=== PATIENT | female | born 1960 ===

== ENCOUNTER 2024-12-26 12:36 | Outpatient (NON) | payer MEDICARE, SELFPAY ==
--- OUTSIDE RECORDS SUMMARY | 2024-12-24 09:42 | XMS_ITS | Encounter Summary ---
Author Organization [facility] Healthcare Address [address] [place] [address] Care Team Providers Care Brick Layer Name Role Phone Samantha Lyons RN Unavailable [phone] Benjy Perez MD Unavailable [phone] Arley Rousseau MD Primary Care Provider [phone] Kai Callejas MD Unavailable [phone] [facility] RN Unavailable Unavaila ble Encounter Details Date Type Department Care Team (Latest Contact Info) Description 12/24/2024 9:42 AM CDT - 12/24/2024 11:59 PM CDT Hospital Encounter [address] [address] Immunosuppression; 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); Kidney replaced by transplant Discharge Disposition: Discharge to home or self care Social History Tobacco Use Types Packs/Day Years Used Date Smoking Tobacco: Former Passive Smoke Exposure: Past Smokeless Tobacco: Never Alcohol Use Standard Drinks/Week Comments Never 0 (1 standard drink = 0.6 oz pur e alcohol) OASIS D0700: Social Isolation Answer Da te Recorded Frequency of experiencing loneliness or isolatio n Sometimes 05/13/2022 OASIS A1250: Transportation Answer Date Recorded Lack of Transportation (Medical) No 05/13/2022 Lack of Transportation (Non-Medical) Yes 05/13/2022 Patient Unable or Declines to Respond No 05/13/2022 OASIS B1300: Health Literacy Answer Gustavo e Recorded Frequency of needing help to read materials from doctor or pharmacy Sometimes 05/13/2022 [facility] Utilities Answer Date Recorded In the past 12 months has th e electric, gas, oil, or water company threatened to shut off services in your home? No 12/03/2024 Social Connection and Isolation Panel Answer Date Recorded In a typical week, how many times do you talk on the phone with family, friends, or neighbors? Three times a week 12/03/2024 How often do you get togethe r with friends or relatives? Three times a week 12/03/2024 How often do you attend chur ch or catholic services? Never 12/03/2024 Do you belong to any clubs o r organizations such as moravian groups, unions, fraternal or athletic groups, or school groups? No 12/03/2024 How often do you attend meet ings of the clubs or organizations you belong to? Never 12/03/2024 Are you , , di vorced, , never , or living with a partner? 12/03/2024 AUDIT-C Answer Date Recorded Q1: How often do you have a drink containing alcohol? Never 11/06/2024 Q2: How many drinks containi ng alcohol do you have on a typical day when you are drinking? Patient does not drink Q3: How often do you have si x or more drinks on one occasion? Never 11/06/2024 Overall Financial Resource Strain (CARDIA) Answe r Date Recorded How hard is it for you to pa y for the very basics like food, housing, medical care, and heating? Not very hard 12/03/2024 Hunger Vital Sign Answer Date Recorded Within the past 12 months, y ou worried that your food would run out before you got the money to buy more. Never true 12/04/19 25 Within the past 12 months, t he food you bought just didn't last and you didn't have money to get more. Never true 12/03/2024 PRAPARE - Transportation Answer Date Re corded In the past 12 months, has l ack of transportation kept you from medical appointments or from getting medications? No 07/2024 In the past 12 months, has l ack of transportation kept you from meetings, work, or from getting things needed for daily living? No 12/03/2024 Housing Stability Vital Sign Answer Gustavo e Recorded In the last 12 months, was t here a time when you were not able to pay the mortgage or rent on time? No 12/03/2024 In the past 12 months, how m any times have you moved where you were living? 0 12/03/2024 At any time in the past 12 m [facility], were you homeless or living in a senior care (including now)? No 12/03/2024 Personal Safety Answer Date Recorded Have you ever been in or are you currently in a harmful physical or emotional relationship or is someone making you feel afraid or unsafe? Denies 12/11/2024 Comments No Sex and Gender Information Value Date Recorded Sex Assigned at Not on file Legal Sex Female 7:39 AM YARDAGE ESTIMATOR Gender Identity Female 05/15/2018 8:32 AM YARDAGE ESTIMATOR Sexual Orientation Not on file documented as of this encounter Medications at Time of Discharge acetaminophen (TYLENOL) 500 mg tabletIndications:P ain Take 2 tablets (1,000 mg total) by mouth every 6 (six) hours as needed for pain 03/20/2022 amLODIPine (NORVASC) 2.5 mg tabletIndications:h ypertension Take 2 tablets (5 mg total) by mouth daily 30 tablet 2 12/12/2024 03/12/20 25 buPROPion XL (WELLBUTRIN XL) 150 mg 24 hr tablet Take 1 tablet (150 mg total) by mouth daily 30 tablet 12/12/2024 12/13/19 26 cyanocobalamin (Vitamin B-12) 2,000 mcg tablet Take 1 tablet (2,000 mcg total) by mouth daily 30 tablet 05/24/2024 05/24/19 26 dicyclomine (BENTYL) 20 mg tablet Take 1 tablet (20 mg total) by mouth every 6 (six) hours as needed (abdominal pain) 15 tablet 08/11/2024 empagliflozin (JARDIANCE) 10 mg tablet Take 1 tablet (10 mg total) by mouth daily 30 tablet 12/17/2024 12/18/19 26 EPINEPHrine 0.3 mg/0.3 mL auto-injection syringe INJECT 0.3ML INTO THE MUSCLE INSTRUCTED NEEDED FOR ANAPHYLAXIS 2 each 10/28/2023 estrogens, conjugated, (PREMARIN) vaginal cream Insert 0.5 g into the vagina every other day famotidine (PEPCID) 20 mg tablet Take 1 tablet (20 mg total) by mouth 2 (two) times a day 01/31/2024 gabapentin (NEURONTIN) 300 mg capsule Take 1 capsule (300 mg total) by mouth daily as needed (pain) lidocaine (LIDODERM) 5 % Place 1 patch on the skin daily for 12 hours Remove & discard patch within 12 hours or as directed by MD. 20 patch 12/04/2024 01/04/20 25 loratadine (CLARITIN REDITABS) 10 mg disintegrating tablet Take 1 tablet (10 mg total) by mouth daily as needed LORazepam (ATIVAN) 1 mg tablet Take 1 tablet (1 mg total) by mouth every 4 (four) hours as needed for anxiety losartan (COZAAR) 25 mg tablet Take 1 tablet (25 mg total) by mouth daily 30 tablet 1 12/12/2024 02/11/20 25 mupirocin (BACTROBAN) 2 % ointment APPLY TO AFFECTED AREA DAILY 110 g 11 02/13/[address] (MYFORTIC) 360 mg EC tabletIndications:I mmunosuppression,FS GS (focal segmental glomerulosclerosis) TAKE ONE TABLET BY MOUTH TWICE A DAY 60 tablet 11 05/16/2024 omeprazole (PriLOSEC) 20 mg capsule Take 1 capsule (20 mg total) by mouth 2 (two) times a day 03/05/2024 ondansetron (ZOFRAN) 4 mg tablet Take 1 tablet (4 mg total) by mouth every 6 (six) hours as needed patiromer calcium sorbitex (VELTASSA) packetIndications:H yperkalemia,Stage 3 chronic kidney disease, unspecified whether stage 3a or 3b CKD (HCC) Take 1 packet (8.4 g total) by mouth 2 (two) times a day 60 packet 12/17/2024 predniSONE (DELTASONE) 5 mg tablet TAKE ONE TABLET BY MOUTH EVERY DAY 90 tablet 3 02/20/2024 silver sulfadiazine (SILVADENE, SSD) 1 % cream Apply topically daily 85 g 08/30/2024 simethicone (MYLICON) 80 mg chewable tablet Take 2 tablets (160 mg total) by mouth 3 (three) times a day as needed for flatulence 30 tablet 12/04/2024 sodium bicarbonate 650 mg tablet Take 2 tablets (1,300 mg total) by mouth 3 (three) times a day 180 tablet 01/12/2024 01/12/20 25 spironolactone (ALDACTONE) 25 mg tablet Take 1 tablet (25 mg total) by mouth daily 30 tablet 12/12/2024 12/13/19 26 tacrolimus 1 mg immediate-release capsule Take 3 capsules (3 mg total) by mouth freelance operator before breakfast AND 2 capsules (2 mg total) nightly. Take 3 capsules (3 mg total) by mouth daily before breakfast AND 2 capsule (2 mg total) nightly. 150 capsule 12/17/2024 12/18/19 26 vitamin A 2,400 mcg (8,000 units) capsule Take 1 capsule (8,000 Units total) by mouth daily documented as of this encounter Discharge Disposition Disposition Code Departure Means Destination Discharge to home or self care documented in this encounter Plan of Treatment Upcoming Encounters Date Type Department Care Team (Latest Contact Info) Description 01/01/2025 Research Med Pick-Up/CTRU Foam Molder [facility] Clinical Trial 1 [place] [address] Stu Guan RC Research study patient (Primary Dx) documented as of this encounter Procedures Procedure Name Priority Date/Time Associated Diagnosis Comments TACROLIMUS LEVEL, TROUGH Routine 12/24/2024 11:07 AM CDT Immunosuppression 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) Kidney replaced by transplant documented in this encounter Results * Tacrolimus level trough (12/24/2024 11:07 AM CDT) Tacrolimus trough 5.6 ng/mL Comment: Interpretive Data Testing performed by liquid chromatography-tandem mass spectrometry. Therapeutic concentrations vary depending on type of transplanted organ and time elapsed since transplant. Typical trough concentrations range from 5-15 ng/mL. This test was developed and its performance characteristics determined by the [facility] consistent with CLIA requirements. This test has not been cleared or approved by the [place] Food and Drug administration. Current interpretive data last reviewed 2019. Blood 12/24/2024 11:0 7 AM CDT 12/24/2024 11:19 AM CDT us Benjy Perez MD LAB BLOOD ORDERABLES Final Re sult [facility] Department [place] [address] documented in this encounter Visit Diagnoses Diagnosis Immunosuppression 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) Kidney replaced by transplant Research study patient- Primary documented in this encounter Care Teams Brick Layer Relationship Specialty Start Date End Date Arley Rousseau MD [address] [place] [address] PCP - General Sports Medicine 03/17/22 Samantha Lyons RN [address] [facility] [facility] [address] [place] [address] Green Ware Caster 09/27/17 Benjy Perez MD [address] [facility] [address] [place] [address] Referring Physician Nephrology 05/15/18 Kai Callejas MD [address] [facility] [address] [place] [address] Surgeon Vascular Surgery 11/06/24 [facility], sales assistant entertainment and mediaGreen Ware Caster 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
--- OUTSIDE RECORDS SUMMARY | 2024-12-26 12:47 | XMS_ITS | Encounter Summary ---
Author Organization [facility] Facility Care Team Providers Care Radiology Rn Name Role Phone Angelita Blanco MD Primary Care Provider [phone] Samantha Lyons RN Unavailable [phone] Nimisha Bradford RN Unavailable [phone] Benjy Perez MD Unavailable [phone] Benjy Perez MD Primary Care Provider [phone] Angelita Blanco MD Primary Care Provider [phone] Johnny Goldberg MD Primary Care Provider [phone] Angelita Blanco MD Primary Care Provider [phone] Rosey Reyes MD Primary Care Provider [phone] Benjy Perez MD Primary Care Provider [phone] Benjy Perez MD Primary Care Provider [phone] Rosey Reyes MD Primary Care Provider [phone] Vivienne Morataya MD Primary Care Provider [phone] Vivienne Morataya MD Primary Care Provider [phone] Benjy Perez MD Primary Care Provider [phone] Rosey Reyes MD Primary Care Provider [phone] Benjy Perez MD Primary Care Provider [phone] Arley Rousseau MD Primary Care Provider [phone] Benjy Perez MD Primary Care Provider [phone] Arley Rousseau MD Primary Care Provider + Benjy Perez MD Primary Care Provider [phone] Arley Rousseau MD Primary Care Provider + Yajaira Ritter RN Unavailable [phone] Kai Callejas MD Unavailable + [phone] [facility] RN Unavailable Unavaila ble Encounter Details Date Type Department Care Team (Latest Contact Info) Description 10/13/2016 Orders Only [facility] CLINCONV Provider, MD Eileen [address] [place] [address] Social History Tobacco Use Types Packs/Day Years Used Date Smoking Tobacco: Never Comments Unknown Sex and Gender Information Value Date Recorded Sex Assigned at Not on file Legal Sex Female 7:39 AM CONTENT CURATOR Gender Identity Female 05/15/2018 8:32 AM CONTENT CURATOR Sexual Orientation Not on file documented as of this encounter Plan of Treatment Upcoming Encounters Date Type Department Care Team (Latest Contact Info) Description 01/01/2025 Research Med Pick-Up/CTRU Historic Sites Registrar [facility] Clinical Trial 1 [place] [address] Stu Guan RC Research study patient (Primary Dx) documented as of this encounter Procedures Procedure Name Priority Date/Time Associated Diagnosis Comments SCAN - LABS 10/19/2016 12:00 AM CDT SCAN - LABS 10/14/2016 12:00 AM CDT SCAN - LABS 10/14/2016 12:00 AM CDT SCAN - LABS 10/14/2016 12:00 AM CDT documented in this encounter Results * SCAN - LABS (10/19/2016 12:00 AM CDT) Narrative 10/19/2016 12:00 AM CDT Ordered by an unspecified provider. [facility] Provider Final Res ult * SCAN - LABS (10/14/2016 12:00 AM CDT) Narrative 10/14/2016 12:00 AM CDT Ordered by an unspecified provider. [facility] Provider Final Res ult * SCAN - LABS (10/14/2016 12:00 AM CDT) Narrative 10/14/2016 12:00 AM CDT Ordered by an unspecified provider. [facility] Provider Final Res ult * SCAN - LABS (10/14/2016 12:00 AM CDT) Narrative 10/14/2016 12:00 AM CDT Ordered by an unspecified provider. [facility] Provider Final Res ult documented in this encounter Visit Diagnoses Not on filedocumented in this encounter Additional Health Concerns Infection Onset Date Last Indicated Resolved Time COVID: Suspected 03/12/2023 03/12/2023 03/12/2023 3:55 PM CONTENT CURATOR COVID: Suspected 05/21/2024 05/21/2024 05/21/2024 7:13 AM CONTENT CURATOR documented as of this encounter Care Teams Radiology Rn Relationship Specialty Start Date End Date Angelita Blanco MD [address] [facility] [address] [place] [address] PCP - General 08/18/16 05/25/18 Benjy Perez MD [address] [facility] [address] [place] [address] PCP - General 05/26/18 05/29/18 Angelita Blanco MD [address] [place] [address] PCP - General 05/30/18 09/11/18 Johnny Goldberg MD [address] [facility] [address] [place] [address] PCP - General 09/12/18 09/25/18 Angelita Blanco MD [address] [facility] [address] [place] [address] PCP - General 09/26/18 11/14/18 Rosey Reyes MD [address] [facility] [address] [place] [address] PCP - General 11/15/18 01/11/19 Benjy Perez MD [address] [facility] [address] [place] [address] PCP - General 02/08/19 02/08/19 Benjy Perez MD [address] [facility] [address] [place] [address] PCP - General 01/12/19 02/07/19 Rosey Reyes MD [address] [facility] [address] [place] [address] PCP - General 06/20/19 09/30/19 Vivienne Morataya MD [address] [facility] [address] [place] [address] PCP - General 10/01/19 10/11/19 Vivienne Morataya MD [address] [facility] [address] [place] [address] PCP - General 02/09/19 06/19/19 Benjy Perez MD [address] [place] [address] PCP - General 10/12/19 06/25/20 Rosey Reyes MD [address] [facility] [address] [place] [address] PCP - General 06/26/20 08/19/20 Benjy Perez MD [address] [place] [address] PCP - General 08/20/20 08/25/20 Arley Rousseau MD [address] [facility] [address] [place] [address] PCP - General Sports Medicine 08/26/20 08/28/20 Benjy Perez MD [address] [place] [address] PCP - General 08/29/20 04/27/21 Arley Rousseau MD [address] [facility] [address] [place] [address] PCP - General Sports Medicine 04/28/21 08/25/21 Benjy Perez MD [address] [facility] [address] [place] [address] PCP - General Nephrology 08/26/21 03/16/22 Arley Rousseau MD [address] [place] [address] PCP - General Sports Medicine 03/17/22 Samantha Lyons, RN [address] [place] [address] Laboratory Mechanical Technician 09/27/17 Nimisha rBadford, RN [address] [facility] [address] [place] [address] Laboratory Mechanical Technician 10/03/17 5 Benjy Perez MD [address] [facility] [address] [place] [address] Referring Physician Nephrology 05/15/18 Yajaira Ritter RN [address] [place] [address] Nurse Navigator 04/27/22 06/03/22 Kai Callejas MD [address] [facility] [address] [facility] [address] [place] [address] Surgeon Vascular Surgery 11/06/24 [facility], auger press operatorLaboratory Mechanical Technician 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
--- OUTSIDE RECORDS SUMMARY | 2024-12-26 12:47 | XMS_ITS | Encounter Summary ---
Author Organization [facility] Facility Care Team Providers Care Physical Security Manager Name Role Phone Angelita Blanco MD Primary Care Provider [phone] Samantha Lyons RN Unavailable [phone] Nimisha Bradford RN Unavailable [phone] Benjy Perez MD Unavailable [phone] Benjy Perez MD Primary Care Provider [phone] Angelita Blanco MD Primary Care Provider [phone] Johnny Goldberg MD Primary Care Provider [phone] Angelita Blanco MD Primary Care Provider [phone] Rosey Reyes MD Primary Care Provider [phone] Benjy Perez MD Primary Care Provider [phone] Benjy Perez MD Primary Care Provider [phone] Rosey Reyes MD Primary Care Provider [phone] Vivienne Morataya MD Primary Care Provider [phone] Vivienne Morataya MD Primary Care Provider [phone] Benjy Perez MD Primary Care Provider [phone] Rosey Reyes MD Primary Care Provider [phone] Benjy Perez MD Primary Care Provider [phone] Arley Rousseua MD Primary Care Provider [phone] Benjy Perez MD Primary Care Provider [phone] Arley Rousseau MD Primary Care Provider [phone] Benjy Perez MD Primary Care Provider [phone] Arley Rousseau MD Primary Care Provider + Yajaira Ritter RN Unavailable [phone] Kai Callejas MD Unavailable + [facility] RN Unavailable Unavaila ble Encounter Details Date Type Department Care Team (Latest Contact Info) Description 10/18/2016 Orders Only [facility] CLINCONV Provider, MD Eileen [address] [place] [address] Social History Tobacco Use Types Packs/Day Years Used Date Smoking Tobacco: Never Comments Unknown Sex and Gender Information Value Date Recorded Sex Assigned at Not on file Legal Sex Female 7:39 AM DIRECTOR OF EDUCATION Gender Identity Female 05/15/2018 8:32 AM DIRECTOR OF EDUCATION Sexual Orientation Not on file documented as of this encounter Plan of Treatment Upcoming Encounters Date Type Department Care Team (Latest Contact Info) Description 01/01/2025 Research Med Pick-Up/CTRU Logistics Solution Manager [facility] Clinical Trial 1 [place] [address] Stu Guan RC Research study patient (Primary Dx) documented as of this encounter Procedures Procedure Name Priority Date/Time Associated Diagnosis Comments SCAN - LABS 10/19/2016 12:00 AM CDT SCAN - LABS 10/18/2016 12:00 AM CDT documented in this encounter Results * SCAN - LABS (10/19/2016 12:00 AM CDT) Narrative 10/19/2016 12:00 AM CDT Ordered by an unspecified provider. us Historical Provider Final Res ult * SCAN - LABS (10/18/2016 12:00 AM CDT) Narrative 10/18/2016 12:00 AM CDT Ordered by an unspecified provider. Historical Provider Final Res ult documented in this encounter Visit Diagnoses Not on filedocumented in this encounter Additional Health Concerns Infection Onset Date Last Indicated Resolved Time COVID: Suspected 03/12/2023 03/12/2023 03/12/2023 3:55 PM DIRECTOR OF EDUCATION COVID: Suspected 05/21/2024 05/21/2024 05/21/2024 7:13 AM DIRECTOR OF EDUCATION documented as of this encounter Care Teams Physical Security Manager Relationship Specialty Start Date End Date Angelita Blanco MD [address] [address] PCP - General 08/18/16 05/25/18 Benjy Perez MD [address] [address] PCP - General 05/26/18 05/29/18 Angelita Blanco MD [address] [address] PCP - General 05/30/18 09/11/18 Johnny Goldberg MD [address] [address] PCP - General 09/12/18 09/25/18 Angelita Blanco MD [address] [address] PCP - General 09/26/18 11/14/18 Rosey Reyes MD [address] [address] PCP - General 11/15/18 01/11/19 Benjy Perez MD [address] [facility] [address] [place] [address] PCP - General 02/08/19 02/08/19 Benjy Perez MD [address] [address] PCP - General 01/12/19 02/07/19 Rosey Reyes MD [address] [place] [address] [address] [place] [address] PCP - General 06/20/19 09/30/19 Vivienne Morataya MD [address] [address] PCP - General 10/01/19 10/11/19 Vivienne Morataya MD [address] [address] PCP - General 02/09/19 06/19/19 Benjy Perez MD [address] [address] PCP - General 10/12/19 06/25/20 Rosey Reyes MD [address] [address] PCP - General 06/26/20 08/19/20 Benjy Perez MD [address] [place] [address] PCP - General 08/20/20 08/25/20 Arley Rousseau MD [address] [facility] [address] [place] [address] PCP - General Sports Medicine 08/26/20 08/28/20 Benjy Perez MD [address] [facility] [address] [place] [address] PCP - General 08/29/20 04/27/21 Arley Rousseau MD [address] [facility] [address] [place] [address] PCP - General Sports Medicine 04/28/21 08/25/21 Benjy Perez MD [address] [facility] [address] [place] [address] PCP - General Nephrology 08/26/21 03/16/22 Arley Rousseau MD [address] [place] [address] PCP - General Sports Medicine 03/17/22 Samantha Lyons RN [address] [facility] [address] [place] [address] Sustainable Development Policy Analyst 09/27/17 Nimisha Bradford RN [address] [facility] [address] [place] [address] Sustainable Development Policy Analyst 10/03/17 5 Benjy Perez MD [address] [facility] [address] [place] [address] Referring Physician Nephrology 05/15/18 Yajaira Ritter, RN [address] [place] [address] Nurse Navigator 04/27/22 06/03/22 Kai Callejas MD [address] [facility] [address] [place] [address] Surgeon Vascular Surgery 11/06/24 [facility], contract runnerSustainable Development Policy Analyst 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
--- OUTSIDE RECORDS SUMMARY | 2024-12-26 12:47 | XMS_ITS | Encounter Summary ---
Author Organization [facility] Facility Care Team Providers Care Supervisor Audit Clerks Name Role Phone Angelita Blanco MD Primary Care Provider [phone] Samantha Lyons RN Unavailable +[phone] Nimisha Bradford RN Unavailable +[phone] Benjy Perez MD Unavailable +[phone] Benjy Perez MD Primary Care Provider +[phone] Angelita Blanco MD Primary Care Provider +[phone] Johnny Goldberg MD Primary Care Provider [phone] Angelita Blanco MD Primary Care Provider +[phone] Rosey Reyes MD Primary Care Provider +[phone] Benjy Perez MD Primary Care Provider +[phone] Benjy Perez MD Primary Care Provider +[phone] Rosey Reyes MD Primary Care Provider +[phone] Vivienne Morataya MD Primary Care Provider [phone] Vivienne Morataya MD Primary Care Provider +[phone] Benjy Perez MD Primary Care Provider +[phone] Rosey Reyes MD Primary Care Provider +[phone] Benjy Perez MD Primary Care Provider +[phone] Arley Rousseau MD Primary Care Provider +[phone] Benjy Perez MD Primary Care Provider +[phone] Arley Rousseau MD Primary Care Provider +[phone] Benjy Perez MD Primary Care Provider +[phone] Arley Rousseau MD Primary Care Provider + Yajaira Ritter RN Unavailable +[phone] Kai Callejas MD Unavailable + [facility] RN Unavailable Unavaila ble Encounter Details Date Type Department Care Team (Latest Contact Info) Description 07/01/2016 Orders Only MMG CLINCONV Provider, MD Eileen [address] [place] [address] Social History Tobacco Use Types Packs/Day Years Used Date Smoking Tobacco: Never Comments Unknown Sex and Gender Information Value Date Recorded Sex Assigned at Not on file Legal Sex Female 7:39 AM STAVE BOLT EQUALIZER Gender Identity Female 05/15/2018 8:32 AM STAVE BOLT EQUALIZER Sexual Orientation Not on file documented as of this encounter Plan of Treatment Upcoming Encounters Date Type Department Care Team (Latest Contact Info) Description 01/01/2025 Research Med Pick-Up/CTRU Driveway Attendant [facility] Clinical Trial 1 [place] [address] Stu Guan RC Research study patient (Primary Dx) documented as of this encounter Procedures Procedure Name Priority Date/Time Associated Diagnosis Comments SCAN - LABS 07/02/2016 12:00 AM STAVE BOLT EQUALIZER documented in this encounter Results * SCAN - LABS (07/02/2016 12:00 AM STAVE BOLT EQUALIZER) Narrative 07/02/2016 12:00 AM STAVE BOLT EQUALIZER Ordered by an unspecified provider. Historical Provider Final Res ult documented in this encounter Visit Diagnoses Not on filedocumented in this encounter Additional Health Concerns Infection Onset Date Last Indicated Resolved Time COVID: Suspected 03/12/2023 03/12/2023 03/12/2023 3:55 PM STAVE BOLT EQUALIZER COVID: Suspected 05/21/2024 05/21/2024 05/21/2024 7:13 AM STAVE BOLT EQUALIZER documented as of this encounter Care Teams Supervisor Audit Clerks Relationship Specialty Start Date End Date Angelita Blanco MD [address] [facility] 103 [place] [address] PCP - General 08/18/16 05/25/18 Benjy Perez MD [address] [place] [address] PCP - General 05/26/18 05/29/18 Angelita Blanco MD [address] [facility] 103 [place] [address] PCP - General 05/30/18 09/11/18 Johnny Goldberg MD [address] [id number] PCP - General 09/12/18 09/25/18 Angelita Blanco MD [address] [facility] 103 [place] [address] PCP - General 09/26/18 11/14/18 Rosey Reyes MD [address] [address] PCP - General 11/15/18 01/11/19 Benjy Perez MD [address] [place] [address] PCP - General 02/08/19 02/08/19 Benjy Perez MD [address] [place] [address] PCP - General 01/12/19 02/07/19 Rosey Reyes MD [address] [facility] 200 [place] [address] PCP - General 06/20/19 09/30/19 Vivienne Morataya MD [address] [address] PCP - General 10/01/19 10/11/19 Vivienne Morataya MD [address] [address] PCP - General 02/09/19 06/19/19 Benjy Perez MD [address] [facility] [address] [place] [address] PCP - General 10/12/19 06/25/20 Rosey Reyes MD [address] [address] PCP - General 06/26/20 08/19/20 Benjy Perez MD [address] [facility] [address] [place] [address] PCP - General 08/20/20 08/25/20 Arley Rousseau MD [address] [facility] 200 [place] [address] PCP - General Sports Medicine 08/26/20 08/28/20 Benjy Perez MD [address] [address] PCP - General 08/29/20 04/27/21 Arley Rousseau MD [address] [address] PCP - General Sports Medicine 04/28/21 08/25/21 Benjy Perez MD [address] [address] PCP - General Nephrology 08/26/21 03/16/22 Arley Rousseau MD [address] [place] [address] PCP - General Sports Medicine 03/17/22 Samantha Lyons RN [address] [address] Retail Tire Sales Manager 09/27/17 Nimisha Bradford RN [address] [address] Retail Tire Sales Manager 10/03/17 5 Benjy Perez MD [address] [address] Referring Physician Nephrology 05/15/18 Yajaira Ritter RN 4590 [place] [address] Nurse Navigator 04/27/22 06/03/22 Kai Callejas MD [address] [facility] [address] [facility] [address]120 [place] [address] Surgeon Vascular Surgery 11/06/24 [facility], labor law professorRetail Tire Sales Manager 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
--- OUTSIDE RECORDS SUMMARY | 2024-12-26 12:47 | XMS_ITS | Encounter Summary ---
Author Organization [facility] Facility Care Team Providers Care Double Spindle Shaper Operator Name Role Phone Angelita Blanco MD Primary Care Provider [phone] Samantha Lyons RN Unavailable +[phone] Nimisha Bradford RN Unavailable +[phone] Benjy Perez MD Unavailable +[phone] Benjy Perez MD Primary Care Provider +[phone] Angelita Blanco MD Primary Care Provider +[phone] Johnny Goldberg MD Primary Care Provider [phone] Angelita Blanco MD Primary Care Provider +[phone] Rosey Reyes MD Primary Care Provider +[phone] Benjy Perez MD Primary Care Provider +[phone] Benjy Perez MD Primary Care Provider +[phone] Rosey Reyes MD Primary Care Provider [phone] Vivienne Morataya MD Primary Care Provider [phone] Vivienne Morataya MD Primary Care Provider [phone] Benjy Perez MD Primary Care Provider +[phone] Rosey Reyes MD Primary Care Provider +[phone] Benjy Perez MD Primary Care Provider +[phone] Arley Rousseau MD Primary Care Provider + Benjy Perez MD Primary Care Provider +[phone] Arley Rousseau MD Primary Care Provider + Benjy Perez MD Primary Care Provider +[phone] Arley Rousseau MD Primary Care Provider + Yajaira Ritter RN Unavailable +[phone] Kai Callejas MD Unavailable + [facility] RN Unavailable Unavaila ble Encounter Details Date Type Department Care Team (Latest Contact Info) Description 09/13/2016 Orders Only MMG CLINCONV Provider, MD Eileen [address] [place] [address] Social History Tobacco Use Types Packs/Day Years Used Date Smoking Tobacco: Never Comments Unknown Sex and Gender Information Value Date Recorded Sex Assigned at Not on file Legal Sex Female 7:39 AM AMF MECHANIC Gender Identity Female 05/15/2018 8:32 AM AMF MECHANIC Sexual Orientation Not on file documented as of this encounter Plan of Treatment Upcoming Encounters Date Type Department Care Team (Latest Contact Info) Description 01/01/2025 Research Med Pick-Up/CTRU Project Assistant [facility] Clinical Trial 1 [place] [address] Stu Guan RC Research study patient (Primary Dx) documented as of this encounter Procedures Procedure Name Priority Date/Time Associated Diagnosis Comments SCAN - LABS 09/20/2016 12:00 AM CDT SCAN - LABS 09/14/2016 12:00 AM CDT SCAN - LABS 09/14/2016 12:00 AM CDT SCAN - LABS 09/14/2016 12:00 AM CDT documented in this encounter Results * SCAN - LABS (09/20/2016 12:00 AM CDT) Narrative 09/20/2016 12:00 AM CDT Ordered by an unspecified provider. Historical Provider Final Res ult * SCAN - LABS (09/14/2016 12:00 AM CDT) Narrative 09/14/2016 12:00 AM CDT Ordered by an unspecified provider. [facility] Provider Final Res ult * SCAN - LABS (09/14/2016 12:00 AM CDT) Narrative 09/14/2016 12:00 AM CDT Ordered by an unspecified provider. [facility] Provider Final Res ult * SCAN - LABS (09/14/2016 12:00 AM CDT) Narrative 09/14/2016 12:00 AM CDT Ordered by an unspecified provider. [facility] Provider Final Res ult documented in this encounter Visit Diagnoses Not on filedocumented in this encounter Additional Health Concerns Infection Onset Date Last Indicated Resolved Time COVID: Suspected 03/12/2023 03/12/2023 03/12/2023 3:55 PM AMF MECHANIC COVID: Suspected 05/21/2024 05/21/2024 05/21/2024 7:13 AM AMF MECHANIC documented as of this encounter Care Teams Double Spindle Shaper Operator Relationship Specialty Start Date End Date Angelita Blanco MD [address] [facility] 103 [place] [address] PCP - General 08/18/16 05/25/18 Benjy Perez MD [address] [facility] 3401 [place] [address] PCP - General 05/26/18 05/29/18 Angelita Blanco MD [address] [place] [address] PCP - General 05/30/18 09/11/18 Johnny Goldberg MD [address] [facility] 200 [place] [address] PCP - General 09/12/18 09/25/18 Angelita Blanco MD [address] [facility] 103 [place] [address] PCP - General 09/26/18 11/14/18 Rosey Reyes MD [address] [facility] 200 [place] [address] PCP - General 11/15/18 01/11/19 Benjy Perez MD [address] [facility] 3401 [place] [address] PCP - General 02/08/19 02/08/19 Benjy Perez MD [address] [facility] 3401 [place] [address] PCP - General 01/12/19 02/07/19 Rosey Reyes MD [address] [facility] 200 [place] [address] PCP - General 06/20/19 09/30/19 Vivienne Morataya MD [address] [facility] [address] [place] [address] PCP - General 10/01/19 10/11/19 Vivienne Morataya MD [address] [facility] [address] [place] [address] PCP - General 02/09/19 06/19/19 Benjy Perez MD [address] [place] [address] PCP - General 10/12/19 06/25/20 Rosey Reyes MD [address] [facility] [address] [place] [address] PCP - General 06/26/20 08/19/20 Benjy Perez MD [address] [place] [address] PCP - General 08/20/20 08/25/20 Arley Rousseau MD [address] [facility] 200 [place] [address] PCP - General Sports Medicine 08/26/20 08/28/20 Benjy Perez MD [address] [place] [address] PCP - General 08/29/20 04/27/21 Arley Rousseau MD [address] [facility] 200 [place] [address] PCP - General Sports Medicine 04/28/21 08/25/21 Benjy Perez MD [address] [facility] [address] [place] [address] PCP - General Nephrology 08/26/21 03/16/22 Arley Rousseau MD [address]70 [place] [address] PCP - General Sports Medicine 03/17/22 Samantha Lyons, RN [address] [place] [address] Cleat Feeder 09/27/17 Nimisha Bradford, RN [address] [facility] [address]01 [place] [address] Cleat Feeder 10/03/17 5 Benjy Perez MD [address] [facility] [address] [place] [address] Referring Physician Nephrology 05/15/18 Yajaira Ritter RN 4590 [place] [address] Nurse Navigator 04/27/22 06/03/22 Kai Callejas MD [address] [facility] [address] [facility] [address] [place] [address] Surgeon Vascular Surgery 11/06/24 [facility], civil engineering specialistCleat Feeder 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
--- OUTSIDE RECORDS SUMMARY | 2024-12-26 12:47 | XMS_ITS | Encounter Summary ---
Author Organization [facility] Facility Care Team Providers Care Communications Tower Climber Name Role Phone Angelita Blanco MD Primary Care Provider [phone] Samantha Lyons RN Unavailable [phone] Nimisha Bradford RN Unavailable +[phone] Benjy Perez MD Unavailable +[phone] Benjy Perez MD Primary Care Provider [phone] Angelita Blanco MD Primary Care Provider +[phone] Johnny Goldberg MD Primary Care Provider [phone] Angelita Blanco MD Primary Care Provider +[phone] Rosey Reyes MD Primary Care Provider +[phone] Benjy Perez MD Primary Care Provider [phone] Benjy Perez MD Primary Care Provider [phone] Rosey Reyes MD Primary Care Provider [phone] Vivienne Morataya MD Primary Care Provider [phone] Vivienne Morataya MD Primary Care Provider [phone] Benjy Perez MD Primary Care Provider +[phone] Rosey Reyes MD Primary Care Provider +[phone] Benjy Perez MD Primary Care Provider [phone] Arley Rousseau MD Primary Care Provider +[phone] Benjy Perez MD Primary Care Provider [phone] Arley Rousseau MD Primary Care Provider + Benjy Perez MD Primary Care Provider +[phone] Arley Rousseau MD Primary Care Provider + Yajaira Ritter RN Unavailable +[phone] Kai Callejas MD Unavailable + [facility] RN Unavailable Unavaila ble Encounter Details Date Type Department Care Team (Latest Contact Info) Description 09/20/2016 Orders Only MMG CLINCONV Provider, MD Eileen [address] [place] [address] Social History Tobacco Use Types Packs/Day Years Used Date Smoking Tobacco: Never Comments Unknown Sex and Gender Information Value Date Recorded Sex Assigned at Not on file Legal Sex Female 7:39 AM STEEL ENGRAVER Gender Identity Female 05/15/2018 8:32 AM STEEL ENGRAVER Sexual Orientation Not on file documented as of this encounter Plan of Treatment Upcoming Encounters Date Type Department Care Team (Latest Contact Info) Description 01/01/2025 Research Med Pick-Up/CTRU Open Soaper Tender [facility] Clinical Trial 1 [place] [address] Stu Guan RC Research study patient (Primary Dx) documented as of this encounter Procedures Procedure Name Priority Date/Time Associated Diagnosis Comments SCAN - LABS 09/21/2016 12:00 AM CDT documented in this encounter Results * SCAN - LABS (09/21/2016 12:00 AM CDT) Narrative 09/21/2016 12:00 AM CDT Ordered by an unspecified provider. us Historical Provider Final Res ult documented in this encounter Visit Diagnoses Not on filedocumented in this encounter Additional Health Concerns Infection Onset Date Last Indicated Resolved Time COVID: Suspected 03/12/2023 03/12/2023 03/12/2023 3:55 PM STEEL ENGRAVER COVID: Suspected 05/21/2024 05/21/2024 05/21/2024 7:13 AM STEEL ENGRAVER documented as of this encounter Care Teams Communications Tower Climber Relationship Specialty Start Date End Date Angelita Blanco MD [address] [facility] 103 [place] [address] PCP - General 08/18/16 05/25/18 Benjy Perez MD [address] [place] [address] PCP - General 05/26/18 05/29/18 Angelita Blanco MD [address] [facility] [address] [place] [address] PCP - General 05/30/18 09/11/18 Johnny Goldberg MD [address] [id number] PCP - General 09/12/18 09/25/18 Angelita Blanco MD [address] [facility] 103 [place] [address] PCP - General 09/26/18 11/14/18 Rosey Reyes MD [address] [facility] 200 [place] [address] PCP - General 11/15/18 01/11/19 Benjy Perez MD [address] [place] [address] PCP - General 02/08/19 02/08/19 Benjy Perez MD [address] [facility] [address]01 [place] [address] PCP - General 01/12/19 02/07/19 Rosey Reyes MD [address] [facility] 200 [place] [address] PCP - General 06/20/19 09/30/19 Vivienne Morataya MD [address] [address] PCP - General 10/01/19 10/11/19 Vivienne Morataya MD [address] [address] PCP - General 02/09/19 06/19/19 Benjy Perez MD [address] [facility] [address]01 [place] [address] PCP - General 10/12/19 06/25/20 Rosey Reyes MD [address] [address] PCP - General 06/26/20 08/19/20 Benjy Perez MD [address] [facility] [address] [place] [address] PCP - General 08/20/20 08/25/20 Arley Rousseau MD [address] [facility] 200 [place] [address] PCP - General Sports Medicine 08/26/20 08/28/20 Benjy Perez MD [address] [address] PCP - General 08/29/20 04/27/21 Arley Rousseau MD [address] [address] PCP - General Sports Medicine 04/28/21 08/25/21 Benjy Perez MD [address] [address] PCP - General Nephrology 08/26/21 03/16/22 Arley Rousseau MD [address] [place] [address] PCP - General Sports Medicine 03/17/22 Samantha Lyons RN [address] [address] Argon Tester 09/27/17 Nimisha Bradford RN [address] [address] Argon Tester 10/03/17 5 Benjy Perez MD [address] [address] Referring Physician Nephrology 05/15/18 Yajaira Ritter, RN [address]90 [place] [address] Nurse Navigator 04/27/22 06/03/22 Kai Callejas MD 4600 [facility] [address]120 [facility] [address] [place] [address] Surgeon Vascular Surgery 11/06/24 [facility], pony ride operatorArgon Tester 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
--- OUTSIDE RECORDS SUMMARY | 2024-12-26 12:47 | XMS_ITS | Encounter Summary ---
Author Organization [facility] Facility Care Team Providers Care Mold Polisher Name Role Phone Angelita Blanco MD Primary Care Provider [phone] Samantha Lyons RN Unavailable [phone] Nimisha Bradford RN Unavailable +[phone] Benjy Perez MD Unavailable +[phone] Benjy Perez MD Primary Care Provider [phone] Angelita Blanco MD Primary Care Provider +[phone] Johnny Goldberg MD Primary Care Provider [phone] Angelita Blanco MD Primary Care Provider +[phone] Rosey Reyes MD Primary Care Provider +[phone] Benjy Perez MD Primary Care Provider +[phone] Benjy Perez MD Primary Care Provider +[phone] Rosey Reyes MD Primary Care Provider +[phone] Vivienne Morataya MD Primary Care Provider [phone] Vivienne Morataya MD Primary Care Provider [phone] Benjy Perez MD Primary Care Provider +[phone] Rosey Reyes MD Primary Care Provider +[phone] Benjy Perez MD Primary Care Provider +[phone] Arley Rousseau MD Primary Care Provider +00 Benjy Perez MD Primary Care Provider [phone] Arley Rousseau MD Primary Care Provider +[phone] Benjy Perez MD Primary Care Provider +[phone] Arley Rousseau MD Primary Care Provider + Yajaira Ritter RN Unavailable +[phone] Kai Callejas MD Unavailable + [phone] [facility] RN Unavailable Unavaila ble Encounter Details Date Type Department Care Team (Latest Contact Info) Description 10/14/2016 Orders Only MMG CLINCONV Provider, MD Eileen [address] [place] [address] Social History Tobacco Use Types Packs/Day Years Used Date Smoking Tobacco: Never Comments Unknown Sex and Gender Information Value Date Recorded Sex Assigned at Not on file Legal Sex Female 7:39 AM UNDERWEAR TRIMMER Gender Identity Female 05/15/2018 8:32 AM UNDERWEAR TRIMMER Sexual Orientation Not on file documented as of this encounter Plan of Treatment Upcoming Encounters Date Type Department Care Team (Latest Contact Info) Description 01/01/2025 Research Med Pick-Up/CTRU Foundry Metallurgist [facility] Clinical Trial 1 [place] [address] Stu Guan RC Research study patient (Primary Dx) documented as of this encounter Procedures Procedure Name Priority Date/Time Associated Diagnosis Comments SCAN - LABS 10/14/2016 12:00 AM CDT documented in this encounter Results * SCAN - LABS (10/14/2016 12:00 AM CDT) Narrative 10/14/2016 12:00 AM CDT Ordered by an unspecified provider. us Historical Provider Final Res ult documented in this encounter Visit Diagnoses Not on filedocumented in this encounter Additional Health Concerns Infection Onset Date Last Indicated Resolved Time COVID: Suspected 03/12/2023 03/12/2023 03/12/2023 3:55 PM UNDERWEAR TRIMMER COVID: Suspected 05/21/2024 05/21/2024 05/21/2024 7:13 AM UNDERWEAR TRIMMER documented as of this encounter Care Teams Mold Polisher Relationship Specialty Start Date End Date Angelita Blanco MD [address] [facility] 103 [place] [address] PCP - General 08/18/16 05/25/18 Benjy Perez MD [address] [place] [address] PCP - General 05/26/18 05/29/18 Angelita Blanco MD [address] [facility] 103 [place] [address] PCP - General 05/30/18 09/11/18 Johnny Goldberg MD [address] [id number] PCP - General 09/12/18 09/25/18 Angelita Blanco MD [address] [facility] 103 [place] [address] PCP - General 09/26/18 11/14/18 Rosey Reyes MD [address] [facility] 200 [place] [address] PCP - General 11/15/18 01/11/19 Benjy Perez MD [address] [place] [address] PCP - General 02/08/19 02/08/19 Benjy Perez MD [address] [facility] 3401 [place] [address] PCP - General 01/12/19 02/07/19 Rosey Reyes MD [address] [facility] 200 [place] [address] PCP - General 06/20/19 09/30/19 Vivienne Morataya MD [address] [address] PCP - General 10/01/19 10/11/19 Vivienne Morataya MD [address] [address] PCP - General 02/09/19 06/19/19 Benjy Perez MD [address] [facility] [address]01 [place] [address] PCP - General 10/12/19 06/25/20 Rosey Reyes MD [address] [address] PCP - General 06/26/20 08/19/20 Benjy Perez MD [address] [facility] [address] [place] [address] PCP - General 08/20/20 08/25/20 Arley Rousseau MD [address] [facility] 200 [place] [address] PCP - General Sports Medicine 08/26/20 08/28/20 Benjy Perez MD [address] [address] PCP - General 08/29/20 04/27/21 Arley Rousseau MD [address] [address] PCP - General Sports Medicine 04/28/21 08/25/21 Benjy Perez MD [address] [address] PCP - General Nephrology 08/26/21 03/16/22 Arley Rousseau MD [address] [place] [address] PCP - General Sports Medicine 03/17/22 Samantha Lyons RN [address] [address] Residential Real Estate Sales Manager 09/27/17 Nimisha Bradford RN [address] [address] Residential Real Estate Sales Manager 10/03/17 5 Benjy Perez MD [address] [address] Referring Physician Nephrology 05/15/18 Yajaira Ritter, RN [address] [place] [address] Nurse Navigator 04/27/22 06/03/22 Kai Callejas MD 4600 [facility] [address] [facility] [address] [place] [address] Surgeon Vascular Surgery 11/06/24 [facility], toy makerResidential Real Estate Sales Manager 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
--- OUTSIDE RECORDS SUMMARY | 2024-12-26 12:47 | XMS_ITS | Encounter Summary ---
Author Organization [facility] Facility Care Team Providers Care Cath Lab Tech Name Role Phone Angelita Blanco MD Primary Care Provider [phone] Samantha Lyons RN Unavailable +[phone] Nimisha Bradford RN Unavailable +[phone] Benjy Perez MD Unavailable +[phone] Benjy Perez MD Primary Care Provider +[phone] Angelita Blanco MD Primary Care Provider +[phone] Johnny Goldberg MD Primary Care Provider +[phone] Angelita Blanco MD Primary Care Provider +[phone] Rosey Reyes MD Primary Care Provider +[phone] Benjy Perez MD Primary Care Provider +[phone] Benjy Perez MD Primary Care Provider +[phone] Rosey Reyes MD Primary Care Provider +[phone] Vivienne Morataya MD Primary Care Provider [phone] Vivienne Morataya MD Primary Care Provider [phone] Benjy Perez MD Primary Care Provider +[phone] Rosey Reyes MD Primary Care Provider +[phone] Benjy Perez MD Primary Care Provider [phone] Arley Rousseau MD Primary Care Provider +[phone] Benjy Perez MD Primary Care Provider +[phone] Arley Rousseau MD Primary Care Provider +[phone] Benjy Perez MD Primary Care Provider +[phone] Arley Rousseau MD Primary Care Provider + Yajaira iRtter RN Unavailable [phone] Kai Callejas MD Unavailable + [facility] RN Unavailable Unavaila ble Encounter Details Date Type Department Care Team (Latest Contact Info) Description 08/10/2016 Orders Only [facility] CLINCONV Provider, MD Eileen [address] [place] [address] Social History Tobacco Use Types Packs/Day Years Used Date Smoking Tobacco: Never Comments Unknown Sex and Gender Information Value Date Recorded Sex Assigned at Not on file Legal Sex Female 7:39 AM MANAGER GENERATION Gender Identity Female 05/15/2018 8:32 AM MANAGER GENERATION Sexual Orientation Not on file documented as of this encounter Plan of Treatment Upcoming Encounters Date Type Department Care Team (Latest Contact Info) Description 01/01/2025 Research Med Pick-Up/CTRU Audience Development Manager [facility] Clinical Trial 1 [place] [address] Stu Guan RC Research study patient (Primary Dx) documented as of this encounter Procedures Procedure Name Priority Date/Time Associated Diagnosis Comments SCAN - LABS 08/10/2016 12:00 AM CDT documented in this encounter Results * SCAN - LABS (08/10/2016 12:00 AM CDT) Narrative 08/10/2016 12:00 AM CDT Ordered by an unspecified provider. us Historical Provider Final Res ult documented in this encounter Visit Diagnoses Not on filedocumented in this encounter Additional Health Concerns Infection Onset Date Last Indicated Resolved Time COVID: Suspected 03/12/2023 03/12/2023 03/12/2023 3:55 PM MANAGER GENERATION COVID: Suspected 05/21/2024 05/21/2024 05/21/2024 7:13 AM MANAGER GENERATION documented as of this encounter Care Teams Cath Lab Tech Relationship Specialty Start Date End Date Angelita Blanco MD [address] [facility] [address] [place] [address] PCP - General 08/18/16 05/25/18 Benjy Perez MD [address] [place] [address] PCP - General 05/26/18 05/29/18 Angelita Blanco MD [address] [facility] [address] [place] [address] PCP - General 05/30/18 09/11/18 Johnny Goldberg MD [address] [id number] PCP - General 09/12/18 09/25/18 Angelita Blanco MD [address] [facility] 103 [place] [address] PCP - General 09/26/18 11/14/18 Rosey Reyes MD [address] [facility] 200 [place] [address] PCP - General 11/15/18 01/11/19 Benjy Perez MD [address] [place] [address] PCP - General 02/08/19 02/08/19 Benjy Perez MD [address] [facility] [address] [place] [address] PCP - General 01/12/19 02/07/19 Rosey Reyes MD [address] [facility] [address] [place] [address] PCP - General 06/20/19 09/30/19 Vivienne Morataya MD [address] [address] PCP - General 10/01/19 10/11/19 Vivienne Morataya MD [address] [address] PCP - General 02/09/19 06/19/19 Benjy Perez MD [address] [facility] [address] [place] [address] PCP - General 10/12/19 06/25/20 Rosey Reyes MD [address] [address] PCP - General 06/26/20 08/19/20 Benjy Perez MD [address] [facility] [address] [place] [address] PCP - General 08/20/20 08/25/20 Arley Rousseau MD [address] [facility] 200 [place] [address] PCP - General Sports Medicine 08/26/20 08/28/20 Benjy Perez MD [address] [address] PCP - General 08/29/20 04/27/21 Arley Rousseau MD [address] [address] PCP - General Sports Medicine 04/28/21 08/25/21 Benjy Perez MD [address] [address] PCP - General Nephrology 08/26/21 03/16/22 Arley Rousseau MD [address] [place] [address] PCP - General Sports Medicine 03/17/22 Samantha Lyons RN [address] [address] Air Hammer Operator 09/27/17 Nimisha Bradford RN [address] [address] Air Hammer Operator 10/03/17 5 Benjy Perez MD [address] [address] Referring Physician Nephrology 05/15/18 Yajaira Ritter, RN [address]90 [place] [address] Nurse Navigator 04/27/22 06/03/22 Kai Callejas MD [address] [facility] [address] [facility] [address] [place] [address] Surgeon Vascular Surgery 11/06/24 [facility], compliance engineerAir Hammer Operator 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
--- OUTSIDE RECORDS SUMMARY | 2024-12-26 12:47 | XMS_ITS | Encounter Summary ---
Author Organization [facility] Facility Care Team Providers Care Holistic Nutritionist Name Role Phone Angelita Blanco MD Primary Care Provider [phone] Samantha Lyons RN Unavailable +[phone] Nimisha Bradford RN Unavailable +[phone] Benjy Perez MD Unavailable +[phone] Benjy Perez MD Primary Care Provider +[phone] Angelita Blanco MD Primary Care Provider +[phone] Johnny Goldberg MD Primary Care Provider [phone] Angelita Blanco MD Primary Care Provider +[phone] Rosey Reyes MD Primary Care Provider +[phone] Benjy Perez MD Primary Care Provider +[phone] Benjy Perez MD Primary Care Provider +[phone] Rosey Reyes MD Primary Care Provider +[phone] Vivienne Morataya MD Primary Care Provider [phone] Vivienne Morataya MD Primary Care Provider [phone] Benjy Perez MD Primary Care Provider +[phone] Rosey Reyes MD Primary Care Provider +[phone] Benjy Perez MD Primary Care Provider +[phone] Arley Rousseau MD Primary Care Provider +[phone] Benjy Perez MD Primary Care Provider +[phone] Arley Rousseau MD Primary Care Provider +[phone] Benjy Perez MD Primary Care Provider +[phone] Arley Rousseau MD Primary Care Provider + Yajaira Ritter RN Unavailable [phone] Kai Callejas MD Unavailable + [facility] RN Unavailable Unavaila ble Encounter Details Date Type Department Care Team (Latest Contact Info) Description 05/27/2016 Orders Only [facility]G CLINCONV Provider, MD Eileen [address] [place] [address] Social History Tobacco Use Types Packs/Day Years Used Date Smoking Tobacco: Never Comments Unknown Sex and Gender Information Value Date Recorded Sex Assigned at Not on file Legal Sex Female 7:39 AM COMPUTER TYPESETTER KEYLINER Gender Identity Female 05/15/2018 8:32 AM COMPUTER TYPESETTER KEYLINER Sexual Orientation Not on file documented as of this encounter Plan of Treatment Upcoming Encounters Date Type Department Care Team (Latest Contact Info) Description 01/01/2025 Research Med Pick-Up/CTRU Seat Builder [facility] Clinical Trial 1 [place] [address] Stu Guan RC Research study patient (Primary Dx) documented as of this encounter Procedures Procedure Name Priority Date/Time Associated Diagnosis Comments SCAN - LABS 05/27/2016 12:00 AM COMPUTER TYPESETTER KEYLINER documented in this encounter Results * SCAN - LABS (05/27/2016 12:00 AM COMPUTER TYPESETTER KEYLINER) Narrative 05/27/2016 12:00 AM COMPUTER TYPESETTER KEYLINER Ordered by an unspecified provider. Historical Provider Final Res ult documented in this encounter Visit Diagnoses Not on filedocumented in this encounter Additional Health Concerns Infection Onset Date Last Indicated Resolved Time COVID: Suspected 03/12/2023 03/12/2023 03/12/2023 3:55 PM COMPUTER TYPESETTER KEYLINER COVID: Suspected 05/21/2024 05/21/2024 05/21/2024 7:13 AM COMPUTER TYPESETTER KEYLINER documented as of this encounter Care Teams Holistic Nutritionist Relationship Specialty Start Date End Date Angelita Blanco MD [address] [facility] [address] [place] [address] PCP - General 08/18/16 05/25/18 Benjy Perez MD [address] [place] [address] PCP - General 05/26/18 05/29/18 Angelita Blanco MD [address] [facility] [address] [place] [address] PCP - General 05/30/18 09/11/18 Johnny Goldberg MD [address] [id number] PCP - General 09/12/18 09/25/18 Angelita Blanco MD [address] [facility] [address] [place] [address] PCP - General 09/26/18 11/14/18 Rosey Reyes MD [address] [address] PCP - General 11/15/18 01/11/19 Benjy Perez MD [address] [place] [address] PCP - General 02/08/19 02/08/19 Benjy Perez MD [address] [place] [address] PCP - General 01/12/19 02/07/19 Rosey Reyes MD [address] [facility] 200 [place] [address] PCP - General 06/20/19 09/30/19 Vivienne Morataya MD [address] [address] PCP - General 10/01/19 10/11/19 Vivienne Morataya MD [address] [address] PCP - General 02/09/19 06/19/19 Benjy Perez MD [address] [facility] [address] [place] [address] PCP - General 10/12/19 06/25/20 Rosey Reyes MD [address] [address] PCP - General 06/26/20 08/19/20 Benjy Perez MD [address] [facility] [address] [place] [address] PCP - General 08/20/20 08/25/20 Arley Rousseau MD [address] [facility] 200 [place] [address] PCP - General Sports Medicine 08/26/20 08/28/20 Benjy Perez MD [address] [address] PCP - General 08/29/20 04/27/21 Arley Rousseau MD [address] [address] PCP - General Sports Medicine 04/28/21 08/25/21 Benjy Perez MD [address] [address] PCP - General Nephrology 08/26/21 03/16/22 Arley Ruosseau MD [address] [place] [address] PCP - General Sports Medicine 03/17/22 Samantha Lyons RN [address] [address] Mail Carrier 09/27/17 Nimisha Bradford RN [address] [address] Mail Carrier 10/03/17 5 Benjy Perez MD [address] [address] Referring Physician Nephrology 05/15/18 Yajaira Ritter RN 4590 [place] [address] Nurse Navigator 04/27/22 06/03/22 Kai Callejas MD [address] [facility] [address] [facility] [address] [place] [address] Surgeon Vascular Surgery 11/06/24 [facility], ripening room attendantMail Carrier 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
--- OUTSIDE RECORDS SUMMARY | 2024-12-26 12:48 | XMS_ITS | Encounter Summary ---
Author Organization [facility] Facility Care Team Providers Care Voyage Management System Operator Name Role Phone Angelita Blanco MD Primary Care Provider [phone] Samantha Lyons RN Unavailable +[phone] Nimisha Bradford RN Unavailable +[phone] Benjy Perez MD Unavailable +[phone] Benjy Perez MD Primary Care Provider [phone] Angelita Blanco MD Primary Care Provider +[phone] Johnny Goldberg MD Primary Care Provider [phone] Angelita Blanco MD Primary Care Provider +[phone] Rosey Reyes MD Primary Care Provider +[phone] Benjy Perez MD Primary Care Provider +[phone] Benjy Perez MD Primary Care Provider +[phone] Rosey Reyes MD Primary Care Provider +[phone] Vivienne Morataya MD Primary Care Provider [phone] Vivienne Morataya MD Primary Care Provider [phone] Benjy Perez MD Primary Care Provider [phone] Rosey Reyes MD Primary Care Provider +[phone] Benjy Perez MD Primary Care Provider +[phone] Arley Rousseau MD Primary Care Provider +[phone] Benjy Perez MD Primary Care Provider +[phone] Arley Rousseau MD Primary Care Provider +[phone] Benjy Perez MD Primary Care Provider +[phone] Arley Rousseau MD Primary Care Provider + Yajaira Ritter RN Unavailable +[phone] Kai Callejas MD Unavailable + [phone] [facility] RN Unavailable Unavaila ble Encounter Details Date Type Department Care Team (Latest Contact Info) Description 10/14/2015 Orders Only [facility]G CLINCONV Provider, MD Eileen [address] [place] [address] Social History Tobacco Use Types Packs/Day Years Used Date Smoking Tobacco: Never Assessed Comments Unknown Sex and Gender Information Value Date Recorded Sex Assigned at Not on file Legal Sex Female 7:39 AM VOIP TECHNICIAN Gender Identity Female 05/15/2018 8:32 AM VOIP TECHNICIAN Sexual Orientation Not on file documented as of this encounter Plan of Treatment Upcoming Encounters Date Type Department Care Team (Latest Contact Info) Description 01/01/2025 Research Med Pick-Up/CTRU Rn Transition [facility] Clinical Trial 1 [place] [address] Stu Guan RC Research study patient (Primary Dx) documented as of this encounter Procedures Procedure Name Priority Date/Time Associated Diagnosis Comments SCAN - LABS 10/15/2015 12:00 AM CDT documented in this encounter Results * SCAN - LABS (10/15/2015 12:00 AM CDT) Narrative 10/15/2015 12:00 AM CDT Ordered by an unspecified provider. us Historical Provider Final Res ult documented in this encounter Visit Diagnoses Not on filedocumented in this encounter Additional Health Concerns Infection Onset Date Last Indicated Resolved Time COVID: Suspected 03/12/2023 03/12/2023 03/12/2023 3:55 PM VOIP TECHNICIAN COVID: Suspected 05/21/2024 05/21/2024 05/21/2024 7:13 AM VOIP TECHNICIAN documented as of this encounter Care Teams Voyage Management System Operator Relationship Specialty Start Date End Date Angelita Blanco MD [address] [facility] 103 [place] [address] PCP - General 08/18/16 05/25/18 Benjy Perez MD [address] [place] [address] PCP - General 05/26/18 05/29/18 Angelita Blanco MD [address] [facility] [address] [place] [address] PCP - General 05/30/18 09/11/18 Johnny Goldberg MD [address] [id number] PCP - General 09/12/18 09/25/18 Angelita Blanco MD [address] [facility] 103 [place] [address] PCP - General 09/26/18 11/14/18 Rosey Reyes MD [address] [address] PCP - General 11/15/18 01/11/19 Benjy Perez MD [facility] [address] [place] [address] PCP - General 02/08/19 02/08/19 Benjy Perez MD [address] [facility] [address]01 [place] [address] PCP - General 01/12/19 02/07/19 Rosey Reyes MD [address] [facility] 200 [place] [address] PCP - General 06/20/19 09/30/19 Vivienne Morataya MD [address] [address] PCP - General 10/01/19 10/11/19 Vivienne Morataya MD [address] [address] PCP - General 02/09/19 06/19/19 Benjy Perez MD [address] [facility] [address] [place] [address] PCP - General 10/12/19 06/25/20 Rosey Reyes MD [address] [address] PCP - General 06/26/20 08/19/20 Benjy Perez MD [address] [facility] [address] [place] [address] PCP - General 08/20/20 08/25/20 Arley Rousseau MD [address] [facility] 200 [place] [address] PCP - General Sports Medicine 08/26/20 08/28/20 Benjy Perez MD [address] [address] PCP - General 08/29/20 04/27/21 [place] [address] [place] [address] PCP - General Sports Medicine 04/28/21 08/25/21 Benjy Perez MD [address] [address] PCP - General Nephrology 08/26/21 03/16/22 Arley Rousseau MD [address] [place] [address] PCP - General Sports Medicine 03/17/22 Samantha Lyons RN [address] [address] Physical Therapist Clinic Director 09/27/17 Nimisha Bradford, ANKIT [address] [address] Physical Therapist Clinic Director 10/03/17 5 Benjy Perez MD [address] [address] Referring Physician Nephrology 05/15/18 Yajaira Ritter, RN [address] [place] [address] Nurse Navigator 04/27/22 06/03/22 Kai Callejas MD 4600 [facility] [address] [facility] [address] [place] [address] Surgeon Vascular Surgery 11/06/24 [facility], mammography technologistPhysical Therapist Clinic Director 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
--- OUTSIDE RECORDS SUMMARY | 2024-12-26 12:48 | XMS_ITS | Encounter Summary ---
Author Organization [facility] Address [address] [place] [address] Phone Care Team Providers Care Sales Support Representative Name Role Phone Samantha Lyons RN Unavailable [phone] Nimisha Bradford RN Unavailable +[phone] Benjy Perez MD Unavailable +[phone] Benjy Perez MD Primary Care Provider +[phone] Arley Rousseau MD Primary Care Provider +[phone] Yajaira Ritter RN Unavailable [phone] Kai Callejas MD Unavailable +[phone] [facility] RN Unavailable Unavaila ble Encounter Details Date Type Department Care Team (Late st Contact Info) Description 02/17/2022 Orders Only [facility] Medicine Nephrology [address] [facility] Advanced Medicine 5th [place] [address] [place] [address] Carly Guan RC Social History Tobacco Use Types Packs/Day Years Used Date Smoking Tobacco: Former Alcohol Use Standard Drinks/Week Comments Never 0 (1 standard drink = 0.6 oz pur e alcohol) AUDIT-C Answer Date Recorded Q1: How often do you have a drink containing alc ohol? Never 12/16/2021 Average Number of Drinks Not on file 022 Frequency of Binge Drinking Not on file 11/30 Comments Unknown Sex and Gender Information Value Date Recorded Sex Assigned at Not on file Legal Sex Female 7:39 AM ONCOLOGIST Gender Identity Female 05/15/2018 8:32 AM ONCOLOGIST Sexual Orientation Not on file documented as of this encounter Plan of Treatment Upcoming Encounters Date Type Department Care Team (Latest Contact Info) Description 01/01/2025 Research Med Pick-Up/CTRU Money Position Officer [facility] Clinical Trial 1 [place] [address] Stu Guan RC Research study patient (Primary Dx) documented as of this encounter Visit Diagnoses Not on filedocumented in this encounter Additional Health Concerns Infection Onset Date Last Indicated Resolved Time COVID: Suspected 03/12/2023 03/12/2023 03/12/2023 3:55 PM ONCOLOGIST COVID: Suspected 05/21/2024 05/21/2024 05/21/2024 7:13 AM ONCOLOGIST documented as of this encounter Care Teams Sales Support Representative Relationship Specialty Start Date End Date Benjy Perez MD [address] [address] PCP - General Nephrology 08/26/21 03/16/22 Arley Rousseau MD [address] [place] [address] PCP - General Sports Medicine 03/17/22 Samantha Lyons RN [address] [address] Cut Out Press Operator 09/27/17 Nimisha Bradford RN [address] [address] Cut Out Press Operator 10/03/17 5 Benjy Perez MD [address] [address] Referring Physician Nephrology 05/15/18 Yajaira Ritter, RN [address] [place] [address] Nurse Navigator 04/27/22 06/03/22 Kai Callejas MD [address] [facility] [address] [place] [address] Surgeon Vascular Surgery 11/06/24 [facility], driverCut Out Press Operator 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
--- OUTSIDE RECORDS SUMMARY | 2024-12-26 12:48 | XMS_ITS | Encounter Summary ---
Author Organization [facility] Address [address] [place] [address] Phone Care Team Providers Care Sales Representative Womens Health Name Role Phone Samantha Lyons RN Unavailable [phone] Benjy Perez MD Unavailable [phone] Arley Rousseau MD Primary Care Provider [phone] Kai Callejas MD Unavailable [phone] [facility] RN Unavailable Unavaila ble Encounter Details Date Type Department Care Team (Late st Contact Info) Description 12/24/2024 Documentation [facility] Stu Guan [facility] Social History Tobacco Use Types [...] materials from doctor or pharmacy Sometimes 05/13/2022 [facility] Utilities Answer Date Recorded In the past [...] often do you attend chur ch or mormonism services? Never 12/03/2024 Do you belong to any clubs o r organizations such as uatsdin groups, unions, fraternal or athletic groups, or [...] any time in the past 12 m [facility], were you homeless or living in a nursing home (including now)? No 12/03/2024 Personal Safety Answer Date Recorded Have you ever been in or are you currently in a harmful physical or emotional relationship or is someone making you feel afraid or unsafe? Denies 12/11/2024 Comments No Sex and Gender Information Value Date Recorded Sex Assigned at Not on file Legal Sex Female 7:39 AM MICROBIOLOGY MANAGER Gender Identity Female 05/15/2018 8:32 AM MICROBIOLOGY MANAGER Sexual Orientation Not on file documented as of this encounter Miscellaneous Notes * Research Note - Stu Guan RC - 12/24/2024 8:00 PM CDT Patient tolerated the first study infusion well until we reached the 3rd hour where we increased the infusion rate to 75ml/hr whereby she developed severe flushing (facial), nausea and abdominal discomfort/pain approximately within 15 mins of increasing the dose from 50ml/hr to 75ml/hr. Per PI assessment and guidance, the patient was given diphenhydramine 25mg oral, and with persistence of nausea was subsequently given zofran 8mg sublingual. Dr[address] Morataya also advised to decrease the infusion rate to 25ml/hr at this time. There was noted improvement of symptoms approximately 20-30 mins after meds were administered. After our PI discussed this AE with the Medical Monitor, and upon further discussion with the patient, infusion was stopped for 15 mins and restarted at a rate of 40ml/hr . With tolerance of this rate, infusion was stopped in order for patient to be given 60mg solumedrol prior increasing the rate to 50ml/hr. Please note that there was only 1 accessible IV line which waswhy the infusion had to be paused to administer the solumedrol. Patient noted to tolerate this rate well with resolution of infusion-related reactions. Patient completed infusion of the IP within approximately 6 hours from the start time of infusion due to the changes in infusion rate and AE. Flush was also subsequently completed. Patient was discharged stable and is scheduled for the next infusion on 01/01/2025. We will follow-upclosely for any other AEs. Per PI assessment on protocol-based grading, please find below: Grade 2 Infusion-related reaction Moderate in severity And likely related to the study IP/placebo documented in this encounter Plan of Treatment Upcoming Encounters Date Type Department Care Team (Latest Contact Info) Description 01/01/2025 Research Med Pick-Up/CTRU Analytical Research Chemist [facility] Clinical Trial 1 [place] [address] Stu Guan RC Research study patient (Primary Dx) documented as of this encounter Visit Diagnoses Diagnosis Research study patient- Primary Research study patient- Primary documented in this encounter Care Teams Sales Representative Womens Health Relationship Specialty Start Date End Date Arley Rousseau MD [address] [place] [address] PCP - General Sports Medicine 03/17/22 Samantha Lyons RN [address] [address] Ultrasonic Seaming Machine Operator 09/27/17 Benjy Perez MD [address] [place] [address] [address] [place] [address] Referring Physician Nephrology 05/15/18 Kai Callejas MD [address] [facility] [address] [place] [address] Surgeon Vascular Surgery 11/06/24 [facility], ultrasound techUltrasonic Seaming Machine Operator 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
--- OUTSIDE RECORDS SUMMARY | 2024-12-26 12:48 | XMS_ITS | Encounter Summary ---
Author Organization [facility] Facility Care Team Providers Care Shop Mechanic Name Role Phone Samantha Lyons RN Unavailable [phone] Nimisha Bradford RN Unavailable [phone] Benjy Perez MD Unavailable [phone] Angelita Blanco MD Primary Care Provider [phone] Johnny Goldberg MD Primary Care Provider [phone] Angelita Blanco MD Primary Care Provider [phone] Rosey Reyes MD Primary Care Provider [phone] Benjy Perez MD Primary Care Provider [phone] Benjy Perez MD Primary Care Provider [phone] Rosey Reyes MD Primary Care Provider [phone] Vivienne Morataya MD Primary Care Provider [phone] Vivienne Morataya MD Primary Care Provider [phone] Benjy Perez MD Primary Care Provider [phone] Rosey Reyes MD Primary Care Provider [phone] Benjy Perez MD Primary Care Provider [phone] Arley Rousseau MD Primary Care Provider +[phone] Benjy Perez MD Primary Care Provider [phone] Arley Rousseau MD Primary Care Provider [phone] Benjy Perez MD Primary Care Provider [phone] Arley Rousseau MD Primary Care Provider +[phone] Yajaira Ritter RN Unavailable [phone] Kai Callejas MD Unavailable + [phone] [facility] RN Unavailable Unavaila ble Encounter Details Date Type Department Care Team (Latest Contact Info) Description 06/15/2018 Orders Only MMG CLINCONV Provider, MD Eileen [address] [place] [address] Social History Tobacco Use Types Packs/Day Years Used Date Smoking Tobacco: Never Comments Unknown Sex and Gender Information Value Date Recorded Sex Assigned at Not on file Legal Sex Female 7:39 AM STRIP PRESSER Gender Identity Female 05/15/2018 8:32 AM STRIP PRESSER Sexual Orientation Not on file documented as of this encounter Plan of Treatment Upcoming Encounters Date Type Department Care Team (Latest Contact Info) Description 01/01/2025 Research Med Pick-Up/CTRU Swiss Type Screw Machine Operator [facility] Clinical Trial 1 [place] [address] Stu Guan RC Research study patient (Primary Dx) documented as of this encounter Procedures Procedure Name Priority Date/Time Associated Diagnosis Comments SCAN - LABS 06/15/2018 12:00 AM STRIP PRESSER documented in this encounter Results * SCAN - LABS (06/15/2018 12:00 AM STRIP PRESSER) Narrative 06/15/2018 12:00 AM STRIP PRESSER Ordered by an unspecified provider. us Historical Provider Final Res ult documented in this encounter Visit Diagnoses Not on filedocumented in this encounter Additional Health Concerns Infection Onset Date Last Indicated Resolved Time COVID: Suspected 03/12/2023 03/12/2023 03/12/2023 3:55 PM STRIP PRESSER COVID: Suspected 05/21/2024 05/21/2024 05/21/2024 7:13 AM STRIP PRESSER documented as of this encounter Care Teams Shop Mechanic Relationship Specialty Start Date End Date Angelita Blanco MD [address] [facility] [address] [place] [address] PCP - General 05/30/18 09/11/18 Johnny Goldberg MD [address] [facility] [address] [place] [address] PCP - General 09/12/18 09/25/18 Angelita Blanco MD [address] [facility] 103 [place] [address] PCP - General 09/26/18 11/14/18 Rosey Reyes MD [address] [facility] 200 [place] [address] PCP - General 11/15/18 01/11/19 Benjy Perez MD [address] [facility] [address]01 [place] [address] PCP - General 02/08/19 02/08/19 Benjy Perez MD 4590 [facility] [address] [place] [address] PCP - General 01/12/19 02/07/19 Rosey Reyes MD [address] [facility] 200 [place] [address] PCP - General 06/20/19 09/30/19 [place] [address] [place] [address] [address] [place] [address] PCP - General 10/01/19 10/11/19 Vivienne Morataya MD [address] [address] PCP - General 02/09/19 06/19/19 Benjy Perez MD [address] [address] PCP - General 10/12/19 06/25/20 Rosey Reyes MD [address] [address] PCP - General 06/26/20 08/19/20 Benjy Perez MD [address] [address] PCP - General 08/20/20 08/25/20 Arley Rousseau MD [address] [address] PCP - General Sports Medicine 08/26/20 08/28/20 Benjy Perez MD [address] [address] PCP - General 08/29/20 04/27/21 Arley Rousseau MD [address] [address] PCP - General Sports Medicine 04/28/21 08/25/21 Benjy Perez MD 1512 [facility] 200 [place] [address] PCP - General Nephrology 08/26/21 03/16/22 Arley Rousseau MD [address]70 [place] [address] PCP - General Sports Medicine 03/17/22 Samantha Lyons, RN [address] [address] Sports Management Internship 09/27/17 Nimisha Bradford, RN [address] [address] Sports Management Internship 10/03/17 5 Benjy Perez MD [address] [address] Referring Physician Nephrology 05/15/18 Yajaira Ritter, RN [address] [place] [address] Nurse Navigator 04/27/22 06/03/22 Kai Callejas MD [address] [facility] [address] [address] [facility] [address] [place] [address] Surgeon Vascular Surgery 11/06/24 [facility], agricultural research technologistSports Management Internship 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
--- OUTSIDE RECORDS SUMMARY | 2024-12-26 12:48 | XMS_ITS | Encounter Summary ---
Author Organization [facility] Facility Care Team Providers Care Lobster Catcher Name Role Phone Angelita Blanco MD Primary Care Provider [phone] Samantha Lyons RN Unavailable [phone] Nimisha Bradford RN Unavailable [phone] Benjy Perez MD Unavailable [phone] Benjy Perez MD Primary Care Provider [phone] Angelita Blanco MD Primary Care Provider [phone] Johnny Goldberg MD Primary Care Provider [phone] Angelita Blanco MD Primary Care Provider [phone] Rosey Reyes MD Primary Care Provider [phone] Benjy Perez MD Primary Care Provider [phone] Benjy Perez MD Primary Care Provider [phone] Rosey Reyes MD Primary Care Provider [phone] Vivienne Morataya MD Primary Care Provider [phone] Vivienne Morataya MD Primary Care Provider [phone] Benjy Perez MD Primary Care Provider [phone] Rosey Reyes MD Primary Care Provider [phone] Benjy Perez MD Primary Care Provider [phone] Arley Rousseau MD Primary Care Provider +[phone] Benjy Perez MD Primary Care Provider [phone] Arley Rousseau MD Primary Care Provider [phone] Benjy Perez MD Primary Care Provider [phone] Arley Rousseau MD Primary Care Provider + Yajaira Ritter RN Unavailable [phone] Kai Callejas MD Unavailable + [phone] [facility] RN Unavailable Unavaila ble Encounter Details Date Type Department Care Team (Latest Contact Info) Description 01/30/2016 Orders Only MMG CLINCONV Provider, MD Eileen [address] [place] [address] Social History Tobacco Use Types Packs/Day Years Used Date Smoking Tobacco: Never Assessed Comments Unknown Sex and Gender Information Value Date Recorded Sex Assigned at Not on file Legal Sex Female 7:39 AM SANITARIAN INSPECTOR Gender Identity Female 05/15/2018 8:32 AM SANITARIAN INSPECTOR Sexual Orientation Not on file documented as of this encounter Plan of Treatment Upcoming Encounters Date Type Department Care Team (Latest Contact Info) Description 01/01/2025 Research Med Pick-Up/CTRU Paper Sales Representative [facility] Clinical Trial 1 [place] [address] Stu Guan RC Research study patient (Primary Dx) documented as of this encounter Procedures Procedure Name Priority Date/Time Associated Diagnosis Comments SCAN - LABS 01/30/2016 12:00 AM CDT documented in this encounter Results * SCAN - LABS (01/30/2016 12:00 AM CDT) Narrative 01/30/2016 12:00 AM CDT Ordered by an unspecified provider. us Historical Provider Final Res ult documented in this encounter Visit Diagnoses Not on filedocumented in this encounter Additional Health Concerns Infection Onset Date Last Indicated Resolved Time COVID: Suspected 03/12/2023 03/12/2023 03/12/2023 3:55 PM SANITARIAN INSPECTOR COVID: Suspected 05/21/2024 05/21/2024 05/21/2024 7:13 AM SANITARIAN INSPECTOR documented as of this encounter Care Teams Lobster Catcher Relationship Specialty Start Date End Date Angelita Blanco MD [address] [facility] [address] [place] [address] PCP - General 08/18/16 05/25/18 Benjy Perez MD [address] [place] [address] PCP - General 05/26/18 05/29/18 Angelita Blanco MD [address] [facility] [address] [place] [address] PCP - General 05/30/18 09/11/18 Johnny Goldberg MD [address] [id number] PCP - General 09/12/18 09/25/18 Angelita Blanco MD [address] [facility] [address] [place] [address] PCP - General 09/26/18 11/14/18 Rosey Reyes MD [address] [address] PCP - General 11/15/18 01/11/19 Benjy Perez MD [facility] [facility] [address] [place] [address] PCP - General 02/08/19 02/08/19 Benjy Perez MD [address] [facility] [address] [place] [address] PCP - General 01/12/19 02/07/19 Rosey Reyes MD [address] [facility] 200 [place] [address] PCP - General 06/20/19 09/30/19 Vivienne Morataya MD [address] [address] PCP - General 10/01/19 10/11/19 Vivienne Morataya MD [address] [address] PCP - General 02/09/19 06/19/19 Benjy Perez MD [address] [facility] [address] [place] [address] PCP - General 10/12/19 06/25/20 Rosey Reyes MD [address] [address] PCP - General 06/26/20 08/19/20 Benjy Perez MD [address] [facility] [address] [place] [address] PCP - General 08/20/20 08/25/20 Arley Rousseau MD [address] [facility] 200 [place] [address] PCP - General Sports Medicine 08/26/20 08/28/20 Benjy Perez MD [address] [address] PCP - General 08/29/20 04/27/21 [place] [address] [place] [address] PCP - General Sports Medicine 04/28/21 08/25/21 Benjy Perez MD [address] [address] PCP - General Nephrology 08/26/21 03/16/22 Arley Rousseau MD [address] [place] [address] PCP - General Sports Medicine 03/17/22 Samantha Lyons RN [address] [address] Chartered Financial Analyst 09/27/17 Nimisha Bradford, ANKIT [address] [address] Chartered Financial Analyst 10/03/17 5 Benjy Perez MD [address] [address] Referring Physician Nephrology 05/15/18 Yajaira Ritter, RN [address]90 [place] [address] Nurse Navigator 04/27/22 06/03/22 Kai Callejas MD 4600 [facility] [address] [facility] [address] [place] [address] Surgeon Vascular Surgery 11/06/24 [facility], structural ironworkerChartered Financial Analyst 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
--- OUTSIDE RECORDS SUMMARY | 2024-12-26 12:48 | XMS_ITS | Encounter Summary ---
Author Organization [facility] Facility Care Team Providers Care Prepared Foods Production Team Member Name Role Phone Angelita Blanco MD Primary Care Provider [phone] Samantha Lyons RN Unavailable [phone] Nimisha Bradford RN Unavailable [phone] Benjy Perez MD Unavailable +[phone] Benjy Perez MD Primary Care Provider [phone] Angelita Blanco MD Primary Care Provider [phone] Johnny Goldberg MD Primary Care Provider [phone] Angelita Blanco MD Primary Care Provider [phone] Rosey Reyes MD Primary Care Provider [phone] Benjy Perez MD Primary Care Provider [phone] Benjy Perez MD Primary Care Provider [phone] Rosey Reyes MD Primary Care Provider [phone] Vivienne Morataya MD Primary Care Provider [phone] Vivinene Morataya MD Primary Care Provider [phone] Benjy Perez MD Primary Care Provider [phone] Rosey Reyes MD Primary Care Provider +[phone] Benjy Perez MD Primary Care Provider [phone] Arley Rousseau MD Primary Care Provider +[phone] Benjy Perez MD Primary Care Provider [phone] Arley Rousseau MD Primary Care Provider +[phone] Benjy Perez MD Primary Care Provider [phone] Arley Rousseau MD Primary Care Provider + Yajaira Ritter RN Unavailable [phone] Kai Callejas MD Unavailable + [phone] [facility] RN Unavailable Unavaila ble Encounter Details Date Type Department Care Team (Latest Contact Info) Description 12/23/2015 Orders Only MMG CLINCONV Provider, MD Eileen [address] [place] [address] Social History Tobacco Use Types Packs/Day Years Used Date Smoking Tobacco: Never Assessed Comments Unknown Sex and Gender Information Value Date Recorded Sex Assigned at Not on file Legal Sex Female 7:39 AM FABRIC WORKER SUPERVISOR Gender Identity Female 05/15/2018 8:32 AM FABRIC WORKER SUPERVISOR Sexual Orientation Not on file documented as of this encounter Plan of Treatment Upcoming Encounters Date Type Department Care Team (Latest Contact Info) Description 01/01/2025 Research Med Pick-Up/CTRU Pediatrics Hospitalist [facility] Clinical Trial 1 [place] [address] Stu Guan RC Research study patient (Primary Dx) documented as of this encounter Procedures Procedure Name Priority Date/Time Associated Diagnosis Comments SCAN - LABS 12/23/2015 12:00 AM CDT documented in this encounter Results * SCAN - LABS (12/23/2015 12:00 AM CDT) Narrative 12/23/2015 12:00 AM CDT Ordered by an unspecified provider. us Historical Provider Final Res ult documented in this encounter Visit Diagnoses Not on filedocumented in this encounter Additional Health Concerns Infection Onset Date Last Indicated Resolved Time COVID: Suspected 03/12/2023 03/12/2023 03/12/2023 3:55 PM FABRIC WORKER SUPERVISOR COVID: Suspected 05/21/2024 05/21/2024 05/21/2024 7:13 AM FABRIC WORKER SUPERVISOR documented as of this encounter Care Teams Prepared Foods Production Team Member Relationship Specialty Start Date End Date Angelita Blanco MD [address] [facility] [address] [place] [address] PCP - General 08/18/16 05/25/18 Benjy Perez MD [address] [place] [address] PCP - General 05/26/18 05/29/18 Angelita Blanco MD [address] [facility] [address] [place] [address] PCP - General 05/30/18 09/11/18 Johnny Goldberg MD [address] [id number] PCP - General 09/12/18 09/25/18 Angelita Blanco MD [address] [facility] 103 [place] [address] PCP - General 09/26/18 11/14/18 Rosey Reyes MD [address] [address] PCP - General 11/15/18 01/11/19 Benjy Perez MD [facility] [facility] [address] [place] [address] PCP - General 02/08/19 02/08/19 Benjy Perez MD [address] [facility] 3401 [place] [address] PCP - General 01/12/19 02/07/19 Rosey Reyes MD [address] [facility] 200 [place] [address] PCP - General 06/20/19 09/30/19 Vivienne Morataya MD [address] [address] PCP - General 10/01/19 10/11/19 Vivienne Morataya MD [address] [address] PCP - General 02/09/19 06/19/19 Benjy Perez MD [address] [facility] 3401 [place] [address] PCP - General 10/12/19 06/25/20 Rosey Reyes MD [address] [address] PCP - General 06/26/20 08/19/20 Benjy Perez MD [address] [facility] [address] [place] [address] PCP - General 08/20/20 08/25/20 Arley Rousseau MD [address] [facility] 200 [place] [address] PCP - General Sports Medicine 08/26/20 08/28/20 Benjy Perez MD [address] [address] PCP - General 08/29/20 04/27/21 [place] [address] [place] [address] PCP - General Sports Medicine 04/28/21 08/25/21 Benjy Perez MD [address] [address] PCP - General Nephrology 08/26/21 03/16/22 Arley Rousseau MD [address] [place] [address] PCP - General Sports Medicine 03/17/22 Samantha Lyons RN [address] [address] Health Care Social Worker 09/27/17 Nimisha Bradford, ANKIT [address] [address] Health Care Social Worker 10/03/17 5 Benjy Perez MD [address] [address] Referring Physician Nephrology 05/15/18 Yajaira Ritter, RN [address] [place] [address] Nurse Navigator 04/27/22 06/03/22 Kai Callejas MD 4600 [facility] [address] [facility] [address] [place] [address] Surgeon Vascular Surgery 11/06/24 [facility], director veterinaryHealth Care Social Worker 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
--- OUTSIDE RECORDS SUMMARY | 2024-12-26 12:48 | XMS_ITS | Encounter Summary ---
Author Organization [facility] Facility Care Team Providers Care Gear Repairer Name Role Phone Angelita Blanco MD Primary Care Provider [phone] Samantha Lyons RN Unavailable [phone] Nimisha Bradford RN Unavailable [phone] Benjy Perez MD Unavailable +[phone] Benjy Perez MD Primary Care Provider [phone] Angelita Blanco MD Primary Care Provider +[phone] Johnny Goldberg MD Primary Care Provider [phone] Angelita Blanco MD Primary Care Provider +[phone] Rosey Reyes MD Primary Care Provider [phone] Benjy Perez MD Primary Care Provider +[phone] Benjy Perez MD Primary Care Provider +[phone] Rosey Reyes MD Primary Care Provider [phone] Vivienne Morataya MD Primary Care Provider [phone] Vivienne Morataya MD Primary Care Provider [phone] Benjy Peerz MD Primary Care Provider [phone] Rosey Reyes MD Primary Care Provider +[phone] Benjy Perez MD Primary Care Provider +[phone] Arley Rousseau MD Primary Care Provider +[phone] Benjy Perez MD Primary Care Provider [phone] Arley Rousseau MD Primary Care Provider [phone] Benjy Perez MD Primary Care Provider +[phone] Arley Rousseau MD Primary Care Provider + Yajaira Ritter RN Unavailable [phone] Kai Callejas MD Unavailable + [phone] [facility] RN Unavailable Unavaila ble Encounter Details Date Type Department Care Team (Latest Contact Info) Description 05/18/2015 Orders Only [facility] CLINCONV Provider, MD Eileen [address] [place] [address] Social History Tobacco Use Types Packs/Day Years Used Date Smoking Tobacco: Never Assessed Comments Unknown Sex and Gender Information Value Date Recorded Sex Assigned at Not on file Legal Sex Female 7:39 AM MACHINE SHOP SUPERVISOR Gender Identity Female 05/15/2018 8:32 AM MACHINE SHOP SUPERVISOR Sexual Orientation Not on file documented as of this encounter Plan of Treatment Upcoming Encounters Date Type Department Care Team (Latest Contact Info) Description 01/01/2025 Research Med Pick-Up/CTRU Form Worker [facility] Clinical Trial 1 [place] [address] Stu Guan RC Research study patient (Primary Dx) documented as of this encounter Procedures Procedure Name Priority Date/Time Associated Diagnosis Comments SCAN - LABS 05/17/2016 12:00 AM MACHINE SHOP SUPERVISOR documented in this encounter Results * SCAN - LABS (05/17/2016 12:00 AM MACHINE SHOP SUPERVISOR) Narrative 05/17/2016 12:00 AM MACHINE SHOP SUPERVISOR Ordered by an unspecified provider. us Historical Provider Final Res ult documented in this encounter Visit Diagnoses Not on filedocumented in this encounter Additional Health Concerns Infection Onset Date Last Indicated Resolved Time COVID: Suspected 03/12/2023 03/12/2023 03/12/2023 3:55 PM MACHINE SHOP SUPERVISOR COVID: Suspected 05/21/2024 05/21/2024 05/21/2024 7:13 AM MACHINE SHOP SUPERVISOR documented as of this encounter Care Teams Gear Repairer Relationship Specialty Start Date End Date Angelita Blanco MD [address] [facility] [address] [place] [address] PCP - General 08/18/16 05/25/18 Benjy Perez MD [address] [place] [address] PCP - General 05/26/18 05/29/18 Angelita Blanco MD [address] [facility] [address] [place] [address] PCP - General 05/30/18 09/11/18 Johnny Goldberg MD [address] [id number] PCP - General 09/12/18 09/25/18 Angelita Blanco MD [address] [facility] [address] [place] [address] PCP - General 09/26/18 11/14/18 Rosey Reyes MD [address] [address] PCP - General 11/15/18 01/11/19 Benjy Perez MD [address] [place] [address] PCP - General 02/08/19 02/08/19 Benjy Perez MD [address] [facility] [address] [place] [address] PCP - General 01/12/19 02/07/19 oRsey Reyes MD [address] [facility] [address] [place] [address] PCP - General 06/20/19 09/30/19 Vivienne Morataya MD [address] [address] PCP - General 10/01/19 10/11/19 Vivienne Morataya MD [address] [address] PCP - General 02/09/19 06/19/19 Benjy Perez MD [address] [facility] [address] [place] [address] PCP - General 10/12/19 06/25/20 Rosey Reyes MD [address] [address] PCP - General 06/26/20 08/19/20 Benjy Perez MD [address] [facility] [address] [place] [address] PCP - General 08/20/20 08/25/20 Arley Rousseau MD [address] [facility] [address] [place] [address] PCP - General Sports Medicine 08/26/20 08/28/20 Benjy Perez MD [address] [address] PCP - General 08/29/20 04/27/21 Arley Rousseau MD [address] [address] PCP - General Sports Medicine 04/28/21 08/25/21 Benjy Perez MD [address] [address] PCP - General Nephrology 08/26/21 03/16/22 Arley Rousseau MD [address] [place] [address] PCP - General Sports Medicine 03/17/22 Samantha Lyons RN [address] [address] Division Manager 09/27/17 Nimisha Bradford RN [address] [address] Division Manager 10/03/17 5 Benjy Perez MD [address] [address] Referring Physician Nephrology 05/15/18 Yajaira Ritter, RN [address] [place] [address] Nurse Navigator 04/27/22 06/03/22 Kai Callejas MD [address] [facility] [address] [facility] [address] [place] [address] Surgeon Vascular Surgery 11/06/24 [facility], line technicianDivision Manager 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
--- OUTSIDE RECORDS SUMMARY | 2024-12-26 12:48 | XMS_ITS | Encounter Summary ---
Author Organization [facility] Healthcare Address [address] [place] [address] Care Team Providers Care Rn Staff Name Role Phone Eloy Samantha Espitia RN Unavailable [phone] Benjy Perez MD Unavailable [phone] Arley Rousseau MD Primary Care Provider [phone] Kai Callejas MD Unavailable [phone] [facility] RN Unavailable Unavaila ble Encounter Details Date Type Department Care Team (Late st Contact Info) Description 12/24/2024 Results Follow-Up [facility] Nephrology at [address] [place] [phone] Benjy Perez MD [address] [place] [address] [address] [place] [address] Tacrolimus level trough Social History Tobacco Use Types Packs/Day Years [...] materials from doctor or pharmacy Sometimes 05/13/2022 [facility] Utilities Answer Date Recorded In the past [...] often do you attend chur ch or yarsani services? Never 12/03/2024 Do you belong to any clubs o r organizations such as christian groups, unions, fraternal or athletic groups, or [...] any time in the past 12 m [facility], were you homeless or living in a half-way (including now)? No 12/03/2024 Personal Safety Answer Date Recorded Have you ever been in or are you currently in a harmful physical or emotional relationship or is someone making you feel afraid or unsafe? Denies 12/11/2024 Comments No Sex and Gender Information Value Date Recorded Sex Assigned at Not on file Legal Sex Female 7:39 AM LIBRARY CIRCULATION TECHNICIAN Gender Identity Female 05/15/2018 8:32 AM LIBRARY CIRCULATION TECHNICIAN Sexual Orientation Not on file documented as of this encounter Plan of Treatment Upcoming Encounters Date Type Department Care Team (Latest Contact Info) Description 01/01/2025 Research Med Pick-Up/CTRU Animal [facility] Clinical Trial 1 [place] [address] Stu Guan RC Research study patient (Primary Dx) documented as of this encounter Visit Diagnoses Not on filedocumented in this encounter Care Teams Rn Staff Relationship Specialty Start Date End Date Arley Rousseau MD [address] [place] [address] PCP - General Sports Medicine 03/17/22 Samantha Lyons, ANKIT [address] [address] Science Editor 09/27/17 Benjy Perez MD [address] [address] Referring Physician Nephrology 05/15/18 Kai Callejas MD [address] [facility] [address] [place] [address] Surgeon Vascular Surgery 11/06/24 [facility], sample room supervisorScience Editor 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
--- OUTSIDE RECORDS SUMMARY | 2024-12-26 12:48 | XMS_ITS | Encounter Summary ---
Author Organization [facility] Facility Care Team Providers Care Mobile Phlebotomist Name Role Phone Angelita Blanco MD Primary Care Provider [phone] Samantha Lyons RN Unavailable [phone] Nimisha Bradford RN Unavailable [phone] Benjy Perez MD Unavailable [phone] Benjy Perez MD Primary Care Provider [phone] Angelita Blanco MD Primary Care Provider [phone] Johnny Goldberg MD Primary Care Provider [phone] Angelita Blanco MD Primary Care Provider [phone] Rosey Reyes MD Primary Care Provider [phone] Benjy Perez MD Primary Care Provider [phone] Benjy Perez MD Primary Care Provider [phone] Rosey Reyes MD Primary Care Provider [phone] Vivienne Morataya MD Primary Care Provider [phone] Vivienne Morataya MD Primary Care Provider [phone] Benjy Perez MD Primary Care Provider [phone] Rosey Reyes MD Primary Care Provider [phone] Benjy Perez MD Primary Care Provider [phone] Arley Rousseau MD Primary Care Provider +[phone] Benjy Perez MD Primary Care Provider [phone] Arley Rousseau MD Primary Care Provider +[phone] Benjy Perez MD Primary Care Provider [phone] Arley Rousseau MD Primary Care Provider + Yajaira Ritter RN Unavailable [phone] Kai Callejas MD Unavailable + [facility] RN Unavailable Unavaila ble Encounter Details Date Type Department Care Team (Latest Contact Info) Description 10/26/2016 Orders Only [facility] CLINCONV Provider, MD Eileen [address] [place] [address] Social History Tobacco Use Types Packs/Day Years Used Date Smoking Tobacco: Never Comments Unknown Sex and Gender Information Value Date Recorded Sex Assigned at Not on file Legal Sex Female 7:39 AM COMMAND CENTER OFFICER Gender Identity Female 05/15/2018 8:32 AM COMMAND CENTER OFFICER Sexual Orientation Not on file documented as of this encounter Plan of Treatment Upcoming Encounters Date Type Department Care Team (Latest Contact Info) Description 01/01/2025 Research Med Pick-Up/CTRU Glass Robot Operator [facility] Clinical Trial 1 [place] [address] Stu Guan RC Research study patient (Primary Dx) documented as of this encounter Procedures Procedure Name Priority Date/Time Associated Diagnosis Comments SCAN - LABS 10/28/2016 12:00 AM CDT documented in this encounter Results * SCAN - LABS (10/28/2016 12:00 AM CDT) Narrative 10/28/2016 12:00 AM CDT Ordered by an unspecified provider. us Historical Provider Final Res ult documented in this encounter Visit Diagnoses Not on filedocumented in this encounter Additional Health Concerns Infection Onset Date Last Indicated Resolved Time COVID: Suspected 03/12/2023 03/12/2023 03/12/2023 3:55 PM COMMAND CENTER OFFICER COVID: Suspected 05/21/2024 05/21/2024 05/21/2024 7:13 AM COMMAND CENTER OFFICER documented as of this encounter Care Teams Mobile Phlebotomist Relationship Specialty Start Date End Date Angelita Blanco MD [address] [facility] [address] [place] [address] PCP - General 08/18/16 05/25/18 Benjy Perez MD [address] [place] [address] PCP - General 05/26/18 05/29/18 Angelita Blanco MD [address] [facility] [address] [place] [address] PCP - General 05/30/18 09/11/18 Johnny Goldberg MD [address] [id number] PCP - General 09/12/18 09/25/18 Angelita Blanco MD [address] [facility] [address] [place] [address] PCP - General 09/26/18 11/14/18 Rosey Reyes MD [address] [facility] [address] [place] [address] PCP - General 11/15/18 01/11/19 Benjy Perez MD [address] [place] [address] PCP - General 02/08/19 02/08/19 Benjy Perez MD [address] [facility] [address] [place] [address] PCP - General 01/12/19 02/07/19 Rosey Reyes MD [address] [facility] [address] [place] [address] PCP - General 06/20/19 09/30/19 Vivienne Morataya MD [address] [address] PCP - General 10/01/19 10/11/19 Vivienne Morataya MD [address] [address] PCP - General 02/09/19 06/19/19 Benjy Perez MD [address] [facility] [address] [place] [address] PCP - General 10/12/19 06/25/20 Rosey Reyes MD [address] [address] PCP - General 06/26/20 08/19/20 Benjy Perez MD [address] [facility] [address] [place] [address] PCP - General 08/20/20 08/25/20 Arley Rousseau MD [address] [facility] [address] [place] [address] PCP - General Sports Medicine 08/26/20 08/28/20 Benjy Perez MD [address] [address] PCP - General 08/29/20 04/27/21 Arley Rousseau MD [address] [address] PCP - General Sports Medicine 04/28/21 08/25/21 Benjy Perez MD [address] [address] PCP - General Nephrology 08/26/21 03/16/22 Arley Rousseau MD [address] [place] [address] PCP - General Sports Medicine 03/17/22 Samantha Lyons RN [address] [address] Senior C Web Developer 09/27/17 Nimisha Bradford RN [address] [address] Senior C Web Developer 10/03/17 5 Benjy Perez MD [address] [address] Referring Physician Nephrology 05/15/18 Yajaira Ritter, RN [address] [place] [address] Nurse Navigator 04/27/22 06/03/22 Kai Callejas MD [address] [facility] [address] [facility] [address] [place] [address] Surgeon Vascular Surgery 11/06/24 [facility], post doctoral researcherSenior C Web Developer 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
--- OUTSIDE RECORDS SUMMARY | 2024-12-26 12:48 | XMS_ITS | Clinical Summary ---
Author Organization [facility] Address [address] [place] [address] Care Team Providers Care Contract Graphic Designer Name Role Phone Samantha Lyons RN Unavailable [phone] Benjy Perez MD Unavailable [phone] Arley Rousseau MD Primary Care Provider + Kai Callejas MD Unavailable [phone] [facility] RN Unavailable Unavaila ble Allergies Active Allergy Reactions Criticality Noted Date Comments Food Allergy Formula Itching Medium 02/23/2016 Soy, Peanut Butter Nut - Unspecified Itching,Swelling Medium Peanut Anaphylaxis High Reaction: SWELLING, Penicillins Unknown High 02/23/2016 I don't remember I was a baby. Soy Itching,Rash,Edema Medium Medications gabapentin (NEURONTIN) 300 mg capsule Take 1 capsule (300 mg total) by mouth daily as needed (pain) Active ondansetron (ZOFRAN) 4 mg tablet Take 1 tablet (4 mg total) by mouth every 6 (six) hours as needed Active acetaminophen (TYLENOL) 500 mg tabletIndications :Pain Take 2 tablets (1,000 mg total) by mouth every 6 (six) hours as needed for pain 022 Active EPINEPHrine 0.3 mg/0.3 mL auto-injection syringe INJECT 0.3ML INTO THE MUSCLE INSTRUCTED NEEDED FOR ANAPHYLAXIS 2 each Active sodium bicarbonate 650 mg tablet Take 2 tablets (1,300 mg total) by mouth 3 (three) times a day 180 tablet 11 2024 Active mupirocin (BACTROBAN) 2 % ointment APPLY TO AFFECTED AREA DAILY 110 g 11 Active predniSONE (DELTASONE) 5 mg tablet TAKE ONE TABLET BY MOUTH EVERY DAY 90 tablet 3 Active famotidine (PEPCID) 20 mg tablet Take 1 tablet (20 mg total) by mouth 2 (two) times a day Active omeprazole (PriLOSEC) 20 mg capsule Take 1 capsule (20 mg total) by mouth 2 (two) times a day Active mycophenolate sodium DR (MYFORTIC) 360 mg EC tabletIndications :Immunosuppressio n,FSGS (focal segmental glomerulosclerosi s) TAKE ONE TABLET BY MOUTH TWICE A DAY 60 tablet 11 Active estrogens, conjugated, (PREMARIN) vaginal cream Insert 0.5 g into the vagina every other day Active cyanocobalamin (Vitamin B-12) 2,000 mcg tablet Take 1 tablet (2,000 mcg total) by mouth daily 30 tablet 11 2025 Active loratadine (CLARITIN REDITABS) 10 mg disintegrating tablet Take 1 tablet (10 mg total) by mouth daily as needed Active dicyclomine (BENTYL) 20 mg tablet Take 1 tablet (20 mg total) by mouth every 6 (six) hours as needed (abdominal pain) 15 tablet Active silver sulfadiazine (SILVADENE, SSD) 1 % cream Apply topically daily 85 g Active vitamin A 2,400 mcg (8,000 units) capsule Take 1 capsule (8,000 Units total) by mouth daily Active LORazepam (ATIVAN) 1 mg tablet Take 1 tablet (1 mg total) by mouth every 4 (four) hours as needed for anxiety Active lidocaine (LIDODERM) 5 % Place 1 patch on the skin daily for 12 hours Remove & discard patch within 12 hours or as directed by . 20 patch 2024 Active simethicone (MYLICON) 80 mg chewable tablet Take 2 tablets (160 mg total) by mouth 3 (three) times a day as needed for flatulence 30 tablet Active amLODIPine (NORVASC) 2.5 mg tabletIndications :hypertension Take 2 tablets (5 mg total) by mouth daily 30 tablet 2 025 2024 Active buPROPion XL (WELLBUTRIN XL) 150 mg 24 hr tablet Take 1 tablet (150 mg total) by mouth daily 30 tablet 11 2025 Active spironolactone (ALDACTONE) 25 mg tablet Take 1 tablet (25 mg total) by mouth daily 30 tablet 11 2025 Active losartan (COZAAR) 25 mg tablet Take 1 tablet (25 mg total) by mouth daily 30 tablet 1 025 2024 Active tacrolimus 1 mg immediate-release capsule Take 3 capsules (3 mg total) by mouth transport pilot before breakfast AND 2 capsules (2 mg total) nightly. Take 3 capsules (3 mg total) by mouth daily before breakfast AND 2 capsule (2 mg total) nightly. 150 capsule 2025 Active patiromer calcium sorbitex (VELTASSA) packetIndications :Hyperkalemia,Sta ge 3 chronic kidney disease, unspecified whether stage 3a or 3b CKD (HCC) Take 1 packet (8.4 g total) by mouth 2 (two) times a day 60 packet Active empagliflozin (JARDIANCE) 10 mg tablet Take 1 tablet (10 mg total) by mouth daily 30 tablet 11 025 2025 Active buPROPion XL (WELLBUTRIN XL) 150 mg 24 hr tablet Take 1 tablet (150 mg total) by mouth daily 30 tablet 11 021 2024 Discontinued patiromer calcium sorbitex (VELTASSA) packetIndications :Hyperkalemia,Sta ge 3 chronic kidney disease, unspecified whether stage 3a or 3b CKD (HCC) Take 1 packet (8.4 g total) by mouth daily with lunch 30 packet 11 025 2024 Discontinued amLODIPine (NORVASC) 5 mg tabletIndications :hypertension Take 1 tablet (5 mg total) by mouth daily 30 tablet 3 025 2024 Discontinued losartan (COZAAR) 100 mg tablet Take 1 tablet (100 mg total) by mouth daily 30 tablet 3 025 2024 Discontinued oxyCODONE (ROXICODONE) 5 mg immediate release tabletIndications :Pain,Left shoulder pain and headache after fall Take 1 tablet (5 mg total) by mouth every 8 (eight) hours as needed for pain (Left shoulder pain and headache) 15 tablet 025 2024 Discontinued LORazepam (ATIVAN) 1 mg tablet TAKE ONE TABLET BY MOUTH EVERY FOUR hours NEEDED FOR anxiety 180 tablet 5 025 2024 Discontinued spironolactone (ALDACTONE) 25 mg tablet Take 1 tablet (25 mg total) by mouth daily 30 tablet 11 025 2024 Discontinued HYDROcodone-aceta minophen (NORCO) 5-325 mg per tabletIndications :Pain Take 1-2 tablets by mouth every 4 (four) hours as needed for pain 20 tablet 025 2024 Discontinued silver sulfadiazine (SILVADENE, SSD) 1 % cream Apply topically daily Please dispense the jar 400 g 1 025 2024 Discontinued(R eorder) tacrolimus 1 mg immediate-release capsule Take 3 capsules (3 mg total) by mouth daily before breakfast AND 2 capsule (2 mg total) nightly. 025 2024 Discontinued silver sulfadiazine (SILVADENE, SSD) 1 % cream Apply topically daily Please dispense the jar 400 g 3 025 2024 Discontinued amLODIPine (NORVASC) 2.5 mg tabletIndications :hypertension Take 1 tablet (2.5 mg total) by mouth daily 30 tablet 2 025 2024 Discontinued losartan (COZAAR) 25 mg tablet Take 1 tablet (25 mg total) by mouth daily 30 tablet 1 025 2024 Discontinued tacrolimus 1 mg immediate-release capsule Take 2 capsules (2 mg total) by mouth every morning 2024 Discontinued(S top Taking at Discharge) tacrolimus 1 mg immediate-release capsule Take 1 capsule (1 mg total) by mouth every evening 2024 Discontinued(S top Taking at Discharge) losartan (COZAAR) 25 mg tablet Take 1 tablet (25 mg total) by mouth daily 30 tablet 1 025 2024 Discontinued tacrolimus 1 mg immediate-release capsule Take 3 capsules (3 mg total) by mouth daily before breakfast AND 2 capsule (2 mg total) nightly. 025 2024 Discontinued(R eorder) empagliflozin (JARDIANCE) 10 mg tablet Take 1 tablet (10 mg total) by mouth daily 30 tablet 025 2024 Discontinued(R eorder) patiromer calcium sorbitex (VELTASSA) packetIndications :Hyperkalemia,Sta ge 3 chronic kidney disease, unspecified whether stage 3a or 3b CKD (HCC) Take 1 packet (8.4 g total) by mouth 2 (two) times a day 60 packet 025 2024 Discontinued(R eorder) Hospital, Clinic, or Other Facility Administered Medication Ordered Dose Route Frequency Start Date End Date Status [facility] acetaminophen ([id number]) tablet 1,000 mgIndications:Research study patient 1000 mg oral Once 12/24/2024 12/24/2024 Ended [facility] diphenhydrAMINE ([id number]) capsule 50 mgIndications:Research study patient 50 mg oral Once 12/24/2024 12/24/2024 Ended [facility] famotidine ([id number]) tablet 20 mgIndications:Research study patient 20 mg oral Once 12/24/2024 12/24/2024 Ended [facility] methylPREDNISolone sodium succinate ([id number]) 100 mg in sodium chloride 0.9% 100 mL IVPBIndications:Research study patient 100 mg IV Once 12/24/2024 12/24/2024 Ended [facility] felzartamab/placebo ([id number]) 1,300 mg in sodium chloride 0.9% 250 mL IVPBIndications:Research study patient 1300 mg IV Once 12/24/2024 12/24/2024 Ended Active Problems Patient Care Coordination No te Formatting of this note migh t be different from the original. Set up S/O [facility] [phone] [id number] [phone] Standing Orders [id number], UPE, Iron Profile q3 HgbA1C Exp. 06/14/25 Problem Noted Date Diagnosed Date Acute kidney failure 12/11/2024 History of simultaneous kidney and pancreas yancey splant 11/30/2024 Pyelonephritis 11/30/2024 Iron deficiency anemia, unspecified 11/13/2024 ESRD (end stage renal disease) 10/30/2024 Fall, initial encounter 08/20/2024 Gastroesophageal reflux disease without esophagi tis 08/20/2024 History of renal transplant 08/19/2024 Contusion of scalp 08/19/2024 Acute pain of left shoulder 08/19/2024 Stage 3b chronic kidney disease 08/19/2024 Secondary hyperparathyroidism of renal origin Thrombocytopenia 08/19/2024 Cervical spondylosis 08/19/2024 Left thyroid nodule 08/19/2024 Fall at home 08/18/2024 Dehydration 08/11/2024 Urinary tract infection in female 08/10/2024 Acute kidney injury superimposed on chronic kidn ey disease 08/10/2024 Dizziness 05/21/2024 Near syncope 05/21/2024 Aneurysm of arteriovenous dialysis fistula 03/15 Type 2 diabetes mellitus wit h microalbuminuria, without long-term current use of insulin 03/06/2024 Skin ulcer, limited to breakdown of skin 024 Assessment & Plan (02/14/2024 2:47 PM CDT): Impression: Patient has multiple areas of ulcerations to include abdomen, low back, left upper extremity, face, and scalp in various stages and per patient have been present for 2 years after she went camping. She is currently being treated at wound clinic in [place]. She reports being evaluated by dermatology and was recommended a cream however that was unsuccessful. She denies any fever, chills, or drainage at this time. Plan: Voiced concerned of ulcerations presence for the long as they have been present with no resolution. Patient is on many antirejection medications after her kidney transplant that her ulcerations likely be a result of these medications however staph infection is also a concern. Recommend patient to follow up with PCP for further evaluation of chronic non healing ulcerations. 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 Pt was seen in OSH from 11/30-12/05 w/ UTI symptoms, 2.5 g albuminuria, serum Cr 2.5 at discharge. Nephrology recommended OP kidney transplant biopsy. Bx of R kidney performed. 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 Pt was seen in OSH from 11/30-12/05 w/ UTI symptoms, 2.5 g albuminuria, serum Cr 2.5 at discharge. Nephrology recommended OP kidney transplant biopsy. Bx of R kidney performed. --Bedrest for 6 hours post bx --Obtain CBC 6 hours post surgery --NPO for 2 hours post bx --Restart on home immunosuppressives: Tacro 3 caps in am 2 caps in pm, Mycophenolate 360 mg BID --Will place SCDs for DVT prophylaxis Assessment & Plan (03/10/2022 11:04 AM FLOORING INSTALLER): 2/2 FSGS s/p DDRT 2009 presents for renal biopsy for research study. -s/p biopsy with radiology -Continue home tacro 4mg BID, mycophenolate 350 BID, pred 5; am tacro trough -labs stable -CXR per study protocol complete Assessment & Plan (03/09/2022 11:30 AM FLOORING INSTALLER): 2/2 FSGS s/p DDRT 2009 presents for renal biopsy for research study -Biopsy with radiology today -Continue home tacro 4mg BID, mycophenolate 350 BID, pred 5; am tacro trough -CBC post-bx and in AM, BMP in AM -CXR per study protocol Assessment & Plan (10/08/2020 8:07 PM CDT): Renal transplant in 2009. On tacrolimus, mycophenolate to prevent rejection. Bactrim DS daily for PCP prophylaxis. Tacrolimus level normal on 09/02, levels for 09/17 elevated at 14.8 (unclear if this was a true trough), 09/20 10.6 and 09/25 4.4 While inpatient, Tacrolimus dose adjusted to 2 mg po q bedtime and 3 mg po daily (instead of 3 mg po BID) - Dr. Perez adjusted 09/23 tacro to 2mg BID. Per Nimisha @ [facility] - she reports tacro level should be between 3-5. Dr. Perez managing. Recent tacro level 4.9 Moderate protein-calorie malnutrition 10/08/2020 Assessment & Plan (10/21/2020 12:43 PM CDT): Pt presents with moderate muscle and fat wasting and 8% weight loss in < 2 months. Pt intake at 25% for most meals. Pt getting high protein pudding and Magic cup for ONS. Pt cannot have Ensure, Nepro, or Mighty Shakes d/t soy allergy. If pt continues to have poor po intake, unable to maintain hydration without IVF, will need to discuss change in code status and palliative measures with family 10/14/20: Lost 6 lbs since admission. Monitor 10/21: wt stable. Slow transit constipation 10/08/2020 Assessment & Plan (10/21/2020 1:00 PM CDT): Continue Miralax BID, senna scheduled, continue PRN MOM. Last BM 10/20 Hyponatremia 10/03/2020 Assessment & Plan (03/10/2022 11:09 AM FLOORING INSTALLER): Stable, mild. Resolved with repeat BMP. Assessment & Plan (03/09/2022 11:30 AM FLOORING INSTALLER): Stable, mild -Trend bmp Assessment & Plan (10/22/2020 11:56 AM CDT): Sodium stable (varying between 129-137), currently 130. IVF dc'd 10/20. Appreciate nephrology recs. Continue to monitor. Does not appear volume overloaded. F/U labs in one week Right lower lobe pneumonia 10/03/2020 Immunosuppression due to drug therapy 10/03/2020 Neurodermatitis 10/03/2020 Diarrhea 10/03/2020 Hyperbilirubinemia 10/03/[address] 10/03/2020 Malnutrition 10/03/2020 Assessment & Plan (10/14/2020 1:19 PM CDT): Lost 6 lbs since admission. monitor Urinary retention 10/03/2020 Assessment & Plan (10/22/2020 12:10 PM CDT): atwood removed at 8am 10/22. If she does not void atwood will be replaced prior to dc and she will need f/u with urology as outpt. If voids, atwood will remain out and monitor outpt. Anemia due to stage 3 chronic kidney disease 05/2018 Assessment & Plan (10/22/2020 11:53 AM CDT): Cr has normalized. Na 129-137, appreciate nephrology rec - completed IVF. PO intake adequate. Avoid nephrotoxic drugs. Will need f/u BMP in one week. Encouraged po fluid intake. F/U with Dr. Perez in one week Benign hypertensive kidney d isease with chronic kidney disease stage I through stage IV, or unspecified(403.10) 08/30/2018 Persistent proteinuria 08/30/2018 Focal segmental glomerulosclerosis 08/30/2018 Excoriation 05/31/2016 Anemia in stage 3 chronic kidney disease 017 Discharge planning issues 03/10/2016 Ineffective coping 03/10/2016 Affective psychosis, bipolar 02/23/2016 Generalized weakness 12/17/2015 Edema 11/05/2015 Surgical follow-up care 06/11/2015 Dermatitis 05/21/2015 Assessment & Plan (03/10/2022 11:03 AM FLOORING INSTALLER): F/B osh derm -Continue home mupirocin, silvadene Assessment & Plan (03/09/2022 11:31 AM FLOORING INSTALLER): F/B osh derm -Continue home mupirocin, silvadene Microcytic hypochromic anemia 05/21/2015 Allergy, food 04/18/2015 Stenosis due to any device, implant or graft 10/2014 HTN (hypertension), benign 03/17/2015 Assessment & Plan (12/12/2024 9:09 AM CDT): - she is on losartan and amlodipine - she was recently hospitalized [facility] for Uti where dosages were updated, will check Assessment & Plan (12/11/2024 6:11 PM CDT): --Continue home Amlodipine 2.5 mg daily Assessment & Plan (10/30/2024 3:05 PM CDT): Chronic stable. Continue amlodipine, losartan Assessment & Plan (02/14/2024 2:45 PM CDT): Impression: Chronic and stable. Plan: Continue amlodipine, Assessment & Plan (11/10/2023 12:01 PM CDT): Continue losartan Assessment & Plan (03/10/2022 11:04 AM FLOORING INSTALLER): -Continue home losartan 50 Assessment & Plan (03/09/2022 11:30 AM FLOORING INSTALLER): -Continue home losartan 50 Assessment & Plan (10/22/2020 11:55 AM CDT): Blood pressure stable, continue only losartan 12.5mg. End-stage renal disease 03/03/2015 Assessment & Plan (10/30/2024 3:03 PM CDT): Impression: Patient has a left brachiocephalic AV fistula created in 2008 that is not being utilized for dialysis as she underwent a kidney transplant in 2009. 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 She reports this is causing discomfort and numbness. Plan: Discussed patient and plan of care with Dr. Alisia Callejas. - Discussed with the patient if needing hemodialysis in the future, she will require access to her upper extremities and she will not do dialysis again with the understanding that can be fatal. - Due to patient's discomfort and numbness, recommend resection of aneurysmal site of her AV fistula. Risks of the procedure communicate with the patient to include bleeding, infection, injury, limb loss and . Patient voices understanding of these risks and wishes to proceed. Assessment & Plan (07/17/2024 2:01 PM CDT): Patient with a partially thrombosed left arm AV fistula with aneurysmal changes. No surgical procedural intervention is indicated at this time. Will schedule patient for follow-up in 3 months with left arm AV fistula scan to confirm thrombosis, due to large aneurysm presence near arterial anastomosis. I discussed with the patient if she were to require hemodialysis in the future she would require a new access. Assessment & Plan (04/12/2024 4:03 PM FLOORING INSTALLER): Patient fortunately non dialysis at this time status post kidney transplant. Her creatinine is fluctuating between 1.7, 2.2. Previous wounds to left upper extremity have healed. Patient overall very pleased. Patient does have a aneurysmal change noted to left brachiocephalic AV fistula near the arterial anastomosis. She also does have a increased velocity associated with a previous stent placed. Will hold on any further surgical procedure intervention at this point due to patient not requiring dialysis. Will have patient follow up in the office in 3 months with left arm AV fistula scan. Case discussed with Dr. Kai Callejas. Assessment & Plan (02/14/2024 2:33 PM CDT): Impression: Patient has a left brachiocephalic AV fistula not being utilized for dialysis as she is status post kidney transplant in 2009. Unfortunately, her kidney functions have started to decline and may require hemodialysis in the future. Her AV fistula is tortuous and aneurysmal and has a superficial ulceration medial to her AV fistula. No concern for infection at this time. She is being treated for multiple ulcerations at [facility] wound clinic. Plan: Although patient is being treated by wound clinic, I would recommend patient to follow up in 4 weeks for re-evaluation of ulceration that is located medial of her left AV fistula. Discussed with the patient concern of infection in regards to the close proximity of her ulceration to her fistula. - recommend patient to continue wound care as recommended per Wound Clinic. - Discussed with the patient, if Dr. Perez recommends initiation of dialysis, would like to avoid cannulating AV fistula due to her ulceration and she may require a tunneled dialysis catheter. Patient voices understanding. -Will also schedule patient for her routine 3 month follow up with Av duplex. Assessment & Plan (11/10/2023 12:00 PM CDT): Current duplex shows the fistula is widely patent. Is available for dialysis if and when needed. Follow up in 3 months for routine surveillance with an upper extremity AV duplex. Aftercare following organ transplant 06/14/2012 Type 2 diabetes mellitus 08/29/2010 Overview (08/11/2017): Description: Type 2 Diabetes Mellitus With Complication Assessment & Plan (12/12/2024 8:46 AM CDT): Not on any medications. Well controlled. Assessment & Plan (12/11/2024 6:11 PM CDT): Not on any medications. Well controlled. Assessment & Plan (11/10/2023 12:00 PM CDT): Continue as per PCP Anxiety and depression 08/29/2010 Overview (08/11/2017): Description: Anxiety (Symptom) Assessment & Plan (12/12/2024 8:46 AM CDT): -Continue home Bupropion 150 mg daily Assessment & Plan (12/11/2024 6:11 PM CDT): -Continue home Bupropion 150 mg daily Assessment & Plan (03/10/2022 11:02 AM FLOORING INSTALLER): F/b outpatient psych -Continue home prn ativan, wellbutrin, topamax Assessment & Plan (03/09/2022 11:32 AM FLOORING INSTALLER): F/b outpatient psych -Continue home prn ativan, wellbutrin, topamax Assessment & Plan (10/21/2020 12:35 PM CDT): Mood stable, flat affect. Continue Wellbutrin 150 mg b.i.d., Ativan 1 mg q.6 p.r.n. for anxiety, Topamax. Blood in urine 08/29/2010 Overview (08/11/2017): Description: Hematuria Encounter for aftercare following kidney transpl ant 08/29/2010 Overview (08/11/2017): Description: Renal Transplant Recipient Resolved Problems Problem Noted Date Diagnosed Date Resolved Date Encephalopathy acute 10/03/2020 022 Assessment & Plan (10/22/2020 11:55 AM CDT): Neurology consulted inpt. CT brain left basal ganglia calcifications, EEG with generalized slowing likely due to metabolic abnormalities - Magnesium, sodium repleted. ARMATURE WINDER REPAIR following at [facility] - not cooperating with therapies overall. SLUMS . No behaviors. Flat affect. Tacro level elevated - Dr. Perez managing. Unsure if cause? Reversible causes workup: Vitamin B12, folate, TSH, ammonia, vitamin d level within normal limits Continue tx - PT/OT/ST. Family/sister coming in to help with encouragement. Continue prn tylenol. Continue SQ heparin for DVT proph 10/03/20: had become less lethargic, but remain confused, oriented only to person. Pt not participating every day with therapy - often refuses. Does not appear to be in pain. 10/08/20: pt much more alert, although remains confused. Fluid intake improved, still with sub par food intake. Doubt pt will recover enough to live outside a LCT facility. Family aware. 10/14/20: appears lethargic. Not much interactive. Na level improved to 131 with IVF and oral Na tabs, which later dc'd. 10/21: affect flat, remains confused/severe cognitive impairment. ARMATURE WINDER REPAIR rec 24hour supervision and assistance with basic ADL's at DC 10/22: no changes, pt remains confused. Pulled out midline yesterday. DC planned to ECF 10/23 Encounters Date Type Department Care Team Description 12/24/2024 9:42 AM CDT - 12/24/2024 11:59 PM CDT Hospital Encounter [address] [address] Immunosuppression; 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); Kidney replaced by transplant Discharge Disposition: Discharge to home or self care 12/24/2024 Documentation [facility] Stu Guan RC 12/24/2024 Results Follow-Up [facility] Ne[facility]rology at [address] [place] [id number] Benjy Perez MD Tacrolimus level trough 12/24/2024 Research Med Pick-Up/CTRU President/[employer] [facility] Clinical Trial [address] [place] [id number] Carly Guan RC Research study patient (Primary Dx) 12/24/2024 Research Med Pick-Up/CTRU President/[employer] [facility] Clinical Trial [address] [place] [id number] Stu Guan RC Research study patient (Primary Dx) 12/24/2024 Research Med Pick-Up/CTRU President/[employer] [facility] Clinical Trial [address] [place] [address] Stu Guan RC Research study patient (Primary Dx) 12/24/2024 Research Med Pick-Up/CTRU President/[employer] [facility] Clinical Trial [address] [place] [address] Stu Guan RC Research study patient (Primary Dx) 12/21/2024 10:52 AM CDT - 12/21/2024 11:59 PM CDT Hospital Encounter [facility] [place] [address] Shaniqua Hubbard RN Anemia in stage 3a chronic kidney disease (HCC) (Primary Dx); COVID-19; Kidney transplanted Discharge Disposition: Discharge to home or self care 12/21/2024 Telephone [facility] Nephrology at [address] [place] [address] Benjy Perez MD 12/21/2024 Orders Only [facility] [address] [place] [address] Shaniqua Hubbard RN 12/19/2024 11:58 AM CDT - 12/19/2024 11:59 PM CDT Hospital Encounter [address] [address] Discharge Disposition: Discharge to home or self care 12/19/2024 Telephone [facility] Transplant Kidney [address] [facility] [address] Mailstop 90-32-701 [place] [address] [facility], ANKIT 12/19/2024 Telephone [facility] Transplant Kidney [address] [facility] [address] Mailstop 90-81-217 [place] [address] Jannet To 12/17/2024 Orders Only [facility] Transplant Kidney [address] [facility] [address] Mailstop [phone] [place] [address] [facility], RN 12/17/2024 Telephone [facility] Transplant Kidney [address] [facility] [address] Mailstop 68-87-253 [place] [address] Taniya Malik 12/17/2024 Orders Only [facility] Transplant Kidney [address] [facility] [address] Mailstop 14-21-371 [place] [address] [facility], RN 12/13/2024 Telephone [facility] Transplant Kidney [address] [facility] [address] Mailstop 48-60-649 [place] [address] [facility], RN 12/11/2024 12:06 PM CDT - 12/12/2024 5:45 PM CDT Hospital Encounter [address] [address] Cris Roberts MD Patolia, MD Conner Morocho, Paulina Macedo MD Kidney replaced by transplant; Hyperkalemia; Stage 3 chronic kidney disease, unspecified whether stage 3a or 3b CKD (HCC) Discharge Disposition: Discharge to home or self care 12/11/2024 9:45 AM CDT Office Visit [address] 1st [place] [address] Kidney replaced by transplant; Immunosuppression; Stage 3b chronic kidney disease (HCC); 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) 12/10/2024 Orders Only [facility] Transplant Kidney [address] [facility] [address] Mailstop 58-70-285 [place] [address] [facility], RN Kidney replaced by transplant (Primary Dx) 12/06/2024 1:55 PM CDT Lab [facility] Lab [address] [place] [address] Kidney replaced by transplant 12/06/2024 Telephone [facility] Nephrology at [address] [place] [address] Benjy Perez MD 12/06/2024 Orders Only [facility] [address] [place] [address] Jonelle Vargas RN 12/06/2024 Telephone [facility] Transplant Kidney [address] [facility] [address] Mailstop [phone] [place] [address] Samantha Lyons, ANKIT 12/05/2024 Orders Only [facility] Transplant Kidney [address] [facility] [address] Mailstop 31-52-276 [place] [address] Samantha Lyons, RN Kidney replaced by transplant (Primary Dx) 12/05/2024 Clinical Support [facility] Transplant Kidney [address] [facility] [address] Mailstop 07-25-939 [place] [address] Sloan Gongora [facility] 12/05/2024 Telephone [facility] Transplant Kidney [address] [facility] [address] Mailstop 66-85-705 [place] [address] Constanza Huang 11/30/2024 10:11 AM CDT - 12/04/2024 2:14 PM CDT Hospital Encounter [facility] 5 Med Surg [facility]4 [place] [address] Annmarie Victor MD Mustafa, Saim, DO TAMI (acute kidney injury) (Primary Dx); History of simultaneous kidney and pancreas transplant (HCC); Sepsis due to Escherichia coli, unspecified whether acute organ dysfunction present (HCC); Generalized weakness Discharge Disposition: Discharge to home, home health skilled care 11/29/2024 Telephone [facility] Nephrology at [place] [address] [facility] [address] [place] [address] Benjy Perez MD 11/28/2024 Telephone [facility] Nephrology [address] [facility] 5th [place] [address] [place] [address] Josue Turner MD 11/27/2024 2:00 PM CDT Orders Only [facility] Medical Office Building 2 Wound Care [address] [facility] [address] [place] [address] 11/22/2024 11:15 AM CDT Office Visit [facility] Medicine Neurosurgery [address] [facility] Floor 1, [address] [place] [address] Thom Willis MD Benign neoplasm of cerebral meninges (HCC) (Primary Dx) 11/22/2024 9:12 AM CDT - 11/22/2024 11:59 PM CDT Hospital Encounter [facility] - [facility] [address] [facility] [place] [address] Benign neoplasm of cerebral meninges (HCC) Discharge Disposition: Discharge to home or self care 11/22/2024 Telephone [facility] Radiation Oncology [address] [facility] [place] [address] Treasure Coates MD 11/22/2024 Telephone [facility] Radiation Oncology [address] [place] [address] Treasure Coates MD 11/22/2024 Orders Only [facility] Medicine Neurosurgery [address] [facility] Floor 1, [address] [place] [address] Thom Willis MD Benign neoplasm of cerebral meninges (HCC) (Primary Dx) 11/21/2024 Telephone Radiology 1 [place] [address] Kristine Ferrell RT 11/21/2024 Telephone [facility] Transplant Kidney [address] [facility] [address] Mailstop 88-63-240 [place] [address] Nimisha Bradford RN 11/21/2024 Orders Only [facility] Transplant Kidney [address] [facility] [address] Mailstop 65-66-823 [place] [address] Nimisha Bradford RN Kidney replaced by transplant (Primary Dx) 11/20/2024 6:30 AM CDT Lab [facility] [address] [place] [address] Kidney transplanted; Iron deficiency anemia secondary to inadequate dietary iron intake; Hyperlipidemia, unspecified hyperlipidemia type 11/20/2024 6:15 AM CDT Lab [facility] [address] [place] [address] Immunosuppression; Kidney replaced by transplant; Stage 3b chronic kidney disease (HCC); 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) 11/20/2024 Results Follow-Up [facility] Nephrology at [address] [address] Benjy Perez MD Comprehensive metabolic panel, Tacrolimus level trough, eGFR, Additional followed-up results: 2 11/20/2024 Telephone [facility] Nephrology at [address] [address] Benjy Perez MD 11/19/2024 9:30 AM CDT - 11/19/2024 11:59 PM CDT Hospital Encounter [address] [address] Anemia in stage 3 chronic kidney disease, unspecified whether stage 3a or 3b CKD (HCC) (Primary Dx); Iron deficiency anemia, unspecified iron deficiency anemia type Discharge Disposition: Discharge to home or self care 11/16/2024 2:29 PM CDT - 11/16/2024 11:59 PM CDT Hospital Encounter [address] [address] Anemia in stage 3a chronic kidney disease (HCC) (Primary Dx); 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); Stage 3b chronic kidney disease (HCC); COVID-19; Kidney transplanted; Iron deficiency anemia, unspecified iron deficiency anemia type; Low iron stores Discharge Disposition: Discharge to home or self care 11/13/2024 Orders Only [address] [address] Jonelle Vargas RN 11/13/2024 Orders Only [facility] Nephrology at [address] [place] [address] Benjy Perez MD Iron deficiency anemia, unspecified iron deficiency anemia type (Primary Dx); 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); Stage 3b chronic kidney disease (HCC) 11/12/2024 12:10 PM CDT Lab [facility] Building [address] [place] [address] Kidney transplanted; Type 1 diabetes mellitus with hyperglycemia (HCC); Hyperlipidemia, unspecified hyperlipidemia type 11/12/2024 Results Follow-Up [facility] Group Nephrology at [address] [place] [address] Benjy Perez MD CBC with auto differential, Comprehensive metabolic panel, PTH, Additional followed-up results: 3 11/09/2024 2:25 PM CDT Lab [facility] [address] [place] [address] Kidney transplanted 11/09/2024 2:10 PM CDT Lab [facility] [address] [place] [address] 11/09/2024 Telephone [facility] Vascular and Vein Surgery [facility] [address] [place] [address] Rosita Hill 11/07/2024 Orders Only [facility] Medical Office Building 2 Wound Care [address] [facility] [address] [place] [address] Brooklyn Colbert PA 11/07/2024 Orders Only [facility] Infusion Center 4500 [place] [address] Jonelle Vargas, RN 11/07/2024 Orders Only [facility] Nephrology at [address] [place] [address] Benjy Perez MD 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) (Primary Dx); Stage 3b chronic kidney disease (HCC) 11/06/2024 8:30 AM CDT - 11/06/2024 10:00 AM CDT Surgery [facility] OR [address] [place] [address] Kai Callejas MD 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 11/06/2024 8:08 AM CDT Anesthesia Event [facility] OR [address] [place] [address] Debora Mcfadden MD Taylor-White, Carlotta A., NP 11/06/2024 6:26 AM CDT - 11/06/2024 1:30 PM CDT Hospital Encounter [facility] OR [address] [place] [address] Kai Callejas MD Aneurysm of arteriovenous dialysis fistula, initial encounter (Primary Dx) Discharge Disposition: Discharge to home or self care 11/06/2024 Telephone [facility] Nephrology at [address] [place] [address] Benjy Perez MD 11/01/2024 Telephone [facility] Nephrology at [address] [place] [address] Johnny Cross 10/31/2024 Orders Only [facility] Transplant Kidney [address] [facility] [address] Mailstop 9029-190 [place] [address] Jannet To Kidney transplanted (Primary Dx); Iron deficiency anemia secondary to inadequate dietary iron intake 10/30/2024 3:15 PM CDT Orders Only [facility] Medical Office Building 2 Wound Care [address] [facility] [address] [place] [address] 10/30/2024 12:59 PM CDT - 10/30/2024 11:59 PM CDT Hospital Encounter [facility] Office Building 2 Vascular [address] [facility] [address] [place] [address] End-stage renal disease (HCC); Other complication of arteriovenous dialysis fistula, subsequent encounter Discharge Disposition: Discharge to home or self care 10/30/2024 12:58 PM CDT - 10/30/2024 11:59 PM CDT Hospital Encounter [facility] D[facility] Access Center at [place] [address] [facility] [address] [place] [address] End-stage renal disease (HCC) (Primary Dx); Other complication of arteriovenous dialysis fistula, subsequent encounter; HTN (hypertension), benign Discharge Disposition: Discharge to home or self care 10/25/2024 Telephone [facility] Nephrology at [address] [place] [address] Benjy Perez MD 10/25/2024 Orders Only [facility] Nephrology at [address] [place] [address] Eileen Bernal MD 10/22/2024 Telephone [facility] Medical [facility] Nephrology at [address] [place] [address] Benjy Perez MD 10/17/2024 Telephone [facility] Nephrology at [address] [place] [address] Johnny Cross 10/15/2024 Orders Only [facility] Transplant Kidney [address] 90-89-031 [place] [address] Nimisha Bradford RN 10/10/2024 12:50 PM CDT Lab [facility] Medical Office Building [address] [place] [address] 10/09/2024 Telephone [facility] Transplant Kidney [address] [facility] [address] [facility] 90-81-994 [place] [address] Nimisha Bradford RN 10/05/2024 Orders Only [facility] Medical Office Building 2 Wound Care [address] [place] [address] [address] [place] [address] Brooklyn Colbert PA 10/05/2024 Orders Only [facility] Nephrology [address] [facility] 5th [place] [address] [place] [address] Carly Guan RC Research study patient (Primary Dx) 10/04/2024 9:45 AM CDT Orders Only [facility] Medical Office Building 2 Wound Care [address] [facility] [address] [place] [address] 10/01/2024 Orders Only [facility] Transplant Kidney [address] [facility] [address] Mailstop 93-17-227 [place] [address] Nimisha Bradford RN Kidney replaced by transplant (Primary Dx) 10/01/2024 Telephone [facility] Transplant Kidney [address] [facility] [address] Mailstop 54-47-815 [place] [address] Nimisha Bradford RN 10/01/2024 Telephone Radiology 1 [place] [address] Mila Henning RT 10/01/2024 Orders Only [facility] Transplant Kidney [address] [facility] [address] Mailstop 12-30-432 [place] [address] Nimisha Bradford RN Kidney replaced by transplant (Primary Dx) 09/27/2024 10:33 AM CDT - 09/27/2024 11:59 PM CDT Hospital Encounter [address] [address] Research study patient; History of renal transplant Discharge Disposition: Discharge to home or self care 09/27/2024 Documentation [facility] Stu Guan RC 09/26/2024 11:30 AM CDT Office Visit [facility] Nephrology at [address] [place] [address] Benjy Perez MD Stage 3b chronic kidney disease (HCC) (Primary Dx); Persistent proteinuria; Immunosuppression; Kidney replaced by transplant; 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); Secondary hyperparathyroidism 09/26/2024 10:20 AM CDT Lab [facility] Lab [address] [place] [address] Kidney transplanted 09/26/2024 Orders Only [facility] Nephrology [address] [facility] 5th [place] [address] Jovana Alaniz NP History of renal transplant (Primary Dx) 09/26/2024 Orders Only [facility] Nephrology [address] [facility] 5th [place] [address] Carly Guan RC Research study patient (Primary Dx) 09/25/2024 6:05 AM CDT Lab [facility] Lab [facility] [place] [address] FSGS (focal segmental glomerulosclerosis); Immunosuppression; Kidney replaced by transplant; 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); Stage 3b chronic kidney disease (HCC) from Last 3 Months Immunizations Immunization Administration Dates Next Due DTaP 01/30/2013 Influenza, Quadrivalent, Spl it, Intramuscular 02/24/2016 Influenza, Quadrivalent, Spl it, Preservative Free, Intramuscular 02/02/2022,01/22/2020,02/01/2018,01/31,02/14/2017,02/24/2016 Influenza, Trivalent, High D ose, Split, Preservative Free, Intramuscular 01/23/2019 Influenza, Trivalent, IM (MDV) 03/09/2016,2013,01/10/2013 Influenza, Trivalent, Preser vative Free, Intramuscular 03/17/2015 Influenza, Unspecified 02/14/2017,2016,03/09/2016,03/17 Pneumococcal Conjugate PCV 13 05/10/2016 Pneumococcal Conjugate, Unspecified 05/02/2016 Tdap 11/30/2024 Surgical History Surgery Date Site/Laterality Comments TX RENAL ALTRNSPLJ IMPLTJ GRF W/O BUYER PLANNER NEPHRECTOMY Renal Transplant - (Added by TW Conv) ANKLE SURGERY Ankle Surgery - (Added by TW Conv) TX TOTAL ABDOMINAL HYSTERECT W/WO RMVL TUBE OVARY Hysterectomy - (Added by TW Conv) US GUIDED BIOPSY RENAL 08/27/2021 N/A US GUIDED BIOPSY RENAL 03/09/2022 N/A LUMBAR PUNCTURE WO INJECTION, DIAGNOSTIC 12/29/2021 N/A DIALYSIS FISTULA CREATION 10/30/2008 - 11/29/2008 Left LUE brachiocephalic AVF creation - Dr. Corral AV FISTULA REPAIR 11/30/2008 - 12/30/2008 Left LUE AVF revision to AVG - Dr. Corral AV FISTULA REPAIR 08/18/2009 Left LUE AVG - angioplasty cephalic vein and stent graft repair - Dr. Hess KIDNEY TRANSPLANT 11/08/2009 AV FISTULA REPAIR 01/31/2013 Left LUE AVG - angioplasty cephalic vein & axillary vein - Dr. Hess AV FISTULA REPAIR 08/20/2013 Left LUE AVG - angioplasty cephalic vein & cephalic vein stent - Dr. Hess AV FISTULA REPAIR 03/27/2014 Left LUE AVG - angioplasty cephalic vein & cephalic vein stent - Dr. Hess AV FISTULA REPAIR 04/22/2014 Left LUE AVG - angioplasty cephalic vein, cephalic vein stent, subclavian vein & brachiocephalic vein - Dr. Hess AV FISTULA REPAIR 05/13/2014 Left LUE AVG - angioplasty cephalic vein & subclavian vein - Dr. Hess AV FISTULA REPAIR 11/06/2024 Left LUE AVF - resection aneurysms - Dr. Kai Callejas US GUIDED BIOPSY RENAL 12/11/2024 N/A Medical History Medical History Date Comments History of kidney transplant His tory of renal transplant - (Added by TW Conv) Other residential (current) drug therapy High risk medication use - (Added by TW Conv) Encounter for aftercare foll owing other organ transplant Aftercare following organ tr ansplant - (Added by TW Conv) Encounter for aftercare foll owing other organ transplant Aftercare following organ tr ansplant - (Added by TW Conv) Hypertension Kidney transplant rejection Anxiety Depression Dermatitis From anti reject ion medication 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 Anxiety 2024 CKD (chronic kidney disease) Anemia BELL (iron deficiency anemia) inf usion every 2-3 months Family History Medical History Relation Name Comments Cancer Brother Diabetes Brother Family history of diabetes mellitus - (Added by TW Conv) Diabetes Father Diabetes Mother Family history of diabetes mellitus - (Added by TW Conv) Kidney disease Mother Family histor y of chronic kidney disease - (Added by TW Conv)/Family history of chronic kidney disease - (Added by TW Conv) Kidney disease Son 1 Family histor y of chronic kidney disease - (Added by TW Conv) Kidney disease Son 2 Family histor y of chronic kidney disease - (Added by TW Conv) Relation Name Status Comments Brother Father Mother Son 1 Son 2 Social History Tobacco Use Types Packs/Day Years Used Date Smoking Tobacco: Former Passive Smoke Exposure: Past Smokeless Tobacco: Never Tobacco Cessation:Counseling Given: No Alcohol Use Standard Drinks/Week Comments Never 0 [...] materials from doctor or pharmacy Sometimes 05/13/2022 [facility] Utilities Answer Date Recorded In the past 12 months has e [employer], gas, oil, or water [employer] threatened to shut off services in your [...] often do you attend chur ch or muslim services? Never 12/03/2024 Do you belong to any clubs o r organizations such as caodaism groups, unions, fraternal or athletic groups, or [...] any time in the past 12 m [facility], were you homeless or living in a mcc (including now)? No 12/03/2024 Personal Safety Answer Date Recorded Have you ever been in or are you currently in a harmful physical or emotional relationship or is someone making you feel afraid or unsafe? 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 Sexual Orientation Not on file Obstetrics History Last Filed Vital Signs Vital Sign Reading Time Taken Comments Blood Pressure 130/88 12/21/2024 11:00 AM CDT Pulse 88 12/21/2024 11:00 AM CDT Temperature 37.5 C (99.5 F) 12/21/2024 11:00 AM CDT Respiratory Rate 18 12/21/2024 11:00 AM CDT Oxygen Saturation 100% 12/21/2024 11:00 AM CDT Inhaled Oxygen Concentration - - Weight 81.2 kg (179 lb) 12/11/2024 12:15 PM CDT Height 175.3 cm (5' 9) 12/11/2024 12:15 PM CDT Body Mass Index 26.43 12/11/2024 12:15 PM CDT Plan of Treatment Upcoming Encounters Date Type Department Care Team (Latest Contact Info) Description 01/01/2025 Research Med Pick-Up/CTRU President/[employer] & Live Experiences [facility] Clinical Trial 1 [place] [address] Stu Guan RC Research study patient (Primary Dx) Health Maintenance Due Date Last Done Comments Colon Cancer Screening-Colonoscopy 1958 Depression Screening 1958 Foot Exam 1958 Osteoporosis Screening-Bone Density Scan 1958 Dilated Eye Exam 1968 Hepatitis B Screening 1976 Zoster Vaccine (1 of 2) 1977 Pneumococcal vaccine 65+ (2 of 2 - PPSV23, PCV20, or PCV21) 07/05/2016 05/10/2016, 05/02/2016 Covid-19 Vaccine (3 - Pfizer risk series) 08/14/2020 07/17/2020, 06/24/2020 Well Visit 65+ 2023 Influenza Vaccine (#1) 2024 , 02/02/2022, 01/22/2020, Additional history exists Breast Cancer Screening-Mammogram 02/20/2025 02/21/2024, 02/21/2024, 07/13/2021, Additional history exists Hemoglobin A1C 05/15/2025 11/12/2024, 040 06/2024, 05/21/2024, Additional history exists Lipid Panel 11/12/2025 11/12/2024, 040 06/2024, 02/10/2024, Additional history exists TSH Level 11/30/2025 11/30/2024, 080 05/2024, 08/20/2024, Additional history exists Albumin Creatinine Ratio, Urine 12/11/2025 12/11/2024, 08/02/2024, 04/17/2024, Additional history exists Fall Risk Assessment 12/12/2025 12/12/2024 eGFR 12/19/2025 12/19/2024, 11/30, 12/04/2024, Additional history exists DTaP/Tdap/Td Vaccine (3 - Td or Tdap) 11/30/2034 11/30/2024, 01/30/2013 Hepatitis C Screening Completed 11/09/2022 , 03/03/2022, 05/27/2018 Procedures Procedure Name Priority Date/Time Associated Diagnosis Comments TACROLIMUS LEVEL, TROUGH Routine 12/24/2024 11:07 AM CDT Immunosuppression 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) Kidney replaced by transplant EGFR Routine 12/19/2024 11:15 AM CDT TACROLIMUS LEVEL, RANDOM Routine 12/19/2024 11:15 AM CDT IRON PROFILE W/ IBC Routine 12/19/2024 11:15 AM CDT CBC WITHOUT DIFFERENTIAL Routine 12/19/2024 11:15 AM CDT COMPREHENSIVE METABOLIC PANEL Routine 12/19/2024 11:15 AM CDT POTASSIUM, WHOLE BLOOD STAT 12/12/2024 3:37 PM CDT TACROLIMUS LEVEL, TROUGH Routine 12/12/2024 5:58 AM CDT URINALYSIS, MICROSCOPIC ONLY Routine 12/11/2024 6:38 PM CDT ALBUMIN CREATININE RATIO, URINE Routine 12/11/2024 6:38 PM CDT PROTEIN / CREATININE RATIO, URINE, RANDOM Routine 12/11/2024 6:38 PM CDT URINALYSIS AND REFLEX TO MICROSCOPIC Routine 12/11/2024 6:38 PM CDT EGFR Routine 12/11/2024 5:50 PM CDT GLOMERULAR BASEMENT MEMBRANE ANTIBODIES STAT 12/11/2024 5:50 PM CDT ALBUMIN Routine 12/11/2024 5:50 PM CDT CBC WITHOUT DIFFERENTIAL Routine 12/11/2024 5:50 PM CDT BASIC METABOLIC PANEL Routine 12/11/2024 5:50 PM CDT US GUIDED BIOPSY RENAL Schedule Routine, Read Routine (OP Routine) 12/11/2024 11:44 AM CDT Kidney replaced by transplant SURGICAL PATHOLOGY Routine 12/11/2024 10:56 AM CDT Kidney replaced by transplant DIFFERENTIAL AUTO Routine 12/11/2024 8:1 6 AM CDT Immunosuppression Kidney replaced by transplant Stage 3b chronic kidney disease (HCC) 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) CBC WITH AUTO DIFFERENTIAL Routine 12/11/2024 8:16 AM CDT Immunosuppression Kidney replaced by transplant Stage 3b chronic kidney disease (HCC) 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) PROTIME-INR Routine 12/11/2024 8:16 AM CDT Kidney replaced by transplant TYPE AND SCREEN Routine 12/11/2024 8:16 AM CDT Kidney replaced by transplant CYTOMEGALOVIRUS (CMV) DNA, QUANT GEN LAB Routine 12/11/2024 8:16 AM CDT Kidney replaced by transplant BK VIRUS PCR QUANTITATIVE Routine 12/11/2024 8:16 AM CDT Kidney replaced by transplant DIFFERENTIAL AUTO Routine 12/06/2024 2:2 0 PM CDT Kidney replaced by transplant CBC WITH AUTO DIFFERENTIAL Routine 12/06/2024 2:20 PM CDT Kidney replaced by transplant EGFR Routine 12/04/2024 5:34 AM CDT DIFFERENTIAL AUTO Routine 12/04/2024 5:3 4 AM CDT LACTATE DEHYDROGENASE Routine 12/04/2024 5:34 AM CDT TACROLIMUS LEVEL, TROUGH Routine 12/04/2024 5:34 AM CDT FOLATE Routine 12/04/2024 5:34 AM CDT VITAMIN B12 Routine 12/04/2024 5:34 AM CDT IRON PROFILE W/ IBC Routine 12/04/2024 5 :34 AM CDT COMPREHENSIVE METABOLIC PANEL Routine 12/04/2024 5:34 AM CDT CBC WITH AUTO DIFFERENTIAL Routine 12/04/2024 5:34 AM CDT EGFR Routine 12/03/2024 4:59 AM CDT DIFFERENTIAL AUTO Routine 12/03/2024 4:5 9 AM CDT CBC WITH AUTO DIFFERENTIAL Routine 12/03/2024 4:59 AM CDT BASIC METABOLIC PANEL Routine 12/03/2024 4:59 AM CDT TACROLIMUS LEVEL, TROUGH Timed 12/02/2024 9:04 AM CDT EGFR Routine 12/02/2024 5:17 AM CDT DIFFERENTIAL AUTO Routine 12/02/2024 5:1 7 AM CDT CBC WITH AUTO DIFFERENTIAL Routine 12/02/2024 5:17 AM CDT BASIC METABOLIC PANEL Routine 12/02/2024 5:17 AM CDT MRI LUMBAR SPINE WO CONTRAST IP Routine 12/01/2024 6:19 PM CDT US KIDNEY COMPLETE IP Routine 12/01/2024 12:11 PM CDT EGFR Routine 12/01/2024 9:06 AM CDT DIFFERENTIAL AUTO Routine 12/01/2024 9:0 6 AM CDT TACROLIMUS LEVEL, TROUGH Timed 12/01/2024 9:06 AM CDT CBC WITH AUTO DIFFERENTIAL Routine 12/01/2024 9:06 AM CDT BASIC METABOLIC PANEL Routine 12/01/2024 9:[address] RECON LUMBAR SPINE WO CONTRAST IP Routine 12/01/2024 8:46 AM CDT TROPONIN T HIGH-SENSITIVITY 6-HOUR Timed 11/30/2024 4:26 PM CDT TROPONIN T HIGH-SENSITIVITY 4-HR Timed 11/30/2024 2:04 PM CDT ED SUTURE REMOVAL Routine 11/30/2024 12:49 PM CDT ED LACERATION REPAIR Routine 11/30/2024 12:45 PM CDT URINALYSIS, MICROSCOPIC ONLY STAT 11/30/2024 11:54 AM CDT URINE CULTURE STAT 11/30/2024 11:54 AM CDT URINALYSIS AND REFLEX TO MICROSCOPIC AND CULTURE STAT 11/30/2024 11:54 AM CDT TACROLIMUS LEVEL, RANDOM STAT 11/30/2024 11:23 AM CDT SEPSIS LACTATE WITH REFLEX STAT 11/30/2024 11:23 AM CDT TROPONIN T HIGH-SENSITIVITY 2-HOUR Timed 11/30/2024 11:23 AM CDT BLOOD CULTURE STAT 11/30/2024 11:23 AM CDT BLOOD CULTURE STAT 11/30/2024 11:[address] CHEST ABDOMEN PELVIS WO CONTRAST ED 11/30/2024 11:[address] HEAD WO CONTRAST ED 11/30/2024 11:09 AM CDT ECG 12-LEAD STAT 11/30/2024 9:38 AM CDT THYROID FUNCTION CASCADE STAT 11/30/2024 9:34 AM CDT MAGNESIUM STAT 11/30/2024 9:34 AM CDT PHOSPHORUS STAT 11/30/2024 9:34 AM CDT EGFR STAT 11/30/2024 9:34 AM CDT DIFFERENTIAL AUTO STAT 11/30/2024 9:3 4 AM CDT TROPONIN T HIGH-SENSITIVITY SERIES (BASELINE, 2HR, 4HR, 6HR) STAT 11/30/2024 9:34 AM CDT COMPREHENSIVE METABOLIC PANEL STAT 11/30/2024 9:34 AM CDT CBC WITH AUTO DIFFERENTIAL STAT 11/30/2024 9:34 AM CDT MRI BRAIN WO CONTRAST Schedule Routine, Read Routine (OP Routine) 11/22/2024 10:05 AM CDT Benign neoplasm of cerebral meninges (HCC) EGFR Routine 11/20/2024 7:10 AM CDT Kidney transplanted EGFR Routine 11/20/2024 7:10 AM CDT Immunosuppression Kidney replaced by transplant Stage 3b chronic kidney disease (HCC) 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) RENAL FUNCTION PANEL Routine 11/20/2024 7:10 AM CDT Kidney transplanted TACROLIMUS LEVEL, TROUGH Routine 11/20/2024 7:10 AM CDT Immunosuppression Kidney replaced by transplant Stage 3b chronic kidney disease (HCC) 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) IRON PROFILE W/ IBC Routine 11/20/2024 7 :10 AM CDT Kidney transplanted Iron deficiency anemia secondary to inadequate dietary iron intake COMPREHENSIVE METABOLIC PANEL Routine 11/20/2024 7:10 AM CDT Immunosuppression Kidney replaced by transplant Stage 3b chronic kidney disease (HCC) 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) LIPID PANEL Routine 11/12/2024 12:25 PM CDT Kidney transplanted Hyperlipidemia, unspecified hyperlipidemia type HEPATIC FUNCTION PANEL Routine 11/12/2024 12:25 PM CDT Kidney transplanted HEMOGLOBIN A1C Routine 11/12/2024 12:25 PM CDT Kidney transplanted Type 1 diabetes mellitus with hyperglycemia (HCC) PROTEIN / CREATININE RATIO, URINE, RANDOM Routine 11/09/2024 2:37 PM CDT Kidney transplanted EGFR Routine 11/09/2024 2:27 PM CDT DIFFERENTIAL AUTO Routine 11/09/2024 2:2 7 PM CDT IRON PROFILE W/ IBC Routine 11/09/2024 2 :27 PM CDT PTH Routine 11/09/2024 2:27 PM CDT COMPREHENSIVE METABOLIC PANEL Routine 11/09/2024 2:27 PM CDT CBC WITH AUTO DIFFERENTIAL Routine 11/09/2024 2:27 PM CDT TX AN PROCEDURE PLACEHOLDER Routine 11/06/2024 8:20 AM CDT TX AN ELECTIVE SUPRAGLOTTIC AIRWAY Routine 11/06/2024 8:20 AM CDT LIGATION ARTERIO VENOUS FISTULA 11/06/2024 8:06 AM CDT ESRD (end stage renal disease) (HCC) POC BLOOD GAS AND CHEMISTRIES, VENOUS Routine 11/06/2024 7:13 AM CDT POCT CREATININE FOR CONTRAST EVALUATION Routine 11/06/2024 7:13 AM CDT HEMODIALYSIS ACCESS Schedule Routine, Read Routine (OP Routine) 10/30/2024 1:52 PM CDT End-stage renal disease (HCC) Other complication of arteriovenous dialysis fistula, subsequent encounter CBC - COMPLETE BLOOD COUNT, NO DIFFERENTIAL - [facility] Routine 10/22/2024 2:16 PM CDT CBC - COMPLETE BLOOD COUNT, NO DIFFERENTIAL - [facility] Routine 10/22/2024 2:08 PM CDT PTH Routine 10/22/2024 IRON PROFILE W/ IBC Routine 10/22/2024 COMPREHENSIVE METABOLIC PANEL Routine 10/22/2024 PROTEIN / CREATININE RATIO, URINE, RANDOM Routine 10/22/2024 TACROLIMUS LEVEL, TROUGH Routine 10/22/2024 PHOSPHORUS Routine 10/22/2024 TB TEST, QUANTIFERON GOLD Routine 10/10/2024 1:11 PM CDT HLA DONOR SPECIFIC ANTIBODY REPORT 09/27/2024 10:33 AM CDT HLA ANTIBODY SCREEN BY SINGLE ANTIGEN Routine 09/27/2024 10:33 AM CDT History of renal transplant HLA ANTIBODY SCREEN - DSA (CLASS I AND CLASS II) Routine 09/27/2024 10:33 AM CDT History of renal transplant T-SPOT.TB Routine 09/27/2024 10:33 AM CDT PROTEIN / CREATININE RATIO, URINE, RANDOM Routine 09/26/2024 10:35 AM CDT Kidney transplanted EGFR Routine 09/25/2024 6:16 AM CDT FSGS (focal segmental glomerulosclerosis) Immunosuppression 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) Stage 3b chronic kidney disease (HCC) HEMOGLOBIN AND HEMATOCRIT Routine 09/25/2024 6:16 AM CDT FSGS (focal segmental glomerulosclerosis) Immunosuppression 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) Stage 3b chronic kidney disease (HCC) IRON PROFILE W/ IBC Routine 09/25/2024 6 :16 AM CDT FSGS (focal segmental glomerulosclerosis) Immunosuppression 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) Stage 3b chronic kidney disease (HCC) BASIC METABOLIC PANEL Routine 09/25/2024 6:16 AM CDT FSGS (focal segmental glomerulosclerosis) Immunosuppression 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) Stage 3b chronic kidney disease (HCC) TACROLIMUS LEVEL, TROUGH Routine 09/25/2024 6:16 AM CDT FSGS (focal segmental glomerulosclerosis) Immunosuppression 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) Stage 3b chronic kidney disease (HCC) HEPATITIS PANEL, ACUTE Routine 11/09/2022 7:03 AM CDT from Last 3 Months or Most Recently Relevant to Health Maintenance Results * Tacrolimus level trough (12/24/2024 11:07 AM CDT) Tacrolimus trough 5.6 ng/mL Comment: Interpretive Data Testing performed by liquid chromatography-tandem mass spectrometry. Therapeutic concentrations vary depending on type of transplanted organ and time elapsed since transplant. Typical trough concentrations range from 5-15 ng/mL. This test was developed and its performance characteristics determined by the [facility] consistent with CLIA requirements. This test has not been cleared or approved by the [place] Food and Drug administration. Current interpretive data last reviewed 2019. Blood 12/24/2024 11:0 7 AM CDT 12/24/2024 11:19 AM CDT us Benjy Perez MD LAB BLOOD ORDERABLES Final Re sult [facility] Department [place] [address] * (ABNORMAL) eGFR (12/19/2024 11:15 AM CDT) eGFR 25(L) >=60 mL/min/1. 73 m2 Comment: Interpretive Data Reference Interval Normal >/= 90 mL/min/1.73m2 Mildly decreased* 60 - 89 mL/min/1.73m2 Mildly to moderately decreased 45 - 59 mL/min/1.73m2 Moderately to severely decreased 30 - 44 mL/min/1.73m2 Severely decreased 15 - 29 mL/min/1.73m2 Kidney Failure < 15 mL/min/1.73m2 *Relative to young adult level Estimated glomerular filtration rate is determined by the 2020 CKD-EPI equation recommended by the National Kidney Foundation (A Unifying Approach to GFR Estimation: Recommendations of the NKF-ASK Task Force on Reassessing the Inclusion of Race in Diagnosing Kidney Disease, JASN 2020). The CKD-EPI equation should not be used for patients with unstable renal function and has not been validated in children and those over 70. Current interpretive data was last reviewed 2021. Blood 12/19/2024 11:1 5 AM CDT 12/19/2024 12:05 PM CDT Lore Potter MD LAB BLOOD ORDERABLES Final Res ult Performing Organization Address [facility] Co de Phone Number [address] [place] [address] * (ABNORMAL) Iron profile w/ IBC (12/19/2024 11:15 AM CDT) Iron 134 35 - 145 mcg/dL TIBC 219(L) 250 - 400 mcg/dL [facility] Transferrin saturation 61(H) 20 - 50 % [facility] Blood 12/19/2024 11:1 5 AM CDT 12/19/2024 12:05 PM CDT Lore Potter MD LAB BLOOD ORDERABLES Final Res ult Performing Organization Address [facility] de Phone Number [address] [address] * Tacrolimus level random (12/19/2024 11:15 AM CDT) Pathologist [facility] Tacrolimus random 5.0 ng/mL Comment: Interpretive Data Testing performed by liquid chromatography-tandem mass spectrometry. Therapeutic concentrations vary depending on type of transplanted organ and time elapsed since transplant. Typical trough concentrations range from 5-15 ng/mL. This test was developed and its performance characteristics determined by the [facility] consistent with CLIA requirements. This test has not been cleared or approved by the [place] Food and Drug administration. Current interpretive data last reviewed 2019. Testing performed by: [facility], [address] [facility] [place] [address] Blood 12/19/2024 11:1 5 AM CDT 12/19/2024 3:18 PM CDT Lore Potter MD LAB BLOOD ORDERABLES Final Res ult Performing Organization Address [facility] Co de Phone Number [address] [place] [address] * (ABNORMAL) CBC without differential (12/19/2024 11:15 AM CDT) [facility] WBC 5.75 3.80 - 9.90 K/cumm Hgb 11.2(L) 11.9 - 15.5 g/dL [facility] Hct 34.9(L) 35.6 - 45.5 % [facility] Plt 138(L) 150 - 400 K/cumm [facility] MPV 9.9 9.1 - 12.3 fL [facility] RBC 3.54(L) 3.90 - 5.20 M/cumm [facility] MCV 98.6(H) 81.3 - 96.4 fL [facility] MCH 31.6 27.1 - 33.3 pg [facility] MCHC 32.1(L) 32.3 - 35.7 g/dL [facility] RDW CV 13.9 11.1 - 14.9 % [facility] RDW SD 50.5(H) 35.7 - 48.1 fL [facility] NRBC abs 0.00 0.00 - 0.01 K/cumm [facility] Blood 12/19/2024 11:1 5 AM CDT 12/19/2024 12:06 PM CDT us Lore Potter MD LAB BLOOD ORDERABLES Final Res ult [facility] [address] [facility] Department [place] [address] * (ABNORMAL) Comprehensive metabolic panel (12/19/2024 11:15 AM CDT) [facility] Sodium 137 135 - 145 mmol/L Potassium, pl 4.0 3.3 - 4.9 mmol/L [facility] Chloride 103 97 - 110 mmol/L [facility] CO2 22 22 - 32 mmol/L [facility] Anion gap 12 2 - 15 mmol/L [facility] BUN 43(H) 6 - 25 mg/dL [facility] Creatinine 2.17(H) 0.60 - 1.10 mg/dL [facility] Glucose 80 70 - 199 mg/dL [facility] Comment: Interpretive Data Fasting glucose >/= 126 mg/dl is diagnostic for diabetes. Fasting is defined as no caloric intake for at least 8 hours. Fasting glucose between 100 mg/dl to 125 mg/dl is diagnostic of prediabetes. In a patient with classic symptoms of hyperglycemia or hyperglycemic crisis, a random glucose >/= 200 mg/dl is diagnostic for diabetes. In the absence of unequivocal hyperglycemia, results should be confirmed by repeat testing. The classification and Diagnosis of Diabetes Diabetes Care 2021; 46: S19-S40. Current interpretive data was last revised 2022. Calcium 9.9 8.5 - 10.3 mg/dL [facility] Bilirubin, total 0.4 0.1 - 1.2 mg/dL [facility] Protein, pl 6.6 6.5 - 8.5 g/dL [facility] Albumin 4.0 3.5 - 5.0 g/dL [facility] Alk phos 95 40 - 130 Units/L [facility] ALT 6(L) 7 - 45 Units/L [facility] AST 12 10 - 45 Units/L [facility] Blood 12/19/2024 11:1 5 AM CDT 12/19/2024 12:05 PM CDT Lore Potter MD LAB BLOOD ORDERABLES Final Res ult [facility] [address] [facility] Department [place] [address] * (ABNORMAL) Potassium, whole blood (12/12/2024 3:37 PM CDT) Pathologist [facility] Potassium, bld 5.1(H) 3.3 - 4.9 mmol/L Blood 12/12/2024 3:37 PM CDT 12/12/2024 4:40 PM CDT Paulina Prieto MD LAB BLOOD ORDERABLES Final Result [facility] Department [place] [address] * Tacrolimus level trough (12/12/2024 5:58 AM CDT) Tacrolimus trough 5.8 ng/mL Comment: Interpretive Data Testing performed by liquid chromatography-tandem mass spectrometry. Therapeutic concentrations vary depending on type of transplanted organ and time elapsed since transplant. Typical trough concentrations range from 5-15 ng/mL. This test was developed and its performance characteristics determined by the [facility] consistent with CLIA requirements. This test has not been cleared or approved by the [place] Food and Drug administration. Current interpretive data last reviewed 2019. Blood 12/12/2024 5:58 AM CDT 12/12/2024 6:03 AM CDT us Jaya Funez MD LAB BLOOD ORDERABL ES Final Result [facility] Department [place] [address] * (ABNORMAL) Urinalysis reflex to microscopic (12/11/2024 6:38 PM CDT) Color, ur Straw Yellow Clarity, ur Clear Clear [facility] Specific gravity, ur 1.010 1.003 - 1.030 [facility] pH, urine 7.5 [facility] Comment: Interpretive Data U rine pH is affected by diet, medications, systemic acid-base disturbances, and renal tubular function. pH may affect urinary stone formation. For example, urine pH below 6.0 may help reduce the tendency for calcium phosphate stones and pH greater than 6.0 may reduce the tendency for uric acid stone formation. Source: [facility] [place] Current Interpretive Data was last revised on 2017 Protein, ur ql 2+(A) Negative [facility] Glucose, ur ql Negative Negative [facility] Ketones, ur Negative Negative [facility] Bilirubin, ur Negative Negative [facility] Blood, ur 1+(A) Negative [facility] Urobilinogen, ur <2.0 <2.0 mg/dL [facility] Nitrite, ur Negative Negative [facility] Leukocyte esterase, ur Negative Negative [facility] UA reflex comment Reflex to microscopic UA will be performed. [facility] Urine 12/11/2024 6:38 PM CDT 12/11/2024 6:45 PM CDT Jaya Funez MD LAB URINE ORDERABL ES Final Result Performing Organization Address [facility] Co de Phone Number [facility] Department [place] [address] * (ABNORMAL) Protein / creatinine ratio, urine, random (12/11/2024 6:38 PM CDT) Protein, ur, quant 230.4 mg/dL Comment: Interpretive Data No reference range established. Current interpretive data was last revised 2018. Creatinine Ur 35.0 mg/dL [facility] Comment: Interpretive Data No reference range established. Current interpretive data was last revised 2018. Protein/creatinin e ratio 6,659.0(H ) 0.0 - 180.0 mg/g CR [facility] Urine 12/11/2024 6:38 PM CDT 12/11/2024 7:00 PM CDT Jaya Funez MD LAB URINE ORDERABL ES Final Result Performing Organization Address [facility] Co de Phone Number [facility] Department [place] [address] * (ABNORMAL) Albumin Creatinine Ratio, Urine (12/11/2024 6:38 PM CDT) Albumin Ur 1,689.8 mg/L Comment: Interpretive Data No reference range established. Current interpretive data was last revised 2018. Creatinine Ur 35.0 mg/dL [facility] Comment: Interpretive Data No reference range established. Current interpretive data was last revised 2018. Albumin Creatinine Ratio, Ur 4,828(H) 1 - 29 mg/g [facility] Urine 12/11/2024 6:38 PM CDT 12/11/2024 7:06 PM CDT Jaya Funez MD LAB URINE ORDERABL ES Final Result Performing Organization Address City/[facility] Co de Phone Number [facility] Department [place] [address] * (ABNORMAL) Urinalysis, microscopic only (12/11/2024 6:38 PM CDT) WBC, ur 0-5 0 - 5 /HPF RBC, ur >50(A) 0 - 2 /HPF [facility] Epithelial cells, squamous, ur 1-5 0 - 5 /HPF [facility] Bacteria, ur Trace(A) [facility] Urine 12/11/2024 6:38 PM CDT 12/11/2024 6:45 PM CDT Jaya Funez MD LAB URINE ORDERABL ES Final Result Performing Organization Address [facility] de Phone Number [facility] Department [place] [address] * (ABNORMAL) eGFR (12/11/2024 5:50 PM CDT) eGFR 25(L) >=60 mL/min/1. 73 m2 Comment: Interpretive Data Reference Interval Normal >/= 90 mL/min/1.73m2 Mildly decreased* 60 - 89 mL/min/1.73m2 Mildly to moderately decreased 45 - 59 mL/min/1.73m2 Moderately to severely decreased 30 - 44 mL/min/1.73m2 Severely decreased 15 - 29 mL/min/1.73m2 Kidney Failure < 15 mL/min/1.73m2 *Relative to young adult level Estimated glomerular filtration rate is determined by the 2020 CKD-EPI equation recommended by the National Kidney Foundation (A Unifying Approach to GFR Estimation: Recommendations of the NKF-ASK Task Force on Reassessing the Inclusion of Race in Diagnosing Kidney Disease, JASN 2020). The CKD-EPI equation should not be used for patients with unstable renal function and has not been validated in children and those over 70. Current interpretive data was last reviewed 2021. Blood 12/11/2024 5:50 PM CDT 12/11/2024 6:13 PM CDT Jaya Funez MD LAB BLOOD ORDERABL ES Final Result Performing Organization Address [facility] [place] [address] * Glomerular basement membrane antibodies (12/11/2024 5:50 PM CDT) [facility] GBM ab, IgG <0.2 <=0.9 Ab Index Comment: Interpretive Data Negative: <1 Ab Index Positive: > or = 1 Ab Index Current interpretive data was last revised on 2016. Blood 12/11/2024 5:50 PM CDT 12/11/2024 6:13 PM CDT Jaya Funez MD LAB BLOOD ORDERABL ES Final Result Performing Organization Address [facility] de Phone Number [facility] [place] [address] * (ABNORMAL) CBC without differential (12/11/2024 5:50 PM CDT) [facility] WBC 5.88 3.80 - 9.90 K/cumm Hgb 9.9(L) 11.9 - 15.5 g/dL [facility] Hct 31.4(L) 35.6 - 45.5 % [facility] Plt 168 150 - 400 K/cumm [facility] MPV 9.3 9.1 - 12.3 fL [facility] RBC 3.15(L) 3.90 - 5.20 M/cumm [facility] MCV 99.7(H) 81.3 - 96.4 fL [facility] MCH 31.4 27.1 - 33.3 pg [facility] MCHC 31.5(L) 32.3 - 35.7 g/dL [facility] RDW CV 14.5 11.1 - 14.9 % [facility] RDW SD 51.9(H) 35.7 - 48.1 fL [facility] NRBC abs 0.00 0.00 - 0.01 K/cumm [facility] Blood 12/11/2024 5:50 PM CDT 12/11/2024 6:13 PM CDT Jaya Funez MD LAB BLOOD ORDERABL ES Final Result Performing Organization Address City/[facility]/ZIP Co de Phone Number [facility] Department [place] [address] * (ABNORMAL) Albumin (12/11/2024 5:50 PM CDT) [facility] Albumin 3.3(L) 3.5 - 5.0 g/dL Blood 12/11/2024 5:50 PM CDT 12/11/2024 6:13 PM CDT Jaya Funez MD LAB BLOOD ORDERABL ES Final Result Performing Organization Address [facility] Co de Phone Number [facility] Department [place] [address] * (ABNORMAL) Basic metabolic panel (12/11/2024 5:50 PM CDT) Pathologist [facility] Sodium 136 135 - 145 mmol/L Potassium, pl 5.1(H) 3.3 - 4.9 mmol/L [facility] Chloride 102 97 - 110 mmol/L [facility] CO2 25 22 - 32 mmol/L [facility] Anion gap 9 2 - 15 mmol/L [facility] BUN 27(H) 6 - 25 mg/dL [facility] Creatinine 2.12(H) 0.60 - 1.10 mg/dL [facility] Glucose 95 70 - 199 mg/dL [facility] Comment: Interpretive Data Fasting glucose >/= 126 mg/dl is diagnostic for diabetes. Fasting is defined as no caloric intake for at least 8 hours. Fasting glucose between 100 mg/dl to 125 mg/dl is diagnostic of prediabetes. In a patient with classic symptoms of hyperglycemia or hyperglycemic crisis, a random glucose >/= 200 mg/dl is diagnostic for diabetes. In the absence of unequivocal hyperglycemia, results should be confirmed by repeat testing. The classification and Diagnosis of Diabetes Diabetes Care 2021; 46: S19-S40. Current interpretive data was last revised 2022. Calcium 9.3 8.5 - 10.3 mg/dL [facility] Blood 12/11/2024 5:50 PM CDT 12/11/2024 6:13 PM CDT us Jaya Funez MD LAB BLOOD ORDERABL ES Final Result [facility] Department [place] [address] * US Guided Biopsy Renal (12/11/2024 11:44 AM CDT) Anatomical Region Laterality Modality Kidney N/A X-Ray Angiograph y 12/11/2024 12:2 1 PM CDT Impressions 12/11/2024 1:44 PM CDT 1. Successful ultrasound-guided core needle biopsy of right iliac fossa transplant kidney. 2. Please see separate Surgical Pathology results for final interpretation. Dictated by: Torito Luna MD The radiology attending physician has personally reviewed this study, and had reviewed and/or edited this written report and agrees with it. Electronically signed by: La Lanier M.D. Narrative 12/11/2024 1:44 PM CDT EXAMINATION: ULTRASOUND-GUIDED RENAL CORE BIOPSY HISTORY: 64-year-old female with past medical history of CKD and renal/pancreas transplant in 2014, presenting with acute kidney injury. Renal transplant biopsy requested. COMPARISON: Ultrasound 12/01/2024 FINDINGS: A transplant kidney was identified within the right iliac fossa. Normal echogenicity without hydronephrosis. TECHNIQUE: The procedure for ultrasound-guided core renal biopsy was explained to and discussed with the patient. Risks were explained to include, but not be limited to, hemorrhage, infection, injury to adjacent organs, non-diagnostic specimen and adverse reaction to medications administered. The patient voiced understanding and wished to proceed and signed the consent form. PROCEDURAL SEDATION: Procedural sedation was administered under the attending physician's direction and continuous monitoring by a trained nurse specialist who was independent from those actually performing the procedure. Total monitored sedation time was 25 minutes. CORE BIOPSY: A safe tract through the right lower quadrant was identified for biopsy. An appropriate site was localized for core biopsy. The patient's overlying skin was prepped and draped in the usual sterile fashion. Local anesthesia was achieved via subcutaneous and deep administration with 10 mL of Lidocaine 1%. Under realtime ultrasound guidance, 2 passes were made with an 18 gauge Corvocet core biopsy needle, 2.5 cm throw, with the use of a 17 gauge introducer needle. After confirming an adequate length of cortical tissue had been obtained, the specimen was placed in a sterile specimen cup and transferred immediately to the lab by rolfer for further processing. The biopsy tract was embolized with Gelfoam pledgets. The patient's skin was cleaned and dressed. The patient tolerated the entire procedure well without immediate complications. Dr. La Lanier M.D., the attending radiologist, was present from the beginning to the end of the procedure. Dr. Lanier performed the biopsy. Torito Luna MD assisted with the biopsy and participated in sonographic imaging of this patient. Procedure Note La Lanier MD - 12/11/2024 EXAMINATION: ULTRASOUND-GUIDED RENAL CORE BIOPSY HISTORY: 64-year-old female with past medical history of CKD and renal/pancreas transplant in 2015, presenting with acute kidney injury. Renal transplant biopsy requested. COMPARISON: Ultrasound 12/01/2024 FINDINGS: A transplant kidney was identified within the right iliac fossa. Normal echogenicity without hydronephrosis. TECHNIQUE: The procedure for ultrasound-guided core renal biopsy was explained to and discussed with the patient. Risks were explained to include, but not be limited to, hemorrhage, infection, injury to adjacent organs, non-diagnostic specimen and adverse reaction to medications administered. The patient voiced understanding and wished to proceed and signed the consent form. PROCEDURAL SEDATION: Procedural sedation was administered under the attending physician's direction and continuous monitoring by a trained nurse specialist who was independent from those actually performing the procedure. Total monitored sedation time was 25 minutes. CORE BIOPSY: A safe tract through the right lower quadrant was identified for biopsy. An appropriate site was localized for core biopsy. The patient's overlying skin was prepped and draped in the usual sterile fashion. Local anesthesia was achieved via subcutaneous and deep administration with 10 mL of Lidocaine 1%. Under realtime ultrasound guidance, 2 passes were made with an 18 gauge Corvocet core biopsy needle, 2.5 cm throw, with the use of a 17 gauge introducer needle. After confirming an adequate length of cortical tissue had been obtained, the specimen was placed in a sterile specimen cup and transferred immediately to the lab by rolfer for further processing. The biopsy tract was embolized with Gelfoam pledgets. The patient's skin was cleaned and dressed. The patient tolerated the entire procedure well without immediate complications. Dr. La Lanier M.D., the attending radiologist, was present from the beginning to the end of the procedure. Dr. Lanier performed the biopsy. Torito Luna MD assisted with the biopsy and participated in sonographic imaging of this patient. IMPRESSION: 1. Successful ultrasound-guided core needle biopsy of right iliac fossa transplant kidney. 2. Please see separate Surgical Pathology results for final interpretation. Dictated by: Torito Luna MD The radiology attending physician has personally reviewed this study, and had reviewed and/or edited this written report and agrees with it. Electronically signed by: La Lanier M.D. us Vivienne Morataya MD [facility]ED[place] Final Result * Surgical pathology (12/11/2024 10:56 AM CDT) Tissue (Kidney biopsy, transplant) 12/11/2024 10:56 AM CDT Narrative PATHOLOGY [facility] - 12/13/2024 8:49 AM CDT EPIC results best viewed via link to PDF [facility] [place] [address] Note to Patients: This report may contain a detailed description of human tissue sent by a health care provider to the laboratory for pathologic evaluation. The content of this report is essential for diagnosis and may provide important critical findings. This information may be unfamiliar to patients to review without a medical professional present. It is advised that the patient review this report in the presence of a health care provider who can answer questions and explain the details. SURGICAL PATHOLOGY REPORT FINAL WITH ADDENDUM Patient Name: KELSEY STERN Gender: F : 1960 (Age: 64) [address]: [address] [place] [id number] Hospital #: [id number] Taken:12/11/2024 Received:12/11/2024 Reported: 12/13/2024 Patient Type: [facility] OP In Bed Service: Medical Location: [place] [address] Physician(s): Saumya Oconnor M.D. 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 Bhupinder Zelaya M.D., Ph.D. Report Electronically Reviewed and Signed Out By Bhupinder Zelaya M.D., Ph.D. 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 Nonviral etiologies include autoimmune disease, hematologic neoplasia, and drugs such as pamidronate. Patients of ancestry are more likely to harbor APOL1 risk alleles, predisposing to the development of collapsing lesions in association with various triggers (infection, drugs, etc.). The prior diagnosis of IgA nephropathy is noted. The previous electron microscopy and immunofluorescence images were reviewed and support the prior diagnosis of IgA nephropathy. In the current biopsy, the IgA immunofluorescence stain is negative and there are no electron dense deposits. 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 This result was flagged as urgent and was communicated to Dr. Turner on 12/12/24. Reason(s): Organ rejection in transplant patient that likely changes treatment. Microscopic Description and Comment: Light Microscopy Tissue for light microscopy is evaluated at 8 levels of section with H&E, PAS, Valorie's trichrome, and Lennon' silver stains. Two cores of renal tissue are present, of which approximately entirely represented by cortex and the remaining by medulla. Up to Fifteen glomeruli are available for evaluation, none globally sclerotic. The non-sclerotic glomeruli show one glomerulus with segmental collapse of the tuft, obliteration of the capillary loops and overlying podocyte hypertrophy and hyperplasia. There is moderate glomerulitis. Double contours are observed in more than 90% of the most affected gomerulus. The cortical tubulointerstitial tissue has mild interstitial fibrosis and tubular atrophy affecting approximately 20-25% of the cortex. There is a mild inflammatory infiltrate involving the areas of cortical fibrosis and is mostly represented by mononuclear cells. The tubules show no tubulitis. Peritubular capillaries show no significant peritubular capillaritis. There is no intimal arteritis. Small arteries and arterioles show moderate arteriosclerosis and severe hyalinosis. An immunohistochemical stain for SV40 large T antigen is pending to evaluate for polyoma virus and will be reported in addendum. Immunofluorescence Microscopy Frozen sections of tissue submitted for immunofluorescence microscopy are stained with H&E and evaluated by light microscopy. Five glomeruli are present for evaluation, none globally sclerotic. Direct immunofluorescence microscopy is performed on frozen sections, with appropriate controls, stained with fluoresceinated antisera to IgG, IgA, IgM, C3, albumin, fibrin, and kappa and lambda light chains to evaluate for immune mediated kidney disease. On a scale of 0-3+, the glomeruli show segmental mesangial and capillary loop staining for C3 (3+), IgA (0-1+), IgM (2+), kappa (1+), and lambda light chains (1+). There is positive staining of arterioles with C3 and tubular casts with IgA. Tubular casts and protein resorption droplets stain positive for kappa and lambda of equal intensity. Indirect immunofluorescence for C4d is performed, with appropriate controls, to evaluate for antibody mediated rejection. C4d is negative in the peritubular capillary carrera. Section quality is satisfactory and positive and negative controls stain appropriately. The immunofluorescence stain for C1q will be repeated and reported in an addendum. Electron Microscopy Plastic thick 1 micron sections of the tissue submitted for electron microscopy were stained with Toluidine blue and evaluated by light microscopy. Two glomeruli are present, one globally sclerotic. The tubulointerstitial and vascular compartments show similar findings as the light microscopic sample. Ultra-thin sections are prepared for electron microscopic examination. The one glomerulus evaluated by electron microscopy has no immune complex type electron dense deposits. Segmental subendothelial fibrin tactoids are identified. The glomerular basement membranes are segmentally duplicated with mild multilayering and subendothelial expansion/edema. There is severe podocyte foot process effacement. There is mild peritubular capillary basement membrane multilayering. The tubular basement membranes do not show immune type electron dense deposits. Patrick De Luna M.D. History: The patient is a 64-year-old woman presenting for kidney replaced by transplant. DSA testing positive. Operative procedure: Renal transplant core biopsy. Specimen(s) Received: A: Renal transplant core biopsy B: Renal transplant core biopsy C: Tissue for EM Gross Description: Received in three jars labeled with the patient's identifiers. A. Received in formalin, labeled renal transplant core biopsy and consists of three core(s) of henderson pink soft tissue (measuring 0.6-0.8 cm in length by 0.1 cm in diameter). Wrapped. Labeled A1. Jar 0. B. Received in [facility], labeled renal transplant core biopsy and consists of one core(s) of henderson pink soft tissue (measuring 0.4 cm in length by 0.1 cm in diameter). Specimen is entirely submitted for Immunofluorescence . C. Received in [facility]'s, labeled renal transplant core biopsy and consists of one core(s) of henderson pink soft tissue (measuring 0.3 cm in length by 0.1 cm in diameter). Specimen is entirely submitted for Electron Microscopy. elsw12/11/2024 12:51 PA(s): Mila Regalado RENAL TRANSPLANT BIOPSY BANFF CLASSIFICATION SYNOPTIC TEMPLATE Tubulitis (t): t0 No mononuclear cells in tubules t-IFTA ( Tubulitis in tubules within scarred cortex): t-IFTA 0 (none) Intimal arteritis (v): v0 No arteritis Total Inflammation: ti1 10-25% of total cortical parenchyma inflamed. Interstitial inflammation (i): i0 No or trivial interstitial inflammation (<10% of unscarred parenchyma) Interstitial Inflammation in areas of interstitial fibrosis and tubular atrophy (i-IFTA): i-IFTA0 No or trivial interstitial inflammation (<10% of scarred cortical parenchyma) Glomerulitis (g): g2 segmental or global glomerulitis in 25-75% of glomeruli Interstital fibrosis (ci): ci1 Mild interstitial fibrosis in 6-25% of cortical area Capillaritis (ptc): ptc0 <10% PTCs with inflammation Tubular atrophy (ct): ct1 Tubular atrophy in up to 25% of the area of cortical tubules Transplant glomerulopathy (cg): cg3 Double contours affecting >50% of peripheral capillary loops in the most affected-glomerulus. Mesangial matrix increase (mm): mm0 No mesangial matrix increase Vascular intimal fibrosis (cv): cv2 Increased severity of cv1 changes with 26-50% luminal narrowing Arteriolar hyalinosis (ah): ah3 Severe PAS-positive hyaline thickening in many arterioles Polyomavirus Nephropathy: N/A or Pending C4d scoring: c4d0 Negative ptcml (PTC multilayering) (requires EM): Ptcml 0 By this signature, I attest that the above diagnosis is based upon my personal examination of the slides(and/or other material). Addenda/Procedures Addendum Ordered:12/13/2024Status:Signed OutAddendum Complete:12/13/2024y:Bhupinder Zelaya M.D., Ph.D.Addendum Signed Out:12/13/2024 Addendum Comment SV40 large T antigen immunostain was performed with an appropriate control and is negative for polyomavirus. Direct immunofluorescence microscopy was performed on frozen sections stained with fluoresceinated C1q and show focal segmental mesangial and capillary loop staining (1+). Section quality is satisfactory and positive and negative controls stain appropriately. The diagnosis remains unchanged. By this signature, I attest that the above diagnosis is based upon my personal examination of the slides(and/or other material indicated in the diagnosis). Bhupinder Zelaya M.D., Ph.D.Report Electronically Reviewed and Signed Out By Bhupinder Zelaya M.D., Ph.D. 12/13/2024 14:56:53Patrick De Luna M.D. The performance characteristics of some immunohistochemical stains, fluorescence in-situ hybridization tests and immunophenotyping by flow cytometry cited in this report (if any) were determined by the Surgical Pathology and Flow Cytometry Departments at [facility] as part of an ongoing auditor/quality program and in compliance with federally mandated regulations drawn from the Clinical Laboratory Improvement Act of 1988 (CLIA '88). Some of these tests rely on the use of analyte specific reagents and are subject to specific labeling requirements by the US Food and Drug Administration. Such diagnostic tests may only be performed in a facility that is certified by the Department of Health and Human Services as a high complexity laboratory under CLIA '88. The FDA has determined that such clearance or approval is not necessary. This test is used for clinical purposes. It should not be regarded as investigational or for research. Nevertheless, federal rules concerning the medical use of analyte specific reagents require that the following disclaimer be attached to the report: This test was developed and its performance characteristics determined by the Surgical Pathology and Flow Cytometry Departments of [facility]. It has not been cleared or approved by the U. S. Food and Drug Administration. IMAGES AND SCANNED DOCUMENTS, IF INCLUDED, ONLY VIEWABLE IN PDF VERSION OF REPORT Vivienne Morataya MD LAB PATHOLOGY ORDERABLES Final Result PATHOLOGY [facility] 3rd Floor [place], [place] [phone] * BK virus PCR quantitative Blood (12/11/2024 8:16 AM CDT) BKV DNA result, pl Not Detected [facility] Comment: The quantifiable range of this assay is 21.5 IU/mL to 100,000,000 IU/mL (1.33 log IU/mL to 8.00 log IU/mL). Testing was performed by the [employer] BKV Quantatitive Test version 2.0 ([employer] Testing performed at [facility] Current Interpretive Data was last revised on 2021. Blood 12/11/2024 8:16 AM CDT 12/11/2024 8:38 AM CDT Vivienne Morataya MD [facility] Final Result Performing Organization Address [facility] de Phone Number [facility] [place] [address] [facility] * Cytomegalovirus (CMV) DNA PCR, quantitative Blood (12/11/2024 8:16 AM CDT) [facility] CMV DNA Not Detected [facility] Comment: Interpretive Data: The quantifiable range of this assay is 34 IUnits/mL to 10,000,000 IUnits/mL (1.53 log IUnits/mL to 7.0 log IUnits/mL). Testing was performed by the LES 6800 CMV Test ([employer] Testing performed at [facility]. Current interpretive data was last revised on 2020. Blood 12/11/2024 8:16 AM CDT 12/11/2024 8:37 AM CDT Vivienne Morataya MD LAB MICROBIOLOGY - [facility] SUSY Final Result Performing Organization Address [facility] de Phone Number [facility] [place] [address] [facility] * (ABNORMAL) Differential, auto (12/11/2024 8:16 AM CDT) [facility] Neutrophil abs 7.97(H) 1.50 - 6.50 K/cumm Imm gran abs 0.13(H) 0.00 - 0.10 K/cumm [facility] Lymphocyte abs 0.72(L) 0.80 - 3.30 K/cumm [facility] Monocyte abs 0.52 0.20 - 0.80 K/cumm [facility] Eosinophil abs 0.03 0.00 - 0.50 K/cumm [facility] Basophil abs 0.02 0.00 - 0.10 K/cumm [facility] Neutrophil pct 84.9 % [facility] Comment: Interpretive Data Percent cell count reference ranges are not reported, since discordance with absolute values may lead to misinterpretation of CBC data. Current Interpretive Data was last revised on 2017. Imm gran pct 1.4 % [facility] Comment: Interpretive Data Percent cell count reference ranges are not reported, since discordance with absolute values may lead to misinterpretation of CBC data. Current Interpretive Data was last revised on 2017. Lymphocyte pct 7.7 % [facility] Comment: Interpretive Data Percent cell count reference ranges are not reported, since discordance with absolute values may lead to misinterpretation of CBC data. Current Interpretive Data was last revised on 2017. Monocyte pct 5.5 % [facility] Comment: Interpretive Data Percent cell count reference ranges are not reported, since discordance with absolute values may lead to misinterpretation of CBC data. Current Interpretive Data was last revised on 2017. Eosinophil pct 0.3 % [facility] Comment: Interpretive Data Percent cell count reference ranges are not reported, since discordance with absolute values may lead to misinterpretation of CBC data. Current Interpretive Data was last revised on 2017. Basophil pct 0.2 % [facility] Comment: Interpretive Data Percent cell count reference ranges are not reported, since discordance with absolute values may lead to misinterpretation of CBC data. Current Interpretive Data was last revised on 2017. Blood 12/11/2024 8:16 AM CDT 12/11/2024 8:32 AM CDT us Benjy ePrez MD LAB BLOOD ORDERABLES Final Re sult [facility] Department [place] [address] * (ABNORMAL) CBC with auto differential (12/11/2024 8:16 AM CDT) WBC 9.39 3.80 - 9.90 K/cumm Hgb 10.7(L) 11.9 - 15.5 g/dL [facility] Hct 32.8(L) 35.6 - 45.5 % [facility] Plt 206 150 - 400 K/cumm [facility] MPV 9.4 9.1 - 12.3 fL [facility] RBC 3.37(L) 3.90 - 5.20 M/cumm [facility] MCV 97.3(H) 81.3 - 96.4 fL [facility] MCH 31.8 27.1 - 33.3 pg [facility] MCHC 32.6 32.3 - 35.7 g/dL [facility] RDW CV 14.6 11.1 - 14.9 % [facility] RDW SD 51.5(H) 35.7 - 48.1 fL [facility] NRBC abs 0.00 0.00 - 0.01 K/cumm [facility] Blood 12/11/2024 8:16 AM CDT 12/11/2024 8:32 AM CDT us Benjy Perez MD LAB BLOOD ORDERABLES Final Re sult [facility] Department [place] [address] * Protime-INR (12/11/2024 8:16 AM CDT) [facility] PT 12.2 10.2 - 13.5 sec INR 1.08 0.90 - 1.20 [facility] Comment: Interpretive data Oral anticoagulant therapeutic ranges: Venous thromboembolism prophylaxis or treatment: 2.0-3.0 CARDIOLOGY Standard range: 2.0-3.0 High-intensity range: 2.5-3.5 Refer to indication-specific guidelines for appropriate target ranges for prosthetic heart valve replacement. Current interpretive data was last revised on 2019. Blood 12/11/2024 8:16 AM CDT 12/11/2024 8:32 AM CDT Vivienne Morataya MD LAB BLOOD ORDERABLES Final Resu lt Performing Organization Address [facility] Co de Phone Number [facility] [place] [address] * Type and screen (12/11/2024 8:16 AM CDT) Pathologist [facility] ABO Rh A Positive Monica, indirect Negative [facility] Blood 12/11/2024 8:16 AM CDT 12/11/2024 8:35 AM CDT Narrative [facility] - 12/11/2024 9:36 AM CDT Has the patient had Daratumumab or Isatuximab in the past 6 months?->Unknown Vivienne Morataya MD LAB BLOOD BANK TEST ORDERABLES Final Result Performing Organization Address [facility] de Phone Number [facility] Department [place] [address] * (ABNORMAL) Differential, auto (12/06/2024 2:20 PM CDT) Pathologist [facility] Neutrophil abs 5.35 1.50 - 6.50 K/cumm Comment:Testing performed by : [address] [address] Imm gran abs 0.25(H) 0.00 - 0.10 K/cumm SAM[facility]THA Comment:Testing performed by : [address] [address] Lymphocyte abs 0.78(L) 0.80 - 3.30 K/cumm [facility]A Comment:Testing performed by : [address] [address] Monocyte abs 0.38 0.20 - 0.80 K/cumm [facility]A Comment:Testing performed by : [address] [address] Eosinophil abs 0.02 0.00 - 0.50 K/cumm SAMANTHA Comment:Testing performed by : [address] [address] Basophil abs 0.03 0.00 - 0.10 K/cumm [facility] Comment:Testing performed by : [address] [address] Neutrophil pct 78.5 % [facility] Comment: Interpretive Data Percent cell count reference ranges are not reported, since discordance with absolute values may lead to misinterpretation of CBC data. Current Interpretive Data was last revised on 2017. Testing performed by: [address] [address] Imm gran pct 3.7 % [facility] Comment: Interpretive Data Percent cell count reference ranges are not reported, since discordance with absolute values may lead to misinterpretation of CBC data. Current Interpretive Data was last revised on 2017. Testing performed by: [address] [address] Lymphocyte pct 11.5 % [facility] Comment: Interpretive Data Percent cell count reference ranges are not reported, since discordance with absolute values may lead to misinterpretation of CBC data. Current Interpretive Data was last revised on 2017. Testing performed by: [address] [address] Monocyte pct 5.6 % [facility] Comment: Interpretive Data Percent cell count reference ranges are not reported, since discordance with absolute values may lead to misinterpretation of CBC data. Current Interpretive Data was last revised on 2017. Testing performed by: [address] [address] Eosinophil pct 0.3 % [facility] Comment: Interpretive Data Percent cell count reference ranges are not reported, since discordance with absolute values may lead to misinterpretation of CBC data. Current Interpretive Data was last revised on 2017. Testing performed by: [address] [address] Basophil pct 0.4 % [facility] Comment: Interpretive Data Percent cell count reference ranges are not reported, since discordance with absolute values may lead to misinterpretation of CBC data. Current Interpretive Data was last revised on 2017. Testing performed by: [address] [address] Blood 12/06/2024 2:20 PM CDT 12/06/2024 2:55 PM CDT us Josue Turner MD LAB BLOOD ORDERABLES Final R esult [facility] [address] [facility] Department [place] [address] * (ABNORMAL) CBC with auto differential (12/06/2024 2:20 PM CDT) Pathologist [facility] WBC 6.81 3.80 - 9.90 K/cumm Comment:Testing performed by : [address] [address] Hgb 9.6(L) 11.9 - 15.5 g/dL SAMANTHA Comment:Testing performed by : [address] [address] Hct 29.4(L) 35.6 - 45.5 % SAMANTHA Comment:Testing performed by : [address] [address] Plt 206 150 - 400 K/cumm SAMANTHA Comment:Testing performed by : [address] [address] MPV 9.9 9.1 - 12.3 fL SAMANTHA Comment:Testing performed by : [address] [address] RBC 3.05(L) 3.90 - 5.20 M/cumm SAMANTHA Comment:Testing performed by : [address] [address] MCV 96.4 81.3 - 96.4 fL SAMANTHA Comment:Testing performed by : [address] [address] MCH 31.5 27.1 - 33.3 pg SAMANTHA Comment:Testing performed by : [address] [address] MCHC 32.7 32.3 - 35.7 g/dL SAMANTHA Comment:Testing performed by : [address] [place] [address] RDW CV 13.9 11.1 - 14.9 % SAMANTHA VERA Comment:Testing performed by : [address] [address] RDW SD 48.1 35.7 - 48.1 fL SAMANTHA VERA Comment:Testing performed by : [address] [address] NRBC abs 0.00 0.00 - 0.01 K/cumm SAMANTHA VERA Comment:Testing performed by : [address] [address] Blood 12/06/2024 2:20 PM CDT 12/06/2024 2:55 PM CDT us Josue Turner MD LAB BLOOD ORDERABLES Final R esult SAMANTHA VERA [facility] Department [place] [address] * (ABNORMAL) eGFR (12/04/2024 5:34 AM CDT) eGFR 22(L) >=60 mL/min/1. 73 m2 Comment: Interpretive Data Reference Interval Normal >/= 90 mL/min/1.73m2 Mildly decreased* 60 - 89 mL/min/1.73m2 Mildly to moderately decreased 45 - 59 mL/min/1.73m2 Moderately to severely decreased 30 - 44 mL/min/1.73m2 Severely decreased 15 - 29 mL/min/1.73m2 Kidney Failure < 15 mL/min/1.73m2 *Relative to young adult level Estimated glomerular filtration rate is determined by the 2020 CKD-EPI equation recommended by the National Kidney Foundation (A Unifying Approach to GFR Estimation: Recommendations of the NKF-ASK Task Force on Reassessing the Inclusion of Race in Diagnosing Kidney Disease, JASN 2020). The CKD-EPI equation should not be used for patients with unstable renal function and has not been validated in children and those over 70. Current interpretive data was last reviewed 2021. Testing performed by: [address] [address] Blood 12/04/2024 5:34 AM CDT 12/04/2024 6:04 AM CDT us Benjy Perez MD LAB BLOOD ORDERABLES Final Re sult [facility] [address] [facility] Department [place] [address] * (ABNORMAL) Differential, auto (12/04/2024 5:34 AM CDT) Neutrophil abs 2.51 1.50 - 6.50 K/cumm Comment:Testing performed by : [address] [address] Imm gran abs 0.02 0.00 - 0.10 K/cumm SAMANTHA Comment:Testing performed by : [address] [address] Lymphocyte abs 0.73(L) 0.80 - 3.30 K/cumm SAMANTHA Comment:Testing performed by : [address] [address] Monocyte abs 0.61 0.20 - 0.80 K/cumm SAMANTHA Comment:Testing performed by : [address] [address] Eosinophil abs 0.02 0.00 - 0.50 K/cumm SAMANTHA Comment:Testing performed by : [address] [address] Basophil abs 0.01 0.00 - 0.10 K/cumm SAMANTHA Comment:Testing performed by : [address] [address] Neutrophil pct 64.4 % SAMANTHA Comment: Interpretive Data Percent cell count reference ranges are not reported, since discordance with absolute values may lead to misinterpretation of CBC data. Current Interpretive Data was last revised on 2017. Testing performed by: [address] [address] Imm gran pct 0.5 % SAMANTHA Comment: Interpretive Data Percent cell count reference ranges are not reported, since discordance with absolute values may lead to misinterpretation of CBC data. Current Interpretive Data was last revised on 2017. Testing performed by: [address] [address] Lymphocyte pct 18.7 % [facility] Comment: Interpretive Data Percent cell count reference ranges are not reported, since discordance with absolute values may lead to misinterpretation of CBC data. Current Interpretive Data was last revised on 2017. Testing performed by: [address] [address] Monocyte pct 15.6 % [facility] Comment: Interpretive Data Percent cell count reference ranges are not reported, since discordance with absolute values may lead to misinterpretation of CBC data. Current Interpretive Data was last revised on 2017. Testing performed by: [address] [address] Eosinophil pct 0.5 % [facility] Comment: Interpretive Data Percent cell count reference ranges are not reported, since discordance with absolute values may lead to misinterpretation of CBC data. Current Interpretive Data was last revised on 2017. Testing performed by: [address] [address] Basophil pct 0.3 % [facility] Comment: Interpretive Data Percent cell count reference ranges are not reported, since discordance with absolute values may lead to misinterpretation of CBC data. Current Interpretive Data was last revised on 2017. Testing performed by: [address] [address] Blood 12/04/2024 5:34 AM CDT 12/04/2024 6:05 AM CDT us Benjy Perez MD LAB BLOOD ORDERABLES Final Re sult SAMANTHA VERA [address] [facility] Department [place] [address] * Tacrolimus level trough (12/04/2024 5:34 AM CDT) [facility] Tacrolimus trough 7.7 ng/mL Comment: Interpretive Data Testing performed by liquid chromatography-tandem mass spectrometry. Therapeutic concentrations vary depending on type of transplanted organ and time elapsed since transplant. Typical trough concentrations range from 5-15 ng/mL. This test was developed and its performance characteristics determined by the [facility] consistent with CLIA requirements. This test has not been cleared or approved by the US Food and Drug administration. Current interpretive data last reviewed 2019. Testing performed by: [facility], [address] [place]., [address] Blood 12/04/2024 5:34 AM CDT 12/04/2024 9:12 AM CDT Benjy Perez MD LAB BLOOD ORDERABLES Final Re sult Performing Organization Address [facility] Co de Phone Number [address] [place] [address] * (ABNORMAL) Iron profile w/ IBC (12/04/2024 5:34 AM CDT) Pathologist [facility] Iron 62 35 - 145 mcg/dL Comment:Testing performed by : [address] [address] TIBC 159(L) 250 - 400 mcg/dL SAMANTHA Comment:Testing performed by : [address] [address] Transferrin saturation 39 20 - 50 % SAMANTHA Comment:Testing performed by : [address] [address] Blood 12/04/2024 5:34 AM CDT 12/04/2024 6:04 AM CDT Benjy Perez MD LAB BLOOD ORDERABLES Final Re sult Performing Organization Address City/[facility] Co de Phone Number [address] [address] * (ABNORMAL) CBC with auto differential (12/04/2024 5:34 AM CDT) WBC 3.90 3.80 - 9.90 K/cumm Comment:Testing performed by : [address], [address] Hgb 8.1(L) 11.9 - 15.5 g/dL SAMANTHA Comment:Testing performed by : [address] [address] Hct 24.7(L) 35.6 - 45.5 % SAMANTHA Comment:Testing performed by : [address] [address] Plt 113(L) 150 - 400 K/cumm SAMANHTA Comment:Testing performed by : [address], [address] MPV 10.4 9.1 - 12.3 fL SAMANTHA Comment:Testing performed by : [address] [address] RBC 2.56(L) 3.90 - 5.20 M/cumm SAMANTHA Comment:Testing performed by : [address], [address] MCV 96.5(H) 81.3 - 96.4 fL SAMANTHA Comment:Testing performed by : [address], [address] MCH 31.6 27.1 - 33.3 pg SAMANTHA Comment:Testing performed by : [address], [address] MCHC 32.8 32.3 - 35.7 g/dL SAMANTHA Comment:Testing performed by : [address], [address] RDW CV 13.5 11.1 - 14.9 % SAMANTHA Comment:Testing performed by : [address], [address] RDW SD 47.8 35.7 - 48.1 fL SAMANTHA Comment:Testing performed by : [address] [address] NRBC abs 0.00 0.00 - 0.01 K/cumm SAMANTHA Comment:Testing performed by : [address], [address] Blood 12/04/2024 5:34 AM CDT 12/04/2024 6:05 AM CDT us Benjy Perez MD LAB BLOOD ORDERABLES Final Re sult Performing Organization Address [facility] Co de Phone Number [address] [place] [address] * Lactate dehydrogenase (LD) (12/04/2024 5:34 AM CDT) Lactate dehydrogenase (LDH) 137 100 - 250 Units/L Comment:Testing performed by : [address] [address] Blood 12/04/2024 5:34 AM CDT 12/04/2024 6:04 AM CDT Benjy Perez MD LAB BLOOD ORDERABLES Final Re sult Performing Organization Address [facility] de Phone Number [address] [address] * Folate (12/04/2024 5:34 AM CDT) Folic acid 13.6 >=5.0 ng/mL Comment:Testing performed by : [address] [address] Blood 12/04/2024 5:34 AM CDT 12/04/2024 6:04 AM CDT Benjy Perez MD LAB BLOOD ORDERABLES Final Re sult Performing Organization Address [facility] de Phone Number [address] [address] * (ABNORMAL) Vitamin B12 (12/04/2024 5:34 AM CDT) Vitamin B12 1,785(H) 230 - 1,250 pg/mL Comment:Testing performed by : [address] [address] Blood 12/04/2024 5:34 AM CDT 12/04/2024 6:04 AM CDT us Benjy Perez MD LAB BLOOD ORDERABLES Final Re sult [facility] [address] [facility] Department [place] [address] * (ABNORMAL) Comprehensive metabolic panel (12/04/2024 5:34 AM CDT) Sodium 134(L) 135 - 145 mmol/L Comment:Testing performed by : [address] [address] Potassium, pl 3.8 3.3 - 4.9 mmol/L SAMANTHA Comment:Testing performed by : [address] [address] Chloride 100 97 - 110 mmol/L SAMANTHA Comment:Testing performed by : [address] [address] CO2 22 22 - 32 mmol/L SAMANTHA Comment:Testing performed by : [address] [address] Anion gap 12 2 - 15 mmol/L SAMANTHA Comment:Testing performed by : [address] [address] BUN 39(H) 6 - 25 mg/dL SAMANTHA Comment:Testing performed by : [address] [address] Creatinine 2.35(H) 0.60 - 1.10 mg/dL SAMANTHA Comment:Testing performed by : [address] [address] Glucose 89 70 - 199 mg/dL SAMANTHA Comment: Interpretive Data Fasting glucose >/= 126 mg/dl is diagnostic for diabetes. Fasting is defined as no caloric intake for at least 8 hours. Fasting glucose between 100 mg/dl to 125 mg/dl is diagnostic of prediabetes. In a patient with classic symptoms of hyperglycemia or hyperglycemic crisis, a random glucose >/= 200 mg/dl is diagnostic for diabetes. In the absence of unequivocal hyperglycemia, results should be confirmed by repeat testing. The classification and Diagnosis of Diabetes Diabetes Care 202; 46: S19-S40. Current interpretive data was last revised 2022. Testing performed by: [address] [address] Calcium 9.4 8.5 - 10.3 mg/dL SAMANTHA Comment:Testing performed by : [address] [address] Bilirubin, total 0.2 0.1 - 1.2 mg/dL SAMANTHA Comment:Testing performed by : [address] [address] Protein, pl 5.5(L) 6.5 - 8.5 g/dL SAMANTHA Comment:Testing performed by : [address] [address] Albumin 2.9(L) 3.5 - 5.0 g/dL SAMANTHA Comment:Testing performed by : [address] [address] Alk phos 70 40 - 130 Units/L SAMANTHA Comment:Testing performed by : [address] [address] ALT 6(L) 7 - 45 Units/L SAMANTHA Comment:Testing performed by : [address] [address] AST 11 10 - 45 Units/L SAMANTHA Comment:Testing performed by : [address] [address] Blood 12/04/2024 5:34 AM CDT 12/04/2024 6:04 AM CDT us Benjy Perez MD LAB BLOOD ORDERABLES Final Re sult SAMANTHA VERA [address] [facility] Department [place] [address] * (ABNORMAL) eGFR (12/03/2024 4:59 AM CDT) [facility] eGFR 19(L) >=60 mL/min/1. 73 m2 Comment: Interpretive Data Reference Interval Normal >/= 90 mL/min/1.73m2 Mildly decreased* 60 - 89 mL/min/1.73m2 Mildly to moderately decreased 45 - 59 mL/min/1.73m2 Moderately to severely decreased 30 - 44 mL/min/1.73m2 Severely decreased 15 - 29 mL/min/1.73m2 Kidney Failure < 15 mL/min/1.73m2 *Relative to young adult level Estimated glomerular filtration rate is determined by the 2020 CKD-EPI equation recommended by the National Kidney Foundation (A Unifying Approach to GFR Estimation: Recommendations of the NKF-ASK Task Force on Reassessing the Inclusion of Race in Diagnosing Kidney Disease, JASN 2020). The CKD-EPI equation should not be used for patients with unstable renal function and has not been validated in children and those over 70. Current interpretive data was last reviewed 2021. Testing performed by: [address] [address] Blood 12/03/2024 4:59 AM CDT 12/03/2024 5:40 AM CDT us Alka Alcantar NP LAB BLOOD ORDERABLES Final Result SAMANTHA [address] [facility] Department of Laboratories [place], [place] [id number] * (ABNORMAL) Differential, auto (12/03/2024 4:59 AM CDT) Pathologist [facility] Neutrophil abs 2.52 1.50 - 6.50 K/cumm Comment:Testing performed by : [address] [address] Imm gran abs 0.02 0.00 - 0.10 K/cumm SAMANTHA VERA Comment:Testing performed by : [address] [address] Lymphocyte abs 0.68(L) 0.80 - 3.30 K/cumm SAMANTHA VERA Comment:Testing performed by : [address] [address] Monocyte abs 0.72 0.20 - 0.80 K/cumm [facility] Comment:Testing performed by : [address] [address] Eosinophil abs 0.03 0.00 - 0.50 K/cumm [facility] Comment:Testing performed by : [address] [address] Basophil abs 0.01 0.00 - 0.10 K/cumm [facility] Comment:Testing performed by : [address] [address] Neutrophil pct 63.2 % [facility] Comment: Interpretive Data Percent cell count reference ranges are not reported, since discordance with absolute values may lead to misinterpretation of CBC data. Current Interpretive Data was last revised on 2017. Testing performed by: [address] [address] Imm gran pct 0.5 % [facility] Comment: Interpretive Data Percent cell count reference ranges are not reported, since discordance with absolute values may lead to misinterpretation of CBC data. Current Interpretive Data was last revised on 2017. Testing performed by: [address] [address] Lymphocyte pct 17.1 % [facility] Comment: Interpretive Data Percent cell count reference ranges are not reported, since discordance with absolute values may lead to misinterpretation of CBC data. Current Interpretive Data was last revised on 2017. Testing performed by: [address] [address] Monocyte pct 18.1 % [facility] Comment: Interpretive Data Percent cell count reference ranges are not reported, since discordance with absolute values may lead to misinterpretation of CBC data. Current Interpretive Data was last revised on 2017. Testing performed by: [address] [address] Eosinophil pct 0.8 % [facility] Comment: Interpretive Data Percent cell count reference ranges are not reported, since discordance with absolute values may lead to misinterpretation of CBC data. Current Interpretive Data was last revised on 2017. Testing performed by: [address] [address] Basophil pct 0.3 % SAMANTHA Comment: Interpretive Data Percent cell count reference ranges are not reported, since discordance with absolute values may lead to misinterpretation of CBC data. Current Interpretive Data was last revised on 2017. Testing performed by: [address] [address] Blood 12/03/2024 4:59 AM CDT 12/03/2024 5:40 AM CDT us Alka Alcantar TELEGRAPH MESSENGER LAB BLOOD ORDERABLES Final Result SAMANTHA [address] [facility] Department [place] [address] * (ABNORMAL) CBC with auto differential (12/03/2024 4:59 AM CDT) WBC 3.98 3.80 - 9.90 K/cumm Comment:Testing performed by : [address] [address] Hgb 8.0(L) 11.9 - 15.5 g/dL SAMANTHA Comment:Testing performed by : [address] [address] Hct 24.1(L) 35.6 - 45.5 % SAMANTHA VERA Comment:Testing performed by : [address] [address] Plt 95(L) 150 - 400 K/cumm SAMANTHA Comment:Testing performed by : [address] [address] MPV 10.6 9.1 - 12.3 fL SAMANTHA Comment:Testing performed by : [address] [address] RBC 2.48(L) 3.90 - 5.20 M/cumm SAMANTHA VERA Comment:Testing performed by : [address] [address] MCV 97.2(H) 81.3 - 96.4 fL SAMANTHA Comment:Testing performed by : [address] [address] MCH 32.3 27.1 - 33.3 pg SAMANTHA VERA Comment:Testing performed by : [address] [address] MCHC 33.2 32.3 - 35.7 g/dL SAMANTHA VERA Comment:Testing performed by : [address] [address] RDW CV 13.6 11.1 - 14.9 % SAMANTHA VERA Comment:Testing performed by : [address] [address] RDW SD 48.5(H) 35.7 - 48.1 fL SAMANTHA VERA Comment:Testing performed by : [address] [address] NRBC abs 0.00 0.00 - 0.01 K/cumm SAMANTHA VERA Comment:Testing performed by : [address] [address] Blood 12/03/2024 4:59 AM CDT 12/03/2024 5:40 AM CDT us Alka Alcantar NP LAB BLOOD ORDERABLES Final Result SAMANTHA VERA [address] [facility] Department [place] [address] * (ABNORMAL) Basic metabolic panel (12/03/2024 4:59 AM CDT) Sodium 133(L) 135 - 145 mmol/L Comment:Testing performed by : [address] [address] Potassium, pl 3.9 3.3 - 4.9 mmol/L SAMANTHA VERA Comment:Testing performed by : [address] [address] Chloride 99 97 - 110 mmol/L SAMANTHA VERA Comment:Testing performed by : [address] [address] CO2 21(L) 22 - 32 mmol/L SAMANTHA VERA Comment:Testing performed by : [address] [address] Anion gap 13 2 - 15 mmol/L SAMANTHA VERA Comment:Testing performed by : [address] [address] BUN 45(H) 6 - 25 mg/dL SAMANTHA Comment:Testing performed by : [address] [address] Creatinine 2.66(H) 0.60 - 1.10 mg/dL SAMANTHA Comment:Testing performed by : [address] [address] Glucose 97 70 - 199 mg/dL SAMANTHA Comment: Interpretive Data Fasting glucose >/= 126 mg/dl is diagnostic for diabetes. Fasting is defined as no caloric intake for at least 8 hours. Fasting glucose between 100 mg/dl to 125 mg/dl is diagnostic of prediabetes. In a patient with classic symptoms of hyperglycemia or hyperglycemic crisis, a random glucose >/= 200 mg/dl is diagnostic for diabetes. In the absence of unequivocal hyperglycemia, results should be confirmed by repeat testing. The classification and Diagnosis of Diabetes Diabetes Care 2021; 46: S19-S40. Current interpretive data was last revised 2022. Testing performed by: [address] [address] Calcium 9.0 8.5 - 10.3 mg/dL SAMANTHA Comment:Testing performed by : [address] [address] Blood 12/03/2024 4:59 AM CDT 12/03/2024 5:40 AM CDT us Alka Alcantar TELEGRAPH MESSENGER LAB BLOOD ORDERABLES Final Result SAMANTHA [address] [facility] Department [place] [address] * Tacrolimus level trough (12/02/2024 9:04 AM CDT) [facility] Tacrolimus trough 8.8 ng/mL Comment: Interpretive Data Testing performed by liquid chromatography-tandem mass spectrometry. Therapeutic concentrations vary depending on type of transplanted organ and time elapsed since transplant. Typical trough concentrations range from 5-15 ng/mL. This test was developed and its performance characteristics determined by the [facility] consistent with CLIA requirements. This test has not been cleared or approved by the [place] Food and Drug administration. Current interpretive data last reviewed 2019. Testing performed by: [facility], [address] [facility] [place]., [address] Blood 12/02/2024 9:04 AM CDT 12/02/2024 11:09 AM CDT us Kb Ivory MD LAB BLOOD ORDERABLES Final Resu lt SAMANTHA [address] [facility] Department [place] [address] * (ABNORMAL) eGFR (12/02/2024 5:17 AM CDT) eGFR 19(L) >=60 mL/min/1. 73 m2 Comment: Interpretive Data Reference Interval Normal >/= 90 mL/min/1.73m2 Mildly decreased* 60 - 89 mL/min/1.73m2 Mildly to moderately decreased 45 - 59 mL/min/1.73m2 Moderately to severely decreased 30 - 44 mL/min/1.73m2 Severely decreased 15 - 29 mL/min/1.73m2 Kidney Failure < 15 mL/min/1.73m2 *Relative to young adult level Estimated glomerular filtration rate is determined by the 2020 CKD-EPI equation recommended by the National Kidney Foundation (A Unifying Approach to GFR Estimation: Recommendations of the NKF-ASK Task Force on Reassessing the Inclusion of Race in Diagnosing Kidney Disease, JASN 2020). The CKD-EPI equation should not be used for patients with unstable renal function and has not been validated in children and those over 70. Current interpretive data was last reviewed 2021. Testing performed by: [facility], [address] [place] [address]., [address] Blood 12/02/2024 5:17 AM CDT 12/02/2024 5:57 AM CDT us Alka Alcantar TELEGRAPH MESSENGER LAB BLOOD ORDERABLES Final Result SAMANTHA [address] [facility] Department [place] [address] * (ABNORMAL) Differential, auto (12/02/2024 5:17 AM CDT) Neutrophil abs 4.12 1.50 - 6.50 K/cumm Comment:Testing performed by : [address] [address] Imm gran abs 0.02 0.00 - 0.10 K/cumm SAMANTHA Comment:Testing performed by : [address] [address] Lymphocyte abs 0.39(L) 0.80 - 3.30 K/cumm SAMANTHA Comment:Testing performed by : [address] [address] Monocyte abs 0.62 0.20 - 0.80 K/cumm SAMANTHA Comment:Testing performed by : [address] [address] Eosinophil abs 0.02 0.00 - 0.50 K/cumm SAMANTHA Comment:Testing performed by : [address] [address] Basophil abs 0.01 0.00 - 0.10 K/cumm SAMANTHA Comment:Testing performed by : [address] [address] Neutrophil pct 79.5 % SAMANTHA Comment: Interpretive Data Percent cell count reference ranges are not reported, since discordance with absolute values may lead to misinterpretation of CBC data. Current Interpretive Data was last revised on 2017. Testing performed by: [address] [address] Imm gran pct 0.4 % SAMANTHA Comment: Interpretive Data Percent cell count reference ranges are not reported, since discordance with absolute values may lead to misinterpretation of CBC data. Current Interpretive Data was last revised on 2017. Testing performed by: [address] [address] Lymphocyte pct 7.5 % SAMANTHA Comment: Interpretive Data Percent cell count reference ranges are not reported, since discordance with absolute values may lead to misinterpretation of CBC data. Current Interpretive Data was last revised on 2017. Testing performed by: [address] [address] Monocyte pct 12.0 % SAMANTHA Comment: Interpretive Data Percent cell count reference ranges are not reported, since discordance with absolute values may lead to misinterpretation of CBC data. Current Interpretive Data was last revised on 2017. Testing performed by: [address] [address] Eosinophil pct 0.4 % SAMANTHA Comment: Interpretive Data Percent cell count reference ranges are not reported, since discordance with absolute values may lead to misinterpretation of CBC data. Current Interpretive Data was last revised on 2017. Testing performed by: [address] [id number] Basophil pct 0.2 % SAMANTHA Comment: Interpretive Data Percent cell count reference ranges are not reported, since discordance with absolute values may lead to misinterpretation of CBC data. Current Interpretive Data was last revised on 2017. Testing performed by: [address] [address] Blood 12/02/2024 5:17 AM CDT 12/02/2024 5:57 AM CDT Alka Alcantar NP LAB BLOOD ORDERABLES Final Result SAMANTHA 0485 [facility] Department of Laboratories [place], [place] [id number] * (ABNORMAL) CBC with auto differential (12/02/2024 5:17 AM CDT) WBC 5.18 3.80 - 9.90 K/cumm Comment:Testing performed by : [address] [address] Hgb 7.7(L) 11.9 - 15.5 g/dL SAMANTHA Comment:Testing performed by : [address] [address] Hct 23.7(L) 35.6 - 45.5 % SAMANTHA Comment:Testing performed by : [address] [address] Plt 98(L) 150 - 400 K/cumm SAMANTHA Comment:Testing performed by : [address] [address] MPV 10.6 9.1 - 12.3 fL SAMANTHA Comment:Testing performed by : [address] [address] RBC 2.45(L) 3.90 - 5.20 M/cumm SAMANTHA Comment:Testing performed by : [address], [address] MCV 96.7(H) 81.3 - 96.4 fL SAMANTHA Comment:Testing performed by : [address] [address] MCH 31.4 27.1 - 33.3 pg SAMANTHA Comment:Testing performed by : [address] [address] MCHC 32.5 32.3 - 35.7 g/dL SAMANTHA Comment:Testing performed by : [address], [address] RDW CV 13.6 11.1 - 14.9 % SAMANTHA Comment:Testing performed by : [address], [address] RDW SD 48.4(H) 35.7 - 48.1 fL SAMANTHA Comment:Testing performed by : [address] [address] NRBC abs 0.00 0.00 - 0.01 K/cumm SAMANTHA Comment:Testing performed by : [address], [address] Blood 12/02/2024 5:17 AM CDT 12/02/2024 5:57 AM CDT Alka Alcantar TELEGRAPH MESSENGER LAB BLOOD ORDERABLES Final Result SAMANTHA [address] [facility] Department [place] [address] * (ABNORMAL) Basic metabolic panel (12/02/2024 5:17 AM CDT) Sodium 132(L) 135 - 145 mmol/L Comment:Testing performed by : [address] [address] Potassium, pl 3.9 3.3 - 4.9 mmol/L SAMANTHA Comment:Testing performed by : [address] [address] Chloride 99 97 - 110 mmol/L SAMANTHA Comment:Testing performed by : [address] [address] CO2 20(L) 22 - 32 mmol/L SAMANTHA Comment:Testing performed by : [address] [address] Anion gap 13 2 - 15 mmol/L SAMANTHA Comment:Testing performed by : [address] [address] BUN 50(H) 6 - 25 mg/dL SAMANTHA Comment:Testing performed by : [address] [address] Creatinine 2.66(H) 0.60 - 1.10 mg/dL SAMANTHA Comment:Testing performed by : [address] [address] Glucose 104 70 - 199 mg/dL SAMANTHA Comment: Interpretive Data Fasting glucose >/= 126 mg/dl is diagnostic for diabetes. Fasting is defined as no caloric intake for at least 8 hours. Fasting glucose between 100 mg/dl to 125 mg/dl is diagnostic of prediabetes. In a patient with classic symptoms of hyperglycemia or hyperglycemic crisis, a random glucose >/= 200 mg/dl is diagnostic for diabetes. In the absence of unequivocal hyperglycemia, results should be confirmed by repeat testing. The classification and Diagnosis of Diabetes Diabetes Care 202; 46: S19-S40. Current interpretive data was last revised 2022. Testing performed by: [facility] [address] [place] [address]., [address] Calcium 9.0 8.5 - 10.3 mg/dL SAMANTHA VERA Comment:Testing performed by : [address] [address] Blood 12/02/2024 5:17 AM CDT 12/02/2024 5:57 AM CDT us Alka Alcantra TELEGRAPH MESSENGER LAB BLOOD ORDERABLES Final Result SAMANTHA VERA 75[address] [facility] Department of Laboratories [place], [place] [id number] * MRI Lumbar Spine WO Contrast (12/01/2024 6:19 PM CDT) Anatomical Region Laterality Modality Spine N/A Magnetic Resonan ce 12/01/2024 9:37 PM CDT Narrative 12/01/2024 9:45 PM CDT EXAM DESCRIPTION: MRI LUMBAR SPINE WO CONTRAST REASON FOR STUDY: severe spinal stenosis on CT, back pain, fall hx 64 y.o. female complains of generalized weakness, generalized malaise, fatigue and a mechanical fall striking her forehead sustaining a left-sided laceration. EMS relates the lac bled and then stopped. She denies loss of consciousness. Patient admitted to feeling lightheaded prior to the fall. She also relates subjective fever, chills and myalgias. Patient also explains she had her left upper extremity fistula removed, aneurysmal repair, and was supposed to have the ileana removed yesterday, however she said she felt too weak. TECHNIQUE: Sagittal and Axial imaging includes T1, T2, STIR sequences. COMPARISON: Lumbar spine CT dated 12/01/2024. CT abdomen and pelvis dated 08/09/2024. FINDINGS: SEGMENTATION: As noted on the lumbar spine CT dated 12/01/2024 there is transitional anatomy. 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 The disc space seen on series 8, image 2 to be labeled as L4-S1. ALIGNMENT: There is levoconvex curvature. Grade 1 anterolisthesis of L2 on L3. VERTEBRAE: Diffuse endplate degenerative changes and marginal spur formation ranging up to severe from L2-L3 through L4-S1. The L1-L2, L2-L3 and L3-L4 opposing endplate edematous type T1 hypointense, T2/STIR hyperintense marrow signal alteration is along the scoliotic curvature and likely degenerative in nature. If there is a clinical concern for infectious process then please correlate with laboratory data and attention on follow-up. Relative diffuse T1 hypointense bone marrow signal is nonspecific and could reflect red marrow reconversion in setting of chronic anemia, obesity or tobacco use. Alternatively changes related to renal dysfunction can also have similar appearance. DISC HEIGHT: Diffuse intervertebral disc height loss ranging up to severe. HARDWARE: None in the spine. CORD/CAUDA: Conus medullaris terminates at T12-L1. LOWER THORACIC: Incompletely imaged. Degenerative changes without high-grade spinal canal stenosis. INDIVIDUAL DISC LEVELS: L1-L2: Disc bulge eccentric to the left neural foramen. Thickened ligamentum flavum and facet arthropathy. Trace facet joint effusion. Spjg-mo-enbuqale spinal canal stenosis. Mild bilateral neural foraminal narrowing. L2-L3: Anterolisthesis of L2 on L3 with unroofing of the disc and marginal spur formation eccentric to the right neural foramen. Thickened ligamentum flavum and facet arthropathy. Severe spinal canal stenosis and lateral recess narrowing. Severe right and txvf-rp-glediask left neural foraminal narrowing. L3-L4: Disc bulge with marginal spur formation. Thickened ligamentum flavum and facet arthropathy. Moderate spinal canal stenosis and lateral recess narrowing on both sides. Cxad-eg-bpibjtgh right and mild left neural foraminal narrowing. L4-S1: Surgical level. Previous right laminectomy. Disc bulge with marginal spur formation. Superimposed small central disc protrusion. Bilateral facet arthropathy. No significant spinal canal stenosis. Lateral recess effacement on the left. Hfgx-lt-hvlvwzyt left and mild inferior right neural foraminal narrowing. OTHER: Partially imaged nonspecific presacral STIR hyperintense signal. IMPRESSION: 1. Transitional anatomy. 2. Levoconvex lumbar curvature with disc degeneration ranging up to severe, thickened ligamentum flavum and facet arthropathy as described. There is severe spinal canal stenosis at L2-L3 and to a lesser extent at L3-L4. 3. Neural foraminal stenosis ranging up to severe and additional findings as above. 4. Relative diffuse T1 hypointense bone marrow signal is nonspecific and could reflect red marrow reconversion in setting of chronic anemia, obesity or tobacco use. Alternatively sequelae of renal dysfunction can also have similar appearance. THIS IS AN ELECTRONICALLY VERIFIED FINAL REPORT 12/01/2024 9:45 PM - Electronically signed by Willard Grimaldo D.O. AP: AP Report ID: [id number] Reading Location: [id number] Procedure Note Willard Grimaldo, DO - 12/01/2024 EXAM DESCRIPTION: MRI LUMBAR SPINE WO CONTRAST REASON FOR STUDY: severe spinal stenosis on CT, back pain, fall hx 64 y.o. female complains of generalized weakness, generalized malaise,fatigue and a mechanical fall striking her forehead sustaining a left-sided laceration. EMS relates the lac bled and then stopped. She denies lossof consciousness. Patient admitted to feeling lightheaded prior to thefall. She also relates subjective fever, chills and myalgias. Patient alsoexplains she had her left upper extremity fistula removed, aneurysmal repair, andwas supposed to have the ileana removed yesterday, however she said shefelt too weak. TECHNIQUE: Sagittal and Axial imaging includes T1, T2, STIR sequences. COMPARISON: Lumbar spine CT dated 12/01/2024. CT abdomen and pelvisdated 08/09/2024. FINDINGS: SEGMENTATION: As noted on the lumbar spine CT dated 12/01/2024 there is transitional anatomy. For the purpose of the dictationassumption is made for hypoplastic 12th ribs followed by 4 ita-mhf-dgyaopc lumbar type vertebral bodies. The disc space seen on series 8, image 2 to be labeledas L4-S1. ALIGNMENT: There is levoconvex curvature. Grade 1 anterolisthesis of L2on L3. VERTEBRAE: Diffuse endplate degenerative changes and marginal spurformation ranging up to severe from L2-L3 through L4-S1. The L1-L2, L2-L3 and L3-L4 opposing endplate edematous type T1 hypointense, T2/STIR hyperintensemarrow signal alteration is along the scoliotic curvature and likely degenerativein nature. If there is a clinical concern for infectious process then please correlate with laboratory data and attention on follow-up. Relativediffuse T1 hypointense bone marrow signal is nonspecific and could reflect redmarrow reconversion in setting of chronic anemia, obesity or tobacco use. Alternatively changes related to renal dysfunction can also have similar appearance. DISC HEIGHT: Diffuse intervertebral disc height loss ranging up tosevere. HARDWARE: None in the spine. CORD/CAUDA: Conus medullaris terminates at T12-L1. LOWER THORACIC: Incompletely imaged. Degenerative changes without high-grade spinal canal stenosis. INDIVIDUAL DISC LEVELS: L1-L2: Disc bulge eccentric to the left neural foramen. Thickenedligamentum flavum and facet arthropathy. Trace facet joint effusion.Nbjc-sf-gjkilinm spinal canal stenosis. Mild bilateral neural foraminal narrowing. L2-L3: Anterolisthesis of L2 on L3 with unroofing of the disc and marginal spur formation eccentric to the right neural foramen. Thickenedligamentum flavum and facet arthropathy. Severe spinal canal stenosis and lateralrecess narrowing. Severe right and gbeu-dm-joaosdkm left neural foraminalnarrowing. L3-L4: Disc bulge with marginal spur formation. Thickened ligamentumflavum and facet arthropathy. Moderate spinal canal stenosis and lateral recess narrowing on both sides. Fatx-jn-fyyrzrnv right and mild left neural foraminal narrowing. L4-S1: Surgical level. Previous right laminectomy. Disc bulge withmarginal spur formation. Superimposed small central disc protrusion. Bilateralfacet arthropathy. No significant spinal canal stenosis. Lateral recesseffacement on the left. Rogq-ah-fkkfnrfy left and mild inferior right neuralforaminal narrowing. OTHER: Partially imaged nonspecific presacral STIR hyperintense signal. IMPRESSION: 1. Transitional anatomy. 2. Levoconvex lumbar curvature with disc degeneration ranging up tosevere, thickened ligamentum flavum and facet arthropathy as described. There is severe spinal canal stenosis at L2-L3 and to a lesser extent at L3-L4. 3. Neural foraminal stenosis ranging up to severe and additionalfindings as above. 4. Relative diffuse T1 hypointense bone marrow signal is nonspecific and could reflect red marrow reconversion in setting of chronic anemia,obesity or tobacco use. Alternatively sequelae of renal dysfunction can also have similar appearance. THIS IS AN ELECTRONICALLY VERIFIED FINAL REPORT 12/01/2024 9:45 PM - Electronically signed by Willard Grimaldo D.O. AP: AP Report ID: [id number] Reading Location: [id number] us Saim Marisa DO IMG MRI PROCEDURES Final Result * US Kidney Complete (12/01/2024 12:11 PM CDT) Anatomical Region Laterality Modality Kidney N/A Ultrasound 12/01/2024 6:06 PM CDT Narrative 12/01/2024 6:09 PM CDT EXAM DESCRIPTION: US KIDNEY COMPLETE REASON FOR STUDY: ckd, Of transplant kidney TECHNIQUE: Ultrasound of the kidneys and urinary bladder was performed with grayscale imaging. COMPARISON: 12/20/2024 FINDINGS: Right pelvic transplant kidney:: The right kidney measures 12.3 cm in length. There is no hydronephrosis. There is normal cortical thickness and echogenicity. [place] kidneys are not identified. URINARY BLADDER: The urinary bladder, as visualized, appears unremarkable. The bilateral ureteral jets are not visualized. OTHER: No other additional findings. 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 No acute abnormality. THIS IS AN ELECTRONICALLY VERIFIED FINAL REPORT 12/01/2024 6:09 PM - Electronically signed by Km Lopez M.D. KH: KELLY Report ID: [id number] Reading Location: [id number] Procedure Note Km Lopez MD - 12/01/2024 EXAM DESCRIPTION: US KIDNEY COMPLETE REASON FOR STUDY: ckd, Of transplant kidney TECHNIQUE: Ultrasound of the kidneys and urinary bladder was performedwith grayscale imaging. COMPARISON: 12/20/2024 FINDINGS: Right pelvic transplant kidney:: The right kidney measures 12.3cm in length. There is no hydronephrosis. There is normal cortical thicknessand echogenicity. [place] kidneys are not identified. URINARY BLADDER: The urinary bladder, as visualized, appearsunremarkable. The bilateral ureteral jets are not visualized. OTHER: No other additional findings. IMPRESSION: Right pelvic transplant kidney is evident withouthydronephrosis or other acute process. No acute abnormality. THIS IS AN ELECTRONICALLY VERIFIED FINAL REPORT 12/01/2024 6:09 PM - Electronically signed by Km Lopez M.D. KH: KELLY Report ID: [id number] Reading Location: [place] [address] us Alka Alcantar TELEGRAPH MESSENGER IMG US PROCEDURES Final Res ult * (ABNORMAL) eGFR (12/01/2024 9:06 AM CDT) eGFR 18(L) >=60 mL/min/1. 73 m2 Comment: Interpretive Data Reference Interval Normal >/= 90 mL/min/1.73m2 Mildly decreased* 60 - 89 mL/min/1.73m2 Mildly to moderately decreased 45 - 59 mL/min/1.73m2 Moderately to severely decreased 30 - 44 mL/min/1.73m2 Severely decreased 15 - 29 mL/min/1.73m2 Kidney Failure < 15 mL/min/1.73m2 *Relative to young adult level Estimated glomerular filtration rate is determined by the 2020 CKD-EPI equation recommended by the National Kidney Foundation (A Unifying Approach to GFR Estimation: Recommendations of the NKF-ASK Task Force on Reassessing the Inclusion of Race in Diagnosing Kidney Disease, JASN 202). The CKD-EPI equation should not be used for patients with unstable renal function and has not been validated in children and those over 70. Current interpretive data was last reviewed 2021. Testing performed by: [facility], [address] [place] [address]., [address] Blood 12/01/2024 9:06 AM CDT 12/01/2024 9:12 AM CDT us Alka Alcantar NP LAB BLOOD ORDERABLES Final Result SAMANTHA [address] [facility] Department [place] [address] * (ABNORMAL) Differential, auto (12/01/2024 9:06 AM CDT) Neutrophil abs 8.62(H) 1.50 - 6.50 K/cumm Comment:Testing performed by : [address] [address] Imm gran abs 0.08 0.00 - 0.10 K/cumm SAMANTHA Comment:Testing performed by : [address] [address] Lymphocyte abs 0.49(L) 0.80 - 3.30 K/cumm [facility] Comment:Testing performed by : [address] [address] Monocyte abs 0.76 0.20 - 0.80 K/cumm [facility] Comment:Testing performed by : [address] [address] Eosinophil abs 0.02 0.00 - 0.50 K/cumm [facility] Comment:Testing performed by : [address] [address] Basophil abs 0.02 0.00 - 0.10 K/cumm [facility] Comment:Testing performed by : [address] [address] Neutrophil pct 86.3 % [facility] Comment: Interpretive Data Percent cell count reference ranges are not reported, since discordance with absolute values may lead to misinterpretation of CBC data. Current Interpretive Data was last revised on 2017. Testing performed by: [address] [address] Imm gran pct 0.8 % [facility] Comment: Interpretive Data Percent cell count reference ranges are not reported, since discordance with absolute values may lead to misinterpretation of CBC data. Current Interpretive Data was last revised on 2017. Testing performed by: [address] [address] Lymphocyte pct 4.9 % [facility] Comment: Interpretive Data Percent cell count reference ranges are not reported, since discordance with absolute values may lead to misinterpretation of CBC data. Current Interpretive Data was last revised on 2017. Testing performed by: [address] [address] Monocyte pct 7.6 % [facility] Comment: Interpretive Data Percent cell count reference ranges are not reported, since discordance with absolute values may lead to misinterpretation of CBC data. Current Interpretive Data was last revised on 2017. Testing performed by: [address] [address] Eosinophil pct 0.2 % [facility] Comment: Interpretive Data Percent cell count reference ranges are not reported, since discordance with absolute values may lead to misinterpretation of CBC data. Current Interpretive Data was last revised on 2017. Testing performed by: [address] [address] Basophil pct 0.2 % SAMANTHA Comment: Interpretive Data Percent cell count reference ranges are not reported, since discordance with absolute values may lead to misinterpretation of CBC data. Current Interpretive Data was last revised on 2017. Testing performed by: [address] [address] Blood 12/01/2024 9:06 AM CDT 12/01/2024 9:12 AM CDT Alka Alcantar NP LAB BLOOD ORDERABLES Final Result SAMANTHA [address] [facility] Department [place] [address] * Tacrolimus level trough (12/01/2024 9:06 AM CDT) Tacrolimus trough 18.0 ng/mL Comment: Interpretive Data Testing performed by liquid chromatography-tandem mass spectrometry. Therapeutic concentrations vary depending on type of transplanted organ and time elapsed since transplant. Typical trough concentrations range from 5-15 ng/mL. This test was developed and its performance characteristics determined by the [facility] consistent with CLIA requirements. This test has not been cleared or approved by the [place] Food and Drug administration. Current interpretive data last reviewed 2019. Testing performed by: [facility], [address] [facility], [place]., [address] Blood 12/01/2024 9:06 AM CDT 12/01/2024 11:12 AM CDT us Alka Smithe Ortiz TELEGRAPH MESSENGER LAB BLOOD ORDERABLES Final Result [facility] [address] [facility] Department [place] [address] * (ABNORMAL) CBC with auto differential (12/01/2024 9:06 AM CDT) WBC 9.99(H) 3.80 - 9.90 K/cumm Comment:Testing performed by : [address] [address] Hgb 9.2(L) 11.9 - 15.5 g/dL SAMANTHA Comment:Testing performed by : [address] [address] Hct 29.6(L) 35.6 - 45.5 % SAMANTHA Comment:Testing performed by : [address] [address] Plt 98(L) 150 - 400 K/cumm SAMANTHA Comment:Testing performed by : [address] [address] MPV 9.6 9.1 - 12.3 fL SAMANTHA VERA Comment:Testing performed by : [address] [address] RBC 2.95(L) 3.90 - 5.20 M/cumm SAMANTHA Comment:Testing performed by : [address] [address] MCV 100.3(H) 81.3 - 96.4 fL SAMANTHA Comment:Testing performed by : [address] [address] MCH 31.2 27.1 - 33.3 pg SAMANTHA Comment:Testing performed by : [address] [address] MCHC 31.1(L) 32.3 - 35.7 g/dL SAMANTHA VERA Comment:Testing performed by : [address] [address] RDW CV 13.6 11.1 - 14.9 % SAMANTHA VERA Comment:Testing performed by : [address] [address] RDW SD 50.2(H) 35.7 - 48.1 fL SAMANTHA VERA Comment:Testing performed by : [address] [address] NRBC abs 0.00 0.00 - 0.01 K/cumm SAMANTHA VERA Comment:Testing performed by : [address] [address] Blood 12/01/2024 9:06 AM CDT 12/01/2024 9:12 AM CDT us Alka Alcantar TELEGRAPH MESSENGER LAB BLOOD ORDERABLES Final Result SAMANTHA [facility] Department [place] [address] * (ABNORMAL) Basic metabolic panel (12/01/2024 9:06 AM CDT) Sodium 130(L) 135 - 145 mmol/L Comment:Testing performed by : [address] [address] Potassium, pl 4.6 3.3 - 4.9 mmol/L SAMANTHA VERA Comment:Testing performed by : [address] [address] Chloride 97 97 - 110 mmol/L SAMANTHA Comment:Testing performed by : [address] [address] CO2 17(L) 22 - 32 mmol/L SAMANTHA Comment:Testing performed by : [address] [address] Anion gap 16(H) 2 - 15 mmol/L SAMANTHA Comment:Testing performed by : [address] [address] BUN 52(H) 6 - 25 mg/dL SAMANTHA Comment:Testing performed by : [address] [address] Creatinine 2.85(H) 0.60 - 1.10 mg/dL SAMANTHA Comment:Testing performed by : [address] [address] Glucose 95 70 - 199 mg/dL SAMANTHA Comment: Interpretive Data Fasting glucose >/= 126 mg/dl is diagnostic for diabetes. Fasting is defined as no caloric intake for at least 8 hours. Fasting glucose between 100 mg/dl to 125 mg/dl is diagnostic of prediabetes. In a patient with classic symptoms of hyperglycemia or hyperglycemic crisis, a random glucose >/= 200 mg/dl is diagnostic for diabetes. In the absence of unequivocal hyperglycemia, results should be confirmed by repeat testing. The classification and Diagnosis of Diabetes Diabetes Care 202; 46: S19-S40. Current interpretive data was last revised 2022. Testing performed by: [address] [address] Calcium 9.5 8.5 - 10.3 mg/dL SAMANTHA Comment:Testing performed by : [address] [address] Blood 12/01/2024 9:06 AM CDT 12/01/2024 9:12 AM CDT Alka Alcantar TELEGRAPH MESSENGER LAB BLOOD ORDERABLES Final Result Performing Organization Address City/State/[facility] Co ut Phone Number [facility] [phone] [facility] Department [place] [address] * CT Recon Lumbar Spine WO Contrast (12/01/2024 8:46 AM CDT) Anatomical Region Laterality Modality Spine N/A Computed Tomogra phy 12/01/2024 10:4 7 AM CDT Narrative 12/01/2024 10:58 AM CDT EXAM DESCRIPTION: CT RECON LUMBAR SPINE WO CONTRAST REASON FOR STUDY: Low back pain, increased fracture risk Low back pain, increased fracture risk TECHNIQUE: Axial images acquired through the lumbar spine without intravenous contrast. Reconstructed coronal and sagittal MPR images reviewed. All images stored on PACS. Automated exposure control was used as a dose optimization technique for this examination. COMPARISON: CT abdomen and pelvis dated 08/09/2024 and 04/18/2023. FINDINGS: SEGMENTATION: There is transitional anatomy. 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 The disc space seen on series 11, image 98 to be labeled as L4-S1. ALIGNMENT: Levoconvex lumbar curvature. Grade 1 anterolisthesis of L2 on L3. VERTEBRAE: The osseous structures are diffusely demineralized and limits the evaluation for a subtle nondisplaced fracture. The L1, L2 and L3 superior endplate irregularity is similar when compared to the previous CT abdomen and pelvis dated 08/09/2024. No definite acute compression fracture in the lumbar spine. Endplate degenerative changes and marginal spur formation ranging up to severe from L2-L3 through L4-L5 along the scoliotic curvature. DISC HEIGHT: Multilevel intervertebral disc height loss, most noticeable from L2-L3 through L4-S1 ranging up to severe. Vacuum disc phenomenon at L2-L3 through L4-S1. Mineralization at L4-S1. HARDWARE: None in the spine. INDIVIDUAL DISC LEVELS: Suboptimally assessed by non myelographic CT technique. T12-L1: No significant disc bulge, osseous spinal canal or neural foraminal narrowing. L1-L2: Disc bulge with marginal spur formation eccentric to the left neural foramen. Thickened ligamentum flavum and facet arthropathy. Skym-qt-veichitl osseous spinal canal stenosis. Mild bilateral osseous neural foraminal narrowing. L2-L3: Anterolisthesis L2 on L3 with unroofing of the disc and marginal spur formation. Marked thickened ligamentum flavum and facet arthropathy. Severe osseous spinal canal, lateral recess and right neural foraminal narrowing. Moderate osseous left neural foraminal narrowing. L3-L4: Disc bulge with marginal spur formation. Thickened ligamentum flavum and facet arthropathy. Proliferation of the dorsal epidural fat. Moderate to severe osseous spinal canal stenosis and lateral recess narrowing on both sides. Moderate right and mild left osseous neural foraminal narrowing. L4-S1: Disc bulge with marginal spur formation. Bilateral facet arthropathy. No significant osseous spinal canal stenosis. Lateral recess effacement on both sides. Moderate left and mild right osseous neural foraminal narrowing. SOFT TISSUES: Better assessed on the dedicated CT abdomen and pelvis dated 11/30/2024. Partially imaged calcified plaque in the abdominal aorta and major branch vessels. Right and left cata[place]ba kidneys are atrophic. OTHER: Lucency in the sacrum could be prominent trabecular markings. Correlate with point tenderness is concern for subtle fracture. Dedicated MRI can be obtained as clinically indicated. IMPRESSION: 1. Transitional anatomy. 2. No convincing acute fracture in the lumbar spine, please note subtle fracture is not well assessed as the osseous structures are diffusely demineralized. 3. Levoconvex lumbar curvature with disc degeneration ranging up to severe, thickened ligamentum flavum and facet arthropathy as described. Severe spinal canal stenosis at L2-L3 and L3-L4. 4. Osseous neural foraminal narrowing ranging up to severe and other findings as above. 5. Subtle lucencies in the sacrum are nonspecific and could be prominent trabecular markings. Correlate with point tenderness if there is concern for subtle nondisplaced fractures. 6. Further evaluation with MRI as clinically indicated. THIS IS AN ELECTRONICALLY VERIFIED FINAL REPORT 12/01/2024 10:58 AM - Electronically signed by Willard Grimaldo D.O. AP: AP Report ID: [id number] Reading Location: [id number] Procedure Note Willard Grimaldo, DO - 12/01/2024 EXAM DESCRIPTION: CT RECON LUMBAR SPINE WO CONTRAST REASON FOR STUDY: Low back pain, increased fracture risk Low back pain, increased fracture risk TECHNIQUE: Axial images acquired through the lumbar spine withoutintravenous contrast. Reconstructed coronal and sagittal MPR images reviewed. Allimages stored on PACS. Automated exposure control was used as a dose optimization technique forthis examination. COMPARISON: CT abdomen and pelvis dated 08/09/2024 and 04/18/2023. FINDINGS: SEGMENTATION: There is transitional anatomy. 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 The disc space seen onseries 11, image 98 to be labeled as L4-S1. ALIGNMENT: Levoconvex lumbar curvature. Grade 1 anterolisthesis of L2on L3. VERTEBRAE: The osseous structures are diffusely demineralized and limitsthe evaluation for a subtle nondisplaced fracture. The L1, L2 and L3 superior endplate irregularity is similar when compared to the previous CT abdomenand pelvis dated 08/09/2024. No definite acute compression fracture in thelumbar spine. Endplate degenerative changes and marginal spur formation rangingup to severe from L2-L3 through L4-L5 along the scoliotic curvature. DISC HEIGHT: Multilevel intervertebral disc height loss, most noticeable from L2-L3 through L4-S1 ranging up to severe. Vacuum disc phenomenon at L2-L3 through L4-S1. Mineralization at L4-S1. HARDWARE: None in the spine. INDIVIDUAL DISC LEVELS: Suboptimally assessed by non myelographic CT technique. T12-L1: No significant disc bulge, osseous spinal canal or neuralforaminal narrowing. L1-L2: Disc bulge with marginal spur formation eccentric to the leftneural foramen. Thickened ligamentum flavum and facet arthropathy.Bpyk-tq-dpplxucu osseous spinal canal stenosis. Mild bilateral osseous neural foraminal narrowing. L2-L3: Anterolisthesis L2 on L3 with unroofing of the disc and marginalspur formation. Marked thickened ligamentum flavum and facet arthropathy.Severe osseous spinal canal, lateral recess and right neural foraminal narrowing. Moderate osseous left neural foraminal narrowing. L3-L4: Disc bulge with marginal spur formation. Thickened ligamentumflavum and facet arthropathy. Proliferation of the dorsal epidural fat.Moderate to severe osseous spinal canal stenosis and lateral recess narrowing on both sides. Moderate right and mild left osseous neural foraminal narrowing. L4-S1: Disc bulge with marginal spur formation. Bilateral facetarthropathy. No significant osseous spinal canal stenosis. Lateral recess effacementon both sides. Moderate left and mild right osseous neural foraminalnarrowing. SOFT TISSUES: Better assessed on the dedicated CT abdomen and pelvisdated 11/30/2024. Partially imaged calcified plaque in the abdominal aorta and major branch vessels. Right and left cata[place]ba kidneys are atrophic. OTHER: Lucency in the sacrum could be prominent trabecular markings. Correlate with point tenderness is concern for subtle fracture. DedicatedMRI can be obtained as clinically indicated. IMPRESSION: 1. Transitional anatomy. 2. No convincing acute fracture in the lumbar spine, please note subtle fracture is not well assessed as the osseous structures are diffusely demineralized. 3. Levoconvex lumbar curvature with disc degeneration ranging up tosevere, thickened ligamentum flavum and facet arthropathy as described. Severespinal canal stenosis at L2-L3 and L3-L4. 4. Osseous neural foraminal narrowing ranging up to severe and other findings as above. 5. Subtle lucencies in the sacrum are nonspecific and could be prominent trabecular markings. Correlate with point tenderness if there is concernfor subtle nondisplaced fractures. 6. Further evaluation with MRI as clinically indicated. THIS IS AN ELECTRONICALLY VERIFIED FINAL REPORT 12/01/2024 10:58 AM - Electronically signed by Willard Grimaldo D.O. AP: AP Report ID: [id number] Reading Location: [place] [address] us Lyndsey Cunningham DO IMG CT PROCEDURES Final Result * (ABNORMAL) Troponin T high-sensitivity 6-hour (11/30/2024 4:26 PM CDT) Trop T hs 46(H) <=14 ng/L Comment: Interpretive Data For further hscTnT resources including the diagnostic algorithm and an aid in interpretation, copy and paste this link: https://nrl.testcatalog.org/show/hsTrop Current Interpretive Data last revised 2020. Testing performed by: [address] [address] Trop T hs delta 0 ng/L SAMANTHA VERA Comment:Testing performed by : [address] [address] Trop T hs interp Insignificant SAMANTHA VERA Comment:Testing performed by : [address] [address] Blood 11/30/2024 4:26 PM CDT 11/30/2024 4:33 PM CDT us Annmarie Victor MD LAB BLOOD ORDERABLES F inal Result SAMANTHA VERA [address] [facility] [place] [address] * (ABNORMAL) Troponin T high-sensitivity 4-hour (11/30/2024 2:04 PM CDT) Trop T hs 46(H) <=14 ng/L Comment: Interpretive Data For further hscTnT resources including the diagnostic algorithm and an aid in interpretation, copy and paste this link: https://nrl.testcatalog.org/show/hsTrop Current Interpretive Data last revised 2020. Testing performed by: [address] [address] Trop T hs delta 0 ng/L SAMANTHA Comment:Testing performed by : [address] [address] Trop T hs interp Insignificant SAMANTHA Comment:Testing performed by : [address] [address] Blood 11/30/2024 2:04 PM CDT 11/30/2024 2:09 PM CDT us Annmarie Victor MD LAB BLOOD ORDERABLES F inal Result SAMANTHA [address] [facility] [place] [address] * Suture Removal (11/30/2024 12:49 PM CDT) Narrative Kae Radford PA - 11/30/2024 12:49 PM CDT Kae Radford PA 11/30/2024 12:54 PM Suture Removal Date/Time: 11/30/2024 12:49 PM Performed by: Kae Radford PA Authorized by: Annmarie Victor MD Location: Upper extremity Upper extremity location: Arm Arm location: L lower arm Wound appearance: No signs of infection Number of ileana removed: 16 Patient tolerance of procedure: Tolerated well, no immediate complications us Annmarie Victor MD IN CLINIC/BEDSIDE SUZETTE JAIN Final Result * Laceration Repair (11/30/2024 12:45 PM CDT) Narrative Kae Radford PA - 11/30/2024 12:45 PM CDT Kae Radford PA 11/30/2024 12:54 PM Laceration Repair Date/Time: 11/30/2024 12:45 PM Performed by: Kae Radford PA Authorized by: Annmarie Victor MD Informed consent: Risks, benefits, alternatives discussed Imaging: Pertinent imaging reviewed, correctly oriented and match to patient identifiers Anesthesia method: None Location: Face Face location: L eyebrow Length (cm): 1 Repair type: Simple Hemostasis achieved with: Direct pressure Area cleansed with: Shur-Clens Repair method: Tissue adhesive Approximation: Close Dressing: Open (no dressing) Patient tolerance of procedure: Tolerated well, no immediate complications Annmarie Victor MD IN CLINIC/BEDSIDE SUZETTE JAIN Final Result * (ABNORMAL) Urinalysis reflex to microscopic and culture Urine (11/30/2024 11:54 AM CDT) Color, ur Yellow Yellow Comment:Testing performed by : [address] [address] Clarity, ur Clear Clear SAMANTHA Comment:Testing performed by : [address] [address] Specific gravity, ur 1.012 1.003 - 1.030 SAMANTHA Comment:Testing performed by : [address] [address] pH, urine 7.5 SAMANTHA Comment: Interpretive Data U rine pH is affected by diet, medications, systemic acid-base disturbances, and renal tubular function. pH may affect urinary stone formation. For example, urine pH below 6.0 may help reduce the tendency for calcium phosphate stones and pH greater than 6.0 may reduce the tendency for uric acid stone formation. Source: [employer] Current Interpretive Data was last revised on 2017 Testing performed by: [address] [address] Protein, ur ql 2+(A) Negative SAMANTHA Comment:Testing performed by : [address] [address] Glucose, ur ql Negative Negative SAMANTHA Comment:Testing performed by : [address], [place]., [address] Ketones, ur Negative Negative SAMANTHA VERA Comment:Testing performed by : [address], [place]., [address] Bilirubin, ur Negative Negative SAMANTHA Comment:Testing performed by : [address], [place]., [address] Blood, ur 1+(A) Negative SAMANTHA Comment:Testing performed by : [address], [place]., [address] Urobilinogen, ur <2.0 <2.0 mg/dL SAMANTHA Comment:Testing performed by : [address], [place]., [address] Nitrite, ur Negative Negative SAMANTHA Comment:Testing performed by : [address], [place]., [address] Leukocyte esterase, ur 2+(A) Negative SAMANTHA Comment:Testing performed by : [address], [place]., [address] UA reflex comment Reflex to microscopic UA will be performed. SAMANTHA Comment:Testing performed by : [address], [place]., [address] Urine 11/30/2024 11:5 4 AM CDT 11/30/2024 12:01 PM CDT Annmarie Victor MD LAB MICROBIOLOGY - GEN ERAL ORDERABLES Final Result SAMANTHA [address] [facility] Department [place] [address] * (ABNORMAL) Urinalysis, microscopic only (11/30/2024 11:54 AM CDT) WBC, ur 21-50(A) 0 - 5 /HPF Comment:Testing performed by : [address], [place]., [address] RBC, ur 3-5(A) 0 - 2 /HPF SAMANTHA VERA Comment:Testing performed by : [address], [place]., [address] Epithelial cells, squamous, ur 1-5 0 - 5 /HPF SAMANTHA Comment:Testing performed by : [facility], [address] [place] [address]., [address] Mucous, ur Present(A) SAMANTHA VERA Comment:Testing performed by : [facility], [address] [place] [address]., [address] Culture Reflex Comment Reflex to urine culture will be performed. SAMANTHA Comment:Testing performed by : [address] [address] Urine 11/30/2024 11:5 4 AM CDT 11/30/2024 12:01 PM CDT us Annmarie Victor MD LAB URINE ORDERABLES F inal Result Performing Organization Address [facility] Co de Phone Number [address] [place] [address] * Urine culture Urine (11/30/2024 11:54 AM CDT) Report Final Report: Less than 100,000 colonies/mL (clinically insignificant growth based on current clinical standards) Comment:Testing performed by : [facility], [address] [place]., [address] Organism (CLINICALLY INSIGNIFICANT GROWTH SAMANTHA Urine 11/30/2024 11:5 4 AM CDT 11/30/2024 3:53 PM CDT Narrative SAMANTHA - 12/01/2024 4:27 PM CDT Urine culture reflexed based upon urinalysis results. Testing performed by [facility] ([phone]) us Annmarie Victor MD LAB MICROBIOLOGY - GEN ERAL ORDERABLES Final Result Performing Organization Address City/[facility]/ZIP Co de Phone Number [address] [place] [address] * (ABNORMAL) Troponin T high-sensitivity 2-hour (11/30/2024 11:23 AM CDT) Trop T hs 42(H) <=14 ng/L Comment: Interpretive Data For further hscTnT resources including the diagnostic algorithm and an aid in interpretation, copy and paste this link: https://nrl.testcatalog.org/show/hsTrop Current Interpretive Data last revised 2020. Testing performed by: [facility], [address] [place] [address]., [address] Trop T hs delta -4 ng/L SAMANTHA Comment:Testing performed by : [address] [address] Trop T hs interp Insignificant SAMANTHA Comment:Testing performed by : [address] [address] Blood 11/30/2024 11:2 3 AM CDT 11/30/2024 11:50 AM CDT us Annmarie Victor MD LAB BLOOD ORDERABLES F inal Result Performing Organization Address City/[facility] Co de Phone Number [address] [place] [address] * Sepsis Lactate w/ Reflex (11/30/2024 11:23 AM CDT) [facility] Sepsis Lactate 0.8 0.7 - 2.0 mmol/L Comment:Testing performed by : [address] [address] Blood 11/30/2024 11:2 3 AM CDT 11/30/2024 11:50 AM CDT us Annmarie Victor MD LAB BLOOD ORDERABLES F inal Result Performing Organization Address City/[facility] Co de Phone Number [address] [place] [address] * Tacrolimus level random (11/30/2024 11:23 AM CDT) [facility] Tacrolimus random 3.6 ng/mL Comment: Interpretive Data Testing performed by liquid chromatography-tandem mass spectrometry. Therapeutic concentrations vary depending on type of transplanted organ and time elapsed since transplant. Typical trough concentrations range from 5-15 ng/mL. This test was developed and its performance characteristics determined by the [facility] consistent with CLIA requirements. This test has not been cleared or approved by the [place] Food and Drug administration. Current interpretive data last reviewed 2019. Testing performed by: [facility], [address] [place] [address]., [address] Blood 11/30/2024 11:2 3 AM CDT 11/30/2024 3:35 PM CDT us Annmarie Victor MD LAB BLOOD ORDERABLES F inal Result SAMANTHA VERA [address] [facility] Department [place] [address] * Blood culture Blood Peripheral (11/30/2024 11:23 AM CDT) Report Final Report: No growth Comment:Testing performed by : [facility], [address] [place]., [address] Blood (Peripheral) 11/30/2024 11:23 AM CDT 11/30/2024 2:23 PM CDT Narrative SAMANTHA - 12/04/2024 4:00 PM CDT Received only aerobic blood culture bottle From a different site than #1. Draw Blood cultures before administration of Antibiotics Collection->Peripheral 1. Blood cultures are incubated for 4 days on a continuously monitored blood culture system. The first report of a negative culture is issued within 24 hours of receipt of the specimen in the laboratory. 2. Positive culture results are reported as soon as they are detected. 3. The most important factor for detection of microbes in the setting of bloodstream infection is the volume of blood submitted for culture. Failure to collect an optimal blood volume can result in false negative blood cultures. 4. For pediatric patients, the recommended blood volume to collect follows a weight based strategy. See the electronic test catalog for collection instructions. 5. For positive blood cultures, a rapid molecular test may be performed for organism identification using the les ePlex blood culture identification panel for gram positive (BCID-GP) and gram negative (BCID-GN) organisms. This nucleic acid amplification test detects microbial DNA in positive blood culture broth. This assay has been cleared by the [place] Food and Drug Administration and its performance characteristics have been verified by the [facility]. For questions about this culture, contact the Microbiology Laboratory at [phone]. Interpretive data was last revised on 24. Annmarie Victor MD LAB MICROBIOLOGY - GEN ERAL ORDERABLES Final Result SAMANTHA [address] [facility] Department [place] [address] * Blood culture Blood Peripheral (11/30/2024 11:23 AM CDT) Report Final Report: No growth Comment:Testing performed by : [facility], [address] [facility] [place]., [address] Blood (Peripheral) 11/30/2024 11:23 AM CDT 11/30/2024 2:23 PM CDT Narrative SAMANTHA - 12/04/2024 4:00 PM CDT Received only aerobic blood culture bottle Draw Blood cultures before administration of Antibiotics Collection->Peripheral 1. Blood cultures are incubated for 4 days on a continuously monitored blood culture system. The first report of a negative culture is issued within 24 hours of receipt of the specimen in the laboratory. 2. Positive culture results are reported as soon as they are detected. 3. The most important factor for detection of microbes in the setting of bloodstream infection is the volume of blood submitted for culture. Failure to collect an optimal blood volume can result in false negative blood cultures. 4. For pediatric patients, the recommended blood volume to collect follows a weight based strategy. See the electronic test catalog for collection instructions. 5. For positive blood cultures, a rapid molecular test may be performed for organism identification using the [employer]lex blood culture identification panel for gram positive (BCID-GP) and gram negative (BCID-GN) organisms. This nucleic acid amplification test detects microbial DNA in positive blood culture broth. This assay has been cleared by the [place] Food and Drug Administration and its performance characteristics have been verified by the [facility]. For questions about this culture, contact the Microbiology Laboratory at [phone]. Interpretive data was last revised on 24. us Annmarie Victor MD LAB MICROBIOLOGY - GEN ERAL ORDERABLES Final Result SAMANTHA [address] [facility] Department [place] [address] * CT Chest Abdomen Pelvis WO Contrast (11/30/2024 11:09 AM CDT) Anatomical Region Laterality Modality Body N/A Computed Tomogra phy 11/30/2024 11:2 4 AM CDT Narrative 11/30/2024 11:51 AM CDT EXAM DESCRIPTION: CT CHEST ABDOMEN PELVIS WO CONTRAST REASON FOR STUDY: Sepsis Came to ED via EMS from home s/p fall. Dressing intact to left forehead laceration. Pt denies LOC. Pt denies blood thinner use. Reports has had weakness for the last couple of days. Reports had a kidney transplant 15 years ago. Reports may feel off from transplant meds. Noted ileana to left arm. Pt reports had fistula removed. Reports was to have ileana removed yesterday but didn't feel well enough to go to appointment. TECHNIQUE: CT scan of the chest, abdomen, and pelvis performed without intravenous and without oral contrast using helical scanning technique. Reconstructed coronal and sagittal MPR images reviewed. All images stored on PACS. Automated exposure control was used as a dose optimization technique for this examination. COMPARISON: CT abdomen pelvis dated August 09, 2024 FINDINGS: The sensitivity for detection of visceral lesions is diminished without the use of intravenous contrast. CHEST LUNGS: No nodules or masses. No pneumonia. PLEURA: No effusion. No pneumothorax. MEDIASTINUM/RODRIGO: No identified masses or abnormal nodes. HEART: Heart size is normal with no pericardial effusion. CORONARY ARTERY CALCIFICATION: Mild VASCULATURE CHEST: No thoracic aortic aneurysm. AXILLA: No adenopathy. CHEST WALL: No masses. No subcutaneous air. HARDWARE/LINES/TUBES: None. MUSCULOSKELETAL CHEST: No significant abnormality. ABDOMEN/PELVIS LIVER: Normal size. No identified cystic or solid masses. No cysts. GALLBLADDER: No stones identified. No wall thickening or inflammatory changes. BILE DUCTS: No intrahepatic or extrahepatic ductal dilatation. SPLEEN: The spleen is mildly enlarged measuring 15.5 cm in craniocaudal dimension. No focal parenchymal lesion is seen. PANCREAS: No identified cystic or solid masses. No significant calcifications. No adjacent inflammation or peripancreatic fluid collections. Pancreatic duct not dilated. ADRENALS: Normal. KIDNEYS/URINARY TRACT: Severe atrophy of the catawba kidneys. Transplant kidney right lower quadrant.. No hydronephrosis or hydroureter. Urinary bladder is unremarkable. GI: No dilated bowel loops. No obvious wall thickening. Normal appendix. No significant diverticular disease. PERITONEUM: No ascites or free air. RETROPERITONEUM: No mass or adenopathy. REPRODUCTIVE: No significant abnormality. VASCULATURE ABDOMEN: No abdominal aortic aneurysm. MUSCULOSKELETAL ABDOMEN PELVIS: No acute finding. OTHER: No significant abnormality. IMPRESSION: 1. No acute findings identified to suggest etiology of the patient's symptoms. 2. Severe atrophy of the catawba kidneys. Transplant kidney right lower quadrant. THIS IS AN ELECTRONICALLY VERIFIED FINAL REPORT 11/30/2024 11:51 AM - Electronically signed by Greg Mosqueda M.D. JA: JOSE Report ID: [id number] Reading Location: [id number] Procedure Note Greg Mosqueda MD - 11/30/2024 EXAM DESCRIPTION: CT CHEST ABDOMEN PELVIS WO CONTRAST REASON FOR STUDY: Sepsis Came to ED via EMS from home s/p fall. Dressing intact to left forehead laceration. Pt denies LOC. Pt denies blood thinner use. Reports has had weakness for the last couple of days. Reports had a kidney transplant 15years ago. Reports may feel off from transplant meds. Noted ileana to leftarm. Pt reports had fistula removed. Reports was to have ileana removedyesterday but didn't feel well enough to go to appointment. TECHNIQUE: CT scan of the chest, abdomen, and pelvis performed without intravenous and without oral contrast using helical scanning technique. Reconstructed coronal and sagittal MPR images reviewed. All images storedon PACS. Automated exposure control was used as a dose optimizationtechnique for this examination. COMPARISON: CT abdomen pelvis dated August 09, 2024 FINDINGS: The sensitivity for detection of visceral lesions is diminished without the use of intravenous contrast. CHEST LUNGS: No nodules or masses. No pneumonia. PLEURA: No effusion. No pneumothorax. MEDIASTINUM/RODRIGO: No identified masses or abnormal nodes. HEART: Heart size is normal with no pericardial effusion. CORONARY ARTERY CALCIFICATION: Mild VASCULATURE CHEST: No thoracic aortic aneurysm. AXILLA: No adenopathy. CHEST WALL: No masses. No subcutaneous air. HARDWARE/LINES/TUBES: None. MUSCULOSKELETAL CHEST: No significant abnormality. ABDOMEN/PELVIS LIVER: Normal size. No identified cystic or solid masses. No cysts. GALLBLADDER: No stones identified. No wall thickening or inflammatory changes. BILE DUCTS: No intrahepatic or extrahepatic ductal dilatation. SPLEEN: The spleen is mildly enlarged measuring 15.5 cm in craniocaudal dimension. No focal parenchymal lesion is seen. PANCREAS: No identified cystic or solid masses. No significant calcifications. No adjacent inflammation or peripancreatic fluidcollections. Pancreatic duct not dilated. ADRENALS: Normal. KIDNEYS/URINARY TRACT: Severe atrophy of the [place] kidneys. Transplant kidney right lower quadrant.. No hydronephrosis or hydroureter.Urinary bladder is unremarkable. GI: No dilated bowel loops. No obvious wall thickening. Normalappendix. No significant diverticular disease. PERITONEUM: No ascites or free air. RETROPERITONEUM: No mass or adenopathy. REPRODUCTIVE: No significant abnormality. VASCULATURE ABDOMEN: No abdominal aortic aneurysm. MUSCULOSKELETAL ABDOMEN PELVIS: No acute finding. OTHER: No significant abnormality. IMPRESSION: 1. No acute findings identified to suggest etiology of the patient's symptoms. 2. Severe atrophy of the [place] kidneys. Transplant kidney right lower quadrant. THIS IS AN ELECTRONICALLY VERIFIED FINAL REPORT 11/30/2024 11:51 AM - Electronically signed by Greg Mosqueda M.D. JA: JOSE Report ID: [id number] Reading Location: [id number] Annmarie Victor MD IMG CT PROCEDURES Juany l Result * CT Head WO Contrast (11/30/2024 11:09 AM CDT) Anatomical Region Laterality Modality Head and Neck N/A Computed Tomogra phy 11/30/2024 11:1 7 AM CDT Narrative 11/30/2024 11:24 AM CDT EXAM DESCRIPTION: CT HEAD WO CONTRAST REASON FOR STUDY: Head trauma, moderate-severe Came to ED via EMS from home s/p fall. Dressing intact to left forehead laceration. Pt denies LOC. Pt denies blood thinner use. Reports has had weakness for the last couple of days. Reports had a kidney transplant 15 years ago. Reports may feel off from transplant meds. Noted ileana to left arm. Pt reports had fistula removed. Reports was to have ileana removed yesterday but didn't feel well enough to go to appointment. TECHNIQUE: Axial images acquired through the brain without intravenous contrast. Images stored on PACS. Automated exposure control was used as a dose optimization technique for this examination. COMPARISON: None FINDINGS: BRAIN: No hemorrhage, edema or mass effect. No recent infarct. Normal white matter. EXTRA-AXIAL SPACES: No fluid collections. No masses. CALVARIUM: No fracture. SINUSES/MASTOIDS: No fluid or mucosal thickening. ORBITS: No significant abnormality. OTHER: No other significant abnormality. IMPRESSION: No acute intracranial findings. THIS IS AN ELECTRONICALLY VERIFIED FINAL REPORT 11/30/2024 11:24 AM - Electronically signed by Greg Mosqueda M.D. JA: JOSE Report ID: [id number] Reading Location: [id number] Procedure Note Greg Mosqueda MD - 11/30/2024 EXAM DESCRIPTION: CT HEAD WO CONTRAST REASON FOR STUDY: Head trauma, moderate-severe Came to ED via EMS from home s/p fall. Dressing intact to left forehead laceration. Pt denies LOC. Pt denies blood thinner use. Reports has had weakness for the last couple of days. Reports had a kidney transplant 15years ago. Reports may feel off from transplant meds. Noted ileana to leftarm. Pt reports had fistula removed. Reports was to have ileana removedyesterday but didn't feel well enough to go to appointment. TECHNIQUE: Axial images acquired through the brain without intravenous contrast. Images stored on PACS. Automated exposure control was used asa dose optimization technique for this examination. COMPARISON: None FINDINGS: BRAIN: No hemorrhage, edema or mass effect. No recent infarct. Normal white matter. EXTRA-AXIAL SPACES: No fluid collections. No masses. CALVARIUM: No fracture. SINUSES/MASTOIDS: No fluid or mucosal thickening. ORBITS: No significant abnormality. OTHER: No other significant abnormality. IMPRESSION: No acute intracranial findings. THIS IS AN ELECTRONICALLY VERIFIED FINAL REPORT 11/30/2024 11:24 AM - Electronically signed by Greg Mosqueda M.D. JA: JOSE Report ID: [id number] Reading Location: [id number] us Kae SANTIAGO IMG CT PROCEDURES Final Resul t * ECG 12 lead (11/30/2024 9:38 AM CDT) Ventricular Rate EKG/Min 104 BPM [facility] Atrial Rate 104 BPM [facility] TX-Interval (MSEC) 164 ms [facility] QRS-Interval (MSEC) 82 ms [facility] QT-Interval (MSEC) 318 ms [facility] QTc 418 ms [facility] P [place] 70 degrees [facility] R [place] 28 degrees [facility] T [place] 51 degrees [facility] Diagnosis Sinus tachycardia Abnormal ECG When compared with ECG of 18-AUG-2024 09:44, No significant change was found Confirmed by OLIVIA GRIMALDO M.D. ([id number]) on 12/02/2024 3:17:38 PM [facility] 11/30/2024 9:38 AM CDT 12/02/2024 3:17 PM CDT us Annmarie Victor MD ECG ORDERABLES Final Result [facility] * (ABNORMAL) Troponin T high-sensitivity series (baseline, 2hr, 4hr, 6hr) (11/30/2024 9:34 AM CDT) Trop T hs 46(H) <=14 ng/L Comment: Interpretive Data For further hscTnT resources including the diagnostic algorithm and an aid in interpretation, copy and paste this link: [email or web address].testcatalog.org/show/[email or web address] Current Interpretive Data last revised 2020. Testing performed by: [facility], [address] [place] [address]., [id number] Blood 11/30/2024 9:34 AM CDT 11/30/2024 9:50 AM CDT us Annmarie Victor MD LAB BLOOD ORDERABLES F inal Result SAMANTHA [address] [facility] Department [place] [address] * (ABNORMAL) eGFR (11/30/2024 9:34 AM CDT) eGFR 17(L) >=60 mL/min/1. 73 m2 Comment: Interpretive Data Reference Interval Normal >/= 90 mL/min/1.73m2 Mildly decreased* 60 - 89 mL/min/1.73m2 Mildly to moderately decreased 45 - 59 mL/min/1.73m2 Moderately to severely decreased 30 - 44 mL/min/1.73m2 Severely decreased 15 - 29 mL/min/1.73m2 Kidney Failure < 15 mL/min/1.73m2 *Relative to young adult level Estimated glomerular filtration rate is determined by the 2020 CKD-EPI equation recommended by the National Kidney Foundation (A Unifying Approach to GFR Estimation: Recommendations of the NKF-ASK Task Force on Reassessing the Inclusion of Race in Diagnosing Kidney Disease, JASN 2020). The CKD-EPI equation should not be used for patients with unstable renal function and has not been validated in children and those over 70. Current interpretive data was last reviewed 2021. Testing performed by: [address] [address] Blood 11/30/2024 9:34 AM CDT 11/30/2024 9:50 AM CDT us Annmarie Victor MD LAB BLOOD ORDERABLES F inal Result [facility] [address] [facility] Department [place] [address] * (ABNORMAL) Differential, auto (11/30/2024 9:34 AM CDT) Neutrophil abs 15.35(H) 1.50 - 6.50 K/cumm Comment:Testing performed by : [address] [address] Imm gran abs 0.21(H) 0.00 - 0.10 K/cumm SAMANTHA Comment:Testing performed by : [address] [address] Lymphocyte abs 1.03 0.80 - 3.30 K/cumm SAMANTHA Comment:Testing performed by : [address] [address] Monocyte abs 1.44(H) 0.20 - 0.80 K/cumm SAMANTHA Comment:Testing performed by : [address] [address] Eosinophil abs 0.01 0.00 - 0.50 K/cumm SAMANTHA Comment:Testing performed by : [address] [address] Basophil abs 0.04 0.00 - 0.10 K/cumm SAMANTHA Comment:Testing performed by : [address] [address] Neutrophil pct 84.8 % SAMANTHA Comment: Interpretive Data Percent cell count reference ranges are not reported, since discordance with absolute values may lead to misinterpretation of CBC data. Current Interpretive Data was last revised on 2017. Testing performed by: [address] [address] Imm gran pct 1.2 % SAMANTHA Comment: Interpretive Data Percent cell count reference ranges are not reported, since discordance with absolute values may lead to misinterpretation of CBC data. Current Interpretive Data was last revised on 2017. Testing performed by: [address] [address] Lymphocyte pct 5.7 % [facility] Comment: Interpretive Data Percent cell count reference ranges are not reported, since discordance with absolute values may lead to misinterpretation of CBC data. Current Interpretive Data was last revised on 2017. Testing performed by: [address] [address] Monocyte pct 8.0 % [facility] Comment: Interpretive Data Percent cell count reference ranges are not reported, since discordance with absolute values may lead to misinterpretation of CBC data. Current Interpretive Data was last revised on 2017. Testing performed by: [address] [address] Eosinophil pct 0.1 % [facility] Comment: Interpretive Data Percent cell count reference ranges are not reported, since discordance with absolute values may lead to misinterpretation of CBC data. Current Interpretive Data was last revised on 2017. Testing performed by: [address] [address] Basophil pct 0.2 % [facility] Comment: Interpretive Data Percent cell count reference ranges are not reported, since discordance with absolute values may lead to misinterpretation of CBC data. Current Interpretive Data was last revised on 2017. Testing performed by: [address] [address] Blood 11/30/2024 9:34 AM CDT 11/30/2024 9:50 AM CDT Annmarie Victor MD LAB BLOOD ORDERABLES F inal Result SAMANTHA [address] [facility] Department [place] [address] * Thyroid Function [place] (11/30/2024 9:34 AM CDT) TSH 1.07 0.30 - 4.20 mcIUnit/mL Comment:Testing performed by : [address] [address] Blood 11/30/2024 9:34 AM CDT 11/30/2024 9:50 AM CDT us Annmarie Victor MD LAB BLOOD ORDERABLES F inal Result SAMANTHA [address] [facility] Department [place] [address] * (ABNORMAL) CBC with auto differential (11/30/2024 9:34 AM CDT) WBC 18.08(H) 3.80 - 9.90 K/cumm Comment:Testing performed by : [address] [address] Hgb 10.2(L) 11.9 - 15.5 g/dL SAMANTHA Comment:Testing performed by : [address] [address] Hct 30.7(L) 35.6 - 45.5 % SAMANTHA Comment:Testing performed by : [address] [address] Plt 151 150 - 400 K/cumm SAMANTHA Comment:Testing performed by : [address] [address] MPV 9.5 9.1 - 12.3 fL SAMANTHA Comment:Testing performed by : [address] [address] RBC 3.18(L) 3.90 - 5.20 M/cumm SAMANTHA Comment:Testing performed by : [address] [address] MCV 96.5(H) 81.3 - 96.4 fL SAMANTHA Comment:Testing performed by : [address] [address] MCH 32.1 27.1 - 33.3 pg SAMANTHA VERA Comment:Testing performed by : [address] [address] MCHC 33.2 32.3 - 35.7 g/dL SAMANTHA Comment:Testing performed by : [address] [address] RDW CV 14.0 11.1 - 14.9 % SAMANTHA VERA Comment:Testing performed by : [address], [address] RDW SD 50.1(H) 35.7 - 48.1 fL SAMANTHA VERA Comment:Testing performed by : [address] [address] NRBC abs 0.00 0.00 - 0.01 K/cumm SAMANTHA Comment:Testing performed by : [address], [address] Blood 11/30/2024 9:34 AM CDT 11/30/2024 9:50 AM CDT Annmarie Victor MD LAB BLOOD ORDERABLES F inal Result Performing Organization Address [facility] Co de Phone Number [address] [place] [address] * Phosphorus (11/30/2024 9:34 AM CDT) Phosphorus, pl 3.2 2.3 - 4.5 mg/dL Comment:Testing performed by : [address], [address] Blood 11/30/2024 9:34 AM CDT 11/30/2024 9:50 AM CDT Annmarie Victor MD LAB BLOOD ORDERABLES F inal Result Performing Organization Address [facility] de Phone Number [address] [address] * Magnesium (11/30/2024 9:34 AM CDT) Magnesium 1.6 1.4 - 2.5 mg/dL Comment:Testing performed by : [address] [address] Blood 11/30/2024 9:34 AM CDT 11/30/2024 9:50 AM CDT us Annmarie Victor MD LAB BLOOD ORDERABLES F inal Result SAMANTHA [address] [facility] Department [place] [address] * (ABNORMAL) Comprehensive metabolic panel (11/30/2024 9:34 AM CDT) Sodium 131(L) 135 - 145 mmol/L Comment:Testing performed by : [address] [address] Potassium, pl 4.8 3.3 - 4.9 mmol/L SAMANTHA Comment:Testing performed by : [address] [address] Chloride 97 97 - 110 mmol/L SAMANTHA Comment:Testing performed by : [address] [address] CO2 21(L) 22 - 32 mmol/L SAMANTHA Comment:Testing performed by : [address] [address] Anion gap 13 2 - 15 mmol/L SAMANTHA Comment:Testing performed by : [address] [address] BUN 57(H) 6 - 25 mg/dL SAMANTHA Comment:Testing performed by : [address] [address] Creatinine 2.90(H) 0.60 - 1.10 mg/dL SAMANTHA Comment:Testing performed by : [address] [address] Glucose 105 70 - 199 mg/dL SAMANTHA Comment: Interpretive Data Fasting glucose >/= 126 mg/dl is diagnostic for diabetes. Fasting is defined as no caloric intake for at least 8 hours. Fasting glucose between 100 mg/dl to 125 mg/dl is diagnostic of prediabetes. In a patient with classic symptoms of hyperglycemia or hyperglycemic crisis, a random glucose >/= 200 mg/dl is diagnostic for diabetes. In the absence of unequivocal hyperglycemia, results should be confirmed by repeat testing. The classification and Diagnosis of Diabetes Diabetes Care 202; 46: S19-S40. Current interpretive data was last revised 2022. Testing performed by: [facility], [address] [place] [address]., [address] Calcium 9.1 8.5 - 10.3 mg/dL SAMANTHA Comment:Testing performed by : [address] [address] Bilirubin, total 0.5 0.1 - 1.2 mg/dL SAMANTHA Comment:Testing performed by : [address] [address] Protein, pl 6.1(L) 6.5 - 8.5 g/dL SAMANTHA Comment:Testing performed by : [address] [address] Albumin 3.5 3.5 - 5.0 g/dL SAMANTHA Comment:Testing performed by : [address] [address] Alk phos 109 40 - 130 Units/L SAMANTHA Comment:Testing performed by : [address] [address] ALT 6(L) 7 - 45 Units/L SAMANTHA Comment:Testing performed by : [address] [address] AST 11 10 - 45 Units/L SAMANTHA Comment:Testing performed by : [address] [address] Blood 11/30/2024 9:34 AM CDT 11/30/2024 9:50 AM CDT us Annmarie Victor MD LAB BLOOD ORDERABLES F inal Result [facility] [address] [facility] Department [place] [address] * MRI Brain WO Contrast (11/22/2024 10:05 AM CDT) Anatomical Region Laterality Modality Head and Neck N/A Magnetic Resonan ce 11/22/2024 10:4 9 AM CDT Impressions 11/22/2024 11:23 AM CDT 1. Anterior left parafalcine meningioma, slowly enlarging since 04/16/2022. 2. Multiple chronic punctate macrohemorrhages which may be sequela of hypertensive microangiopathy versus amyloid angiopathy. Periventricular FLAIR hyperintense signal, compatible with chronic microvascular ischemic changes. Dictated by: Heraclio Leal M.D. The radiology attending physician has personally reviewed this study, and had reviewed and/or edited this written report and agrees with it. Electronically signed by: Felicia Garza M.D. Narrative 11/22/2024 11:23 AM CDT EXAMINATION: Magnetic resonance imaging (MRI) of the brain and brainstem without and with contrast HISTORY: Parafalcine lesion TECHNIQUE: Multiplanar multi-weighted MRI of the brain and brainstem was performed without and with intravenous contrast using the general brain protocol. Contrast information: Gadoterate Meglumine IV COMPARISON: MRI 11/28/2023 FINDINGS: There is a dural based lesion along the left aspect of the anterior falx which is avidly enhancing and measures 1.9 x 1.2 x 1.5 cm (AP x TRV x CC), which has gradually enlarged since 04/16/2021 and measured 1.3 x 0.8 x 1.2 cm. The intrinsic T1 and T2 signal intensity of this lesion is similar to trejo matter, as is typical of a meningioma. There is mild global cerebral parenchymal atrophy and corresponding proportional enlargement of CSF spaces. Confluent periventricular T2/FLAIR hyperintense signal, compatible with chronic microvascular changes. The scalp and calvarium are normal. The superior sagittal sinus demonstrates normal venous flow. The corpus callosum is normal in shape and signal intensity. The posterior fossa is unremarkable. The pituitary and sella are normal. The brainstem and craniocervical junction are unremarkable. Diffusion weighted images reveal no hyperintensities to suggest acute cerebral infarction. The susceptibility weighted sequences demonstrate multiple punctate foci of chronic microhemorrhage, for example in the right centrum semiovale (series 16 image #54). Additional peripheral microhemorrhages in the left cerebral hemisphere (for example, series 16 image 59 and 61). Trace mucosal thickening in the paranasal sinuses. Trace fluid in the left mastoid air cells. The orbits appear normal. Normal flow voids are demonstrated in the carotid arteries and basilar artery. Retropharyngeal right internal carotid artery. Multilevel moderate to severe degenerative changes of the visualized cervical spine. Procedure Note Felicia Gunter MD - 11/22/2024 EXAMINATION: Magnetic resonance imaging (MRI) of the brain and brainstem without and with contrast HISTORY: Parafalcine lesion TECHNIQUE: Multiplanar multi-weighted MRI of the brain and brainstem was performed without and with intravenous contrast using the general brain protocol. Contrast information: Gadoterate Meglumine IV COMPARISON: MRI 11/28/2023 FINDINGS: There is a dural based lesion along the left aspect of the anterior falx which is avidly enhancing and measures 1.9 x 1.2 x 1.5 cm (AP x TRV x CC), which has gradually enlarged since 04/16/2021 and measured 1.3 x 0.8 x 1.2 cm. The intrinsic T1 and T2 signal intensity of this lesion is similar to trejo matter, as is typical of a meningioma. There is mild global cerebral parenchymal atrophy and corresponding proportional enlargement of CSF spaces. Confluent periventricular T2/FLAIR hyperintense signal, compatible with chronic microvascular changes. The scalp and calvarium are normal. The superior sagittal sinus demonstrates normal venous flow. The corpus callosum is normal in shape and signal intensity. The posterior fossa is unremarkable. The pituitary and sella are normal. The brainstem and craniocervical junction are unremarkable. Diffusion weighted images reveal no hyperintensities to suggest acute cerebral infarction. The susceptibility weighted sequences demonstrate multiple punctate foci of chronic microhemorrhage, for example in the right centrum semiovale (series 16 image #54). Additional peripheral microhemorrhages in the left cerebral hemisphere (for example, series 16 image 59 and 61). Trace mucosal thickening in the paranasal sinuses. Trace fluid in the left mastoid air cells. The orbits appear normal. Normal flow voids are demonstrated in the carotid arteries and basilar artery. Retropharyngeal right internal carotid artery. Multilevel moderate to severe degenerative changes of the visualized cervical spine. IMPRESSION: 1. Anterior left parafalcine meningioma, slowly enlarging since 04/16/2022. 2. Multiple chronic punctate macrohemorrhages which may be sequela of hypertensive microangiopathy versus amyloid angiopathy. Periventricular FLAIR hyperintense signal, compatible with chronic microvascular ischemic changes. Dictated by: Heracloi Leal M.D. The radiology attending physician has personally reviewed this study, and had reviewed and/or edited this written report and agrees with it. Electronically signed by: Felicia Garza M.D. us Thom Willis MD IMG MRI PROCEDURES Final Re sult * (ABNORMAL) eGFR (11/20/2024 7:10 AM CDT) eGFR 26(L) >=60 mL/min/1. 73 m2 Comment: Interpretive Data Reference Interval Normal >/= 90 mL/min/1.73m2 Mildly decreased* 60 - 89 mL/min/1.73m2 Mildly to moderately decreased 45 - 59 mL/min/1.73m2 Moderately to severely decreased 30 - 44 mL/min/1.73m2 Severely decreased 15 - 29 mL/min/1.73m2 Kidney Failure < 15 mL/min/1.73m2 *Relative to young adult level Estimated glomerular filtration rate is determined by the 2020 CKD-EPI equation recommended by the National Kidney Foundation (A Unifying Approach to GFR Estimation: Recommendations of the NKF-ASK Task Force on Reassessing the Inclusion of Race in Diagnosing Kidney Disease, JASN 2020). The CKD-EPI equation should not be used for patients with unstable renal function and has not been validated in children and those over 70. Current interpretive data was last reviewed 2021. Testing performed by: [facility], [address] [place] [address]., [address] Blood 11/20/2024 7:10 AM CDT 11/20/2024 11:00 AM CDT us Lore Potter MD LAB BLOOD ORDERABLES Final Res ult [facility] [address] [facility] Department [place] [address] * (ABNORMAL) eGFR (11/20/2024 7:10 AM CDT) eGFR 26(L) >=60 mL/min/1. 73 m2 Comment: Interpretive Data Reference Interval Normal >/= 90 mL/min/1.73m2 Mildly decreased* 60 - 89 mL/min/1.73m2 Mildly to moderately decreased 45 - 59 mL/min/1.73m2 Moderately to severely decreased 30 - 44 mL/min/1.73m2 Severely decreased 15 - 29 mL/min/1.73m2 Kidney Failure < 15 mL/min/1.73m2 *Relative to young adult level Estimated glomerular filtration rate is determined by the 2020 CKD-EPI equation recommended by the National Kidney Foundation (A Unifying Approach to GFR Estimation: Recommendations of the NKF-ASK Task Force on Reassessing the Inclusion of Race in Diagnosing Kidney Disease, JASN 2020). The CKD-EPI equation should not be used for patients with unstable renal function and has not been validated in children and those over 70. Current interpretive data was last reviewed 2021. Testing performed by: [facility], [address] [place] [address]., [address] Blood 11/20/2024 7:10 AM CDT 11/20/2024 7:35 AM CDT us Benjy Perez MD LAB BLOOD ORDERABLES Final Re sult [facility] [address] [facility] Department [place] [address] * Tacrolimus level trough (11/20/2024 7:10 AM CDT) Tacrolimus trough 3.6 ng/mL Comment: Interpretive Data Testing performed by liquid chromatography-tandem mass spectrometry. Therapeutic concentrations vary depending on type of transplanted organ and time elapsed since transplant. Typical trough concentrations range from 5-15 ng/mL. This test was developed and its performance characteristics determined by the [facility] consistent with CLIA requirements. This test has not been cleared or approved by the [place] Food and Drug administration. Current interpretive data last reviewed 2019. Testing performed by: [facility], [address] [facility], [place]., [address] Blood 11/20/2024 7:10 AM CDT 11/20/2024 11:35 AM CDT us Benjy Perez MD LAB BLOOD ORDERABLES Final Re sult Performing Organization Address [facility] Co de Phone Number SAMANTHA [address] [facility] Department [place] [address] * (ABNORMAL) Iron profile w/ IBC (11/20/2024 7:10 AM CDT) Iron 344(H) 35 - 145 mcg/dL Comment:Testing performed by : [address] [address] TIBC 394 250 - 400 mcg/dL SAMANTHA VERA Comment:Testing performed by : [address] [address] Transferrin saturation 87(H) 20 - 50 % SAMANTHA VERA Comment:Testing performed by : [address] [address] Blood 11/20/2024 7:10 AM CDT 11/20/2024 11:00 AM CDT Lore Potter MD LAB BLOOD ORDERABLES Final Res ult Performing Organization Address [facility] [facility] Co de Phone Number SAMANTHA [address] [facility] Department [place] [address] * (ABNORMAL) Renal function panel (11/20/2024 7:10 AM CDT) Pathologist [facility] Sodium 138 135 - 145 mmol/L Comment:Testing performed by : [address] [address] Potassium, pl 4.4 3.3 - 4.9 mmol/L SAMANTHA VERA Comment:Testing performed by : [address] [address] Chloride 101 97 - 110 mmol/L SAMANTHA VERA Comment:Testing performed by : [address] [address] CO2 24 22 - 32 mmol/L SAMANTHA VERA Comment:Testing performed by : [address] [address] Anion gap 13 2 - 15 mmol/L SAMANTHA VERA Comment:Testing performed by : [address] [address] BUN 38(H) 6 - 25 mg/dL SAMANTHA Comment:Testing performed by : [address] [address] Creatinine 2.10(H) 0.60 - 1.10 mg/dL SAMANTHA Comment:Testing performed by : [address] [address] Glucose 83 70 - 199 mg/dL SAMANTHA Comment: Interpretive Data Fasting glucose >/= 126 mg/dl is diagnostic for diabetes. Fasting is defined as no caloric intake for at least 8 hours. Fasting glucose between 100 mg/dl to 125 mg/dl is diagnostic of prediabetes. In a patient with classic symptoms of hyperglycemia or hyperglycemic crisis, a random glucose >/= 200 mg/dl is diagnostic for diabetes. In the absence of unequivocal hyperglycemia, results should be confirmed by repeat testing. The classification and Diagnosis of Diabetes Diabetes Care 202; 46: S19-S40. Current interpretive data was last revised 2022. Testing performed by: [address] [address] Calcium 9.9 8.5 - 10.3 mg/dL SAMANTHA Comment:Testing performed by : [address] [address] Phosphorus, pl 3.4 2.3 - 4.5 mg/dL SAMANTHA Comment:Testing performed by : [address] [address] Albumin 4.0 3.5 - 5.0 g/dL SAMANTHA Comment:Testing performed by : [address] [address] Blood 11/20/2024 7:10 AM CDT 11/20/2024 11:00 AM CDT us Lore Potter MD LAB BLOOD ORDERABLES Final Res ult SAMANTHA VERA [address] [facility] Department [place] [address] * (ABNORMAL) Comprehensive metabolic panel (11/20/2024 7:10 AM CDT) Sodium 136 135 - 145 mmol/L Comment:Testing performed by : [address] [address] Potassium, pl 4.4 3.3 - 4.9 mmol/L SAMANTHA Comment:Testing performed by : [address] [address] Chloride 101 97 - 110 mmol/L SAMANTHA Comment:Testing performed by : [address], [place]., [address] CO2 25 22 - 32 mmol/L SAMANTHA Comment:Testing performed by : [address] [address] Anion gap 10 2 - 15 mmol/L SAMANTHA Comment:Testing performed by : [address] [address] BUN 37(H) 6 - 25 mg/dL SAMANTHA Comment:Testing performed by : [address] [address] Creatinine 2.10(H) 0.60 - 1.10 mg/dL SAMANTHA Comment:Testing performed by : [address] [address] Glucose 86 70 - 199 mg/dL SAMANTHA Comment: Interpretive Data Fasting glucose >/= 126 mg/dl is diagnostic for diabetes. Fasting is defined as no caloric intake for at least 8 hours. Fasting glucose between 100 mg/dl to 125 mg/dl is diagnostic of prediabetes. In a patient with classic symptoms of hyperglycemia or hyperglycemic crisis, a random glucose >/= 200 mg/dl is diagnostic for diabetes. In the absence of unequivocal hyperglycemia, results should be confirmed by repeat testing. The classification and Diagnosis of Diabetes Diabetes Care 2021; 46: S19-S40. Current interpretive data was last revised 2022. Testing performed by: [address] [address] Calcium 9.7 8.5 - 10.3 mg/dL SAMANTHA Comment:Testing performed by : [address] [address] Bilirubin, total 0.3 0.1 - 1.2 mg/dL SAMANTHA Comment:Testing performed by : [address] [address] Protein, pl 6.5 6.5 - 8.5 g/dL SAMANTHA Comment:Testing performed by : [address] [address] Albumin 3.9 3.5 - 5.0 g/dL SAMANTHA Comment:Testing performed by : [address] [address] Alk phos 109 40 - 130 Units/L SAMANTHA Comment:Testing performed by : [address] [address] ALT 7 7 - 45 Units/L SAMANTHA Comment:Testing performed by : [address] [address] AST 11 10 - 45 Units/L SAMANTHA Comment:Testing performed by : [address] [address] Blood 11/20/2024 7:10 AM CDT 11/20/2024 7:35 AM CDT us Benjy Perez MD LAB BLOOD ORDERABLES Final Re sult [facility] [address] [facility] Department [place] [address] * Hemoglobin A1c (11/12/2024 12:25 PM CDT) [facility] Hgb A1C 4.6 4.0 - 5.6 % Comment:Testing performed by : [address] [address] Estimated Average Glucose 85 mg/dL SAMANTHA Comment: The ADA recommends reporting an estimated Average Glucose (eAG) with all Hemoglobin A1c results using the equation derived from a study of 507 normal and diabetic adults. Minority populations were underrepresented and children were not included. (Diabetes Care 31:9221-3501, 2008). The eAG is not equivalent to a fasting glucose. Testing performed by: [address] [address] Blood 11/12/2024 12:2 5 PM CDT 11/12/2024 1:42 PM CDT Narrative SAMANTHA - 11/12/2024 3:39 PM CDT Please obtain May, July,October,Jan. us Lore Potter MD LAB BLOOD ORDERABLES Final Res ult SAMANTHA [address] [facility] Department [place] [address] * (ABNORMAL) Hepatic function panel (11/12/2024 12:25 PM CDT) Bilirubin, total 0.3 0.1 - 1.2 mg/dL Comment:Testing performed by : [address] [address] Bilirubin, direct 0.1 0.1 - 0.3 mg/dL SAMANTHA Comment:Testing performed by : [address] [address] Protein, pl 6.8 6.5 - 8.5 g/dL SAMANTHA Comment:Testing performed by : [address] [address] Albumin 3.9 3.5 - 5.0 g/dL SAMANTHA Comment:Testing performed by : [address] [address] Alk phos 99 40 - 130 Units/L SAMANTHA Comment:Testing performed by : [address] [address] ALT <5(L) 7 - 45 Units/L SAMANTHA Comment:Testing performed by : [address] [address] AST 11 10 - 45 Units/L SAMANTHA Comment:Testing performed by : [address] [address] Blood 11/12/2024 12:2 5 PM CDT 11/12/2024 1:42 PM CDT Narrative SAMANTHA VERA - 11/12/2024 2:27 PM CDT Please obtain May, July,October,Jan. us Lore Potter MD LAB BLOOD ORDERABLES Final Res ult SAMANTHA VERA [address] [facility] Department [place] [address] * Lipid panel (11/12/2024 12:25 PM CDT) Cholesterol 162 30 - 199 mg/dL Comment: Interpretive Data Ages < or = 19 years Acceptable: <170 mg/dL Borderline high: 170-199 mg/dL High: >or= 200 mg/dL Ages > or = 20 years Desirable: <200 mg/dL Borderline high: 200-239 mg/dL High: >or= 240 mg/dL Literature References: 1. Expert Panel on Integrated Guidelines for Cardiovascular Health and Risk Reduction in Children and Adolescents. Pediatrics 2011;128:S213 2. NCEP Expert Panel. Circulation 2004;110:227 Current Interpretive Data was last revised on 2017. Testing performed by: [address] [address] Triglycerides 136 <=149 mg/dL SAMANTHA Comment: Interpretive Data Ages < or = 9 years Acceptable: <75 mg/dL Borderline high: 75-99 mg/dL High: >or= 100 mg/dL Ages 10 to 20 years Acceptable: <90 mg/dL Borderline high: 90-129 mg/dL High: >or= 130 mg/dL Ages > or = 20 years Desirable: <150 mg/dL Borderline high: 150-199 mg/dL High: 200-499 mg/dL Very high: >or= 499 mg/dL Literature References: 1. Expert Panel on Integrated Guidelines for Cardiovascular Health and Risk Reduction in Children and Adolescents. Pediatrics 2011;128:S213 2. NCEP Expert Panel. Circulation 2004;110:227 Current Interpretive Data was last revised on 2017. Testing performed by: [address] [address] HDL 71 >=40 mg/dL SAMANTHA Comment: Interpretive Data Ages < or = 19 years Acceptable: >45 mg/dL Borderline low: 40-45 mg/dL Low: <40 mg/dL Ages > or = 20 years Desirable: >or= 60 mg/dL Low: <40 mg/dL Literature References: 1. Expert Panel on Integrated Guidelines for Cardiovascular Health and Risk Reduction in Children and Adolescents. Pediatrics 2011;128:S213 2. NCEP Expert Panel. Circulation 2004;110:227 Current Interpretive Data was last revised on 2017. Testing performed by: [address] [address] LDL, calculated 68 <=129 mg/dL SAMANTHA Comment: Interpretive Data Ages < or = 19 years Acceptable: <110 mg/dL Borderline high: 110-129 mg/dL High: >or= 130 mg/dL Ages > or = 20 years Optimal: <100 mg/dL Near optimal: 100-129 mg/dL Borderline high: 130-159 mg/dL High: >160 mg/dL Calculated using the Hermann LDL-C estimating equation. This equation was implemented on 2023. Prior to this date LDL-C was estimated using the Friedewald equation. Literature References: 1. Expert Panel on Integrated Guidelines for Cardiovascular Health and Risk Reduction in Children and Adolescents. Pediatrics 2011;128:S213 2. NCEP Expert Panel. Circulation 2004;110:227 3. Hermann Trivedi et al. KAR Cardiol. 2019August 30;5(5):540-548. doi: 10.1001/[email or web address].2020.0013 Current Interpretive Data was last revised on 2023. Testing performed by: [address] [address] Non-HDL Cholesterol 91 mg/dL SAMANTHA Comment: Interpretive Data Ages < or = 19 years Acceptable: <120 mg/dL Borderline high: 120-144 mg/dL High: >145 mg/dL Ages > or = 20 years When triglycerides are >200 mg/dL, Non-HDL cholesterol is a secondary target of therapy with treatment goals that are 30 mg/dL greater than the LDL cholesterol target. Literature References: 1. Expert Panel on Integrated Guidelines for Cardiovascular Health and Risk Reduction in Children and Adolescents. Pediatrics 2011;128:S213 2. NCEP Expert Panel. Circulation 2004;110:227 Current Interpretive Data was last revised on 2017. Testing performed by: [address] [address] Chol/HDL ratio 2 SAMANTHA Comment:Testing performed by : [address] [address] Blood 11/12/2024 12:2 5 PM CDT 11/12/2024 1:42 PM CDT Narrative SAMANTHA - 11/12/2024 2:27 PM CDT Please obtain May, July,October,Jan. Lore Potter MD LAB BLOOD ORDERABLES Final Res ult Performing Organization Address [facility]/ZIP Co de Phone Number SAMANTHA [address] [facility] [place] [address] * (ABNORMAL) Protein / creatinine ratio, urine, random (11/09/2024 2:37 PM CDT) Protein, ur, quant 191.0 mg/dL Comment: Interpretive Data No reference range established. Current interpretive data was last revised 2018. Testing performed by: [address] [address] Creatinine Ur 75.0 mg/dL SAMANTHA Comment: Interpretive Data No reference range established. Current interpretive data was last revised 2018. Testing performed by: [address] [address] Protein/creatinin e ratio 2,546.7(H ) 0.0 - 180.0 mg/g CR SAMANTHA VERA Comment:Testing performed by : [address] [address] Urine 11/09/2024 2:37 PM CDT 11/09/2024 4:19 PM CDT Lore Potter MD LAB URINE ORDERABLES Final Res ult Performing Organization Address City/[facility]/ZIP Co de Phone Number [facility] [address] [facility] [place] [address] * (ABNORMAL) eGFR (11/09/2024 2:27 PM CDT) eGFR 26(L) >=60 mL/min/1. 73 m2 Comment: Interpretive Data Reference Interval Normal >/= 90 mL/min/1.73m2 Mildly decreased* 60 - 89 mL/min/1.73m2 Mildly to moderately decreased 45 - 59 mL/min/1.73m2 Moderately to severely decreased 30 - 44 mL/min/1.73m2 Severely decreased 15 - 29 mL/min/1.73m2 Kidney Failure < 15 mL/min/1.73m2 *Relative to young adult level Estimated glomerular filtration rate is determined by the 2020 CKD-EPI equation recommended by the National Kidney Foundation (A Unifying Approach to GFR Estimation: Recommendations of the NKF-ASK Task Force on Reassessing the Inclusion of Race in Diagnosing Kidney Disease, JASN 2020). The CKD-EPI equation should not be used for patients with unstable renal function and has not been validated in children and those over 70. Current interpretive data was last reviewed 2021. Testing performed by: [address] [address] Blood 11/09/2024 2:27 PM CDT 11/09/2024 4:11 PM CDT us Benjy Perez MD LAB BLOOD ORDERABLES Final Re sult [facility] [address] [facility] Department [place] [address] * Differential, auto (11/09/2024 2:27 PM CDT) Neutrophil abs 5.42 1.50 - 6.50 K/cumm Comment:Testing performed by : [address] [address] Imm gran abs 0.02 0.00 - 0.10 K/cumm SAMANTHA Comment:Testing performed by : [address] [address] Lymphocyte abs 0.81 0.80 - 3.30 K/cumm SAMANTHA Comment:Testing performed by : [address] [address] Monocyte abs 0.62 0.20 - 0.80 K/cumm [facility] Comment:Testing performed by : [address] [address] Eosinophil abs 0.03 0.00 - 0.50 K/cumm [facility] Comment:Testing performed by : [address], [place]., [address] Basophil abs 0.03 0.00 - 0.10 K/cumm [facility] Comment:Testing performed by : [address] [address] Neutrophil pct 78.3 % [facility] Comment: Interpretive Data Percent cell count reference ranges are not reported, since discordance with absolute values may lead to misinterpretation of CBC data. Current Interpretive Data was last revised on 2017. Testing performed by: [address] [address] Imm gran pct 0.3 % [facility] Comment: Interpretive Data Percent cell count reference ranges are not reported, since discordance with absolute values may lead to misinterpretation of CBC data. Current Interpretive Data was last revised on 2017. Testing performed by: [address] [address] Lymphocyte pct 11.7 % [facility] Comment: Interpretive Data Percent cell count reference ranges are not reported, since discordance with absolute values may lead to misinterpretation of CBC data. Current Interpretive Data was last revised on 2017. Testing performed by: [address] [address] Monocyte pct 8.9 % [facility] Comment: Interpretive Data Percent cell count reference ranges are not reported, since discordance with absolute values may lead to misinterpretation of CBC data. Current Interpretive Data was last revised on 2017. Testing performed by: [address] [address] Eosinophil pct 0.4 % [facility] Comment: Interpretive Data Percent cell count reference ranges are not reported, since discordance with absolute values may lead to misinterpretation of CBC data. Current Interpretive Data was last revised on 2017. Testing performed by: [address] [address] Basophil pct 0.4 % SAMANTHA VERA Comment: Interpretive Data Percent cell count reference ranges are not reported, since discordance with absolute values may lead to misinterpretation of CBC data. Current Interpretive Data was last revised on 2017. Testing performed by: [address] [address] Blood 11/09/2024 2:27 PM CDT 11/09/2024 4:11 PM CDT Benjy Perez MD LAB BLOOD ORDERABLES Final Re sult Performing Organization Address [facility] Co de Phone Number SAMANTHA [address] [place] [address] * (ABNORMAL) Iron profile w/ IBC (11/09/2024 2:27 PM CDT) Pathologist [facility] Iron 37 35 - 145 mcg/dL Comment:Testing performed by : [address] [address] TIBC 218(L) 250 - 400 mcg/dL SAMANTHA VERA Comment:Testing performed by : [address] [address] Transferrin saturation 17(L) 20 - 50 % SAMANTHA Comment:Testing performed by : [address] [address] Blood 11/09/2024 2:27 PM CDT 11/09/2024 4:11 PM CDT Benjy Perez MD LAB BLOOD ORDERABLES Final Re sult Performing Organization Address City/[facility] Co de Phone Number BOB[address] [place] [address] * (ABNORMAL) CBC with auto differential (11/09/2024 2:27 PM CDT) Pathologist [facility] WBC 6.93 3.80 - 9.90 K/cumm Comment:Testing performed by : [address] [address] Hgb 8.9(L) 11.9 - 15.5 g/dL SAMANTHA Comment:Testing performed by : [address], [address] Hct 27.4(L) 35.6 - 45.5 % SAMANTHA Comment:Testing performed by : [address] [address] Plt 233 150 - 400 K/cumm SAMANTHA Comment:Testing performed by : [address], [address] MPV 9.9 9.1 - 12.3 fL SAMANTHA Comment:Testing performed by : [address], [address] RBC 2.84(L) 3.90 - 5.20 M/cumm SAMANTHA Comment:Testing performed by : [address], [address] MCV 96.5(H) 81.3 - 96.4 fL SAMANTHA Comment:Testing performed by : [address], [address] MCH 31.3 27.1 - 33.3 pg SMAANTHA Comment:Testing performed by : [address], [address] MCHC 32.5 32.3 - 35.7 g/dL SAMANTHA Comment:Testing performed by : [address], [address] RDW CV 13.2 11.1 - 14.9 % SAMANTHA Comment:Testing performed by : [address], [address] RDW SD 46.8 35.7 - 48.1 fL SAMANTHA Comment:Testing performed by : [address], [address] NRBC abs 0.00 0.00 - 0.01 K/cumm SAMANTHA Comment:Testing performed by : [address], [address] Blood 11/09/2024 2:27 PM CDT 11/09/2024 4:11 PM CDT Benjy Perez MD LAB BLOOD ORDERABLES Final Re sult Performing Organization Address City/[facility] Co de Phone Number SAMANTHA [address] [address] * (ABNORMAL) PTH (11/09/2024 2:27 PM CDT) PTH 197(H) 15 - 65 pg/mL Comment:Testing performed by : [address] [address] Blood 11/09/2024 2:27 PM CDT 11/09/2024 4:11 PM CDT Benjy Perez MD LAB BLOOD ORDERABLES Final Re sult Performing Organization Address [facility] de Phone Number SAMANTHA [address] [address] * (ABNORMAL) Comprehensive metabolic panel (11/09/2024 2:27 PM CDT) Pathologist [facility] Sodium 135 135 - 145 mmol/L Comment:Testing performed by : [address] [address] Potassium, pl 5.4(H) 3.3 - 4.9 mmol/L SAMANTHA Comment:Testing performed by : [address] [address] Chloride 101 97 - 110 mmol/L SAMANTHA Comment:Testing performed by : [address] [address] CO2 22 22 - 32 mmol/L SAMANTHA Comment:Testing performed by : [address] [address] Anion gap 12 2 - 15 mmol/L SAMANTHA Comment:Testing performed by : [address] [address] BUN 49(H) 6 - 25 mg/dL SAMANTHA Comment:Testing performed by : [address] [address] Creatinine 2.09(H) 0.60 - 1.10 mg/dL SAMANTHA Comment:Testing performed by : [address] [address] Glucose 147 70 - 199 mg/dL SAMANTHA Comment: Interpretive Data Fasting glucose >/= 126 mg/dl is diagnostic for diabetes. Fasting is defined as no caloric intake for at least 8 hours. Fasting glucose between 100 mg/dl to 125 mg/dl is diagnostic of prediabetes. In a patient with classic symptoms of hyperglycemia or hyperglycemic crisis, a random glucose >/= 200 mg/dl is diagnostic for diabetes. In the absence of unequivocal hyperglycemia, results should be confirmed by repeat testing. The classification and Diagnosis of Diabetes Diabetes Care 2021; 46: S19-S40. Current interpretive data was last revised 2022. Testing performed by: [address] [address] Calcium 10.0 8.5 - 10.3 mg/dL SAMANTHA Comment:Testing performed by : [address] [address] Bilirubin, total 0.2 0.1 - 1.2 mg/dL [facility] Comment:Testing performed by : [address] [address] Protein, pl 6.6 6.5 - 8.5 g/dL [facility] Comment:Testing performed by : [address] [address] Albumin 3.8 3.5 - 5.0 g/dL [facility] Comment:Testing performed by : [address] [address] Alk phos 81 40 - 130 Units/L SAMANTHA Comment:Testing performed by : [address] [address] ALT <5(L) 7 - 45 Units/L SAMANTHA Comment:Testing performed by : [address] [address] AST 9(L) 10 - 45 Units/L SAMANTHA Comment:Testing performed by : [address] [place] [address] Blood 11/09/2024 2:27 PM CDT 11/09/2024 4:11 PM CDT Result [facility] Benjy Perez MD LAB BLOOD ORDERABLES Final Re sult SAMANTHA [address] [facility] Department [place] [address] * TX AN ELECTIVE SUPRAGLOTTIC AIRWAY, TX AN PROCEDURE PLACEHOLDER (11/06/2024 8:20 AM CDT) Narrative Jamie Jamison CRNA - 11/06/2024 8:20 AM CDT Jamie Jamison CRNA 11/06/2024 8:26 AM Airway Patient location: OR Urgency: elective Date/time: 11/06/2024 8:14 AM Indications for airway management: anesthesia Difficult airway: no Staff: Supervising provider: Debora Mcfadden MD Placed by: LAUNCH LEADER: Jamie Jamison CRNA Emergent airway documentation: Risks and benefits discussed: yes Consent obtained: yes Consent given by: patient Airway prep: Preoxygenated: yes Patient position: sniffing MILS maintained throughout: yes Mask difficulty assessment: 1 - vent by mask Spontaneous ventilation during airway: absent Sedation level during airway: GA Final airway details: Final airway type: supraglottic airway Final supraglottic airway: classic SGA size: 4 Number of attempts: 1 Planned trial extubation: yes Additional comments: Atraumatic placement by LEONIE Mazariegos. Dentition as preop. Breath sounds clear and equal bilaterally. Consistent and appropriate end-tidal CO2 present. Result [facility] Debora Mcfadden MD ANESTHESIA ORDERABLES Edited R esult - Final * (ABNORMAL) POC Blood Gas and Chemistries, Venous - (11/06/2024 7:13 AM CDT) pH,elpidio POC 7.36 7.32 - 7.43 pCO2, elpidio POC 41 40 - 50 mmHg SAMANTHA pO2,elpidio POC 23 mmHg SAMANTHA Comment: Interpretive Data No reference range established. Current interpretive data was last revised 2019. HCO3, elpidio (Calc) POC 23 20 - 30 mmol/L [facility] Base excess, elpidio POC -2 mmol/L [facility] Comment: Interpretive Data No reference range established. Current interpretive data was last revised 2019. Hemoglobin, elpidio POC 8.8(L) 11.9 - 15.5 g/dL [facility] Hematocrit, elpidio POC 26.0(L) 35.6 - 45.5 % [facility] Sodium, elpidio POC 134(L) 135 - 145 mmol/L [facility] Potassium, elpidio POC 4.8 3.3 - 4.9 mmol/L [facility] Comment: Interpretive Data This method is not able to assess for hemolysis, which may falsely increase potassium concentrations. If further testing is needed to evaluate this result, consider in-laboratory plasma potassium. Current Interpretive Data was last revised on 2022. Glucose, elpidio POC 97 70 - 199 mg/dL [facility] Ionized Calcium, elpidio POC 5.20(H) 4.50 - 5.10 mg/dL [facility] Blood 11/06/2024 7:13 AM CDT 11/06/2024 7:13 AM CDT Kai Callejas MD LAB POCT ORDERABLES - OSWALDO CE Final Result Performing Organization Address City/[facility]/ZIP Co de Phone Number [address] [place] [address] * (ABNORMAL) POCT creatinine for contrast evaluation (11/06/2024 7:13 AM CDT) Creatinine POC 2.90(H) 0.60 - 1.10 mg/dL Blood 11/06/2024 7:13 AM CDT 11/06/2024 7:13 AM CDT Kai Callejas MD POINT OF CARE TEST ORDERAB LES Final Result Performing Organization Address City/[facility]/ZIP Co de Phone Number [address] [place] [address] * US Hemodialysis Access (10/30/2024 1:52 PM CDT) Anatomical Region Laterality Modality Vascular N/A Ultrasound 10/30/2024 1:09 PM CDT Narrative 11/01/2024 10:23 AM CDT Hemodialysis Access Duplex Report Patient Name: KELSEY STERN K : 1960 (64y 6m) Gender: F Study Date: 10/30/2024 01:09:11 PM Sheet Roller Operator: Taniya Perez Provider: GEMMA CALLEJAS Provider: GEMMA CALLEJAS PROCEDURES: Vascular Report: Color Duplex ultrasound with velocity measurements was performed of the arteriovenous fistula in the left upper extremity. 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 COMPARISONS: No change compared to prior study. The previous exam was completed on 07/17/24. AVF: Vessel Velocity Lt Location LT BRACHIOCEPH AVF Lt [place] Artery 153.00 cm/sec Lt Arterial Anast 69.00 cm/sec Lt Prx AVF 19.00 cm/sec Lt Prx-Mid AVF 30.00 cm/sec Lt Mid AVF 0.00 cm/sec Lt Mid AVF VF 0.00 mL/min Lt Mid-Dist AVF 0.00 cm/sec Lt Dst AVF 0.00 cm/sec Lt [place] Vein 19 SUB V cm/sec FINDINGS: Study Quality: The study quality is adequate. Left: Triphasic arteries include the left distal brachial artery. Fistula 1: Occluded arteriovenous fistula. Dilatation noted within the upper extremity arteriovenous fistula in the proximal segment measuring 3.5 x 4.0 cm. There is minimal flow noted in the proximal portion of the AVF. CONCLUSIONS: 1. The AV graft is occluded. Electronically Signed By: Kai Callejas MD 11/01/2024 10:20:01 AM CDT Procedure Note Kai Callejas MD - 11/01/2024 Hemodialysis Access Duplex Report Patient Name: KELSEY STERN K : 1960 (64y 6m) Gender: F Study Date: 10/30/2024 01:09:11 PM Sheet Roller Operator: Taniya Perez Provider: GEMMA CALLEJAS Provider: GEMMA CALLEAJS PROCEDURES: Vascular Report: Color Duplex ultrasound with velocity measurements wasperformed of the arteriovenous fistula in the left upper extremity. INDICATIONS: Dialysis graft complication and previously thrombosed AVF withoutintervention. COMPARISONS: No change compared to prior study. The previous exam was completed on07/17/24. AVF: Vessel Velocity Lt Location LT BRACHIOCEPH AVF Lt [place] Artery 153.00 cm/sec Lt Arterial Anast 69.00 cm/sec Lt Prx AVF 19.00 cm/sec Lt Prx-Mid AVF 30.00 cm/sec Lt Mid AVF 0.00 cm/sec Lt Mid AVF VF 0.00 mL/min Lt Mid-Dist AVF 0.00 cm/sec Lt Dst AVF 0.00 cm/sec Lt [place] Vein 19 SUB V cm/sec FINDINGS: Study Quality: The study quality is adequate. Left: Triphasic arteries include the left distal brachial artery. Fistula 1: Occluded arteriovenous fistula. Dilatation noted within theupper extremity arteriovenous fistula in the proximal segment measuring 3.5 x 4.0 cm.There is minimal flow noted in the proximal portion of the AVF. CONCLUSIONS: 1. The AV graft is occluded. Electronically Signed By: Kai Callejas MD 11/01/2024 10:20:01 AM CDT Result [facility] Gemma Callejas MD IM US PROCEDURES Final Result * CBC - Complete Blood Count, No Differential - [facility] (10/22/2024 2:16 PM CDT) Result [facility] Provider LAB BLOOD ORDERABLES Juany l Result Performing Organization Address [facility] de Phone Number EXTERNAL LAB * CBC - Complete Blood Count, No Differential - [facility] (10/22/2024 2:08 PM CDT) Result [facility] Provider MD LAB BLOOD ORDERABLES Juany l Result Performing Organization Address [facility] de Phone Number [facility] * (ABNORMAL) Tacrolimus level trough (10/22/2024) SCRIBED Tacrolimus, trough 4.8(A) 5 - 20 TXP NO LAB FOUND Blood 10/22/2024 Result [facility] Provider MD LAB BLOOD ORDERABLES Juany l Result Performing Organization Address [facility] de Phone Number TXP NO LAB FOUND * (ABNORMAL) Iron profile w/ IBC (10/22/2024) Total Iron Binding Capacity 228(A) 250 - 450 TXP NO LAB FOUND UIBC 105(A) 118 - 369 ug/dL TXP NO LAB FOUND Iron 123 27 - 139 ug/dL TXP NO LAB FOUND Iron saturation 54 15 - 55 % TXP NO LAB FOUND Blood 10/22/2024 Result [facility] Provider MD LAB BLOOD ORDERABLES Juany l Result Performing Organization Address [facility] Co de Phone Number TXP NO LAB FOUND * (ABNORMAL) Protein / creatinine ratio, urine, random (10/22/2024) SCRIBED Protein, Urine 103 n/a TXP NO LAB FOUND SCRIBED Creatinine, Urine 37.1 n/a TXP NO LAB FOUND SCRIBED Protein/Creat Ratio 2,776(A) 0 - 200 TXP NO LAB FOUND Urine 10/22/2024 Result [facility] Provider MD LAB URINE ORDERABLES Juany l Result Performing Organization Address [facility] de Phone Number TXP NO LAB FOUND * Phosphorus (10/22/2024) SCRIBED Phosphorus 4.1 3 - 4.3 mg/dl TXP NO LAB FOUND Blood 10/22/2024 Result [facility] Provider MD LAB BLOOD ORDERABLES Juany l Result Performing Organization Address [facility] de Phone Number TXP NO LAB FOUND * PTH (10/22/2024) SCRIBED iPTH TNP n/a pg/mL TXP NO LAB FOUND Comment:No plasma specimen r eceived. Blood 10/22/2024 Result [facility] Provider MD LAB BLOOD ORDERABLES Juany l Result Performing Organization Address [facility] Co de Phone Number TXP NO LAB FOUND * (ABNORMAL) Comprehensive metabolic panel (10/22/2024) SCRIBED Sodium 133(A) 134 - 144 mmol/L TXP NO LAB FOUND SCRIBED Potassium 4.6 3.5 - 5.2 mmol/L TXP NO LAB FOUND SCRIBED Chloride 96 96 - 106 mmol/L TXP NO LAB FOUND SCRIBED Carbon Dioxide 22 20 - 29 mmol/L TXP NO LAB FOUND SCRIBED Urea Nitrogen (BUN) 53(A) 8 - 27 mg/dl TXP NO LAB FOUND SCRIBED Creatinine 1.88(A) 0.57 - 1.0 mg/dl TXP NO LAB FOUND SCRIBED Glucose 79 70 - 99 mg/dl TXP NO LAB FOUND SCRIBED Calcium 9.3 8.7 - 10.3 mg/dl TXP NO LAB FOUND SCRIBED Bilirubin <0.2 0 - 1.2 mg/dl TXP NO LAB FOUND SCRIBED Plasma Protein 5.8(A) 6 - 8.5 g/dl TXP NO LAB FOUND SCRIBED Albumin 3.8(A) 3.9 - 4.9 g/dl TXP NO LAB FOUND SCRIBED Alkaline Phosphatase 100 44 - 121 Units/L TXP NO LAB FOUND SCRIBED Alanine Transaminase (ALT) 7 0 - 32 Units/L TXP NO LAB FOUND SCRIBED Aspartate Transaminase (AST) 13 0 - 40 Units/L TXP NO LAB FOUND SCRIBED eGFR in NonAfrican Ghanaian 29 >59 TXP NO LAB FOUND Blood 10/22/2024 us Historical Provider LAB BLOOD ORDERABLES Juany l Result TXP NO LAB FOUND * TB test, quantiferon gold (10/10/2024 1:11 PM CDT) [facility] Quantiferon TB Gold Negative Negative Opp ref Lab Comment: No interferon-gamma response to M. tuberculosis antigens was detected. Latent infection with M. tuberculosis is unlikely. A single negative result does not exclude infection with M. tuberculosis. In patients at high risk for M.tuberculosis infection, a second test should be considered in accordance with the 2017 ATS/IDSA/CDC Clinical Practice Guidelines for Diagnosis of Tuberculosis in Adults and Children [Lewinsohn LUL et. al. Clin. Infect. Dis. 2017;64(2):111-115]. The reference range for the 'TB1 Ag minus Nil Result' and 'TB2 Ag minus Nil Result' is an Interferon-gamma level <0.35 IU/mL. Testing performed by: [facility], [address] [place] [address]., [address] TB-Nil -0.01 IUnits/mL SAMANTHA Comment:Testing performed by : [facility], [address] [place] [address]., [address] TB2-Nil 0.00 IUnits/mL SAMANTHA Comment:Testing performed by : [facility], [address] [place] [address], [place]., [address] Mitogen-Nil 9.93 IUnits/mL SAMANTHA Comment:Testing performed by : [facility], [address] [place] [address], [place]., [address] NIL 0.07 IUnits/mL SAMANTHA Comment: Test Performed by: [facility] [address] [place] [address] Gas Dispenser: Carol Parra Ph.D.; CLIA# [id number] Testing performed by: [address] [address] Blood 10/10/2024 1:11 PM CDT 10/10/2024 1:54 PM CDT Vivienne Morataya MD LAB BLOOD ORDERABLES Final Resu lt SAMANTHA [address] [facility] Department [place] [address] [facility] * HLA Donor Specific Antibody Report (09/27/2024 10:33 AM CDT) us Jovana Alaniz NP LAB BLOOD ORDERABLES Final R esult * HLA Antibody Screen - DSA (Class I and Class II) (09/27/2024 10:33 AM CDT) Blood 09/27/2024 10:3 3 AM CDT 09/28/2024 2:02 PM CDT Narrative HISTOTRAC - 09/28/2024 2:02 PM CDT us Jovana Akua Alaniz TELEGRAPH MESSENGER LAB BLOOD ORDERABLES Final R esult HISTOT[facility] * Collection Task for HLA Antibody Screen (09/27/2024 10:33 AM CDT) HLA Antibody Screen By Single Antigen Received Blood 09/27/2024 10:3 3 AM CDT 09/27/2024 3:27 PM CDT Jovana Alaniz TELEGRAPH MESSENGER LAB BLOOD ORDERABLES Final R esult [facility] Department [place] [address] * T-SPOT.TB Blood (09/27/2024 10:33 AM CDT) Pathologist [facility] T-SPOT.TB BORDERLINE SeeBelow Comment: Normal Value: Negative The patient's test result cannot be definitively classified as positive or negative. Retesting of the patient is recommended although there is no set guideline established for the time interval between an initial borderline result and a retest. The T-SPOT.TB is a diagnostic aid. If the test result remains borderline upon retesting, other diagnostics and/or epidemiologic information should be used to help determine the Mycobacterium tuberculosis infection status of the patient. The T-SPOT.TB test is qualitative and results are reported as positive, borderline or negative, given that the test controls perform as expected. In line with the Centers for Disease Control and Prevention's 2010 recommendation to report quantitative measurements alongside the qualitative result, the laboratory provides spot counts for informational purposes only. The T-SPOT.TB test should not be interpreted as a quantitative test. T-SPOT.TB Panel A Spot Count 3 [facility] T-SPOT.TB Panel B Spot Count 7 [facility] T-SPOT.TB Negative Control Passed [facility] T-SPOT.TB Positive Control Passed [facility] Comment: Test Performed at: [facility] [place] [address] MARGARET CARREON,PHD Blood 09/27/2024 10:3 3 AM CDT 09/27/2024 1:37 PM CDT us Vivienne Morataya MD LAB MICROBIOLOGY - GENERAL ORDJeremie MICEHLLES Final Result Performing Organization Address City/[facility] Co de Phone Number SAMANTHA [facility] Department [place] [address] * (ABNORMAL) Protein / creatinine ratio, urine, random (09/26/2024 10:35 AM CDT) Pathologist [facility] Protein, ur, quant 365.0 mg/dL Comment: Interpretive Data No reference range established. Current interpretive data was last revised 2018. Testing performed by: [address] [address] Creatinine Ur 74.0 mg/dL SAMANTHA Comment: Interpretive Data No reference range established. Current interpretive data was last revised 2018. Testing performed by: [address] [address] Protein/creatinin e ratio 4,932.4(H ) 0.0 - 180.0 mg/g CR SAMANTHA Comment:Testing performed by : [address] [address] Urine 09/26/2024 10:3 5 AM CDT 09/26/2024 11:44 AM CDT Lore Potter MD LAB URINE ORDERABLES Final Res ult Performing Organization Address City/[facility] Co de Phone Number SAMANTHA [address] [facility] Department [place] [address] * (ABNORMAL) eGFR (09/25/2024 6:16 AM CDT) Pathologist [facility] eGFR 31(L) >=60 mL/min/1. 73 m2 Comment: Interpretive Data Reference Interval Normal >/= 90 mL/min/1.73m2 Mildly decreased* 60 - 89 mL/min/1.73m2 Mildly to moderately decreased 45 - 59 mL/min/1.73m2 Moderately to severely decreased 30 - 44 mL/min/1.73m2 Severely decreased 15 - 29 mL/min/1.73m2 Kidney Failure < 15 mL/min/1.73m2 *Relative to young adult level Estimated glomerular filtration rate is determined by the 2020 CKD-EPI equation recommended by the National Kidney Foundation (A Unifying Approach to GFR Estimation: Recommendations of the NKF-ASK Task Force on Reassessing the Inclusion of Race in Diagnosing Kidney Disease, JASN 2020). The CKD-EPI equation should not be used for patients with unstable renal function and has not been validated in children and those over 70. Current interpretive data was last reviewed 2021. Testing performed by: [facility], [address] [place] [address]., [address] Blood 09/25/2024 6:16 AM CDT 09/25/2024 6:44 AM CDT Benjy Perez MD LAB BLOOD ORDERABLES Final Re sult Performing Organization Address [facility] de Phone Number [facility] [address] [facility] Department [place] [address] * Tacrolimus level trough (09/25/2024 6:16 AM CDT) [facility] Tacrolimus trough 4.9 ng/mL Comment: Interpretive Data Testing performed by liquid chromatography-tandem mass spectrometry. Therapeutic concentrations vary depending on type of transplanted organ and time elapsed since transplant. Typical trough concentrations range from 5-15 ng/mL. This test was developed and its performance characteristics determined by the [facility] consistent with CLIA requirements. This test has not been cleared or approved by the [place] Food and Drug administration. Current interpretive data last reviewed 2019. Testing performed by: [facility], [address] [facility], [place]., [address] Blood 09/25/2024 6:16 AM CDT 09/25/2024 9:28 AM CDT Benjy Perez MD LAB BLOOD ORDERABLES Final Re sult Performing Organization Address [facility] Co de Phone Number CERNER [address] [place] [address] * (ABNORMAL) Iron profile w/ IBC (09/25/2024 6:16 AM CDT) [facility] Iron 128 35 - 145 mcg/dL Comment:Testing performed by : [address] [address] TIBC 210(L) 250 - 400 mcg/dL SAMANTHA Comment:Testing performed by : [address] [address] Transferrin saturation 61(H) 20 - 50 % SAMANTHA Comment:Testing performed by : [address] [address] Blood 09/25/2024 6:16 AM CDT 09/25/2024 6:44 AM CDT us Benjy Perez MD LAB BLOOD ORDERABLES Final Re sult Performing Organization Address [facility] Co de Phone Number BOB[address] [address] * (ABNORMAL) Hemoglobin and hematocrit (09/25/2024 6:16 AM CDT) [facility] Hgb 9.8(L) 11.9 - 15.5 g/dL Comment:Testing performed by : [address] [address] Hct 28.8(L) 35.6 - 45.5 % SAMANTHA Comment:Testing performed by : [address] [address] Blood 09/25/2024 6:16 AM CDT 09/25/2024 6:44 AM CDT Bejny Perez MD LAB BLOOD ORDERABLES Final Re sult Performing Organization Address City/[facility] Co de Phone Number BOB[address] [place] [address] * (ABNORMAL) Basic metabolic panel (09/25/2024 6:16 AM CDT) Sodium 132(L) 135 - 145 mmol/L Comment:Testing performed by : [address] [address] Potassium, pl 4.6 3.3 - 4.9 mmol/L SAMANTHA Comment:Testing performed by : [address] [address] Chloride 96(L) 97 - 110 mmol/L [facility] Comment:Testing performed by : [address] [address] CO2 25 22 - 32 mmol/L SAMANTHA Comment:Testing performed by : [address] [address] Anion gap 11 2 - 15 mmol/L SAMANTHA Comment:Testing performed by : [address] [address] BUN 44(H) 6 - 25 mg/dL [facility] Comment:Testing performed by : [address] [address] Creatinine 1.80(H) 0.60 - 1.10 mg/dL [facility] Comment:Testing performed by : [address] [address] Glucose 87 70 - 199 mg/dL [facility] Comment: Interpretive Data Fasting glucose >/= 126 mg/dl is diagnostic for diabetes. Fasting is defined as no caloric intake for at least 8 hours. Fasting glucose between 100 mg/dl to 125 mg/dl is diagnostic of prediabetes. In a patient with classic symptoms of hyperglycemia or hyperglycemic crisis, a random glucose >/= 200 mg/dl is diagnostic for diabetes. In the absence of unequivocal hyperglycemia, results should be confirmed by repeat testing. The classification and Diagnosis of Diabetes Diabetes Care 202; 46: S19-S40. Current interpretive data was last revised 2022. Testing performed by: [address] [address] Calcium 10.1 8.5 - 10.3 mg/dL SAMANTHA Comment:Testing performed by : [address] [place] [address] Blood 09/25/2024 6:16 AM CDT 09/25/2024 6:44 AM CDT Benjy Perez MD LAB BLOOD ORDERABLES Final Re sult Performing Organization Address City/[facility]/ZIP Co de Phone Number SAMANTHA [address] [facility] [address] [place] [address] * Hepatitis panel, acute (11/09/2022 7:03 AM CDT) Hep A IgM Nonreactive Nonreactive [facility] Comment: Interpretive Data: If Hep A IgM Ab is reported as Equivocal, a new sample should be drawn in two weeks for testing. Current interpretive data was last revised on 19. Hep B core IgM Nonreactive Nonreactive [facility] Comment: Interpretive Data If HepB Core IgM Ab is reported as Equivocal, a new sample should be drawn in two weeks for testing. Current interpretive data was last revised on 19. Hep C Ab Nonreactive Nonreactive [facility] Comment: Interpretive Data Nonreactive: Antibodies to HCV not detected. Does NOT exclude the possibility of recent exposure to HCV. Equivocal: Equivocal for HCV antibodies. Supplemental molecular testing will be automatically performed to determine infection status in accordance with current CDC screening recommendations. Reactive: Positive for HCV antibodies. This may represent current or past HCV infection. Supplemental molecular testing will be automatically performed to determine current infection status in accordance with current CDC screening recommendations. Interpretive data was last revised on 2019. HepBsAg Nonreactive Nonreactive [facility] Blood 11/09/2022 7:03 AM CDT 11/09/2022 9:14 AM CDT us Elana Yarbrough MD LAB MICROBIOLOGY - GENERAL ORDERABLES Final Result Performing Organization Address City/[facility]/ZIP Co de Phone Number SAMANTHA [address] [facility] [address] [place] [address] from Last 3 Months or Most Recently Relevant to Health Maintenance Insurance [address] [place] [address] [place] [address] [place] [address] [place] [address] [place] [address] MEDICARE Advance Directives For more information, please contact: [phone] Documents on File Type Date Recorded Patient Washerette Machine Operator Expl anation ADVANCE DIRECTIVE 08/13/2024 11:13 AM POLS T - Phys Order for PT Preferences Power of [employer] Data [employer] Lead 08/27/2021 7:10 AM ADVANCE DIRECTIVE 03/02/2021 2:34 PM ADVANCE DIRECTIVE 02/14/2016 12:00 AM POW ER OF WEIGH BOX TENDER FINANCIAL/MEDICAL ADVANCE DIRECTIVE 02/14/2016 12:00 AM VIDAL ING WILL * Full Code (Latest Code Status on File) Date Activated Date Inactivated Comments 12/11/2024 9:25 AM 12/12/2024 10:13 PM * LIMITED - No CPR Date Activated Date Inactivated Comments 11/30/2024 2:33 PM 12/04/2024 6:15 PM Question Answer Comments Provide aggressive medical m anagement before a full cardiopulmonary arrest occurs. Use antibiotics, IV Fluids, and medical treatment unless specifically selected below: No intubation Discussed with the following attending physician : Dr Cunningham * LIMITED - No CPR Date Activated Date Inactivated Comments 08/18/2024 5:26 PM 08/20/2024 6:55 PM Question Answer Comments Provide aggressive medical m anagement before a full cardiopulmonary arrest occurs. Use antibiotics, IV Fluids, and medical treatment unless specifically selected below: No intubation Discussed with the following attending physician : Dr Maldonado * LIMITED - No CPR Date Activated Date Inactivated Comments 08/10/2024 1:34 AM 08/11/2024 5:10 PM Question Answer Comments Provide aggressive medical m anagement before a full cardiopulmonary arrest occurs. Use antibiotics, IV Fluids, and medical treatment unless specifically selected below: No intubation * LIMITED - No CPR Date Activated Date Inactivated Comments 05/21/2024 10:43 AM 05/24/2024 6:06 PM Question Answer Comments Provide aggressive medical m anagement before a full cardiopulmonary arrest occurs. Use antibiotics, IV Fluids, and medical treatment unless specifically selected below: No intubation Healthcare Agents on File Name Relationship Healthcare Agent Relationship Communication Nael Villalta [facility] Health Care Agent [email or web address] .[employer] D[employer] Jolanta Villalta Daughter in Law [facility] Health Care Agent Care Teams Contract Graphic Designer Relationship Specialty Start Date End Date Arley Rousseau MD [address] [place] [address] PCP - General Sports Medicine 03/17/22 Samantha Lyons RN [address] [address] Lead Fabricator 09/27/17 Benjy Perez MD [address] [address] Referring Physician Nephrology 05/15/18 Kai Callejas MD [address] [facility] [address] [place] [address] Surgeon Vascular Surgery 11/06/24 [facility], mercantile agentLead Fabricator Transplant 12/04/24
--- OUTSIDE RECORDS SUMMARY | 2024-12-26 12:48 | XMS_ITS | Encounter Summary ---
Author Organization [facility] Facility Care Team Providers Care Acute Coordinator Name Role Phone Angelita Blanco MD Primary Care Provider [phone] Samantha Lyons RN Unavailable +[phone] Nimisha Bradford RN Unavailable [phone] Benjy Perez MD Unavailable +[phone] Benjy Perez MD Primary Care Provider [phone] Angelita Blanco MD Primary Care Provider +[phone] Johnny Goldberg MD Primary Care Provider [phone] Angelita Blanco MD Primary Care Provider +[phone] Rosey Reeys MD Primary Care Provider +[phone] Benjy Perez MD Primary Care Provider +[phone] Benjy Perez MD Primary Care Provider +[phone] Rosey Reyes MD Primary Care Provider +[phone] Vivienne Morataya MD Primary Care Provider [phone] Vivienne Morataya MD Primary Care Provider [phone] Benjy Perez MD Primary Care Provider +[phone] Rosey Reyes MD Primary Care Provider +[phone] Benjy Perez MD Primary Care Provider +[phone] Arley Rousseau MD Primary Care Provider +[phone] Benjy Perez MD Primary Care Provider +[phone] Arley Rousseau MD Primary Care Provider +[phone] Benjy Perez MD Primary Care Provider +[phone] Arley Rousseau MD Primary Care Provider + Yajaira Ritter RN Unavailable +[phone] Kai Callejas MD Unavailable + 2 [facility] RN Unavailable Unavaila ble Encounter Details Date Type Department Care Team (Latest Contact Info) Description 11/12/2015 Orders Only MMG CLINCONV Provider, MD Eileen [address] [place] [address] Social History Tobacco Use Types Packs/Day Years Used Date Smoking Tobacco: Never Assessed Comments Unknown Sex and Gender Information Value Date Recorded Sex Assigned at Not on file Legal Sex Female 7:39 AM MEDICAL SONOGRAPHER Gender Identity Female 05/15/2018 8:32 AM MEDICAL SONOGRAPHER Sexual Orientation Not on file documented as of this encounter Plan of Treatment Upcoming Encounters Date Type Department Care Team (Latest Contact Info) Description 01/01/2025 Research Med Pick-Up/CTRU Javascript Developer [facility] Clinical Trial 1 [place] [address] Stu Guan RC Research study patient (Primary Dx) documented as of this encounter Procedures Procedure Name Priority Date/Time Associated Diagnosis Comments SCAN - LABS 11/12/2015 12:00 AM CDT documented in this encounter Results * SCAN - LABS (11/12/2015 12:00 AM CDT) Narrative 11/12/2015 12:00 AM CDT Ordered by an unspecified provider. us Historical Provider Final Res ult documented in this encounter Visit Diagnoses Not on filedocumented in this encounter Additional Health Concerns Infection Onset Date Last Indicated Resolved Time COVID: Suspected 03/12/2023 03/12/2023 03/12/2023 3:55 PM MEDICAL SONOGRAPHER COVID: Suspected 05/21/2024 05/21/2024 05/21/2024 7:13 AM MEDICAL SONOGRAPHER documented as of this encounter Care Teams Acute Coordinator Relationship Specialty Start Date End Date Angelita Blanco MD [address] [facility] [address] [place] [address] PCP - General 08/18/16 05/25/18 Benjy Perez MD [address] [place] [address] PCP - General 05/26/18 05/29/18 Angelita Blanco MD [address] [facility] [address] [place] [address] PCP - General 05/30/18 09/11/18 Johnny Goldberg MD [address] [id number] PCP - General 09/12/18 09/25/18 Angelita Blanco MD [address] [facility] 103 [place] [address] PCP - General 09/26/18 11/14/18 Rosey Reyes MD [address] [address] PCP - General 11/15/18 01/11/19 Benjy Perez MD [facility] [facility] [address] [place] [address] PCP - General 02/08/19 02/08/19 Benjy Perez MD [address] [facility] 3401 [place] [address] PCP - General 01/12/19 02/07/19 Rosey Reyes MD [address] [facility] 200 [place] [address] PCP - General 06/20/19 09/30/19 Vivienne Morataya MD [address] [address] PCP - General 10/01/19 10/11/19 Vivienne Morataya MD [address] [address] PCP - General 02/09/19 06/19/19 Benjy Perez MD [address] [facility] [address]01 [place] [address] PCP - General 10/12/19 06/25/20 Rosey Reyes MD [address] [address] PCP - General 06/26/20 08/19/20 Benjy Perez MD [address] [facility] [address] [place] [address] PCP - General 08/20/20 08/25/20 Arley Rousseau MD [address] [facility] 200 [place] [address] PCP - General Sports Medicine 08/26/20 08/28/20 Benjy Perez MD [address] [address] PCP - General 08/29/20 04/27/21 [place] [address] [place] [address] PCP - General Sports Medicine 04/28/21 08/25/21 Benjy Perez MD [address] [address] PCP - General Nephrology 08/26/21 03/16/22 Arley Rousseau MD [address] [place] [address] PCP - General Sports Medicine 03/17/22 Samantha Lyons RN [address] [address] Patch Washer 09/27/17 Nimisha Bradford, ANKIT [address] [address] Patch Washer 10/03/17 5 Benjy Perez MD [address] [address] Referring Physician Nephrology 05/15/18 Yajaira Ritter, RN 4590 [place] [address] Nurse Navigator 04/27/22 06/03/22 Kai Callejas MD 4600 [facility] [address] [facility] [address] [place] [address] Surgeon Vascular Surgery 11/06/24 [facility], cartography/mapping technicianPatch Washer 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
--- OUTSIDE RECORDS SUMMARY | 2024-12-26 12:48 | XMS_ITS | Encounter Summary ---
Author Organization [facility] Facility Care Team Providers Care Brewmaster Name Role Phone Angelita Blanco MD Primary Care Provider [phone] Samantha Lyons RN Unavailable +[phone] Nimisha Bradford RN Unavailable +[phone] Benjy Perez MD Unavailable +[phone] Benjy Perez MD Primary Care Provider [phone] Angelita Blanco MD Primary Care Provider +[phone] Johnny Goldberg MD Primary Care Provider [phone] Angelita Blanco MD Primary Care Provider +[phone] Rosey Reyes MD Primary Care Provider +[phone] Benjy Perez MD Primary Care Provider +[phone] Benjy Perez MD Primary Care Provider [phone] Rosey Reyes MD Primary Care Provider +[phone] Vivienne Morataya MD Primary Care Provider [phone] Vivienne Morataya MD Primary Care Provider [phone] Benjy Perez MD Primary Care Provider +[phone] Rosey Reyes MD Primary Care Provider +[phone] Benjy Perez MD Primary Care Provider [phone] Arley Rousseau MD Primary Care Provider +[phone] Benjy Perez MD Primary Care Provider +[phone] Arley Rousseau MD Primary Care Provider +[phone] Benjy Perez MD Primary Care Provider +[phone] Arley Rousseau MD Primary Care Provider + Yajaira Ritter RN Unavailable +[phone] Kai Callejas MD Unavailable + 2 [facility] RN Unavailable Unavaila ble Encounter Details Date Type Department Care Team (Latest Contact Info) Description 09/03/2015 Orders Only MMG CLINCONV Provider, MD Eileen [address] [place] [address] Social History Tobacco Use Types Packs/Day Years Used Date Smoking Tobacco: Never Assessed Comments Unknown Sex and Gender Information Value Date Recorded Sex Assigned at Not on file Legal Sex Female 7:39 AM RESIDENTIAL INSURANCE INSPECTOR Gender Identity Female 05/15/2018 8:32 AM RESIDENTIAL INSURANCE INSPECTOR Sexual Orientation Not on file documented as of this encounter Plan of Treatment Upcoming Encounters Date Type Department Care Team (Latest Contact Info) Description 01/01/2025 Research Med Pick-Up/CTRU Sample Supervisor [facility] Clinical Trial 1 [place] [address] Stu Guan RC Research study patient (Primary Dx) documented as of this encounter Procedures Procedure Name Priority Date/Time Associated Diagnosis Comments SCAN - LABS 09/04/2015 12:00 AM CDT documented in this encounter Results * SCAN - LABS (09/04/2015 12:00 AM CDT) Narrative 09/04/2015 12:00 AM CDT Ordered by an unspecified provider. us Historical Provider Final Res ult documented in this encounter Visit Diagnoses Not on filedocumented in this encounter Additional Health Concerns Infection Onset Date Last Indicated Resolved Time COVID: Suspected 03/12/2023 03/12/2023 03/12/2023 3:55 PM RESIDENTIAL INSURANCE INSPECTOR COVID: Suspected 05/21/2024 05/21/2024 05/21/2024 7:13 AM RESIDENTIAL INSURANCE INSPECTOR documented as of this encounter Care Teams Brewmaster Relationship Specialty Start Date End Date Angelita Blanco MD [address] [facility] [address] [place] [address] PCP - General 08/18/16 05/25/18 Benjy Perez MD [address] [place] [address] PCP - General 05/26/18 05/29/18 Angelita Blanco MD [address] [facility] [address] [place] [address] PCP - General 05/30/18 09/11/18 Johnny Goldberg MD [address] [id number] PCP - General 09/12/18 09/25/18 Angelita Blanco MD [address] [facility] 103 [place] [address] PCP - General 09/26/18 11/14/18 Rosey Reyes MD [address] [address] PCP - General 11/15/18 01/11/19 Benjy Perez MD [facility] [facility] [address] [place] [address] PCP - General 02/08/19 02/08/19 eBnjy Perez MD [address] [facility] [address]01 [place] [address] PCP - General 01/12/19 02/07/19 Rosey Reyes MD [address] [facility] 200 [place] [address] PCP - General 06/20/19 09/30/19 Vivienne Morataya MD [address] [address] PCP - General 10/01/19 10/11/19 Vivienne Morataya MD [address] [address] PCP - General 02/09/19 06/19/19 Benjy Perez MD [address] [facility] [address]01 [place] [address] PCP - General 10/12/19 06/25/20 Rosey Reyes MD [address] [address] PCP - General 06/26/20 08/19/20 Benjy Perez MD [address] [facility] [address] [place] [address] PCP - General 08/20/20 08/25/20 Arley Rousseau MD [address] [facility] 200 [place] [address] PCP - General Sports Medicine 08/26/20 08/28/20 Benjy Perez MD [address] [address] PCP - General 08/29/20 04/27/21 [place] [address] [place] [address] PCP - General Sports Medicine 04/28/21 08/25/21 Benjy Perez MD [address] [address] PCP - General Nephrology 08/26/21 03/16/22 Arley Rousseau MD [address] [place] [address] PCP - General Sports Medicine 03/17/22 Samantha Lyons RN [address] [address] Manager Balance 09/27/17 Nimisha Bradford, ANKIT [address] [address] Manager Balance 10/03/17 5 Benjy Perez MD [address] [address] Referring Physician Nephrology 05/15/18 Yajaira Ritter, RN 4590 [place] [address] Nurse Navigator 04/27/22 06/03/22 Kai Callejas MD 4600 [facility] [address]120 [facility] [address] [place] [address] Surgeon Vascular Surgery 11/06/24 [facility], front end engineerManager Balance 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
--- OUTSIDE RECORDS SUMMARY | 2024-12-26 12:48 | XMS_ITS | Encounter Summary ---
Author Organization [facility] Facility Care Team Providers Care Gasoline Service Attendant Name Role Phone Angelita Blanco MD Primary Care Provider [phone] Samantha Lyons RN Unavailable +[phone] Nimisha rBadford RN Unavailable +[phone] Benjy Perez MD Unavailable +[phone] Benjy Perez MD Primary Care Provider +[phone] Angelita Blanco MD Primary Care Provider +[phone] Johnny Goldberg MD Primary Care Provider [phone] Angelita Blanco MD Primary Care Provider +[phone] Rosey Reyes MD Primary Care Provider +[phone] Benjy Perez MD Primary Care Provider +[phone] Benjy Perez MD Primary Care Provider +[phone] Rosey Reyes MD Primary Care Provider +[phone] Vivienne Morataya MD Primary Care Provider [phone] Vivienne Morataya MD Primary Care Provider [phone] Benjy Perez MD Primary Care Provider +[phone] Rosey Reyes MD Primary Care Provider +[phone] Benjy Perez MD Primary Care Provider [phone] Arley Rousseau MD Primary Care Provider +[phone] Benjy Perez MD Primary Care Provider [phone] Arley Rousseau MD Primary Care Provider +[phone] Benjy Perez MD Primary Care Provider +[phone] Arley Rousseau MD Primary Care Provider + Yajaira Ritter RN Unavailable +[phone] Kai Callejas MD Unavailable + 2 [facility] RN Unavailable Unavaila ble Encounter Details Date Type Department Care Team (Latest Contact Info) Description 03/11/2016 Orders Only MMG CLINCONV Provider, MD Eileen [address] [place] [address] Social History Tobacco Use Types Packs/Day Years Used Date Smoking Tobacco: Never Assessed Comments Unknown Sex and Gender Information Value Date Recorded Sex Assigned at Not on file Legal Sex Female 7:39 AM TAPE KELLER OPERATOR Gender Identity Female 05/15/2018 8:32 AM TAPE KELLER OPERATOR Sexual Orientation Not on file documented as of this encounter Plan of Treatment Upcoming Encounters Date Type Department Care Team (Latest Contact Info) Description 01/01/2025 Research Med Pick-Up/CTRU Dentist [facility] Clinical Trial 1 [place] [address] Stu Guan RC Research study patient (Primary Dx) documented as of this encounter Procedures Procedure Name Priority Date/Time Associated Diagnosis Comments SCAN - LABS 03/11/2016 12:00 AM TAPE KELLER OPERATOR documented in this encounter Results * SCAN - LABS (03/11/2016 12:00 AM TAPE KELLER OPERATOR) Narrative 03/11/2016 12:00 AM TAPE KELLER OPERATOR Ordered by an unspecified provider. us Historical Provider Final Res ult documented in this encounter Visit Diagnoses Not on filedocumented in this encounter Additional Health Concerns Infection Onset Date Last Indicated Resolved Time COVID: Suspected 03/12/2023 03/12/2023 03/12/2023 3:55 PM TAPE KELLER OPERATOR COVID: Suspected 05/21/2024 05/21/2024 05/21/2024 7:13 AM TAPE KELLER OPERATOR documented as of this encounter Care Teams Gasoline Service Attendant Relationship Specialty Start Date End Date Angelita Blanco MD [address] [facility] 103 [place] [address] PCP - General 08/18/16 05/25/18 Benjy Perez MD [address] [place] [address] PCP - General 05/26/18 05/29/18 Angelita Blanco MD [address] [facility] 103 [place] [address] PCP - General 05/30/18 09/11/18 Johnny Goldberg MD [address] [id number] PCP - General 09/12/18 09/25/18 Angelita Blanco MD [address] [facility] 103 [place] [address] PCP - General 09/26/18 11/14/18 Rosey Reyes MD [address] [address] PCP - General 11/15/18 01/11/19 Benjy Perez MD [address] [place] [address] PCP - General 02/08/19 02/08/19 Benjy Perez MD [address] [facility] 3401 [place] [address] PCP - General 01/12/19 02/07/19 Rosey Reyes MD [address] [facility] 200 [place] [address] PCP - General 06/20/19 09/30/19 Vivienne Morataya MD [address] [address] PCP - General 10/01/19 10/11/19 Vivienne Morataya MD [address] [address] PCP - General 02/09/19 06/19/19 Benjy Perez MD [address] [facility] [address] [place] [address] PCP - General 10/12/19 06/25/20 Rosey Reyes MD [address] [address] PCP - General 06/26/20 08/19/20 Benjy Perez MD [address] [facility] [address] [place] [address] PCP - General 08/20/20 08/25/20 Arley Rousseau MD [address] [facility] 200 [place] [address] PCP - General Sports Medicine 08/26/20 08/28/20 Benjy Perez MD [address] [address] PCP - General 08/29/20 04/27/21 Arley Rousseau MD [address] [address] PCP - General Sports Medicine 04/28/21 08/25/21 Benjy Perez MD [address] [address] PCP - General Nephrology 08/26/21 03/16/22 Arley Rousseau MD [address] [place] [address] PCP - General Sports Medicine 03/17/22 Samantha Lyons RN [address] [address] Primer Waterproofing Machine Adjuster 09/27/17 Nimisha Bradford RN [address] [address] Primer Waterproofing Machine Adjuster 10/03/17 5 Benjy Perez MD [address] [address] Referring Physician Nephrology 05/15/18 Yajaira Ritter, RN [address]90 [place] [address] Nurse Navigator 04/27/22 06/03/22 Kai Callejas MD 4600 [facility] [address]120 [facility] [address] [place] [address] Surgeon Vascular Surgery 11/06/24 [facility], policy checkerPrimer Waterproofing Machine Adjuster 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
--- OUTSIDE RECORDS SUMMARY | 2024-12-26 12:49 | XMS_ITS | Encounter Summary ---
Author Organization [facility] Facility Care Team Providers Care Director Mobile Name Role Phone Angelita Blanco MD Primary Care Provider [phone] Samantha Lyons RN Unavailable +[phone] Nimisha Bradford RN Unavailable +[phone] Benjy Perez MD Unavailable +[phone] Benjy Perez MD Primary Care Provider +[phone] Angelita Blanco MD Primary Care Provider +[phone] Johnny Goldberg MD Primary Care Provider [phone] Angelita Blanco MD Primary Care Provider +[phone] Rosey Reyes MD Primary Care Provider +[phone] Benjy Perez MD Primary Care Provider +[phone] Benjy Perez MD Primary Care Provider +[phone] Rosey Reyes MD Primary Care Provider +[phone] Vivienne Morataya MD Primary Care Provider [phone] Vivienne Morataya MD Primary Care Provider [phone] Benjy Perez MD Primary Care Provider +[phone] Rosey Reyes MD Primary Care Provider +[phone] Benjy Perez MD Primary Care Provider +[phone] Arley Rousseau MD Primary Care Provider +[phone] Benjy Perez MD Primary Care Provider +[phone] Arley Rousseau MD Primary Care Provider +[phone] Benjy Perez MD Primary Care Provider +[phone] Arley Rousseau MD Primary Care Provider + Yajaira Ritter RN Unavailable +[phone] Kai Callejas MD Unavailable + 2 [facility] RN Unavailable Unavaila ble Encounter Details Date Type Department Care Team (Latest Contact Info) Description 11/23/2016 Orders Only MMG CLINCONV Provider, MD Eileen [address] [place] [address] Social History Tobacco Use Types Packs/Day Years Used Date Smoking Tobacco: Never Comments Unknown Sex and Gender Information Value Date Recorded Sex Assigned at Not on file Legal Sex Female 7:39 AM TEMPLATE CHECKER Gender Identity Female 05/15/2018 8:32 AM TEMPLATE CHECKER Sexual Orientation Not on file documented as of this encounter Plan of Treatment Upcoming Encounters Date Type Department Care Team (Latest Contact Info) Description 01/01/2025 Research Med Pick-Up/CTRU Utility Appraiser [facility] Clinical Trial 1 [place] [address] Stu Guan RC Research study patient (Primary Dx) documented as of this encounter Procedures Procedure Name Priority Date/Time Associated Diagnosis Comments SCAN - LABS 11/26/2016 12:00 AM CDT documented in this encounter Results * SCAN - LABS (11/26/2016 12:00 AM CDT) Narrative 11/26/2016 12:00 AM CDT Ordered by an unspecified provider. us Historical Provider Final Res ult documented in this encounter Visit Diagnoses Not on filedocumented in this encounter Additional Health Concerns Infection Onset Date Last Indicated Resolved Time COVID: Suspected 03/12/2023 03/12/2023 03/12/2023 3:55 PM TEMPLATE CHECKER COVID: Suspected 05/21/2024 05/21/2024 05/21/2024 7:13 AM TEMPLATE CHECKER documented as of this encounter Care Teams Director Mobile Relationship Specialty Start Date End Date Angelita Blanco MD [address] [facility] 103 [place] [address] PCP - General 08/18/16 05/25/18 Benjy Perez MD [address] [place] [address] PCP - General 05/26/18 05/29/18 Angelita Blanco MD [address] [facility] 103 [place] [address] PCP - General 05/30/18 09/11/18 Johnny Goldberg MD [address] [id number] PCP - General 09/12/18 09/25/18 Angelita Blanco MD [address] [facility] 103 [place] [address] PCP - General 09/26/18 11/14/18 Rosey Reyes MD [address] [facility] 200 [place] [address] PCP - General 11/15/18 01/11/19 Benjy Perez MD [address] [place] [address] PCP - General 02/08/19 02/08/19 Benjy Perez MD [address] [facility] 3401 [place] [address] PCP - General 01/12/19 02/07/19 Rosey Reyes MD [address] [facility] 200 [place] [address] PCP - General 06/20/19 09/30/19 Vivienne Morataya MD [address] [address] PCP - General 10/01/19 10/11/19 Vivienne Morataya MD [address] [address] PCP - General 02/09/19 06/19/19 Benjy Perez MD [address] [facility] 3401 [place] [address] PCP - General 10/12/19 06/25/20 Rosey Reyes MD [address] [address] PCP - General 06/26/20 08/19/20 Benjy Perez MD [address] [facility] [address] [place] [address] PCP - General 08/20/20 08/25/20 Arley Rousseau MD 1512 [address] [facility] 200 [place] [address] PCP - General Sports Medicine 08/26/20 08/28/20 Benjy Perez MD [address] [address] PCP - General 08/29/20 04/27/21 Arley Rousseau MD [address] [address] PCP - General Sports Medicine 04/28/21 08/25/21 Benjy Perez MD [address] [address] PCP - General Nephrology 08/26/21 03/16/22 Arley Rousseau MD [address] [place] [address] PCP - General Sports Medicine 03/17/22 Samantha Lyons RN [address] [address] It Recruiter 09/27/17 Nimisha Bradford RN [address] [address] It Recruiter 10/03/17 5 Benjy Perez MD [address] [address] Referring Physician Nephrology 05/15/18 Yajaira Ritter, RN [address] [place] [address] Nurse Navigator 04/27/22 06/03/22 Kai Callejas MD 4600 [facility] [address]120 [facility] B120 [place] [address] Surgeon Vascular Surgery 11/06/24 [facility], factory clerkIt Recruiter 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
--- OUTSIDE RECORDS SUMMARY | 2024-12-26 12:49 | XMS_ITS | Encounter Summary ---
Author Organization [facility] Facility Care Team Providers Care Construction Skills Teacher Name Role Phone Angelita Blanco MD Primary Care Provider [phone] Samantha Lyons RN Unavailable +[phone] Nimisha Bradford RN Unavailable +[phone] Benjy Perez MD Unavailable +[phone] Benjy Perez MD Primary Care Provider +[phone] Angelita Blanco MD Primary Care Provider +[phone] Johnny Goldberg MD Primary Care Provider +[phone] Angelita Blanco MD Primary Care Provider +[phone] Rosey Reyes MD Primary Care Provider +[phone] Benjy Perez MD Primary Care Provider +[phone] Benjy Perez MD Primary Care Provider [phone] Rosey Reyes MD Primary Care Provider +[phone] Vivienne Morataya MD Primary Care Provider [phone] Vivienne Morataya MD Primary Care Provider [phone] Benjy Perez MD Primary Care Provider +[phone] Rosey Reyes MD Primary Care Provider +[phone] Benjy Perez MD Primary Care Provider [phone] Arley Rousseau MD Primary Care Provider +[phone] Benjy Perez MD Primary Care Provider +[phone] Arley Rousseau MD Primary Care Provider +[phone] Benjy Perez MD Primary Care Provider +[phone] Arley Rousseau MD Primary Care Provider + Yajaira Ritter RN Unavailable +[phone] Kai Callejas MD Unavailable + [phone] [facility] RN Unavailable Unavaila ble Encounter Details Date Type Department Care Team (Latest Contact Info) Description 12/16/2016 Orders Only [facility] CLINCONV Provider, MD Eileen [address] [place] [address] Social History Tobacco Use Types Packs/Day Years Used Date Smoking Tobacco: Never Comments Unknown Sex and Gender Information Value Date Recorded Sex Assigned at Not on file Legal Sex Female 7:39 AM STAFF AIR TACTICAL OFFICER Gender Identity Female 05/15/2018 8:32 AM STAFF AIR TACTICAL OFFICER Sexual Orientation Not on file documented as of this encounter Plan of Treatment Upcoming Encounters Date Type Department Care Team (Latest Contact Info) Description 01/01/2025 Research Med Pick-Up/CTRU Bus Monitor [facility] Clinical Trial 1 [place] [address] Stu Guan RC Research study patient (Primary Dx) documented as of this encounter Procedures Procedure Name Priority Date/Time Associated Diagnosis Comments SCAN - LABS 12/16/2016 12:00 AM CDT documented in this encounter Results * SCAN - LABS (12/16/2016 12:00 AM CDT) Narrative 12/16/2016 12:00 AM CDT Ordered by an unspecified provider. us Historical Provider Final Res ult documented in this encounter Visit Diagnoses Not on filedocumented in this encounter Additional Health Concerns Infection Onset Date Last Indicated Resolved Time COVID: Suspected 03/12/2023 03/12/2023 03/12/2023 3:55 PM STAFF AIR TACTICAL OFFICER COVID: Suspected 05/21/2024 05/21/2024 05/21/2024 7:13 AM STAFF AIR TACTICAL OFFICER documented as of this encounter Care Teams Construction Skills Teacher Relationship Specialty Start Date End Date Angelita Blanco MD [address] [facility] 103 [place] [address] PCP - General 08/18/16 05/25/18 Benjy Perez MD [address] [place] [address] PCP - General 05/26/18 05/29/18 Angelita Blanco MD [address] [facility] [address] [place] [address] PCP - General 05/30/18 09/11/18 Johnny Goldberg MD [address] [id number] PCP - General 09/12/18 09/25/18 Angelita Blanco MD [address] [facility] 103 [place] [address] PCP - General 09/26/18 11/14/18 Rosey Reyes MD [address] [facility] 200 [place] [address] PCP - General 11/15/18 01/11/19 Benjy Perez MD [address] [place] [address] PCP - General 02/08/19 02/08/19 Benjy Perez MD [address] [facility] [facility] [address] [place] [address] PCP - General 01/12/19 02/07/19 Rosey Reyes MD [address] [facility] 200 [place] [address] PCP - General 06/20/19 09/30/19 Vivienne Morataya MD [address] [address] PCP - General 10/01/19 10/11/19 Vivienne Morataya MD [address] [address] PCP - General 02/09/19 06/19/19 Benjy Perez MD [address] [facility] [address] [place] [address] PCP - General 10/12/19 06/25/20 Rosey Reyes MD [address] [address] PCP - General 06/26/20 08/19/20 Benjy Perez MD [address] [facility] [address] [place] [address] PCP - General 08/20/20 08/25/20 Arley Rousseau MD [address] [facility] 200 [place] [address] PCP - General Sports Medicine 08/26/20 08/28/20 Benjy Perez MD [address] [address] PCP - General 08/29/20 04/27/21 Arley Rousseau MD [address] [address] PCP - General Sports Medicine 04/28/21 08/25/21 Benjy Perez MD [address] [address] PCP - General Nephrology 08/26/21 03/16/22 Arley Rousseau MD [address] [place] [address] PCP - General Sports Medicine 03/17/22 Samantha Lyons RN [address] [address] Pillar Man 09/27/17 Nimisha Bradford RN [address] [address] Pillar Man 10/03/17 5 Benjy Perez MD [address] [address] Referring Physician Nephrology 05/15/18 Yajaira Ritter, RN 4590 [place] [address] Nurse Navigator 04/27/22 06/03/22 Kai Callejas MD 46[address] [facility] [address] [facility] [address]120 [place] [address] Surgeon Vascular Surgery 11/06/24 [facility], analytical managerPillar Man 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
--- OUTSIDE RECORDS SUMMARY | 2024-12-26 12:49 | XMS_ITS | Encounter Summary ---
Author Organization [facility] Facility Care Team Providers Care Pie Baker Name Role Phone Samantha Lyons RN Unavailable [phone] Nimisha Bradford RN Unavailable [phone] Benjy Preez MD Unavailable +[phone] Angelita Blanco MD Primary Care Provider [phone] Johnny Goldberg MD Primary Care Provider +[phone] Angelita Blanco MD Primary Care Provider +[phone] Rosey Reyes MD Primary Care Provider +[phone] Benjy Perez MD Primary Care Provider [phone] Benjy Perez MD Primary Care Provider +[phone] Rosey Reyes MD Primary Care Provider +[phone] Vivienne Morataya MD Primary Care Provider [phone] Vivienne Morataya MD Primary Care Provider [phone] Benjy Perez MD Primary Care Provider [phone] Rosey Reyes MD Primary Care Provider +[phone] Benjy Perez MD Primary Care Provider +[phone] Arley Rousseau MD Primary Care Provider +[phone] Benjy Perez MD Primary Care Provider +[phone] Arley Rousseau MD Primary Care Provider +[phone] Benjy Perez MD Primary Care Provider +[phone] Arley Rousseau MD Primary Care Provider +[phone] Yajaira Ritter RN Unavailable [phone] Kai Callejas MD Unavailable + [phone] [facility] RN Unavailable Unavaila ble Encounter Details Date Type Department Care Team (Latest Contact Info) Description 06/27/2018 Orders Only [facility]G CLINCONV Provider, MD Eileen [address] [place] [address] Social History Tobacco Use Types Packs/Day Years Used Date Smoking Tobacco: Never Comments Unknown Sex and Gender Information Value Date Recorded Sex Assigned at Not on file Legal Sex Female 7:39 AM STRUCTURAL ENGINEERING TECHNICIAN Gender Identity Female 05/15/2018 8:32 AM STRUCTURAL ENGINEERING TECHNICIAN Sexual Orientation Not on file documented as of this encounter Plan of Treatment Upcoming Encounters Date Type Department Care Team (Latest Contact Info) Description 01/01/2025 Research Med Pick-Up/CTRU Furnace Loader [facility] Clinical Trial 1 [place] [address] Stu Guan RC Research study patient (Primary Dx) documented as of this encounter Procedures Procedure Name Priority Date/Time Associated Diagnosis Comments SCAN - LABS 06/27/2018 12:00 AM STRUCTURAL ENGINEERING TECHNICIAN documented in this encounter Results * SCAN - LABS (06/27/2018 12:00 AM STRUCTURAL ENGINEERING TECHNICIAN) Narrative 06/27/2018 12:00 AM STRUCTURAL ENGINEERING TECHNICIAN Ordered by an unspecified provider. us Historical Provider Final Res ult documented in this encounter Visit Diagnoses Not on filedocumented in this encounter Additional Health Concerns Infection Onset Date Last Indicated Resolved Time COVID: Suspected 03/12/2023 03/12/2023 03/12/2023 3:55 PM STRUCTURAL ENGINEERING TECHNICIAN COVID: Suspected 05/21/2024 05/21/2024 05/21/2024 7:13 AM STRUCTURAL ENGINEERING TECHNICIAN documented as of this encounter Care Teams Pie Baker Relationship Specialty Start Date End Date Angelita Blanco MD [address] [facility] 103 [place] [address] PCP - General 05/30/18 09/11/18 Johnny Goldberg MD [address]39 [facility] 200 [place] [address] PCP - General 09/12/18 09/25/18 Angelita Blanco MD [address] [facility] 103 [place] [address] PCP - General 09/26/18 11/14/18 Rosey Reyes MD 739 [facility] 200 [place] [address] PCP - General 11/15/18 01/11/19 Benjy Perez MD 45[address] [facility] 3401 [place] [address] PCP - General 02/08/19 02/08/19 Benjy Perez MD [address] [facility] [address] [place] [address] PCP - General 01/12/19 02/07/19 Rosey Reyes MD 739 [facility] 200 [place] [address] PCP - General 06/20/19 09/30/19 [place] [address] [place] [address] [address] [place] [address] PCP - General 10/01/19 10/11/19 Vivienne Morataya MD [address] [address] PCP - General 02/09/19 06/19/19 Benjy Perez MD [address] [address] PCP - General 10/12/19 06/25/20 Rosey Reyes MD [address] [address] PCP - General 06/26/20 08/19/20 Benjy Perez MD [address] [address] PCP - General 08/20/20 08/25/20 Arley Rousseau MD [address] [address] PCP - General Sports Medicine 08/26/20 08/28/20 Benjy Perez MD [address] [address] PCP - General 08/29/20 04/27/21 Arley Rousseau MD [address] [address] PCP - General Sports Medicine 04/28/21 08/25/21 Benjy Perez MD 1512 [facility] 200 [place] [address] PCP - General Nephrology 08/26/21 03/16/22 Arley Rousseau MD [address]70 [place] [address] PCP - General Sports Medicine 03/17/22 Samantha Lyons, RN [address] [address] Brick Setter 09/27/17 Nimisha Bradford, RN [address] [address] Brick Setter 10/03/17 5 Benjy Perez MD [address] [address] Referring Physician Nephrology 05/15/18 Yajaira Ritter, RN 4590 [place] [address] Nurse Navigator 04/27/22 06/03/22 Kai Callejas MD [address] [facility] [address] [place] [address] [facility] [address] [place] [address] Surgeon Vascular Surgery 11/06/24 [facility], oxygen equipment aideBrick Setter 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
--- OUTSIDE RECORDS SUMMARY | 2024-12-26 12:49 | XMS_ITS | Encounter Summary ---
Author Organization [facility] Facility Care Team Providers Care Electrical Contractor Name Role Phone Angelita Blanco MD Primary Care Provider [phone] Samantha Lyons RN Unavailable [phone] Nimisha Bradford RN Unavailable [phone] Benjy Perez MD Unavailable +[phone] Benjy Perez MD Primary Care Provider +[phone] Angelita Blanco MD Primary Care Provider +[phone] Johnny Goldberg MD Primary Care Provider [phone] Angelita Blanco MD Primary Care Provider +[phone] Rosey Reyes MD Primary Care Provider +[phone] Benjy Perez MD Primary Care Provider +[phone] Benjy Perez MD Primary Care Provider +[phone] Rosey Reyes MD Primary Care Provider +[phone] Vivienne Morataya MD Primary Care Provider [phone] Vivienne Morataya MD Primary Care Provider [phone] Benjy Perez MD Primary Care Provider +[phone] Rosey Reyes MD Primary Care Provider +[phone] Benjy Perez MD Primary Care Provider [phone] Arley Rousseau MD Primary Care Provider +[phone] Benjy Perez MD Primary Care Provider +[phone] Arley Rousseau MD Primary Care Provider [phone] Benjy Perez MD Primary Care Provider +[phone] Arley Rousseau MD Primary Care Provider + Yajaira Ritter RN Unavailable +[phone] Kai Callejas MD Unavailable + [phone] [facility] RN Unavailable Unavaila ble Encounter Details Date Type Department Care Team (Latest Contact Info) Description 06/24/2017 Orders Only MMG CLINCONV Provider, MD Eileen [address] [place] [address] Social History Tobacco Use Types Packs/Day Years Used Date Smoking Tobacco: Never Comments Unknown Sex and Gender Information Value Date Recorded Sex Assigned at Not on file Legal Sex Female 7:39 AM HARPOON ENGAGEMENT PLANNING OPERATOR Gender Identity Female 05/15/2018 8:32 AM HARPOON ENGAGEMENT PLANNING OPERATOR Sexual Orientation Not on file documented as of this encounter Plan of Treatment Upcoming Encounters Date Type Department Care Team (Latest Contact Info) Description 01/01/2025 Research Med Pick-Up/CTRU Criminal Justice Social Worker [facility] Clinical Trial 1 [place] [address] Stu Guan RC Research study patient (Primary Dx) documented as of this encounter Procedures Procedure Name Priority Date/Time Associated Diagnosis Comments SCAN - LABS 06/27/2017 12:00 AM HARPOON ENGAGEMENT PLANNING OPERATOR documented in this encounter Results * SCAN - LABS (06/27/2017 12:00 AM HARPOON ENGAGEMENT PLANNING OPERATOR) Narrative 06/27/2017 12:00 AM HARPOON ENGAGEMENT PLANNING OPERATOR Ordered by an unspecified provider. Historical Provider Final Res ult documented in this encounter Visit Diagnoses Not on filedocumented in this encounter Additional Health Concerns Infection Onset Date Last Indicated Resolved Time COVID: Suspected 03/12/2023 03/12/2023 03/12/2023 3:55 PM HARPOON ENGAGEMENT PLANNING OPERATOR COVID: Suspected 05/21/2024 05/21/2024 05/21/2024 7:13 AM HARPOON ENGAGEMENT PLANNING OPERATOR documented as of this encounter Care Teams Electrical Contractor Relationship Specialty Start Date End Date Angelita Blanco MD [address] [facility] 103 [place] [address] PCP - General 08/18/16 05/25/18 Benjy Perez MD [address] [place] [address] PCP - General 05/26/18 05/29/18 Angelita Blanco MD [address] [facility] [address] [place] [address] PCP - General 05/30/18 09/11/18 Johnny Goldberg MD [address] [id number] PCP - General 09/12/18 09/25/18 Angelita Blanco MD [address] [facility] [address] [place] [address] PCP - General 09/26/18 11/14/18 Rosey Reyes MD [address] [address] PCP - General 11/15/18 01/11/19 Benjy Perez MD [address] [place] [address] PCP - General 02/08/19 02/08/19 Benjy Perez MD [address] [place] [address] PCP - General 01/12/19 02/07/19 Rosey Reyes MD [address] [facility] 200 [place] [address] PCP - General 06/20/19 09/30/19 Vivienne Morataya MD [address] [address] PCP - General 10/01/19 10/11/19 Vivienne Morataya MD [address] [address] PCP - General 02/09/19 06/19/19 Benjy Perez MD [address] [facility] [address]01 [place] [address] PCP - General 10/12/19 06/25/20 Rosey Reyes MD [address] [address] PCP - General 06/26/20 08/19/20 Benjy Perez MD [address] [facility] [address] [place] [address] PCP - General 08/20/20 08/25/20 Arley Rousseau MD [address] [facility] 200 [place] [address] PCP - General Sports Medicine 08/26/20 08/28/20 Benjy Perez MD [address] [address] PCP - General 08/29/20 04/27/21 Arley Rousseau MD [address] [address] PCP - General Sports Medicine 04/28/21 08/25/21 Benjy Perez MD [address] [address] PCP - General Nephrology 08/26/21 03/16/22 Arley Rousseau MD [address] [place] [address] PCP - General Sports Medicine 03/17/22 Samantha Lyons RN [address] [address] Fancy Packer 09/27/17 Nimisha Bradford RN [address] [address] Fancy Packer 10/03/17 5 Benjy Perez MD [address] [address] Referring Physician Nephrology 05/15/18 Yajaira Ritter RN 4590 [place] [address] Nurse Navigator 04/27/22 06/03/22 Kai Callejas MD 4600 [facility] [address]120 [facility] [address]120 [place] [address] Surgeon Vascular Surgery 11/06/24 [facility], director postFancy Packer 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
--- OUTSIDE RECORDS SUMMARY | 2024-12-26 12:49 | XMS_ITS | Encounter Summary ---
Author Organization [facility] Facility Care Team Providers Care Food Sampler Name Role Phone Angelita Blanco MD Primary Care Provider [phone] Samantha Lyons RN Unavailable [phone] Nimisha Bradford RN Unavailable +[phone] Benjy Perez MD Unavailable +[phone] Benjy Perez MD Primary Care Provider [phone] Angelita Blanco MD Primary Care Provider +[phone] Johnny Goldberg MD Primary Care Provider [phone] Angelita Blanco MD Primary Care Provider +[phone] Rosey Reyes MD Primary Care Provider +[phone] Benjy Perez MD Primary Care Provider +[phone] Benjy Perez MD Primary Care Provider +[phone] Rosey Reyes MD Primary Care Provider +[phone] Vivienne Morataya MD Primary Care Provider [phone] Vivienne Morataya MD Primary Care Provider [phone] Benjy Perez MD Primary Care Provider +[phone] Rosey Reyes MD Primary Care Provider +[phone] Benjy Perez MD Primary Care Provider +[phone] Arley Rousseau MD Primary Care Provider +[phone] Benjy Perez MD Primary Care Provider +[phone] Arley Rousseau MD Primary Care Provider +[phone] Benjy Perez MD Primary Care Provider +[phone] Arley Rousseau MD Primary Care Provider + Yajaira Ritter RN Unavailable +[phone] Kai Callejas MD Unavailable + [facility] RN Unavailable Unavaila ble Encounter Details Date Type Department Care Team (Latest Contact Info) Description 05/08/2018 Orders Only MMG CLINCONV Provider, MD Eileen [address] [place] [address] Social History Tobacco Use Types Packs/Day Years Used Date Smoking Tobacco: Never Comments Unknown Sex and Gender Information Value Date Recorded Sex Assigned at Not on file Legal Sex Female 7:39 AM BUSINESS PRACTICES SUPERVISOR Gender Identity Female 05/15/2018 8:32 AM BUSINESS PRACTICES SUPERVISOR Sexual Orientation Not on file documented as of this encounter Plan of Treatment Upcoming Encounters Date Type Department Care Team (Latest Contact Info) Description 01/01/2025 Research Med Pick-Up/CTRU Skiff Operator [facility] Clinical Trial 1 [place] [address] Stu Guan RC Research study patient (Primary Dx) documented as of this encounter Procedures Procedure Name Priority Date/Time Associated Diagnosis Comments SCAN - LABS 05/08/2018 12:00 AM BUSINESS PRACTICES SUPERVISOR documented in this encounter Results * SCAN - LABS (05/08/2018 12:00 AM BUSINESS PRACTICES SUPERVISOR) Narrative 05/08/2018 12:00 AM BUSINESS PRACTICES SUPERVISOR Ordered by an unspecified provider. Historical Provider Final Res ult documented in this encounter Visit Diagnoses Not on filedocumented in this encounter Additional Health Concerns Infection Onset Date Last Indicated Resolved Time COVID: Suspected 03/12/2023 03/12/2023 03/12/2023 3:55 PM BUSINESS PRACTICES SUPERVISOR COVID: Suspected 05/21/2024 05/21/2024 05/21/2024 7:13 AM BUSINESS PRACTICES SUPERVISOR documented as of this encounter Care Teams Food Sampler Relationship Specialty Start Date End Date Angelita Blanco MD [address] [facility] 103 [place] [address] PCP - General 08/18/16 05/25/18 Benjy Perez MD [address] [place] [address] PCP - General 05/26/18 05/29/18 Angelita Blanco MD [address] [facility] [address] [place] [address] PCP - General 05/30/18 09/11/18 Johnny Goldberg MD [address] [id number] PCP - General 09/12/18 09/25/18 Angelita Blanco MD [address] [facility] [address] [place] [address] PCP - General 09/26/18 11/14/18 Rosey Reyes MD [address] [address] PCP - General 11/15/18 01/11/19 Benjy Perez MD [address] [place] [address] PCP - General 02/08/19 02/08/19 Benjy Perez MD [address] [place] [address] PCP - General 01/12/19 02/07/19 Rosey Reyes MD [address] [facility] 200 [place] [address] PCP - General 06/20/19 09/30/19 Vivienne Morataya MD [address] [address] PCP - General 10/01/19 10/11/19 Vivienne Morataya MD [address] [address] PCP - General 02/09/19 06/19/19 Benjy Perez MD [address] [facility] 3401 [place] [address] PCP - General 10/12/19 06/25/20 Rosey Reyes MD [address] [address] PCP - General 06/26/20 08/19/20 Benjy Perez MD [address] [facility] [address] [place] [address] PCP - General 08/20/20 08/25/20 Arley Rousseau MD [address] [facility] 200 [place] [address] PCP - General Sports Medicine 08/26/20 08/28/20 Benjy Perez MD [address] [address] PCP - General 08/29/20 04/27/21 Arley Rousseau MD [address] [address] PCP - General Sports Medicine 04/28/21 08/25/21 Benjy Perez MD [address] [address] PCP - General Nephrology 08/26/21 03/16/22 Arley Rousseau MD [address] [place] [address] PCP - General Sports Medicine 03/17/22 Samantha Lyons RN [address] [address] Field Nurse 09/27/17 Nimisha Bradford RN [address] [address] Field Nurse 10/03/17 5 Benjy Perez MD [address] [address] Referring Physician Nephrology 05/15/18 Yajaira Ritter RN 4590 [place] [address] Nurse Navigator 04/27/22 06/03/22 Kai Callejas MD 4600 [facility] [address]120 [facility] [address]120 [place] [address] Surgeon Vascular Surgery 11/06/24 [facility], blogs managerField Nurse 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
--- OUTSIDE RECORDS SUMMARY | 2024-12-26 12:49 | XMS_ITS | Encounter Summary ---
Author Organization [facility] Care Team Providers Care B2B Sales Professional Name Role Phone Angelita Blanco MD Primary Care Provider [phone] Samantha Lyons RN Unavailable +[phone] Nimisha Bradford RN Unavailable +[phone] Benjy Perez MD Unavailable +[phone] Benjy Perez MD Primary Care Provider +[phone] Angelita Blanco MD Primary Care Provider +[phone] Johnny Goldberg MD Primary Care Provider [phone] Angelita Blanco MD Primary Care Provider +[phone] Rosey Reyes MD Primary Care Provider +[phone] Benjy Perez MD Primary Care Provider +[phone] Benjy Perez MD Primary Care Provider +[phone] Rosey Reyes MD Primary Care Provider +[phone] Vivienne Morataya MD Primary Care Provider [phone] Vivienne Morataya MD Primary Care Provider [phone] Benjy Perez MD Primary Care Provider +[phone] Rosey Reyes MD Primary Care Provider +[phone] Benjy Perez MD Primary Care Provider +[phone] Arley Rousseau MD Primary Care Provider +[phone] Benjy Perez MD Primary Care Provider +[phone] Arley Rousseau MD Primary Care Provider +[phone] Benjy Perez MD Primary Care Provider +[phone] Arley Rousseau MD Primary Care Provider + Yajaira Ritter RN Unavailable +[phone] Kai Callejas MD Unavailable + 2 [facility] RN Unavailable Unavaila ble Encounter Details Date Type Department Care Team (Latest Contact Info) Description 12/29/2016 Orders Only MMG CLINCONV Provider, MD Eileen [address] [place] [address] Social History Tobacco Use Types Packs/Day Years Used Date Smoking Tobacco: Never Comments Unknown Sex and Gender Information Value Date Recorded Sex Assigned at Not on file Legal Sex Female 7:39 AM LIFE INSURANCE ACTUARY Gender Identity Female 05/15/2018 8:32 AM LIFE INSURANCE ACTUARY Sexual Orientation Not on file documented as of this encounter Plan of Treatment Upcoming Encounters Date Type Department Care Team (Latest Contact Info) Description 01/01/2025 Research Med Pick-Up/CTRU Licensed Land Surveyor [facility] Clinical Trial 1 [place] [address] Stu Guan RC Research study patient (Primary Dx) documented as of this encounter Procedures Procedure Name Priority Date/Time Associated Diagnosis Comments SCAN - LABS 01/06/2017 12:00 AM CDT documented in this encounter Results * SCAN - LABS (01/06/2017 12:00 AM CDT) Narrative 01/06/2017 12:00 AM CDT Ordered by an unspecified provider. us Historical Provider Final Res ult documented in this encounter Visit Diagnoses Not on filedocumented in this encounter Additional Health Concerns Infection Onset Date Last Indicated Resolved Time COVID: Suspected 03/12/2023 03/12/2023 03/12/2023 3:55 PM LIFE INSURANCE ACTUARY COVID: Suspected 05/21/2024 05/21/2024 05/21/2024 7:13 AM LIFE INSURANCE ACTUARY documented as of this encounter Care Teams B2B Sales Professional Relationship Specialty Start Date End Date Angelita Blanco MD [address] [facility] 103 [place] [address] PCP - General 08/18/16 05/25/18 Benjy Perez MD [address] [place] [address] PCP - General 05/26/18 05/29/18 Angelita Blanco MD [address] [facility] [address] [place] [address] PCP - General 05/30/18 09/11/18 Johnny Goldberg MD [address] [id number] PCP - General 09/12/18 09/25/18 Angelita Blanco MD [address] [facility] 103 [place] [address] PCP - General 09/26/18 11/14/18 Rosey Reyes MD [address] [facility] 200 [place] [address] PCP - General 11/15/18 01/11/19 Benjy Perez MD [address] [place] [address] PCP - General 02/08/19 02/08/19 Benjy Perez MD [address] [facility] [address] [place] [address] PCP - General 01/12/19 02/07/19 Rosey Reyes MD [address] [facility] 200 [place] [address] PCP - General 06/20/19 09/30/19 Vivienne Morataya MD [address] [address] PCP - General 10/01/19 10/11/19 Vivienne Morataya MD [address] [address] PCP - General 02/09/19 06/19/19 Benjy Perez MD [address] [facility] [address] [place] [address] PCP - General 10/12/19 06/25/20 Rosey Reyes MD [address] [address] PCP - General 06/26/20 08/19/20 Benjy Perez MD [address] [facility] [address] [place] [address] PCP - General 08/20/20 08/25/20 Arley Rousseau MD [address] [facility] 200 [place] [address] PCP - General Sports Medicine 08/26/20 08/28/20 Benjy Perez MD [address] [address] PCP - General 08/29/20 04/27/21 Arley Rousseau MD [address] [address] PCP - General Sports Medicine 04/28/21 08/25/21 Benjy Perez MD [address] [address] PCP - General Nephrology 08/26/21 03/16/22 Arley Rousseau MD [address] [place] [address] PCP - General Sports Medicine 03/17/22 Samantha Lyons RN [address] [address] Large Engine Assembler 09/27/17 Nimisha Bradford RN [address] [address] Large Engine Assembler 10/03/17 5 Benjy Perez MD [address] [address] Referring Physician Nephrology 05/15/18 Yajaira Ritter, RN 4590 [place] [address] Nurse Navigator 04/27/22 06/03/22 Kai Callejas MD [address] [facility] [address] [facility] [address] [place] [address] Surgeon Vascular Surgery 11/06/24 [facility], electricianLarge Engine Assembler 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
--- OUTSIDE RECORDS SUMMARY | 2024-12-26 12:49 | XMS_ITS | Encounter Summary ---
Author Organization [facility] Facility Care Team Providers Care Certified Orthotist Name Role Phone Angelita Blanco MD Primary Care Provider [phone] Samantha Lyons RN Unavailable +[phone] Nimisha Bradford RN Unavailable +[phone] Benjy Perez MD Unavailable +[phone] Benjy Perez MD Primary Care Provider +[phone] Angelita Blanco MD Primary Care Provider +[phone] Johnny Goldberg MD Primary Care Provider [phone] Angelita Blanco MD Primary Care Provider +[phone] Rosey Reyes MD Primary Care Provider +[phone] Benjy Perez MD Primary Care Provider +[phone] Benjy Perez MD Primary Care Provider +[phone] Rosey Reyes MD Primary Care Provider +[phone] Vivienne Morataya MD Primary Care Provider [phone] Vivienne Morataya MD Primary Care Provider +[phone] Benjy Perez MD Primary Care Provider +[phone] Rosey Reyes MD Primary Care Provider +[phone] Benjy Perez MD Primary Care Provider +[phone] Arley Rousseau MD Primary Care Provider +[phone] Benjy Perez MD Primary Care Provider [phone] Arley Rousseau MD Primary Care Provider +[phone] Benjy Perez MD Primary Care Provider +[phone] Arley Rousseau MD Primary Care Provider + Yajaira Ritter RN Unavailable +[phone] Kai Callejas MD Unavailable + 2 [facility] RN Unavailable Unavaila ble Encounter Details Date Type Department Care Team (Latest Contact Info) Description 11/26/2016 Orders Only MMG CLINCONV Provider, MD Eileen [address] [place] [address] Social History Tobacco Use Types Packs/Day Years Used Date Smoking Tobacco: Never Comments Unknown Sex and Gender Information Value Date Recorded Sex Assigned at Not on file Legal Sex Female 7:39 AM CONE MARKER Gender Identity Female 05/15/2018 8:32 AM CONE MARKER Sexual Orientation Not on file documented as of this encounter Plan of Treatment Upcoming Encounters Date Type Department Care Team (Latest Contact Info) Description 01/01/2025 Research Med Pick-Up/CTRU Branding Machine Tender [facility] Clinical Trial 1 [place] [address] Stu Guan RC Research study patient (Primary Dx) documented as of this encounter Procedures Procedure Name Priority Date/Time Associated Diagnosis Comments SCAN - LABS 11/30/2016 12:00 AM CDT documented in this encounter Results * SCAN - LABS (11/30/2016 12:00 AM CDT) Narrative 11/30/2016 12:00 AM CDT Ordered by an unspecified provider. us Historical Provider Final Res ult documented in this encounter Visit Diagnoses Not on filedocumented in this encounter Additional Health Concerns Infection Onset Date Last Indicated Resolved Time COVID: Suspected 03/12/2023 03/12/2023 03/12/2023 3:55 PM CONE MARKER COVID: Suspected 05/21/2024 05/21/2024 05/21/2024 7:13 AM CONE MARKER documented as of this encounter Care Teams Certified Orthotist Relationship Specialty Start Date End Date Angelita Blanco MD [address] [facility] [address] [place] [address] PCP - General 08/18/16 05/25/18 Benjy Perez MD [address] [place] [address] PCP - General 05/26/18 05/29/18 Angelita Blanco MD [address] [facility] [address] [place] [address] PCP - General 05/30/18 09/11/18 Johnny Goldberg MD [address] [id number] PCP - General 09/12/18 09/25/18 Angelita Blanco MD [address] [facility] 103 [place] [address] PCP - General 09/26/18 11/14/18 Rosey Reyes MD [address] [facility] 200 [place] [address] PCP - General 11/15/18 01/11/19 Benjy Perez MD [address] [place] [address] PCP - General 02/08/19 02/08/19 Benjy Perez MD [address] [facility] [address] [place] [address] PCP - General 01/12/19 02/07/19 Rosey Reyes MD [address] [facility] 200 [place] [address] PCP - General 06/20/19 09/30/19 Vivienne Morataya MD [address] [address] PCP - General 10/01/19 10/11/19 Vivienne Morataya MD [address] [address] PCP - General 02/09/19 06/19/19 Benjy Perez MD [address] [facility] [address] [place] [address] PCP - General 10/12/19 06/25/20 Rosey Reyes MD [address] [address] PCP - General 06/26/20 08/19/20 Benjy Perez MD [address] [facility] [address] [place] [address] PCP - General 08/20/20 08/25/20 Arley Rousseau MD [address] [facility] 200 [place] [address] PCP - General Sports Medicine 08/26/20 08/28/20 Benjy Perez MD [address] [address] PCP - General 08/29/20 04/27/21 Arley Rousseau MD [address] [address] PCP - General Sports Medicine 04/28/21 08/25/21 Benjy Perez MD [address] [address] PCP - General Nephrology 08/26/21 03/16/22 Arley Rousseau MD [address] [place] [address] PCP - General Sports Medicine 03/17/22 Samantha Lyons RN [address] [address] Cell Reliner 09/27/17 Nimisha Bradford RN [address] [address] Cell Reliner 10/03/17 5 Benjy Perez MD [address] [address] Referring Physician Nephrology 05/15/18 Yajaira Ritter, RN [address] [place] [address] Nurse Navigator 04/27/22 06/03/22 Kai Callejas MD [address] [facility] [address]120 [facility] [address] [place] [address] Surgeon Vascular Surgery 11/06/24 [facility], hand packer/packagerCell Reliner 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
--- OUTSIDE RECORDS SUMMARY | 2024-12-26 12:49 | XMS_ITS | Encounter Summary ---
Author Organization [facility] Facility Care Team Providers Care Acoustic Warfare Analyst Name Role Phone Angelita Blanco MD Primary Care Provider [phone] Samantha Lyons RN Unavailable [phone] Nimisha Bradford RN Unavailable [phone] Benjy Perez MD Unavailable +[phone] Benjy Perez MD Primary Care Provider +[phone] Angelita Blanco MD Primary Care Provider +[phone] Johnny Goldberg MD Primary Care Provider [phone] Angelita Blanco MD Primary Care Provider +[phone] Rosey Reyes MD Primary Care Provider +[phone] Benjy Perez MD Primary Care Provider +[phone] Benjy Perez MD Primary Care Provider +[phone] Rosey Reyes MD Primary Care Provider +[phone] Vivienne Morataya MD Primary Care Provider [phone] Vivienne Morataya MD Primary Care Provider [phone] Benjy Perez MD Primary Care Provider +[phone] Rosey Reyes MD Primary Care Provider +[phone] Benjy Perez MD Primary Care Provider +[phone] Arley Rousseau MD Primary Care Provider +[phone] Benjy Perez MD Primary Care Provider +[phone] Arley Rousseau MD Primary Care Provider +[phone] Benjy Perez MD Primary Care Provider +[phone] Arley Rousseau MD Primary Care Provider + Yajaira Ritter RN Unavailable +[phone] Kai Callejas MD Unavailable + 2 [facility] RN Unavailable Unavaila ble Encounter Details Date Type Department Care Team (Latest Contact Info) Description 10/27/2016 Orders Only MMG CLINCONV Provider, MD Eileen [address] [place] [address] Social History Tobacco Use Types Packs/Day Years Used Date Smoking Tobacco: Never Comments Unknown Sex and Gender Information Value Date Recorded Sex Assigned at Not on file Legal Sex Female 7:39 AM CUSTOMER RELATIONS REPRESENTATIVE Gender Identity Female 05/15/2018 8:32 AM CUSTOMER RELATIONS REPRESENTATIVE Sexual Orientation Not on file documented as of this encounter Plan of Treatment Upcoming Encounters Date Type Department Care Team (Latest Contact Info) Description 01/01/2025 Research Med Pick-Up/CTRU Hide Paster [facility] Clinical Trial 1 [place] [address] Stu Guan RC Research study patient (Primary [...] COVID: Suspected 03/12/2023 03/12/2023 03/12/2023 3:55 PM CUSTOMER RELATIONS REPRESENTATIVE COVID: Suspected 05/21/2024 05/21/2024 05/21/2024 7:13 AM CUSTOMER RELATIONS REPRESENTATIVE documented as of this encounter Care Teams Acoustic Warfare Analyst Relationship Specialty Start Date End Date Angelita Blanco MD [address] [facility] [address] [place] [address] PCP - General 08/18/16 05/25/18 Benjy Perez MD [address] [place] [address] PCP - General 05/26/18 05/29/18 Angelita Blanco MD [address] [facility] [address] [place] [address] PCP - General 05/30/18 09/11/18 Johnny Goldberg MD [address] [id number] PCP - General 09/12/18 09/25/18 Angelita Blanco MD [address] [facility] [address] [place] [address] PCP - General 09/26/18 11/14/18 Rosey Reyes MD [address] [facility] 200 [place] [address] PCP - General 11/15/18 01/11/19 Benjy Perez MD [address] [place] [address] PCP - General 02/08/19 02/08/19 Benjy Perez MD [address] [facility] [address] [place] [address] PCP - General 01/12/19 02/07/19 Rosey Reyes MD [address] [facility] [address] [place] [address] PCP - General 06/20/19 09/30/19 Vivienne Morataya MD [address] [address] PCP - General 10/01/19 10/11/19 Vivienne Mroataya MD [address] [address] PCP - General 02/09/19 06/19/19 Benjy Perez MD [address] [facility] [address] [place] [address] PCP - General 10/12/19 06/25/20 Rosey Reyes MD [address] [address] PCP - General 06/26/20 08/19/20 Benjy Perez MD [address] [facility] [address] [place] [address] PCP - General 08/20/20 08/25/20 Arley Rousseau MD [address] [facility] 200 [place] [address] PCP - General Sports Medicine 08/26/20 08/28/20 Benjy Perez MD [address] [address] PCP - General 08/29/20 04/27/21 Arley Rousseau MD [address] [address] PCP - General Sports Medicine 04/28/21 08/25/21 Benjy Perez MD [address] [address] PCP - General Nephrology 08/26/21 03/16/22 Arley Rousseau MD [address] [place] [address] PCP - General Sports Medicine 03/17/22 Samantha Lyons RN [address] [address] Compound Worker 09/27/17 Nimisha Bradford RN [address] [address] Compound Worker 10/03/17 5 Benjy Perez MD [address] [address] Referring Physician Nephrology 05/15/18 Yajaira Ritter, RN [address]90 [place] [address] Nurse Navigator 04/27/22 06/03/22 Kai Callejas MD [address] [facility] [address] [facility] [address]120 [place] [address] Surgeon Vascular Surgery 11/06/24 [facility], insurance checkerCompound Worker 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
--- OUTSIDE RECORDS SUMMARY | 2024-12-26 12:49 | XMS_ITS | Encounter Summary ---
Author Organization [facility] Facility Care Team Providers Care Dip Brazier Name Role Phone Angelita Blanco MD Primary Care Provider [phone] Samantha Lyons RN Unavailable +[phone] Nimisha Bradford RN Unavailable +[phone] Benjy Perez MD Unavailable +[phone] Benjy Perez MD Primary Care Provider [phone] Angelita Blanco MD Primary Care Provider +[phone] Johnny Goldberg MD Primary Care Provider [phone] Angelita Blanco MD Primary Care Provider +[phone] Rosey Reyes MD Primary Care Provider +[phone] Benjy Perez MD Primary Care Provider +[phone] Benjy Perez MD Primary Care Provider +[phone] Rosey Reyes MD Primary Care Provider +[phone] Vivienne Morataya MD Primary Care Provider [phone] Vivienne Morataya MD Primary Care Provider [phone] Benjy Perez MD Primary Care Provider +[phone] Rosey Reyes MD Primary Care Provider +[phone] Benjy Perez MD Primary Care Provider +[phone] Arley Rousseau MD Primary Care Provider +[phone] Benjy Perez MD Primary Care Provider +[phone] Arley Rousseau MD Primary Care Provider +[phone] Benjy Perez MD Primary Care Provider +[phone] Arley Rousseau MD Primary Care Provider + Yajaira Ritter RN Unavailable +[phone] Kai Callejas MD Unavailable + 2 [facility] RN Unavailable Unavaila ble Encounter Details Date Type Department Care Team (Latest Contact Info) Description 01/27/2017 Orders Only MMG CLINCONV Provider, MD Eileen [address] [place] [address] Social History Tobacco Use Types Packs/Day Years Used Date Smoking Tobacco: Never Comments Unknown Sex and Gender Information Value Date Recorded Sex Assigned at Not on file Legal Sex Female 7:39 AM JOB PLACEMENT SPECIALIST Gender Identity Female 05/15/2018 8:32 AM JOB PLACEMENT SPECIALIST Sexual Orientation Not on file documented as of this encounter Plan of Treatment Upcoming Encounters Date Type Department Care Team (Latest Contact Info) Description 01/01/2025 Research Med Pick-Up/CTRU Dumping Machine Operator [facility] Clinical Trial 1 [place] [address] Stu Guan RC Research study patient (Primary Dx) documented as of this encounter Procedures Procedure Name Priority Date/Time Associated Diagnosis Comments SCAN - LABS 01/31/2017 12:00 AM CDT SCAN - LABS 01/31/2017 12:00 AM CDT documented in this encounter Results * SCAN - LABS (01/31/2017 12:00 AM CDT) Narrative 01/31/2017 12:00 AM CDT Ordered by an unspecified provider. us Historical Provider Final Res ult * SCAN - LABS (01/31/2017 12:00 AM CDT) Narrative 01/31/2017 12:00 AM CDT Ordered by an unspecified provider. Historical Provider Final Res ult documented in this encounter Visit Diagnoses Not on filedocumented in this encounter Additional Health Concerns Infection Onset Date Last Indicated Resolved Time COVID: Suspected 03/12/2023 03/12/2023 03/12/2023 3:55 PM JOB PLACEMENT SPECIALIST COVID: Suspected 05/21/2024 05/21/2024 05/21/2024 7:13 AM JOB PLACEMENT SPECIALIST documented as of this encounter Care Teams Dip Brazier Relationship Specialty Start Date End Date Angelita Blanco MD [address] [address] PCP - General 08/18/16 05/25/18 Benjy Perez MD [address] [address] PCP - General 05/26/18 05/29/18 Angelita Blanco MD [address] [address] PCP - General 05/30/18 09/11/18 Johnny Goldberg MD [address] [address] PCP - General 09/12/18 09/25/18 Angelita Blanco MD [address] [address] PCP - General 09/26/18 11/14/18 Rosey Reyes MD [address] [address] PCP - General 11/15/18 01/11/19 Benjy Perez MD 4590 [facility] [address] [place] [address] PCP - General 02/08/19 02/08/19 Benjy Perez MD [address] [address] PCP - General 01/12/19 02/07/19 Rosey Reyes MD [address] [place] [address] 200 [place] [address] PCP - General 06/20/19 09/30/19 Vivienne Morataya MD [address] [address] PCP - General 10/01/19 10/11/19 Vivienne Morataya MD [address] [address] PCP - General 02/09/19 06/19/19 Benjy Perez MD [address] [address] PCP - General 10/12/19 06/25/20 Rosey Reyes MD [address] [address] PCP - General 06/26/20 08/19/20 Benjy Perez MD [address] [place] [address] PCP - General 08/20/20 08/25/20 Arley Rousseau MD [address] [facility] [address] [place] [address] PCP - General Sports Medicine 08/26/20 08/28/20 Benjy Perez MD [address] [facility] [address] [place] [address] PCP - General 08/29/20 04/27/21 Arley Rousseau MD [address] [facility] [address] [place] [address] PCP - General Sports Medicine 04/28/21 08/25/21 Benjy Perez MD [address] [facility] [address] [place] [address] PCP - General Nephrology 08/26/21 03/16/22 Arley Rousseau MD [address] [place] [address] PCP - General Sports Medicine 03/17/22 Samantha Lyons RN [address] [facility] [address] [place] [address] Tobacco Packing Machine Operator 09/27/17 Nimisha Bradford RN [address] [facility] [address] [place] [address] Tobacco Packing Machine Operator 10/03/17 5 Benjy Perez MD [address] [facility] [address] [place] [address] Referring Physician Nephrology 05/15/18 Yajaira Ritter, RN [address]90 [place] [address] Nurse Navigator 04/27/22 06/03/22 Kai Callejas MD [address] [facility] [address] [place] [address] [place] [address] Surgeon Vascular Surgery 11/06/24 [facility], healthcare marketerTobacco Packing Machine Operator 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
--- OUTSIDE RECORDS SUMMARY | 2024-12-26 12:49 | XMS_ITS | Encounter Summary ---
Author Organization [facility] Facility Care Team Providers Care Retirement Administrator Name Role Phone Angelita Blanco MD Primary Care Provider +[phone] Samantha Lyons RN Unavailable +[phone] Nimisha Bradford RN Unavailable +[phone] Benjy Perez MD Unavailable +[phone] Benjy Perez MD Primary Care Provider +[phone] Angelita Blanco MD Primary Care Provider +[phone] Johnny Goldberg MD Primary Care Provider [phone] Angelita Blanco MD Primary Care Provider +[phone] Rosey Reyes MD Primary Care Provider +[phone] Benjy Perez MD Primary Care Provider +[phone] Benjy Perez MD Primary Care Provider +[phone] Rosey Reyes MD Primary Care Provider +[phone] Vivienne Morataya MD Primary Care Provider [phone] Vivienne Morataya MD Primary Care Provider +[phone] Benjy Perez MD Primary Care Provider +[phone] Rosey Reyes MD Primary Care Provider +[phone] Benjy Perez MD Primary Care Provider +[phone] Arley Rousseau MD Primary Care Provider +[phone] Benjy Perez MD Primary Care Provider +[phone] Arley Rousseau MD Primary Care Provider +[phone] Benjy Perez MD Primary Care Provider +[phone] Arley Rousseau MD Primary Care Provider + Yajaira Ritter RN Unavailable +[phone] Kai Callejas MD Unavailable + [phone] [facility] RN Unavailable Unavaila ble Encounter Details Date Type Department Care Team (Latest Contact Info) Description 07/22/2017 Orders Only [facility] CLINCONV Provider, MD Eileen [address] [place] [address] Social History Tobacco Use Types Packs/Day Years Used Date Smoking Tobacco: Never Comments Unknown Sex and Gender Information Value Date Recorded Sex Assigned at Not on file Legal Sex Female 7:39 AM LAW ENFORCEMENT DIRECTOR Gender Identity Female 05/15/2018 8:32 AM LAW ENFORCEMENT DIRECTOR Sexual Orientation Not on file documented as of this encounter Plan of Treatment Upcoming Encounters Date Type Department Care Team (Latest Contact Info) Description 01/01/2025 Research Med Pick-Up/CTRU Marine Engineer [facility] Clinical Trial 1 [place] [address] Stu Guan RC Research study patient (Primary Dx) documented as of this encounter Procedures Procedure Name Priority Date/Time Associated Diagnosis Comments SCAN - LABS 07/25/2017 12:00 AM CDT documented in this encounter Results * SCAN - LABS (07/25/2017 12:00 AM CDT) Narrative 07/25/2017 12:00 AM CDT Ordered by an unspecified provider. us Historical Provider Final Res ult documented in this encounter Visit Diagnoses Not on filedocumented in this encounter Additional Health Concerns Infection Onset Date Last Indicated Resolved Time COVID: Suspected 03/12/2023 03/12/2023 03/12/2023 3:55 PM LAW ENFORCEMENT DIRECTOR COVID: Suspected 05/21/2024 05/21/2024 05/21/2024 7:13 AM LAW ENFORCEMENT DIRECTOR documented as of this encounter Care Teams Retirement Administrator Relationship Specialty Start Date End Date Angelita Blanco MD [address] [facility] 103 [place] [address] PCP - General 08/18/16 05/25/18 Benjy Perez MD [address] [place] [address] PCP - General 05/26/18 05/29/18 Angelita Blanco MD [address] [facility] [address] [place] [address] PCP - General 05/30/18 09/11/18 Johnny Goldberg MD [address] [id number] PCP - General 09/12/18 09/25/18 Angelita Blanco MD [address] [facility] 103 [place] [address] PCP - General 09/26/18 11/14/18 Rosey Reyes MD [address] [facility] 200 [place] [address] PCP - General 11/15/18 01/11/19 Benjy Perez MD [address] [place] [address] PCP - General 02/08/19 02/08/19 Benjy Perez MD [address] [facility] [address] [place] [address] PCP - General 01/12/19 02/07/19 Rosey Reyes MD [address] [facility] 200 [place] [address] PCP - General 06/20/19 09/30/19 Vivienne Morataya MD [address] [address] PCP - General 10/01/19 10/11/19 Vivienne Morataya MD [address] [address] PCP - General 02/09/19 06/19/19 Benyj Perez MD [address] [facility] [address] [place] [address] PCP - General 10/12/19 06/25/20 Rosey Reyes MD [address] [address] PCP - General 06/26/20 08/19/20 Benjy Perez MD [address] [facility] [address] [place] [address] PCP - General 08/20/20 08/25/20 Arley Rousseau MD [address] [facility] 200 [place] [address] PCP - General Sports Medicine 08/26/20 08/28/20 Benjy Perez MD [address] [address] PCP - General 08/29/20 04/27/21 Arley Rousseau MD [address] [address] PCP - General Sports Medicine 04/28/21 08/25/21 Benjy Perez MD [address] [address] PCP - General Nephrology 08/26/21 03/16/22 Arley Rousseau MD [address] [place] [address] PCP - General Sports Medicine 03/17/22 Samantha Lyons RN [address] [address] Violin Maker Hand 09/27/17 Nimisha Bradford RN [address] [address] Violin Maker Hand 10/03/17 5 Benjy Perez MD [address] [address] Referring Physician Nephrology 05/15/18 Yajaira Ritter, RN [address] [place] [address] Nurse Navigator 04/27/22 06/03/22 Kai Callejas MD [address] [facility] [place] [address] [facility] [address] [place] [address] Surgeon Vascular Surgery 11/06/24 [facility], raised printerViolin Maker Hand 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
--- OUTSIDE RECORDS SUMMARY | 2024-12-26 12:49 | XMS_ITS | Encounter Summary ---
Author Organization [facility] Address [address] [place] [address] Phone Care Team Providers Care Process Machine Operator Name Role Phone Angelita Blanco MD Primary Care Provider +[phone] Samantha Lyons RN Unavailable +[phone] Nimisha Bradford RN Unavailable +[phone] Benjy Perez MD Unavailable +[phone] Benjy Perez MD Primary Care Provider +[phone] Angelita Blanco MD Primary Care Provider +[phone] Johnny Goldberg MD Primary Care Provider [phone] Angelita Blanco MD Primary Care Provider +[phone] Rosey Reyes MD Primary Care Provider +[phone] Benjy Perez MD Primary Care Provider +[phone] Benjy Perez MD Primary Care Provider +[phone] Rosey Reyes MD Primary Care Provider +[phone] Vivienne Morataya MD Primary Care Provider [phone] Vivienne Morataya MD Primary Care Provider [phone] Benjy Perez MD Primary Care Provider +[phone] Rosey Reyes MD Primary Care Provider +[phone] Benjy Perez MD Primary Care Provider [phone] Arley Rousseau MD Primary Care Provider + Benjy Perez MD Primary Care Provider [phone] Arley Rousseau MD Primary Care Provider + Benjy Perez MD Primary Care Provider +[phone] Arley Rousseau MD Primary Care Provider + Yajaira Ritter RN Unavailable +[phone] Kai Callejas MD Unavailable + 2 [facility] RN Unavailable Unavaila ble Encounter Details Date Type Department Care Team (Latest Contact Info) Description 08/16/2017 Orders Only [facility] CONVERSION Scanning, Provider Social History Tobacco Use Types Packs/Day Years Used Date Smoking Tobacco: Never Comments Unknown Sex and Gender Information Value Date Recorded Sex Assigned at Not on file Legal Sex Female 7:39 AM PEOPLESOFT FSCM DEVELOPER Gender Identity Female 05/15/2018 8:32 AM PEOPLESOFT FSCM DEVELOPER Sexual Orientation Not on file documented as of this encounter Plan of Treatment Upcoming Encounters Date Type Department Care Team (Latest Contact Info) Description 01/01/2025 Research Med Pick-Up/CTRU Knitting Machine Fixer Head [facility] Clinical Trial 1 [place] [address] Stu Guan RC Research study patient (Primary Dx) documented as of this encounter Procedures Procedure Name Priority Date/Time Associated Diagnosis Comments VASCULAR LABORATORY REPORT 08/16/2017 4:15 PM CDT documented in this encounter Results * VASCULAR LABORATORY REPORT (08/16/2017 4:15 PM CDT) Anatomical Region Laterality Modality Ultrasound us Provider Scanning CV VASCULAR PROCEDURES Final R esult documented in this encounter Visit Diagnoses Not on filedocumented in this encounter Additional Health Concerns Infection Onset Date Last Indicated Resolved Time COVID: Suspected 03/12/2023 03/12/2023 03/12/2023 3:55 PM PEOPLESOFT FSCM DEVELOPER COVID: Suspected 05/21/2024 05/21/2024 05/21/2024 7:13 AM PEOPLESOFT FSCM DEVELOPER documented as of this encounter Care Teams Process Machine Operator Relationship Specialty Start Date End Date Angelita Blanco MD [address] [facility] [address] [place] [address] PCP - General 08/18/16 05/25/18 Benjy Perez MD [address] [place] [address] PCP - General 05/26/18 05/29/18 Angelita Blanco MD [address] [facility] [address] [place] [address] PCP - General 05/30/18 09/11/18 Johnny Goldberg MD [address] [id number] PCP - General 09/12/18 09/25/18 Angelita Blanco MD [address] [facility] 103 [place] [address] PCP - General 09/26/18 11/14/18 Rosey Reyes MD [address] [address] PCP - General 11/15/18 01/11/19 Benjy Perez MD [address] [place] [address] PCP - General 02/08/19 02/08/19 Benjy Perez MD [address] [facility] [address] [place] [address] PCP - General 01/12/19 02/07/19 Rosey Reyes MD [address] [facility] 200 [place] [address] PCP - General 06/20/19 09/30/19 Vivienne Morataya MD [address] [address] PCP - General 10/01/19 10/11/19 Vivienne Morataya MD [address] [address] PCP - General 02/09/19 06/19/19 Benjy Perez MD [address] [facility] [address] [place] [address] PCP - General 10/12/19 06/25/20 Rosey Reyes MD [address] [address] PCP - General 06/26/20 08/19/20 Benjy Perez MD [address] [facility] [address] [place] [address] PCP - General 08/20/20 08/25/20 Arley Rousseau MD [address] [facility] 200 [place] [address] PCP - General Sports Medicine 08/26/20 08/28/20 Benjy Perez MD [address] [address] PCP - General 08/29/20 04/27/21 [place] [address] [place] [address] PCP - General Sports Medicine 04/28/21 08/25/21 Benjy Perez MD [address] [address] PCP - General Nephrology 08/26/21 03/16/22 Arley Rousseau MD [address] [place] [address] PCP - General Sports Medicine 03/17/22 Samantha Lyons RN [address] [address] Director Software Development 09/27/17 Nimisha Bradford, ANKIT [address] [address] Director Software Development 10/03/17 Benjy Perez MD [address] [address] Referring Physician Nephrology 05/15/18 Yajaira Ritter, RN [address] [place] [address] Nurse Navigator 04/27/22 06/03/22 Kai Callejas MD [address] [facility] [address]120 [facility] [address] [place] [address] Surgeon Vascular Surgery 11/06/24 [facility], oil well service unit operatorDirector Software Development 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
--- OUTSIDE RECORDS SUMMARY | 2024-12-26 12:49 | XMS_ITS | Encounter Summary ---
Author Organization [facility] Facility Care Team Providers Care Photocopying Equipment Mechanic Name Role Phone Angelita Blanco MD Primary Care Provider +[phone] Samantha Lyons RN Unavailable +[phone] Nimisha Bradford RN Unavailable +[phone] Benjy Perez MD Unavailable +[phone] Benjy Perez MD Primary Care Provider +[phone] Angelita Blanco MD Primary Care Provider +[phone] Johnny Goldberg MD Primary Care Provider [phone] Angelita Blanco MD Primary Care Provider +[phone] Rosey Reyes MD Primary Care Provider +[phone] Benjy Perez MD Primary Care Provider +[phone] Benjy Perez MD Primary Care Provider +[phone] Rosey Reyes MD Primary Care Provider +[phone] Vivienne Morataya MD Primary Care Provider [phone] Vivienne Morataya MD Primary Care Provider +[phone] Benjy Perez MD Primary Care Provider +[phone] Rosey Reyes MD Primary Care Provider +[phone] Benjy Perez MD Primary Care Provider +[phone] Arley Rousseau MD Primary Care Provider +[phone] Benjy Perez MD Primary Care Provider +[phone] Arley Rousseau MD Primary Care Provider +[phone] Benjy Perez MD Primary Care Provider +[phone] Arley Rousseau MD Primary Care Provider + Yajaira Ritter RN Unavailable +[phone] Kai Callejas MD Unavailable + 2 [facility] RN Unavailable Unavaila ble Encounter Details Date Type Department Care Team (Latest Contact Info) Description 12/15/2016 Orders Only [facility] CLINCONV Provider, MD Eileen [address] [place] [address] Social History Tobacco Use Types Packs/Day Years Used Date Smoking Tobacco: Never Comments Unknown Sex and Gender Information Value Date Recorded Sex Assigned at Not on file Legal Sex Female 7:39 AM INFORMATION ENGINEER Gender Identity Female 05/15/2018 8:32 AM INFORMATION ENGINEER Sexual Orientation Not on file documented as of this encounter Plan of Treatment Upcoming Encounters Date Type Department Care Team (Latest Contact Info) Description 01/01/2025 Research Med Pick-Up/CTRU Earth Science Teacher [facility] Clinical Trial 1 [place] [address] Stu Guan RC Research study patient (Primary [...] COVID: Suspected 03/12/2023 03/12/2023 03/12/2023 3:55 PM INFORMATION ENGINEER COVID: Suspected 05/21/2024 05/21/2024 05/21/2024 7:13 AM INFORMATION ENGINEER documented as of this encounter Care Teams Photocopying Equipment Mechanic Relationship Specialty Start Date End Date Angelita Blanco MD [address] [facility] [address] [place] [address] PCP - General 08/18/16 05/25/18 Benjy Perez MD [address] [place] [address] PCP - General 05/26/18 05/29/18 Angelita Blanco MD [address] [facility] [address] [place] [address] PCP - General 05/30/18 09/11/18 Johnny Goldberg MD [address] [id number] PCP - General 09/12/18 09/25/18 Angelita Blanco MD [address] [facility] 103 [place] [address] PCP - General 09/26/18 11/14/18 Rosey Reyes MD [address] [facility] 200 [place] [address] PCP - General 11/15/18 01/11/19 Benjy Perez MD [address] [place] [address] PCP - General 02/08/19 02/08/19 Benjy Perez MD [address] [facility] [address] [place] [address] PCP - General 01/12/19 02/07/19 Rosey Reyes MD [address] [facility] 200 [place] [address] PCP - General 06/20/19 09/30/19 Vivienne Morataya MD [address] [address] PCP - General 10/01/19 10/11/19 Vivienne Morataya MD [address] [address] PCP - General 02/09/19 06/19/19 Benjy Perez MD [address] [facility] [address] [place] [address] PCP - General 10/12/19 06/25/20 Rosey Reyes MD [address] [address] PCP - General 06/26/20 08/19/20 Benjy Perez MD [address] [facility] [address] [place] [address] PCP - General 08/20/20 08/25/20 Arley Rousseau MD [address] [facility] 200 [place] [address] PCP - General Sports Medicine 08/26/20 08/28/20 Benjy Perez MD [address] [address] PCP - General 08/29/20 04/27/21 Arley Rousseau MD [address] [address] PCP - General Sports Medicine 04/28/21 08/25/21 eBnjy Perez MD [address] [address] PCP - General Nephrology 08/26/21 03/16/22 Arley Rousseau MD [address] [place] [address] PCP - General Sports Medicine 03/17/22 Samantha Lyons RN [address] [address] Talent Assistant 09/27/17 Nimisha Bradford RN [address] [address] Talent Assistant 10/03/17 5 Benjy Perez MD [address] [address] Referring Physician Nephrology 05/15/18 Yajaira Ritter, RN [address]90 [place] [address] Nurse Navigator 04/27/22 06/03/22 Kai Callejas MD [address] [facility] [address]120 [facility] [address]120 [place] [address] Surgeon Vascular Surgery 11/06/24 [facility], mechanical project managerTalent Assistant 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
--- OUTSIDE RECORDS SUMMARY | 2024-12-26 12:49 | XMS_ITS | Encounter Summary ---
Author Organization [facility] Facility Care Team Providers Care Fishing Gear Mechanic Name Role Phone Angelita Blanco MD Primary Care Provider [phone] Samantha Lyons RN Unavailable +[phone] Nimisha Bradford RN Unavailable [phone] Benjy Perez MD Unavailable +[phone] Benjy Perez MD Primary Care Provider +[phone] Angelita Blanco MD Primary Care Provider +[phone] Johnny Goldberg MD Primary Care Provider +[phone] Angelita Blanco MD Primary Care Provider +[phone] Rosey Reyes MD Primary Care Provider +[phone] Benjy Perez MD Primary Care Provider +[phone] Benjy Perez MD Primary Care Provider +[phone] Rosey Reyes MD Primary Care Provider +[phone] Vivienne Morataya MD Primary Care Provider [phone] Vivienne Morataya MD Primary Care Provider [phone] Benjy Perez MD Primary Care Provider +[phone] Rosey Reyes MD Primary Care Provider +[phone] Benjy Perez MD Primary Care Provider +[phone] Arley Rousseau MD Primary Care Provider +[phone] Benjy Perez MD Primary Care Provider +[phone] Arley Rousseau MD Primary Care Provider +[phone] Benjy Perez MD Primary Care Provider +[phone] Arley Rousseau MD Primary Care Provider + Yajaira Ritter RN Unavailable +[phone] Kai Callejas MD Unavailable + [facility] RN Unavailable Unavaila ble Encounter Details Date Type Department Care Team (Latest Contact Info) Description 03/08/2017 Orders Only [facility] CLINCONV Provider, MD Eileen [address] [place] [address] Social History Tobacco Use Types Packs/Day Years Used Date Smoking Tobacco: Never Comments Unknown Sex and Gender Information Value Date Recorded Sex Assigned at Not on file Legal Sex Female 7:39 AM SCREW MACHINE SETTER Gender Identity Female 05/15/2018 8:32 AM SCREW MACHINE SETTER Sexual Orientation Not on file documented as of this encounter Plan of Treatment Upcoming Encounters Date Type Department Care Team (Latest Contact Info) Description 01/01/2025 Research Med Pick-Up/CTRU Plasma Cutting Machine Operator [facility] Clinical Trial 1 [place] [address] Stu Guan RC Research study patient (Primary Dx) documented as of this encounter Procedures Procedure Name Priority Date/Time Associated Diagnosis Comments SCAN - LABS 03/08/2017 12:00 AM SCREW MACHINE SETTER documented in this encounter Results * SCAN - LABS (03/08/2017 12:00 AM SCREW MACHINE SETTER) Narrative 03/08/2017 12:00 AM SCREW MACHINE SETTER Ordered by an unspecified provider. Historical Provider Final Res ult documented in this encounter Visit Diagnoses Not on filedocumented in this encounter Additional Health Concerns Infection Onset Date Last Indicated Resolved Time COVID: Suspected 03/12/2023 03/12/2023 03/12/2023 3:55 PM SCREW MACHINE SETTER COVID: Suspected 05/21/2024 05/21/2024 05/21/2024 7:13 AM SCREW MACHINE SETTER documented as of this encounter Care Teams Fishing Gear Mechanic Relationship Specialty Start Date End Date Angelita Blanco MD [address] [facility] 103 [place] [address] PCP - General 08/18/16 05/25/18 Benjy Perez MD [address] [place] [address] PCP - General 05/26/18 05/29/18 Angelita Blanco MD [address] [facility] [address] [place] [address] PCP - General 05/30/18 09/11/18 Johnny Goldberg MD [address] [id number] PCP - General 09/12/18 09/25/18 Angelita Blanco MD [address] [facility] [address] [place] [address] PCP - General 09/26/18 11/14/18 Rosey Reyes MD [address] [address] PCP - General 11/15/18 01/11/19 Benjy Perez MD [address] [place] [address] PCP - General 02/08/19 02/08/19 Benjy Perez MD [address] [place] [address] PCP - General 01/12/19 02/07/19 Rosey Reyes MD [address] [facility] 200 [place] [address] PCP - General 06/20/19 09/30/19 Vivienne Morataya MD [address] [address] PCP - General 10/01/19 10/11/19 Vivienne Morataya MD [address] [address] PCP - General 02/09/19 06/19/19 Benjy Perez MD [address] [facility] [address] [place] [address] PCP - General 10/12/19 06/25/20 Rosey Reyes MD [address] [address] PCP - General 06/26/20 08/19/20 Benjy Perez MD [address] [facility] [address] [place] [address] PCP - General 08/20/20 08/25/20 Arley Rousseau MD [address] [facility] 200 [place] [address] PCP - General Sports Medicine 08/26/20 08/28/20 Benjy Perez MD [address] [address] PCP - General 08/29/20 04/27/21 Arley Rousseau MD [address] [address] PCP - General Sports Medicine 04/28/21 08/25/21 Benjy Perez MD [address] [address] PCP - General Nephrology 08/26/21 03/16/22 Arley Rousseau MD [address] [place] [address] PCP - General Sports Medicine 03/17/22 Samantha Lyons RN [address] [address] Live Out Nanny 09/27/17 Nimisha Bradford RN [address] [address] Live Out Nanny 10/03/17 5 Benjy Perez MD [address] [address] Referring Physician Nephrology 05/15/18 Yajaira Ritter RN [address] [place] [address] Nurse Navigator 04/27/22 06/03/22 Kai Callejas MD 4600 [facility] [address]120 [facility] [address] [place] [address] Surgeon Vascular Surgery 11/06/24 [facility], merchandise complaint adjusterLive Out Nanny 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
--- OUTSIDE RECORDS SUMMARY | 2024-12-26 12:49 | XMS_ITS | Encounter Summary ---
Author Organization [facility] Facility Care Team Providers Care Network Support Technician Name Role Phone Angelita Blanco MD Primary Care Provider [phone] Samantha Lyons RN Unavailable [phone] Nimisha Bradford RN Unavailable [phone] Benjy Perez MD Unavailable +[phone] Benjy Perez MD Primary Care Provider [phone] Angelita Blanco MD Primary Care Provider +[phone] Johnny Goldberg MD Primary Care Provider [phone] Angelita Blanco MD Primary Care Provider +[phone] Rosey Reyes MD Primary Care Provider +[phone] Benjy Perez MD Primary Care Provider +[phone] Benjy Perez MD Primary Care Provider +[phone] Rosey Reyes MD Primary Care Provider [phone] Vivienne Morataya MD Primary Care Provider [phone] Vivienne Morataya MD Primary Care Provider [phone] Benjy Perez MD Primary Care Provider [phone] Rosey Reyes MD Primary Care Provider +[phone] Benjy Perez MD Primary Care Provider [phone] Arley Rousseau MD Primary Care Provider +[phone] Benjy Perez MD Primary Care Provider [phone] Arley Rousseau MD Primary Care Provider +[phone] Benjy Perez MD Primary Care Provider +[phone] Arley Rousseau MD Primary Care Provider + Yajaira Ritter RN Unavailable [phone] Kai Callejas MD Unavailable + [phone] [facility] RN Unavailable Unavaila ble Encounter Details Date Type Department Care Team (Latest Contact Info) Description 12/26/2017 Orders Only [facility] CLINCONV Provider, MD Eileen [address] [place] [address] Social History Tobacco Use Types Packs/Day Years Used Date Smoking Tobacco: Never Comments Unknown Sex and Gender Information Value Date Recorded Sex Assigned at Not on file Legal Sex Female 7:39 AM APPLICATIONS TRAINER Gender Identity Female 05/15/2018 8:32 AM APPLICATIONS TRAINER Sexual Orientation Not on file documented as of this encounter Plan of Treatment Upcoming Encounters Date Type Department Care Team (Latest Contact Info) Description 01/01/2025 Research Med Pick-Up/CTRU Recordak Operator [facility] Clinical Trial 1 [place] [address] Stu Guan RC Research study patient (Primary Dx) documented as of this encounter Procedures Procedure Name Priority Date/Time Associated Diagnosis Comments SCAN - LABS 01/12/2018 12:00 AM CDT documented in this encounter Results * SCAN - LABS (01/12/2018 12:00 AM CDT) Narrative 01/12/2018 12:00 AM CDT Ordered by an unspecified provider. us Historical Provider Final Res ult documented in this encounter Visit Diagnoses Not on filedocumented in this encounter Additional Health Concerns Infection Onset Date Last Indicated Resolved Time COVID: Suspected 03/12/2023 03/12/2023 03/12/2023 3:55 PM APPLICATIONS TRAINER COVID: Suspected 05/21/2024 05/21/2024 05/21/2024 7:13 AM APPLICATIONS TRAINER documented as of this encounter Care Teams Network Support Technician Relationship Specialty Start Date End Date Angelita Blanco MD [address] [facility] [address] [place] [address] PCP - General 08/18/16 05/25/18 Benjy Perez MD [address] [place] [address] PCP - General 05/26/18 05/29/18 Angelita Blanco MD [address] [facility] [address] [place] [address] PCP - General 05/30/18 09/11/18 Johnny Goldberg MD [address] [id number] PCP - General 09/12/18 09/25/18 Angelita Blanco MD [address] [facility] [address] [place] [address] PCP - General 09/26/18 11/14/18 Rosey Reyes MD [address] [facility] 200 [place] [address] PCP - General 11/15/18 01/11/19 Benjy Perez MD [address] [place] [address] PCP - General 02/08/19 02/08/19 Benjy Perez MD [address] [facility] [address] [place] [address] PCP - General 01/12/19 02/07/19 Rosey Reyes MD [address] [facility] 200 [place] [address] PCP - General 06/20/19 09/30/19 Vivienne Morataya MD [address] [address] PCP - General 10/01/19 10/11/19 Vivienne Morataya MD [address] [address] PCP - General 02/09/19 06/19/19 Benjy Perez MD [address] [facility] [address] [place] [address] PCP - General 10/12/19 06/25/20 Rosey Reyes MD [address] [address] PCP - General 06/26/20 08/19/20 Benjy Perez MD [address] [facility] [address] [place] [address] PCP - General 08/20/20 08/25/20 Arley Rousseau MD [address] [facility] [address] [place] [address] PCP - General Sports Medicine 08/26/20 08/28/20 Benjy Perez MD [address] [address] PCP - General 08/29/20 04/27/21 Arley Rousseau MD [address] [address] PCP - General Sports Medicine 04/28/21 08/25/21 Benjy Perez MD [address] [address] PCP - General Nephrology 08/26/21 03/16/22 Arley Rousseau MD [address] [place] [address] PCP - General Sports Medicine 03/17/22 Samantha Lyons RN [address] [address] Warehouse Clerk 09/27/17 Nimisha Bradford RN [address] [address] Warehouse Clerk 10/03/17 5 Benjy Perez MD [address] [address] Referring Physician Nephrology 05/15/18 Yajaira Ritter, RN [address] [place] [address] Nurse Navigator 04/27/22 06/03/22 Kai Callejas MD [address] [facility] [address] [facility] [address] [place] [address] Surgeon Vascular Surgery 11/06/24 [facility], tire shop managerWarehouse Clerk 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
--- OUTSIDE RECORDS SUMMARY | 2024-12-26 12:49 | XMS_ITS | Encounter Summary ---
Author Organization [facility] Facility Care Team Providers Care Recreational Counselor Name Role Phone Angelita Blanco MD Primary Care Provider [phone] Samantha Lyons RN Unavailable [phone] Nimisha Bradford RN Unavailable +[phone] Benjy Perez MD Unavailable +[phone] Benjy Perez MD Primary Care Provider [phone] Angelita Blanco MD Primary Care Provider +[phone] Johnny Goldberg MD Primary Care Provider [phone] Angelita Blanco MD Primary Care Provider [phone] Rosey Reyes MD Primary Care Provider [phone] Benjy Perez MD Primary Care Provider +[phone] Benjy Perez MD Primary Care Provider +[phone] Rosey Reyes MD Primary Care Provider [phone] Vivienne Morataya MD Primary Care Provider [phone] Vivienne Morataya MD Primary Care Provider [phone] Benjy Perez MD Primary Care Provider [phone] Rosey Reyes MD Primary Care Provider +[phone] Benjy Perez MD Primary Care Provider [phone] Arley Rousseau MD Primary Care Provider +[phone] Benjy Perez MD Primary Care Provider [phone] Arley Rousseau MD Primary Care Provider [phone] Benjy Perez MD Primary Care Provider [phone] Arley Rousseau MD Primary Care Provider + Yajaira Ritter RN Unavailable [phone] Kai Callejas MD Unavailable + [phone] [facility] RN Unavailable Unavaila ble Encounter Details Date Type Department Care Team (Latest Contact Info) Description 12/17/2016 Orders Only MMG CLINCONV Provider, MD Eileen [address] [place] [address] Social History Tobacco Use Types Packs/Day Years Used Date Smoking Tobacco: Never Comments Unknown Sex and Gender Information Value Date Recorded Sex Assigned at Not on file Legal Sex Female 7:39 AM NEEDLE LOOM SETTER Gender Identity Female 05/15/2018 8:32 AM NEEDLE LOOM SETTER Sexual Orientation Not on file documented as of this encounter Plan of Treatment Upcoming Encounters Date Type Department Care Team (Latest Contact Info) Description 01/01/2025 Research Med Pick-Up/CTRU Director Radio [facility] Clinical Trial 1 [place] [address] Stu Guan RC Research study patient (Primary Dx) documented as of this encounter Procedures Procedure Name Priority Date/Time Associated Diagnosis Comments SCAN - LABS 12/17/2016 12:00 AM CDT documented in this encounter Results * SCAN - LABS (12/17/2016 12:00 AM CDT) Narrative 12/17/2016 12:00 AM CDT Ordered by an unspecified provider. us Historical Provider Final Res ult documented in this encounter Visit Diagnoses Not on filedocumented in this encounter Additional Health Concerns Infection Onset Date Last Indicated Resolved Time COVID: Suspected 03/12/2023 03/12/2023 03/12/2023 3:55 PM NEEDLE LOOM SETTER COVID: Suspected 05/21/2024 05/21/2024 05/21/2024 7:13 AM NEEDLE LOOM SETTER documented as of this encounter Care Teams Recreational Counselor Relationship Specialty Start Date End Date Angelita Blanco MD [address] [facility] [address] [place] [address] PCP - General 08/18/16 05/25/18 Benjy Perez MD [address] [place] [address] PCP - General 05/26/18 05/29/18 Angelita Blanco MD [address] [facility] [address] [place] [address] PCP - General 05/30/18 09/11/18 Johnny Goldberg MD [address] [id number] PCP - General 09/12/18 09/25/18 Angelita Blanco MD [address] [facility] [address] [place] [address] PCP - General 09/26/18 11/14/18 Rosey Reyes MD [address] [facility] [address] [place] [address] PCP - General 11/15/18 01/11/19 Benjy Perez MD [address] [place] [address] PCP - General 02/08/19 02/08/19 Benjy Perez MD [address] [facility] [address] [place] [address] PCP - General 01/12/19 02/07/19 Rosey Reyes MD [address] [facility] [address] [place] [address] PCP - General 06/20/19 09/30/19 Vivienne Morataya MD [address] [address] PCP - General 10/01/19 10/11/19 Vivienne Morataya MD [address] [address] PCP - General 02/09/19 06/19/19 Benjy Perez MD [address] [facility] [address] [place] [address] PCP - General 10/12/19 06/25/20 Rosey Reyes MD [address] [address] PCP - General 06/26/20 08/19/20 Benjy Perez MD [address] [facility] [address] [place] [address] PCP - General 08/20/20 08/25/20 Arley Rousseau MD [address] [facility] 200 [place] [address] PCP - General Sports Medicine 08/26/20 08/28/20 Benjy Perez MD [address] [address] PCP - General 08/29/20 04/27/21 Arley Rousseau MD [address] [address] PCP - General Sports Medicine 04/28/21 08/25/21 Benjy Perez MD [address] [address] PCP - General Nephrology 08/26/21 03/16/22 Arley Rousseau MD [address] [place] [address] PCP - General Sports Medicine 03/17/22 Samantha Lyons RN [address] [address] Electrical Engineering Manager 09/27/17 Nimisha Bradford RN [address] [address] Electrical Engineering Manager 10/03/17 5 Bejny Perez MD [address] [address] Referring Physician Nephrology 05/15/18 Yajaira Ritter, RN [address] [place] [address] Nurse Navigator 04/27/22 06/03/22 Kai Callejas MD [address] [facility] [address] [facility] [address] [place] [address] Surgeon Vascular Surgery 11/06/24 [facility], fitness directorElectrical Engineering Manager 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
--- OUTSIDE RECORDS SUMMARY | 2024-12-26 12:49 | XMS_ITS ---
Author Organization [facility] Address [address] [place] [address] Care Team Providers Care Legal Assistant Name Role Phone Samantha Lyons RN Unavailable [phone] Benjy Perez MD Unavailable [phone] Arley Rousseau MD Primary Care Provider + [phone] Kai Callejas MD Unavailable +[phone] [facility] RN Unavailable Unavaila ble Transplant Episode Kidney Recipient [facility] ([place], [place]) - [facility] Organ Received: Right Kidney Transplanted on 11/11/2009 Marked as Active Follow-up on 11/11/2009 Kidney Coordinator[facility]ero House RN Phone: N/A Fax: N/A Email: N/A [place] Organ Diagnosis Organ Primary Contributory Kidney Focal Glomerular Sclerosis (Foca l Segmental - FSG) Retransplant Diagnosis Organ Primary Contributory Kidney Focal Glomerular Sclerosis (Foca l Segmental - FSG) Infection History Noted Survival Infection Treatment Organism Resolved 11/30/2024 13 years Pyelonephritis 08/10/2024 12 years 8 months Urinary tract infection in female 11/10/2022 12 years 11 months Chronic wound infection of abdomen 11/20/2021 10 years COVID-19 10/03/2020 10 years 10 months Right lower lobe pneumonia Donor Information Organ ABO Source Meets Risk Criteria HLA Match Mismatches Cross Match Right Kidney Transplanted A1 DBD No A: B: DR: T cell (Negative) T cell (Negative) B cell (Negative) B cell (Negative) Right Kidney Donor Serology Results Anti-CMV CMV IgG: Positive EBV IgG EBV VCA IgG: Positive Anti-HBcAb HBC Total: Negative HBsAg HBsAg: Negative HBV DNA No results on file Anti-HCV HCV: Negative Anti-HIV I/II No results on file Anti-HTLV I/II HTLV: Not Done RPR/VDRL RPR: Negative EBV IgM EBV VCA IgM: Negative HBsAb No results on file EBNA No results on file SARS CoV-2 No results on file Care Team Name Role Phone Fax Email [facility], ANKIT Kidney Coordinator N/A N/A N/A Constanza Huang Primary Development Vice President N/A N/A N/A Samantha Lyons RN Secondary Coordinator Secondary Kidney Coordinator [phone] N/A N/A [facility] RN Casino Shift Manager N/A N/A N/A Rima Esteban Information Technology Audit Manager [phone] N/A N/A Events Post-Transplant Pre-Transplant Admitted: 11/11/2009 Referred: 05/23/2009 Transplanted: 11/11/2009 Evaluation began: 0 Discharged: 11/14/2009 UNOS qualified: 05/15/2008 Center waitlisted: 0 Appointments (11/25/2024 - 01/26/2025) When With Visit Type Description 12/11/2024 Melisa Ruiz Ultrasound Guided Pro cedure Kidney replaced by transplant; Hyperkalemia; Stage 3 chronic kidney disease, unspecified whether stage 3a or 3b CKD (HCC) Dialysis History Dialysis History Start End Type Comments Center 01/08/2009 11/11/2009 Hemo home hemo [facility] Dialysis Center Information Center Phone Fax Address [facility] [phone] [address] [facility] [address]
--- OUTSIDE RECORDS SUMMARY | 2024-12-26 12:49 | XMS_ITS | Encounter Summary ---
Author Organization [facility] Facility Care Team Providers Care Chief Operations Officer Name Role Phone Angelita Blanco MD Primary Care Provider [phone] Samantha Lyons RN Unavailable [phone] Nimisha Bradford RN Unavailable +[phone] Benjy Perez MD Unavailable +[phone] Benjy Perez MD Primary Care Provider [phone] Angelita Blanco MD Primary Care Provider [phone] Johnny Goldberg MD Primary Care Provider [phone] Angelita Blanco MD Primary Care Provider +[phone] Rosey Reeys MD Primary Care Provider [phone] Benjy Perez MD Primary Care Provider [phone] Benjy Perez MD Primary Care Provider [phone] Rosey Reyes MD Primary Care Provider [phone] Vivienne Morataya MD Primary Care Provider [phone] Vivienne Morataya MD Primary Care Provider [phone] Benjy Perez MD Primary Care Provider [phone] Rosey Reyes MD Primary Care Provider +[phone] Benjy Perez MD Primary Care Provider [phone] Arley Rousseau MD Primary Care Provider +[phone] Benjy Perez MD Primary Care Provider [phone] Arley Rousseau MD Primary Care Provider +[phone] Benjy Perez MD Primary Care Provider +[phone] Arley Rousseau MD Primary Care Provider + Yajaira Ritter RN Unavailable [phone] Kai Callejas MD Unavailable +[phone] [facility] RN Unavailable Unavaila ble Encounter Details Date Type Department Care Team (Latest Contact Info) Description 08/29/2017 Orders Only MMG CLINCONV Provider, MD Eileen [address] [place] [address] Social History Tobacco Use Types Packs/Day Years Used Date Smoking Tobacco: Never Comments Unknown Sex and Gender Information Value Date Recorded Sex Assigned at Not on file Legal Sex Female 7:39 AM TIP PRINTER Gender Identity Female 05/15/2018 8:32 AM TIP PRINTER Sexual Orientation Not on file documented as of this encounter Plan of Treatment Upcoming Encounters Date Type Department Care Team (Latest Contact Info) Description 01/01/2025 Research Med Pick-Up/CTRU Automatic Tire Tester [facility] Clinical Trial 1 [place] [address] Stu Guan RC Research study patient (Primary Dx) documented as of this encounter Procedures Procedure Name Priority Date/Time Associated Diagnosis Comments SCAN - LABS 09/07/2017 12:00 AM CDT SCAN - LABS 08/30/2017 12:00 AM CDT documented in this encounter Results * SCAN - LABS (09/07/2017 12:00 AM CDT) Narrative 09/07/2017 12:00 AM CDT Ordered by an unspecified provider. us Historical Provider Final Res ult * SCAN - LABS (08/30/2017 12:00 AM CDT) Narrative 08/30/2017 12:00 AM CDT Ordered by an unspecified provider. Historical Provider Final Res ult documented in this encounter Visit Diagnoses Not on filedocumented in this encounter Additional Health Concerns Infection Onset Date Last Indicated Resolved Time COVID: Suspected 03/12/2023 03/12/2023 03/12/2023 3:55 PM TIP PRINTER COVID: Suspected 05/21/2024 05/21/2024 05/21/2024 7:13 AM TIP PRINTER documented as of this encounter Care Teams Chief Operations Officer Relationship Specialty Start Date End Date Angelita Blanco MD [address] [address] PCP - General 08/18/16 05/25/18 Benjy Perez MD [address] [address] PCP - General 05/26/18 05/29/18 Angelita Blanco MD [address] [address] PCP - General 05/30/18 09/11/18 Johnny Goldberg MD [address] [address] PCP - General 09/12/18 09/25/18 Angelita Blanco MD [address] [address] PCP - General 09/26/18 11/14/18 Rosey Reyes MD [address] [address] PCP - General 11/15/18 01/11/19 Benjy Perez MD [address] [facility] [address] [place] [address] PCP - General 02/08/19 02/08/19 Benjy Perez MD [address] [address] PCP - General 01/12/19 02/07/19 Rosey Reyes MD [address] [place] [address] 200 [place] [address] PCP - General 06/20/19 09/30/19 Vivienne Morataya MD [address] [address] PCP - General 10/01/19 10/11/19 Vivienne Morataya MD [address] [address] PCP - General 02/09/19 06/19/19 Benjy Perez MD [address] [address] PCP - General 10/12/19 06/25/20 Rosey Reyes MD [address] [address] PCP - General 06/26/20 08/19/20 Benjy Perez MD [address] [place] [address] PCP - General 08/20/20 08/25/20 Arley Rousseau MD [address] [facility] [address] [place] [address] PCP - General Sports Medicine 08/26/20 08/28/20 Benjy Perez MD [address] [facility] [address] [place] [address] PCP - General 08/29/20 04/27/21 Arley Rousseau MD [address] [facility] [address] [place] [address] PCP - General Sports Medicine 04/28/21 08/25/21 Benjy Perez MD [address] [facility] [address] [place] [address] PCP - General Nephrology 08/26/21 03/16/22 Arley Rousseau MD [address] [place] [address] PCP - General Sports Medicine 03/17/22 Samantha Lyons RN [address] [facility] [address] [place] [address] Child Psychometrist 09/27/17 Nimisha Bradford RN [address] [facility] [address] [place] [address] Child Psychometrist 10/03/17 5 Benjy Perez MD [address] [facility] [address] [place] [address] Referring Physician Nephrology 05/15/18 Yajaira Ritter, RN [address] [place] [address] Nurse Navigator 04/27/22 06/03/22 Kai Callejas MD [address] [facility] [address] [place] [address] Surgeon Vascular Surgery 11/06/24 [facility], editorial directorChild Psychometrist 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
--- OUTSIDE RECORDS SUMMARY | 2024-12-26 12:49 | XMS_ITS | Encounter Summary ---
Author Organization [facility] Facility Care Team Providers Care Vice President Of Compliance Name Role Phone Angelita Blanco MD Primary Care Provider [phone] Samantha Lyons RN Unavailable [phone] Nimisha Bradford RN Unavailable [phone] Benjy Perez MD Unavailable [phone] Benjy Perez MD Primary Care Provider [phone] Angelita Blanco MD Primary Care Provider [phone] Johnny Goldberg MD Primary Care Provider [phone] Angelita Blanco MD Primary Care Provider [phone] Rosey Reyes MD Primary Care Provider [phone] Benjy Perze MD Primary Care Provider [phone] Benjy Perez MD Primary Care Provider [phone] Rosey Reyes MD Primary Care Provider [phone] Vivienne Morataya MD Primary Care Provider [phone] Vivienne Morataya MD Primary Care Provider [phone] Benjy Perez MD Primary Care Provider [phone] Rosey Reyes MD Primary Care Provider [phone] Benjy Perez MD Primary Care Provider [phone] Arley Rousseau MD Primary Care Provider +[phone] Benjy Perez MD Primary Care Provider [phone] Arley Rousseau MD Primary Care Provider [phone] Benjy Perez MD Primary Care Provider [phone] Arley Rousseau MD Primary Care Provider + Yajaira Ritter RN Unavailable [phone] Kai Callejas MD Unavailable + [facility] RN Unavailable Unavaila ble Encounter Details Date Type Department Care Team (Latest Contact Info) Description 09/05/2017 Orders Only [facility] CLINCONV Provider, MD Eileen [address] [place] [address] Social History Tobacco Use Types Packs/Day Years Used Date Smoking Tobacco: Never Comments Unknown Sex and Gender Information Value Date Recorded Sex Assigned at Not on file Legal Sex Female 7:39 AM MARKETING CONSULTANT Gender Identity Female 05/15/2018 8:32 AM MARKETING CONSULTANT Sexual Orientation Not on file documented as of this encounter Plan of Treatment Upcoming Encounters Date Type Department Care Team (Latest Contact Info) Description 01/01/2025 Research Med Pick-Up/CTRU Hedis Analyst [facility] Clinical Trial 1 [place] [address] Stu Guan RC Research study patient (Primary Dx) documented as of this encounter Procedures Procedure Name Priority Date/Time Associated Diagnosis Comments SCAN - LABS 09/07/2017 12:00 AM CDT documented in this encounter Results * SCAN - LABS (09/07/2017 12:00 AM CDT) Narrative 09/07/2017 12:00 AM CDT Ordered by an unspecified provider. us Historical Provider Final Res ult documented in this encounter Visit Diagnoses Not on filedocumented in this encounter Additional Health Concerns Infection Onset Date Last Indicated Resolved Time COVID: Suspected 03/12/2023 03/12/2023 03/12/2023 3:55 PM MARKETING CONSULTANT COVID: Suspected 05/21/2024 05/21/2024 05/21/2024 7:13 AM MARKETING CONSULTANT documented as of this encounter Care Teams Vice President Of Compliance Relationship Specialty Start Date End Date Angelita Blanco MD [address] [facility] [address] [place] [address] PCP - General 08/18/16 05/25/18 Benjy Perez MD [address] [place] [address] PCP - General 05/26/18 05/29/18 Angelita Blanco MD [address] [facility] [address] [place] [address] PCP - General 05/30/18 09/11/18 Johnny Goldberg MD [address] [id number] PCP - General 09/12/18 09/25/18 Angelita Blanco MD [address] [facility] [address] [place] [address] PCP - General 09/26/18 11/14/18 Rosey Reyes MD [address] [facility] 200 [place] [address] PCP - General 11/15/18 01/11/19 Benjy Perez MD [address] [place] [address] PCP - General 02/08/19 02/08/19 Benjy Perez MD [address] [facility] [address] [place] [address] PCP - General 01/12/19 02/07/19 Rosey Reyes MD [address] [facility] [address] [place] [address] PCP - General 06/20/19 09/30/19 Vivienne Morataya MD [address] [address] PCP - General 10/01/19 10/11/19 Vivienne Morataya MD [address] [address] PCP - General 02/09/19 06/19/19 Benjy Perez MD [address] [facility] [address] [place] [address] PCP - General 10/12/19 06/25/20 Rosey Reyes MD [address] [address] PCP - General 06/26/20 08/19/20 Benjy Perez MD [address] [facility] [address] [place] [address] PCP - General 08/20/20 08/25/20 Arley Rousseau MD [address] [facility] 200 [place] [address] PCP - General Sports Medicine 08/26/20 08/28/20 Benjy Perez MD [address] [address] PCP - General 08/29/20 04/27/21 Arley Rousseau MD [address] [address] PCP - General Sports Medicine 04/28/21 08/25/21 Benjy Perez MD [address] [address] PCP - General Nephrology 08/26/21 03/16/22 Arley Rousseau MD [address] [place] [address] PCP - General Sports Medicine 03/17/22 Samantha Lyons RN [address] [address] Veneer Matcher 09/27/17 Nimisha Bradford RN [address] [address] Veneer Matcher 10/03/17 5 Benjy Perez MD [address] [address] Referring Physician Nephrology 05/15/18 Yajaira Ritter, RN [address] [place] [address] Nurse Navigator 04/27/22 06/03/22 Kai Callejas MD [address] [facility] [address] [facility] [address] [place] [address] Surgeon Vascular Surgery 11/06/24 [facility], mining captainVeneer Matcher 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
--- OUTSIDE RECORDS SUMMARY | 2024-12-26 12:49 | XMS_ITS | Clinical Summary ---
Author Organization [facility] Address [address] [place] [address] Care Team Providers Care Dray Truck Driver Name Role Phone Unknown, Provider Primary Care Provider Benjy Cerrato MD Unavailable [phone] Source Comments [facility],non-owned Affiliates and Associated Physician Practices is amultiple site organization consisting of ambulatory clinics and hospital sitesin [place], [place], [place]. This disclosure is being madepursuant to the Care Everywhere program and may not contain all information available regarding this patient. 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 Rxed with IVIg + Rituxin Anemia of chronic kidney failure, stage 4 (sever e) 08/07/2024 Overview (08/07/2024): SCr: 2.0-2.2, UPC: 1-2 g/g UAC: 1.2 g/g Hyperparathyroidism due to renal insufficiency 0 08/07/2024 Immunizations Immunization Administration Dates Next Due INFLUENZA VACCINE, QUADR. (F LUZONE; FLULAVAL; FLUARIX; AFLURIA QUADRIVALENT; 6MO+), 0.5 ML (IIV4) 02/14/2017 Social History Tobacco Use Types Packs/Day Years Used Date Smoking Tobacco: Never Assessed Comments Unknown Sex and Gender Information Value Date Recorded Sex Assigned at Not on file Legal Sex Female 3:30 PM CDT Gender Identity Not on file Sexual Orientation Not on file Last Filed Vital Signs Vital Sign Reading Time Taken Comments Blood Pressure 164/83 04/30/2016 2:16 PM RESIDENTIAL SALES Pulse 87 04/30/2016 2:51 PM RESIDENTIAL SALES Temperature 36.8 C (98.3 F) 04/30/2016 2:16 PM RESIDENTIAL SALES Respiratory Rate 16 04/30/2016 2:16 PM RESIDENTIAL SALES Oxygen Saturation 97% 04/30/2016 2:51 PM RESIDENTIAL SALES Inhaled Oxygen Concentration - - Weight 116.1 kg (256 lb) 04/30/2016 1:22 PM RESIDENTIAL SALES Height 175.3 cm (5' 9) 03/15/2014 3:30 PM RESIDENTIAL SALES Body Mass Index 37.8 03/15/2014 3:30 PM RESIDENTIAL SALES Plan of Treatment Health Maintenance Due Date Last Done Comments BONE DENSITY TESTING 1960 COLOGUARD (AGES 45-75) - COLON CA SCREENING 1958 CT COLONOGRAPHY - COLON CA SCREENING 1958 FIT - COLON CA SCREENING 1958 FLEX SIG - COLON CA SCREENING 1960 MEDICARE AWV 12 MONTHS 1958 HEPATITIS C SCREENING 04/08/1976 DTAP/TDAP/TD VACCINES (1 - Tdap) 1977 PNEUMOCOCCAL VACCINE 50+ (1 of 2 - PCV) 1977 ZOSTER VACCINE (1 of 2) 1977 Respiratory Syncytial Virus (RSV) Vaccine Pt: or over 60 yrs (1 - Risk 60-74 years 1-dose series) 2018 LIPID TESTING 03/25/2019 03/25/2014, 05/02/1998 COVID-19 VACCINE (3 - Pfizer risk series) 08/14/2020 07/17/2020, 06/24/2020 DEPRESSION SCREENING 05/02/2024 INFLUENZA VACCINE (#1) 2024 3, 02/02/2022, 01/22/2020, Additional history exists MAMMOGRAM 02/20/2026 02/21/2024, 01/31, 07/13/2021 COLON MONITORING 06/23/2031 06/23/2021 COLONOSCOPY - COLON CA SCREENING 06/23/2031 06/23/2021 Colorectal Cancer Screening 06/23/2031 HEPATITIS B VACCINE Aged Out No longe r eligible based on patient's age to complete this topic HIB VACCINE Aged Out No longer eligi ble based on patient's age to complete this topic HPV VACCINE Aged Out No longer eligi ble based on patient's age to complete this topic MENINGOCOCCAL (Group B) VACCINE SHARED DECISION-MAKING Aged Out No longer eligible based on patient's age to complete this topic MENINGOCOCCAL GROUPS A/C/Y/W VACCINE Aged Out No longer eligible based on patient's age to complete this topic Procedures Procedure Name Priority Date/Time Associated Diagnosis Comments LIPID PROFILE Routine 03/25/2014 9:50 AM RESIDENTIAL SALES from Last 3 Months or Most Recently Relevant to Health Maintenance Results * LIPID PROFILE (03/25/2014 9:50 AM RESIDENTIAL SALES) Cholesterol Total 181 125 - 200 mg/dL [facility] HDL 68 > OR = 46 mg/dL [facility] Triglycerides 123 <150 mg/dL [facility] LDL Calculated 88 <130 mg/dL (calc) [facility] Comment: Desirable range <100 mg/dL for patients with CHD or diabetes and <70 mg/dL for diabetic patients with known heart disease. Chol/HDL Ratio 2.7 < OR = 5.0 (calc) [facility] Non HDL Cholesterol 113 mg/dL (calc) [facility] Comment: Target for non-HDL cholesterol is 30 mg/dL higher than LDL cholesterol target. REPORT COMMENT: FASTING Test Performed at: [facility] [address] [place] [address] JANE DE LEON DO,MPH Blood specimen (specimen) BLOOD SPECIMEN / Unknown 03/25/2014 9:50 AM RESIDENTIAL SALES 03/25/2014 9:52 AM RESIDENTIAL SALES us Alexander Ayala MD LAB - CHEMISTRY ORDERABLES Fin al Result [facility] [id number] from Last 3 Months or Most Recently Relevant to Health Maintenance Insurance MEDICARE MEDICAID - OUT OF STATE Care Teams Dray Truck Driver Relationship Specialty Start Date End Date Unknown, Provider PCP - General 10/30/17 Benjy Perez MD Nephrology 10/30/17
--- OUTSIDE RECORDS SUMMARY | 2024-12-26 12:49 | XMS_ITS | Encounter Summary ---
Author Organization [facility] Facility Care Team Providers Care Extrusion Operator Name Role Phone Angelita Blanco MD Primary Care Provider [phone] Samantha Lyons RN Unavailable [phone] Nimisha Bradford RN Unavailable [phone] Benjy Perez MD Unavailable [phone] Benjy Perez MD Primary Care Provider [phone] Angelita Blanco MD Primary Care Provider [phone] Johnny Goldberg MD Primary Care Provider [phone] Angelita Blanco MD Primary Care Provider [phone] Rosey Reyes MD Primary Care Provider [phone] Benjy Perez MD Primary Care Provider [phone] Benjy Perez MD Primary Care Provider [phone] Rosey Reyes MD Primary Care Provider [phone] Vivienne Morataya MD Primary Care Provider [phone] Vivienne Morataya MD Primary Care Provider [phone] Benjy Perez MD Primary Care Provider [phone] Rosey Reyes MD Primary Care Provider [phone] Benjy Perez MD Primary Care Provider [phone] Arley Rousseau MD Primary Care Provider [phone] Benjy Perez MD Primary Care Provider [phone] Arley Rousseau MD Primary Care Provider +[phone] Benjy Perez MD Primary Care Provider [phone] Arley Rousseau MD Primary Care Provider + Yajaira Ritter RN Unavailable [phone] Kai Callejas MD Unavailable + [phone] [facility] RN Unavailable Unavaila ble Encounter Details Date Type Department Care Team (Latest Contact Info) Description 05/15/2018 Orders Only [facility] CLINCONV Provider, MD Eileen [address] [place] [address] Social History Tobacco Use Types Packs/Day Years Used Date Smoking Tobacco: Never Comments Unknown Sex and Gender Information Value Date Recorded Sex Assigned at Not on file Legal Sex Female 7:39 AM RAG WASHER Gender Identity Female 05/15/2018 8:32 AM RAG WASHER Sexual Orientation Not on file documented as of this encounter Plan of Treatment Upcoming Encounters Date Type Department Care Team (Latest Contact Info) Description 01/01/2025 Research Med Pick-Up/CTRU Hr Business Partner [facility] Clinical Trial 1 [place] [address] Stu Guan RC Research study patient (Primary Dx) documented as of this encounter Procedures Procedure Name Priority Date/Time Associated Diagnosis Comments SCAN - LABS 05/15/2018 12:00 AM RAG WASHER documented in this encounter Results * SCAN - LABS (05/15/2018 12:00 AM RAG WASHER) Narrative 05/15/2018 12:00 AM RAG WASHER Ordered by an unspecified provider. Historical Provider Final Res ult documented in this encounter Visit Diagnoses Not on filedocumented in this encounter Additional Health Concerns Infection Onset Date Last Indicated Resolved Time COVID: Suspected 03/12/2023 03/12/2023 03/12/2023 3:55 PM RAG WASHER COVID: Suspected 05/21/2024 05/21/2024 05/21/2024 7:13 AM RAG WASHER documented as of this encounter Care Teams Extrusion Operator Relationship Specialty Start Date End Date Angelita Blanco MD [address] [facility] [address] [place] [address] PCP - General 08/18/16 05/25/18 Benjy Perez MD [address] [place] [address] PCP - General 05/26/18 05/29/18 Angelita Blanco MD [address] [facility] [address] [place] [address] PCP - General 05/30/18 09/11/18 Johnny Goldberg MD [address] [id number] PCP - General 09/12/18 09/25/18 Angelita Blanco MD [address] [facility] [address] [place] [address] PCP - General 09/26/18 11/14/18 Rosey Reyes MD [address] [address] PCP - General 11/15/18 01/11/19 Benjy Perez MD [address] [place] [address] PCP - General 02/08/19 02/08/19 Benjy Perez MD [address] [place] [address] PCP - General 01/12/19 02/07/19 Rosey Reyes MD [address] [facility] [address] [place] [address] PCP - General 06/20/19 09/30/19 Vivienne Morataya MD [address] [address] PCP - General 10/01/19 10/11/19 Vivienne Morataya MD [address] [address] PCP - General 02/09/19 06/19/19 Benjy Perez MD [address] [facility] [address] [place] [address] PCP - General 10/12/19 06/25/20 Rosey Reyes MD [address] [address] PCP - General 06/26/20 08/19/20 Benjy Perez MD [address] [facility] [address] [place] [address] PCP - General 08/20/20 08/25/20 Arley Rousseau MD [address] [facility] [address] [place] [address] PCP - General Sports Medicine 08/26/20 08/28/20 Benjy Perez MD [address] [address] PCP - General 08/29/20 04/27/21 Arley Rousseau MD [address] [address] PCP - General Sports Medicine 04/28/21 08/25/21 Benjy Perez MD [address] [address] PCP - General Nephrology 08/26/21 03/16/22 Arley Rousseau MD [address] [place] [address] PCP - General Sports Medicine 03/17/22 Samantha Lyons RN [address] [address] Allied Health Professional 09/27/17 Nimisha Bradford RN [address] [address] Allied Health Professional 10/03/17 5 Benjy Perez MD [address] [address] Referring Physician Nephrology 05/15/18 Yajaira Ritter RN [address] [place] [address] Nurse Navigator 04/27/22 06/03/22 Kai Callejas MD [address] [facility] [address] [facility] [address] [place] [address] Surgeon Vascular Surgery 11/06/24 [facility], social work instructorAllied Health Professional 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
--- OUTSIDE RECORDS SUMMARY | 2024-12-26 12:49 | XMS_ITS | Encounter Summary ---
Author Organization [facility] Healthcare Address [address] [place] [address] Care Team Providers Care School Operations Manager Name Role Phone Samantha Lyons RN Unavailable [phone] Benjy Perez MD Unavailable [phone] Arley Rousseau MD Primary Care Provider + Kai Callejas MD Unavailable + [phone] [facility] RN Unavailable Unavaila ble Encounter Details Date Type Department Care Team (Late st Contact Info) Description 12/21/2024 Orders Only [address] [place] [address] Shaniqua Hubbard RN Social History Tobacco Use Types Packs/Day Years [...] materials from doctor or pharmacy Sometimes 05/13/2022 [facility] Utilities Answer Date Recorded In the [...] often do you attend chur ch or alevism services? Never 12/03/2024 Do you belong to any clubs o r organizations such as congregation groups, unions, fraternal or athletic groups, or [...] any time in the past 12 m [facility], were you homeless or living in a usp (including now)? No 12/03/2024 Personal Safety Answer Date Recorded Have you ever been in or are you currently in a harmful physical or emotional relationship or is someone making you feel afraid or unsafe? Denies 12/11/2024 Comments No Sex and Gender Information Value Date Recorded Sex Assigned at Not on file Legal Sex Female 7:39 AM LOTTERY CLERK Gender Identity Female 05/15/2018 8:32 AM LOTTERY CLERK Sexual Orientation Not on file documented as of this encounter Plan of Treatment Upcoming Encounters Date Type Department Care Team (Latest Contact Info) Description 01/01/2025 Research Med Pick-Up/CTRU Logistician [facility] Clinical Trial 1 [place] [address] Stu Guan RC Research study patient (Primary Dx) documented as of this encounter Visit Diagnoses Not on filedocumented in this encounter Care Teams School Operations Manager Relationship Specialty Start Date End Date Arley Rousseau MD [address] [place] [address] PCP - General Sports Medicine 03/17/22 Samantha Lyons RN [address] [address] Aluminum Boat Assembly Supervisor 09/27/17 Benjy Perez MD [address] [facility] [address] [place] [address] Referring Physician Nephrology 05/15/18 Kai Callejas MD [address] [facility] [address] [facility] [address] [place] [address] Surgeon Vascular Surgery 11/06/24 [facility], customer advisorAluminum Boat Assembly Supervisor 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
[2024-12-26 13:00] LABS: Alanine Aminotransferase 8 U/L (6-35); Albumin Level 4.0 g/dL (3.5-5.1); Alkaline Phosphatase 91 U/L (38-126); Anion Gap 10 mmol/L (4-12); Aspartate Amino Transferase 17 U/L (14-36); Bilirubin,Total 0.5 mg/dL (0.2-1.3); Blood Urea Nitrogen 52 mg/dL (7-17); Calcium 10.1 mg/dL (8.4-10.2); Carbon Dioxide 21 mmol/L (22-30); Chloride 106 mmol/L (98-107); Estimated Glomerular Filt Rate 24; Glucose 101 mg/dL (65-110); Osmolality Calculated 298 mOsm/kg (285-295); Potassium 4.8 mmol/L (3.4-5.0); Sodium 137 mmol/L (137-145); Total Protein 6.5 g/dL (6.3-8.2)
== END 2024-12-26 12:37 | disposition home or self-care (01) ==
LOC: CHSLAB 12:41
DX: D84.821 Immunodeficiency due to drugs (principal); I12.9 Hypertensive chronic kidney disease with stage 1 through stage 4 chronic kidney disease, or unspecified chronic kidney disease; E11.22 Type 2 diabetes mellitus with diabetic chronic kidney disease; N18.4 Chronic kidney disease, stage 4 (severe); T86.12 Kidney transplant failure; D50.9 Iron deficiency anemia, unspecified
CPT/HCPCS: 36415; 80053

== ENCOUNTER 2025-01-03 11:33 | Outpatient (NON) | payer MEDICARE, SELFPAY ==
--- OUTSIDE RECORDS SUMMARY | 2025-01-01 09:47 | XMS_ITS | Encounter Summary ---
Author Organization [facility] Healthcare Address [address] [place] [address] Care Team Providers Care Forestry Professor Name Role Phone Samantha Lyons RN Unavailable [phone] Benjy Perez MD Unavailable [phone] Arley Rousseau MD Primary Care Provider [phone] Kai Callejas MD Unavailable [phone] [facility] RN Unavailable Unavaila ble Encounter Details Date Type Department Care Team (Latest Contact Info) Description 01/01/2025 9:47 AM CDT - 01/01/2025 11:59 PM CDT Hospital Encounter [address] [address] Immunosuppression; Kidney replaced by transplant; Stage 3b chronic kidney disease (HCC) Discharge Disposition: Discharge to home or [...] materials from doctor or pharmacy Sometimes 05/13/2022 [facility] Utilities Answer Date Recorded In the [...] often do you attend chur ch or anabaptism services? Never 12/03/2024 Do you belong to any clubs o r organizations such as mormon groups, unions, fraternal or athletic groups, or [...] any time in the past 12 m [facility], were you homeless or living in a snf (including now)? No 12/03/2024 Personal Safety Answer Date Recorded Have you ever been in or are you currently in a harmful physical or emotional relationship or is someone making you feel afraid or unsafe? Denies 12/11/2024 Comments No Sex and Gender Information Value Date Recorded Sex Assigned at Not on file Legal Sex Female 7:39 AM SAP TECHNICAL ARCHITECT Gender Identity Female 05/15/2018 8:32 AM SAP TECHNICAL ARCHITECT Sexual Orientation Not on file documented as [...] as directed by MD. 20 patch 12/04/2024 loratadine (CLARITIN REDITABS) 10 mg disintegrating tablet [...] 3 capsules (3 mg total) by mouth noc engineer before breakfast AND 2 capsules (2 mg [...] documented in this encounter Plan of Treatment Not on file documented as of this encounter Procedures Procedure Name Priority Date/Time Associated Diagnosis Comments TACROLIMUS LEVEL, TROUGH Routine 01/01/2025 9:47 AM CDT Immunosuppression Kidney replaced by transplant Stage 3b chronic kidney disease (HCC) documented in this encounter Results * Tacrolimus level trough (01/01/2025 9:47 AM CDT) Tacrolimus trough 5.9 ng/mL Comment: Interpretive Data Testing performed by liquid chromatography-tandem mass spectrometry. Therapeutic concentrations vary depending on type of transplanted organ and time elapsed since transplant. Typical trough concentrations range from 5-15 ng/mL. This test was developed and its performance characteristics determined by the [facility] consistent with CLIA requirements. This test has not been cleared or approved by the [place] Food and Drug administration. Current interpretive data last reviewed 2019. Blood 01/01/2025 9:47 AM CDT 01/01/2025 11:06 AM CDT us Benjy Perez MD LAB BLOOD ORDERABLES Final Re sult [facility] Department [place] [address] documented in this encounter Visit Diagnoses Diagnosis Immunosuppression Kidney replaced by transplant Stage 3b chronic kidney disease (HCC) documented in this encounter Care Teams Forestry Professor Relationship Specialty Start Date End Date Arley Rousseau MD [address] [place] [address] PCP - General Sports Medicine 03/17/22 Samantha Lyons RN [address] [facility] [address] [place] [address] Director Outcomes 09/27/17 Benjy Perez MD [id number] [place] [address] Referring Physician Nephrology 05/15/18 Kai Callejas MD [address] [facility] [address] [facility] [address] [place] [address] Surgeon Vascular Surgery 11/06/24 [facility], deliverer merchandiseDirector Outcomes 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
--- OUTSIDE RECORDS SUMMARY | 2025-01-03 12:18 | XMS_ITS | Encounter Summary ---
Author Organization [facility] Facility Care Team Providers Care Dialysis Patient Care Technician Name Role Phone Angelita Blanco MD Primary Care Provider [phone] Samantha Lyons RN Unavailable +[phone] Nimisha Bradford RN Unavailable [phone] Benjy Perez MD Unavailable +[phone] Benjy Perez MD Primary Care Provider +[phone] Angelita Blanco MD Primary Care Provider +[phone] Johnny Goldberg MD Primary Care Provider [phone] Angelita Blanco MD Primary Care Provider +[phone] Rosey Reyes MD Primary Care Provider +[phone] Benjy Perez MD Primary Care Provider +[phone] Benjy Perez MD Primary Care Provider +[phone] Rosey Reyes MD Primary Care Provider +[phone] Vivienne Morataya MD Primary Care Provider [phone] Vivienne Morataya MD Primary Care Provider +[phone] Benjy Perez MD Primary Care Provider +[phone] Rosey Reyes MD Primary Care Provider +[phone] Benjy Perez MD Primary Care Provider +[phone] Arley Rousseau MD Primary Care Provider +[phone] Benjy Perez MD Primary Care Provider [phone] Arley Rousseau MD Primary Care Provider + Benjy Perez MD Primary Care Provider +[phone] Arley Rousseau MD Primary Care Provider + Yajaira Ritter RN Unavailable +[phone] Kai Callejas MD Unavailable + [facility] RN Unavailable Unavaila ble Encounter Details Date Type Department Care Team (Latest Contact Info) Description 09/13/2016 Orders Only MMG CLINCONV Provider, MD Eileen [address] [place] [address] Social History Tobacco Use Types Packs/Day Years Used Date Smoking Tobacco: Never Comments Unknown Sex and Gender Information Value Date Recorded Sex Assigned at Not on file Legal Sex Female 7:39 AM SUPERVISOR WELDING EQUIPMENT REPAIRER Gender Identity Female 05/15/2018 8:32 AM SUPERVISOR WELDING EQUIPMENT REPAIRER Sexual Orientation Not on file documented as of this encounter Plan of Treatment Not on [...] COVID: Suspected 03/12/2023 03/12/2023 03/12/2023 3:55 PM SUPERVISOR WELDING EQUIPMENT REPAIRER COVID: Suspected 05/21/2024 05/21/2024 05/21/2024 7:13 AM SUPERVISOR WELDING EQUIPMENT REPAIRER documented as of this encounter Care Teams Dialysis Patient Care Technician Relationship Specialty Start Date End Date Angelita Blanco MD [address] [facility] [address] [place] [address] PCP - General 08/18/16 05/25/18 Benjy Perez MD 4590 [facility] 3401 [place] [address] PCP - General 05/26/18 05/29/18 Angelita Blanco MD [address] [facility] [address] [place] [address] PCP - General 05/30/18 09/11/18 Johnny Goldberg MD [address] [facility] 200 [place] [address] PCP - General 09/12/18 09/25/18 Angelita Blanco MD [address] [facility] [address] [place] [address] PCP - General 09/26/18 11/14/18 Rosey Reyes MD 739 [facility] 200 [place] [address] PCP - General 11/15/18 01/11/19 Benjy Perez MD [address] [address] [place] [address] PCP - General 02/08/19 02/08/19 Benjy Perez MD [address] [facility] [address] [place] [address] PCP - General 01/12/19 02/07/19 Rosey Reyes MD 739 [facility] 200 [place] [address] PCP - General 06/20/19 09/30/19 Vivienne Morataya MD 4921 [facility] [address] [place] [address] PCP - General 10/01/19 10/11/19 Vivienne Morataya MD [address] [facility] [address] [place] [address] PCP - General 02/09/19 06/19/19 Benjy Perez MD [address] [facility] [address] [place] [address] PCP - General 10/12/19 06/25/20 Rosey Reyes MD 4921 [facility] [address] [place] [address] PCP - General 06/26/20 08/19/20 Benjy Perez MD [address] [place] [address] [place] [address] PCP - General 08/20/20 08/25/20 Arley Rousseau MD [address] [address] PCP - General Sports Medicine 08/26/20 08/28/20 Benjy Perez MD [address] [place] [address] [place] [address] PCP - General 08/29/20 04/27/21 Arley Rousseau MD [address] [address] PCP - General Sports Medicine 04/28/21 08/25/21 Benjy Perez MD [address] [address] PCP - General Nephrology 08/26/21 03/16/22 Arley Rousseau MD [address]70 [place] [address] PCP - General Sports Medicine 03/17/22 Samantha Lyons RN [address] [address] [place] [address] Medical Orderly 09/27/17 Nimisha Bradford, RN 4590 [facility] 3401 [place] [address] Medical Orderly 10/03/17 Benjy Ansari MD 4590 [facility] [address]01 [place] [address] Referring Physician Nephrology 05/15/18 Yajaira Ritter, RN 4590 [place] [address] Nurse Navigator 04/27/22 06/03/22 Kai Callejas MD [address] [place] [address]50[address] [facility] [address] [place] [address] Surgeon Vascular Surgery 11/06/24 [facility] RN Medical Orderly 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
--- OUTSIDE RECORDS SUMMARY | 2025-01-03 12:18 | XMS_ITS | Encounter Summary ---
Author Organization [facility] Facility Care Team Providers Care Sweatband Separator Name Role Phone Angelita Blanco MD Primary Care Provider [phone] Samantha Lyons RN Unavailable +[phone] Nimisha Bradford RN Unavailable +[phone] Benjy Perez MD Unavailable +[phone] Benjy Perez MD Primary Care Provider +[phone] Angelita Blanco MD Primary Care Provider +[phone] Johnny Goldberg MD Primary Care Provider [phone] Angelita Blanco MD Primary Care Provider +[phone] Rosey Reyes MD Primary Care Provider +[phone] Benjy Perez MD Primary Care Provider +[phone] Benjy Perez MD Primary Care Provider +[phone] Rosey Reyes MD Primary Care Provider +[phone] Vivienne Morataya MD Primary Care Provider [phone] Vivienne Morataya MD Primary Care Provider +[phone] Benjy Perez MD Primary Care Provider +[phone] Rosey Reyes MD Primary Care Provider +[phone] Benjy Perez MD Primary Care Provider +[phone] Arley Rousseau MD Primary Care Provider +[phone] Benjy Perez MD Primary Care Provider +[phone] Arley Rousseau MD Primary Care Provider +[phone] Benjy Perez MD Primary Care Provider +[phone] Arley Rousseau MD Primary Care Provider + Yajaira Ritter RN Unavailable +[phone] Kai Callejas MD Unavailable + [facility] RN Unavailable Unavaila ble Encounter Details Date Type Department Care Team (Latest Contact Info) Description 08/10/2016 Orders Only MMG CLINCONV ProviderEileen MD [address] [place] [address] Social History Tobacco Use Types Packs/Day Years Used Date Smoking Tobacco: Never Comments Unknown Sex and Gender Information Value Date Recorded Sex Assigned at Not on file Legal Sex Female 7:39 AM SPORTS APPAREL INTERNSHIP Gender Identity Female 05/15/2018 8:32 AM SPORTS APPAREL INTERNSHIP Sexual Orientation Not on file documented as [...] COVID: Suspected 03/12/2023 03/12/2023 03/12/2023 3:55 PM SPORTS APPAREL INTERNSHIP COVID: Suspected 05/21/2024 05/21/2024 05/21/2024 7:13 AM SPORTS APPAREL INTERNSHIP documented as of this encounter Care Teams Sweatband Separator Relationship Specialty Start Date End Date Angelita Blanco MD [address] [facility] [address] [place] [address] PCP - General 08/18/16 05/25/18 Benjy Perez MD [address] [address] [place] [address] PCP - General 05/26/18 05/29/18 Angelita Blanco MD [address] [facility] [address] [place] [address] PCP - General 05/30/18 09/11/18 Johnny Goldberg MD [address] [facility] 200 [place] [address] PCP - General 09/12/18 09/25/18 Angelita Blanco MD [address] [facility] [address] [place] [address] PCP - General 09/26/18 11/14/18 Rosey Reyes MD [address] [facility] 200 [place] [address] PCP - General 11/15/18 01/11/19 Benjy Perez MD [address] [address] [place] [address] PCP - General 02/08/19 02/08/19 Benjy Perez MD [address] [address] [place] [address] PCP - General 01/12/19 02/07/19 Rosey Reyes MD [address] [facility] 200 [place] [address] PCP - General 06/20/19 09/30/19 Vivienne Morataya MD 49[address] [facility] [address] [place] [address] PCP - General 10/01/19 10/11/19 Vivienne Morataya MD 49[address] [facility] [address] [place] [address] PCP - General 02/09/19 06/19/19 Benjy Perez MD [address] [facility] [address] [place] [address] PCP - General 10/12/19 06/25/20 Rosey Reyes MD 49[address] [facility] [address] [place], [place] [address]26 [place] [address] PCP - General 06/26/20 08/19/20 Benjy Perez MD [address] [address] [place] [address] PCP - General 08/20/20 08/25/20 Arley Rousseau MD [address] [facility] 200 [place] [address] PCP - General Sports Medicine 08/26/20 08/28/20 Benjy Perez MD [address] [address] [place] [address] PCP - General 08/29/20 04/27/21 Arley Rousseau MD [address] [address] PCP - General Sports Medicine 04/28/21 08/25/21 Benjy Perez MD [address] [address] PCP - General Nephrology 08/26/21 03/16/22 Arley Rousseau MD [address] [place] [address] PCP - General Sports Medicine 03/17/22 Samantha Lyons RN [address] [address] Plant Utility Person 09/27/17 Nimisha Bradford RN [address] [address] Plant Utility Person 10/03/17 5 Benjy Perez MD [address] [address] Referring Physician Nephrology 05/15/18 Yajaira Ritter, RN 4590 [place] [address] Nurse Navigator 04/27/22 06/03/22 Kai Callejas MD 4600 [facility] [address] [facility] [address] [place] [address] Surgeon Vascular Surgery 11/06/24 [facility], product tester fiberglassPlant Utility Person 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
--- OUTSIDE RECORDS SUMMARY | 2025-01-03 12:19 | XMS_ITS | Encounter Summary ---
Author Organization [facility] Facility Care Team Providers Care Drapery Operator Name Role Phone Angelita Blanco MD Primary Care Provider [phone] Samantha Lyons RN Unavailable [phone] Nimisha Bradford RN Unavailable +[phone] Benjy Perez MD Unavailable +[phone] Benjy Perez MD Primary Care Provider +[phone] Angelita Blanco MD Primary Care Provider [phone] Johnny Goldberg MD Primary Care Provider [phone] Angelita Blanco MD Primary Care Provider +[phone] Rosey Reyes MD Primary Care Provider +[phone] Benjy Perez MD Primary Care Provider +[phone] Benjy Perez MD Primary Care Provider +[phone] Rosey Reyes MD Primary Care Provider +[phone] Vivienne Morataya MD Primary Care Provider [phone] Vivienne Morataya MD Primary Care Provider +[phone] Benjy Perez MD Primary Care Provider +[phone] Rosey Reyes MD Primary Care Provider +[phone] Benjy Perez MD Primary Care Provider +[phone] Arley Rousseau MD Primary Care Provider +[phone] Benjy Perez MD Primary Care Provider +[phone] Arley Rousseau MD Primary Care Provider +[phone] Benjy Perez MD Primary Care Provider +[phone] Arley Rousseau MD Primary Care Provider + Yajaira Ritter RN Unavailable +[phone] Kai Callejas MD Unavailable + [phone] [facility] RN Unavailable Unavaila ble Encounter Details Date Type Department Care Team (Latest Contact Info) Description 10/14/2015 Orders Only MMG CLINCONV ProviderEileen MD [address] [place] [address] Social History Tobacco Use Types Packs/Day Years Used Date Smoking Tobacco: Never Assessed Comments Unknown Sex and Gender Information Value Date Recorded Sex Assigned at Not on file Legal Sex Female 7:39 AM NURSE COMPANION Gender Identity Female 05/15/2018 8:32 AM NURSE COMPANION Sexual Orientation Not on file documented as [...] COVID: Suspected 03/12/2023 03/12/2023 03/12/2023 3:55 PM NURSE COMPANION COVID: Suspected 05/21/2024 05/21/2024 05/21/2024 7:13 AM NURSE COMPANION documented as of this encounter Care Teams Drapery Operator Relationship Specialty Start Date End Date Angelita Blanco MD [address] [facility] [address] [place] [address] PCP - General 08/18/16 05/25/18 Benjy Perez MD [address] [place] [address] PCP - General 05/26/18 05/29/18 Angelita Blanco MD [address] [facility] [address] [place] [address] PCP - General 05/30/18 09/11/18 Johnny Goldberg MD [address] [facility] 200 [place] [address] PCP - General 09/12/18 09/25/18 Angelita Blanco MD [address] [facility] 103 [place] [address] PCP - General 09/26/18 11/14/18 Rosey Reyes MD [address] [facility] 200 [place] [address] PCP - General 11/15/18 01/11/19 Benjy Perez MD [address] [place] [address] PCP - General 02/08/19 02/08/19 Benjy Perez MD [address] [place] [address] PCP - General 01/12/19 02/07/19 Rosey Reyes MD [address] [facility] 200 [place] [address] PCP - General 06/20/19 09/30/19 Vivienne Morataya MD 49[address] [facility] [address] [place] [address] PCP - General 10/01/19 10/11/19 Vivienne Morataya MD [address] [facility] [address] [place] [address] PCP - General 02/09/19 06/19/19 Benjy Perez MD [address] [place] [address] PCP - General 10/12/19 06/25/20 Rosey Reyes MD [address] [place] [address] [place] [address] PCP - General 06/26/20 08/19/20 Benjy Perez MD [address] [place] [address] PCP - General 08/20/20 08/25/20 Arley Rousseau MD [address] [facility] 200 [place] [address] PCP - General Sports Medicine 08/26/20 08/28/20 Benjy Perez MD [address] [place] [address] PCP - General 08/29/20 04/27/21 Arley Rousseau MD [address] [address] PCP - General Sports Medicine 04/28/21 08/25/21 Benjy Perez MD [address] [address] PCP - General Nephrology 08/26/21 03/16/22 Arley Rousseau MD [address] [place] [address] PCP - General Sports Medicine 03/17/22 Samantha Lyons RN [address] [address] Consumer Safety Inspector 09/27/17 Nimisha Bradford RN [address] [address] Consumer Safety Inspector 10/03/17 5 Benjy Perez MD [address] [address] Referring Physician Nephrology 05/15/18 Yajaira Ritter, RN 4590 [place] [address] Nurse Navigator 04/27/22 06/03/22 Kai Callejas MD 4600 [facility] [address] [facility] [address] [place] [address] Surgeon Vascular Surgery 11/06/24 [facility], route supervisorConsumer Safety Inspector 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
--- OUTSIDE RECORDS SUMMARY | 2025-01-03 12:19 | XMS_ITS | Encounter Summary ---
Author Organization [facility] Facility Care Team Providers Care Supervisor Histology Name Role Phone Angelita Blanco MD Primary Care Provider [phone] Samantha Lyons RN Unavailable +[phone] Nimisha Bradford RN Unavailable +[phone] Benjy Perez MD Unavailable +[phone] Benjy Perez MD Primary Care Provider +[phone] Angelita Blanco MD Primary Care Provider +[phone] Johnny Goldberg MD Primary Care Provider [phone] Angelita Blanco MD Primary Care Provider +[phone] Rosey Reyes MD Primary Care Provider +[phone] Benjy Perez MD Primary Care Provider +[phone] Benjy Perez MD Primary Care Provider +[phone] Rosey Reyes MD Primary Care Provider +[phone] Vivienne Morataya MD Primary Care Provider [phone] Vivienne Morataya MD Primary Care Provider +[phone] Benjy Perez MD Primary Care Provider +[phone] Rosey Reyes MD Primary Care Provider +[phone] Benjy Perez MD Primary Care Provider +[phone] Arlye Rousseau MD Primary Care Provider [phone] Benjy Perez MD Primary Care Provider +[phone] Arley Rousseau MD Primary Care Provider +[phone] Benjy Perez MD Primary Care Provider +[phone] Arley Rousseau MD Primary Care Provider + Yajaira Ritter RN Unavailable +[phone] Kai Callejas MD Unavailable + [facility] RN Unavailable Unavaila ble Encounter Details Date Type Department Care Team (Latest Contact Info) Description 07/01/2016 Orders Only MMG CLINCONV Provider, MD Eileen [address] [place] [address] Social History Tobacco Use Types Packs/Day Years Used Date Smoking Tobacco: Never Comments Unknown Sex and Gender Information Value Date Recorded Sex Assigned at Not on file Legal Sex Female 7:39 AM ACID PUMPER Gender Identity Female 05/15/2018 8:32 AM ACID PUMPER Sexual Orientation Not on file documented as of this encounter Plan of Treatment Not on file documented as of this encounter Procedures Procedure Name Priority Date/Time Associated Diagnosis Comments SCAN - LABS 07/02/2016 12:00 AM ACID PUMPER documented in this encounter Results * SCAN - LABS (07/02/2016 12:00 AM ACID PUMPER) Narrative 07/02/2016 12:00 AM ACID PUMPER Ordered by an unspecified provider. Historical Provider Final Res ult documented in this encounter Visit Diagnoses Not on filedocumented in this encounter Additional Health Concerns Infection Onset Date Last Indicated Resolved Time COVID: Suspected 03/12/2023 03/12/2023 03/12/2023 3:55 PM ACID PUMPER COVID: Suspected 05/21/2024 05/21/2024 05/21/2024 7:13 AM ACID PUMPER documented as of this encounter Care Teams Supervisor Histology Relationship Specialty Start Date End Date Angelita Blanco MD [address] [facility] 103 [place] [address] PCP - General 08/18/16 05/25/18 Benjy Perez MD [address] [place] [address] PCP - General 05/26/18 05/29/18 Angelita Blanco MD [address] [facility] [address] [place] [address] PCP - General 05/30/18 09/11/18 Johnny Goldberg MD [address] [facility] 200 [place] [address] PCP - General 09/12/18 09/25/18 Angelita Blanco MD [address] [facility] [address] [place] [address] PCP - General 09/26/18 11/14/18 Rosey Reyes MD [address] [facility] 200 [place] [address] PCP - General 11/15/18 01/11/19 Benjy Perez MD [address] [place] [address] PCP - General 02/08/19 02/08/19 Benjy Perez MD [address] [place] [address] PCP - General 01/12/19 02/07/19 Rosey Reyes MD [address] [facility] 200 [place] [address] PCP - General 06/20/19 09/30/19 Vivienne Morat[address] [facility] [address] [facility]26 [place] [address] PCP - General 10/01/19 10/11/19 [address]ienne Morat[address] [facility] [address] [facility]26 [place] [address] PCP - General 02/09/19 06/19/19 Benjy Perez MD [address] [place] [address] PCP - General 10/12/19 06/25/20 Rosey Reyes MD [address] [facility] [address] [place] [address] PCP - General 06/26/20 08/19/20 Benjy Perez MD [address] [place] [place] [address] PCP - General 08/20/20 08/25/20 Arley Rousseau MD [address] [facility] 200 [place] [address] PCP - General Sports Medicine 08/26/20 08/28/20 Benjy Perez MD [address] [place] [address] PCP - General 08/29/20 04/27/21 Arley Rousseau MD [address] [address] PCP - General Sports Medicine 04/28/21 08/25/21 Benjy Perez MD 1512 [facility] 200 [place] [address] PCP - General Nephrology 08/26/21 03/16/22 Arley Rousseau MD [address] [place] [address] PCP - General Sports Medicine 03/17/22 Samantha Lyons RN [address] [address] Retail Visual Merchandiser 09/27/17 Nimisha Bradford RN [address] [address] Retail Visual Merchandiser 10/03/17 Benjy Perez MD [address] [address] Referring Physician Nephrology 05/15/18 Yajaira Ritter, RN 4590 [place] [address] Nurse Navigator 04/27/22 06/03/22 Kai Callejas MD 4600 [facility] [address]120 [facility] [address] [place] [address] Surgeon Vascular Surgery 11/06/24 [facility], instructor warperRetail Visual Merchandiser 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
--- OUTSIDE RECORDS SUMMARY | 2025-01-03 12:19 | XMS_ITS | Encounter Summary ---
Author Organization [facility] Facility Care Team Providers Care Store Grocery Merchandiser Name Role Phone Angelita Blanco MD Primary Care Provider +[phone] Samantha Lyons RN Unavailable +[phone] Nimisha Bradford RN Unavailable +[phone] Benjy Perez MD Unavailable +[phone] Benjy Perez MD Primary Care Provider +[phone] Angelita Blanco MD Primary Care Provider +[phone] Johnny Goldberg MD Primary Care Provider [phone] Angelita Blanco MD Primary Care Provider +[phone] Rosey Reyes MD Primary Care Provider +[phone] Benjy Perez MD Primary Care Provider +[phone] Benjy Perez MD Primary Care Provider +[phone] Rosey Reyes MD Primary Care Provider +[phone] Vivienne Morataya MD Primary Care Provider [phone] Vivienne Morataya MD Primary Care Provider +[phone] Benjy Perez MD Primary Care Provider +[phone] Rosey Reyes MD Primary Care Provider +[phone] Benjy Perez MD Primary Care Provider +[phone] Arley Rousseau MD Primary Care Provider +[phone] Benjy Perez MD Primary Care Provider +[phone] Arley Rousseau MD Primary Care Provider +[phone] Benjy Perez MD Primary Care Provider +[phone] Arley Rousseau MD Primary Care Provider + Yajaira Ritter RN Unavailable +[phone] Kai Callejas MD Unavailable + [facility] RN Unavailable Unavaila ble Encounter Details Date Type Department Care Team (Latest Contact Info) Description 10/26/2016 Orders Only [facility] CLINCONV ProviderEileen MD [address] [place] [address] Social History Tobacco Use Types Packs/Day Years Used Date Smoking Tobacco: Never Comments Unknown Sex and Gender Information Value Date Recorded Sex Assigned at Not on file Legal Sex Female 7:39 AM DYE RANGE OPERATOR Gender Identity Female 05/15/2018 8:32 AM DYE RANGE OPERATOR Sexual Orientation Not on file documented [...] COVID: Suspected 03/12/2023 03/12/2023 03/12/2023 3:55 PM DYE RANGE OPERATOR COVID: Suspected 05/21/2024 05/21/2024 05/21/2024 7:13 AM DYE RANGE OPERATOR documented as of this encounter Care Teams Store Grocery Merchandiser Relationship Specialty Start Date End Date Angelita Blanco MD [address] [facility] [address] [place] [address] PCP - General 08/18/16 05/25/18 Benjy Perez MD [address] [place] [address] PCP - General 05/26/18 05/29/18 Angelita Blanco MD [address] [facility] [address] [place] [address] PCP - General 05/30/18 09/11/18 Johnny Goldberg MD [address] [facility] [address] [place] [address] PCP - General 09/12/18 09/25/18 Angelita Blanco MD [address] [facility] [address] [place] [address] PCP - General 09/26/18 11/14/18 Rosey Reyes MD [address] [facility] [address] [place] [address] PCP - General 11/15/18 01/11/19 Benjy Perez MD [address] [place] [address] PCP - General 02/08/19 02/08/19 Benjy Perez MD [address] [place] [address] PCP - General 01/12/19 02/07/19 Rosey Reyes MD [address] [facility] [address] [place] [address] PCP - General 06/20/19 09/30/19 Vivienne Morataya MD [address] [facility] [address] [place] [address] PCP - General 10/01/19 10/11/19 Vivienne Morataya MD [address] [facility] [address] [place] [address] PCP - General 02/09/19 06/19/19 Benjy Perez MD [address] [place] [address] PCP - General 10/12/19 06/25/20 Rosey Reyes MD [address] [facility] [address] [place], [place] [address] [place] [address] PCP - General 06/26/20 08/19/20 Benjy Perez MD [address] [place] [address] PCP - General 08/20/20 08/25/20 Arley Rousseau MD [address] [facility] 200 [place] [address] PCP - General Sports Medicine 08/26/20 08/28/20 Benjy Perez MD [address] [place] [address] PCP - General 08/29/20 04/27/21 Arley Rousseau MD [address] [address] PCP - General Sports Medicine 04/28/21 08/25/21 Benjy Perez MD [address] [address] PCP - General Nephrology 08/26/21 03/16/22 Arley Rousseau MD [address] [place] [address] PCP - General Sports Medicine 03/17/22 Samantha Lyons RN [address] [address] Director Of Financial Planning 09/27/17 Nimisha Bradford RN [address] [address] Director Of Financial Planning 10/03/17 5 Benjy Perez MD [address] [address] Referring Physician Nephrology 05/15/18 Yajaira Ritter, RN 4590 [place] [address] Nurse Navigator 04/27/22 06/03/22 Kai Callejas MD 4600 [facility] [address] [facility] [address] [place] [address] Surgeon Vascular Surgery 11/06/24 [facility], assembler dc field ringDirector Of Financial Planning 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
--- OUTSIDE RECORDS SUMMARY | 2025-01-03 12:19 | XMS_ITS | Encounter Summary ---
Author Organization [facility] Address [address] [place] [address] Phone Care Team Providers Care Supervisor Engraving Name Role Phone Samantha Lyons RN Unavailable +[phone] Nimisha Bradford RN Unavailable +[phone] Benjy Perez MD Unavailable +[phone] Benjy Perez MD Primary Care Provider +[phone] Arley Rousseau MD Primary Care Provider +[phone] Yajaira Ritter RN Unavailable +[phone] Kai Callejas MD Unavailable +[phone] [facility] RN Unavailable Unavaila ble Encounter Details Date Type Department Care Team (Late st Contact Info) Description 02/17/2022 Orders Only [facility] Medicine Nephrology [address] [facility] Advanced Medicine 5th [place] [address] [place] [address] Carly Guan RC Social History [...] on file Legal Sex Female 7:39 AM ARMAMENT REPAIRER Gender Identity Female 05/15/2018 8:32 AM ARMAMENT REPAIRER Sexual Orientation Not on file documented as of this encounter Plan of Treatment Not on file documented as of this encounter Visit Diagnoses Not on filedocumented in this encounter Additional Health Concerns Infection Onset Date Last Indicated Resolved Time COVID: Suspected 03/12/2023 03/12/2023 03/12/2023 3:55 PM ARMAMENT REPAIRER COVID: Suspected 05/21/2024 05/21/2024 05/21/2024 7:13 AM ARMAMENT REPAIRER documented as of this encounter Care Teams Supervisor Engraving Relationship Specialty Start Date End Date Benjy Perez MD [address] [address] PCP - General Nephrology 08/26/21 03/16/22 Arley Rousseau MD [address]70 [place] [address] PCP - General Sports Medicine 03/17/22 Samantha Lyons RN [address] [address] Supplemental Manager 09/27/17 Nimisha Bradford RN [address] [address] Supplemental Manager 10/03/17 Benjy Perez MD [address] [address] Referring Physician Nephrology 05/15/18 Yajaira Ritter RN 4590 [place] [address] Nurse Navigator 04/27/22 06/03/22 Kai Callejas MD [address] [facility] [address] [place] [address] Surgeon Vascular Surgery 11/06/24 [facility], research chemical engineerSupplemental Manager 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
--- OUTSIDE RECORDS SUMMARY | 2025-01-03 12:19 | XMS_ITS | Encounter Summary ---
Author Organization [facility] Facility Care Team Providers Care Rfid Engineer Name Role Phone Angelita Blanco MD Primary Care Provider [phone] Samantha Lyons RN Unavailable +[phone] Nimisha Bradford RN Unavailable +[phone] Benjy Perez MD Unavailable +[phone] Benjy Perez MD Primary Care Provider +[phone] Angelita Blanco MD Primary Care Provider +[phone] Johnny Goldberg MD Primary Care Provider [phone] Angelita Blanco MD Primary Care Provider +[phone] Rosey Reyes MD Primary Care Provider +[phone] Benjy Perez MD Primary Care Provider +[phone] Benjy Perez MD Primary Care Provider +[phone] Rosey Reyes MD Primary Care Provider +[phone] Vivienne Morataya MD Primary Care Provider [phone] Vivienne Morataya MD Primary Care Provider +[phone] Benjy Perez MD Primary Care Provider +[phone] Rosey Reyes MD Primary Care Provider +[phone] Benjy Perez MD Primary Care Provider +[phone] Arley Rousseau MD Primary Care Provider +[phone] Benjy Perez MD Primary Care Provider +[phone] Arley Rousseau MD Primary Care Provider +[phone] Benjy Perez MD Primary Care Provider +[phone] Arley Rousseau MD Primary Care Provider + Yajaira Ritter RN Unavailable +[phone] Kai Callejas MD Unavailable + [phone] [facility] RN Unavailable Unavaila ble Encounter Details Date Type Department Care Team (Latest Contact Info) Description 11/12/2015 Orders Only [facility] CLINCONV ProviderEileen MD [address] [place] [address] Social History Tobacco Use Types Packs/Day Years Used Date Smoking Tobacco: Never Assessed Comments Unknown Sex and Gender Information Value Date Recorded Sex Assigned at Not on file Legal Sex Female 7:39 AM ATTENDANCE CLERK Gender Identity Female 05/15/2018 8:32 AM ATTENDANCE CLERK Sexual Orientation Not on file documented [...] COVID: Suspected 03/12/2023 03/12/2023 03/12/2023 3:55 PM ATTENDANCE CLERK COVID: Suspected 05/21/2024 05/21/2024 05/21/2024 7:13 AM ATTENDANCE CLERK documented as of this encounter Care Teams Rfid Engineer Relationship Specialty Start Date End Date Angelita Blanco MD [address] [facility] [address] [place] [address] PCP - General 08/18/16 05/25/18 Benjy Perez MD [address] [place] [address] PCP - General 05/26/18 05/29/18 Angelita Blanco MD [address] [facility] [address] [place] [address] PCP - General 05/30/18 09/11/18 Johnny Goldberg MD [address] [facility] [address] [place] [address] PCP - General 09/12/18 09/25/18 Angelita Blanco MD [address] [facility] [address] [place] [address] PCP - General 09/26/18 11/14/18 Rosey Reyes MD [address] [facility] [address] [place] [address] PCP - General 11/15/18 01/11/19 Benjy Perez MD [address] [place] [address] PCP - General 02/08/19 02/08/19 Benjy Perez MD [address] [place] [address] PCP - General 01/12/19 02/07/19 Rosey Reyes MD [address] [facility] [address] [place] [address] PCP - General 06/20/19 09/30/19 Vivienne Morataya MD 4921 [facility] [address] [place] [address] PCP - General 10/01/19 10/11/19 Vivienne Morataya MD 49[address] [facility] [address] [place] [address] PCP - General 02/09/19 06/19/19 Benjy Perez MD [address] [place] [address] PCP - General 10/12/19 06/25/20 Rosey Reyes MD [address] [place] [place] [place] [address] PCP - General 06/26/20 08/19/20 Benjy Perez MD [address] [place] [address] PCP - General 08/20/20 08/25/20 Arley Rousseau MD [address] [facility] 200 [place] [address] PCP - General Sports Medicine 08/26/20 08/28/20 Benjy Perez MD [address] [place] [address] PCP - General 08/29/20 04/27/21 Arley Rousseau MD [address] [address] PCP - General Sports Medicine 04/28/21 08/25/21 Benjy Perez MD [address] [address] PCP - General Nephrology 08/26/21 03/16/22 Arley Rousseau MD [address] [place] [address] PCP - General Sports Medicine 03/17/22 Samantha Lyons RN [address] [address] Tire Fabricator 09/27/17 Nimisha Bradford RN [address] [address] Tire Fabricator 10/03/17 5 Benjy Perez MD [address] [address] Referring Physician Nephrology 05/15/18 Yajaira Ritter, RN 4590 [place] [address] Nurse Navigator 04/27/22 06/03/22 Kai Callejas MD 4600 [facility] [address]120 [facility] [address] [place] [address] Surgeon Vascular Surgery 11/06/24 [facility], hair stylistTire Fabricator 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
--- OUTSIDE RECORDS SUMMARY | 2025-01-03 12:19 | XMS_ITS | Encounter Summary ---
Author Organization [facility] Facility Care Team Providers Care Radiological Defense Officer Name Role Phone Angelita Blanco MD Primary Care Provider +[phone] Samantha Lyons RN Unavailable +[phone] Nimisha Bradford RN Unavailable +[phone] Benjy Perez MD Unavailable +[phone] Benjy Perez MD Primary Care Provider [phone] Angelita Blanco MD Primary Care Provider +[phone] Johnny Goldberg MD Primary Care Provider [phone] Angelita Blanco MD Primary Care Provider +[phone] Rosey Reyes MD Primary Care Provider +[phone] Benjy Perez MD Primary Care Provider +[phone] Benjy Perez MD Primary Care Provider +[phone] Rosey Reyes MD Primary Care Provider +[phone] Vivienne Morataya MD Primary Care Provider [phone] Vivienne Morataya MD Primary Care Provider +[phone] Benjy Perez MD Primary Care Provider +[phone] Rosey Reyes MD Primary Care Provider +[phone] eBnjy Peerz MD Primary Care Provider +[phone] Arley Rousseau MD Primary Care Provider +[phone] Benjy Perez MD Primary Care Provider +[phone] Arley Rousseau MD Primary Care Provider + Benjy Perez MD Primary Care Provider +[phone] Arley Rousseau MD Primary Care Provider + Yajaira Ritter RN Unavailable +[phone] Kai Callejas MD Unavailable + [facility] RN Unavailable Unavaila ble Encounter Details Date Type Department Care Team (Latest Contact Info) Description 10/18/2016 Orders Only [facility] CLINCONV ProviderEileen MD [address] [place] [address] Social History Tobacco Use Types Packs/Day Years Used Date Smoking Tobacco: Never Comments Unknown Sex and Gender Information Value Date Recorded Sex Assigned at Not on file Legal Sex Female 7:39 AM POSTULANT Gender Identity Female 05/15/2018 8:32 AM POSTULANT Sexual Orientation Not on file documented as [...] COVID: Suspected 03/12/2023 03/12/2023 03/12/2023 3:55 PM POSTULANT COVID: Suspected 05/21/2024 05/21/2024 05/21/2024 7:13 AM POSTULANT documented as of this encounter Care Teams Radiological Defense Officer Relationship Specialty Start Date End Date Angelita Blanco MD [address] [address] PCP - General 08/18/16 05/25/18 Benjy Perez MD [address] [address] PCP - General 05/26/18 05/29/18 Angelita Blanco MD [address] [address] PCP - General 05/30/18 09/11/18 Johnny Goldberg MD [address] [id number] PCP - General 09/12/18 09/25/18 Aneglita Blanco MD [address] [address] PCP - General 09/26/18 11/14/18 Rosey Reyes MD [address] [address] PCP - General 11/15/18 01/11/19 Benjy Perez MD [address] [address] PCP - General 02/08/19 02/08/19 Benjy Perez MD [address] [facility] [address] [place] [address] PCP - General 01/12/19 02/07/19 Rosey Reyes MD [address] [address] PCP - General 06/20/19 09/30/19 Vivienne Morataya MD [address] [address] PCP - General 10/01/19 10/11/19 Vivienne Morataya MD [address] [address] PCP - General 02/09/19 06/19/19 Benjy Perez MD [address] [facility] [address] [place] [address] PCP - General 10/12/19 06/25/20 Rosey Reyes MD [address] [address] PCP - General 06/26/20 08/19/20 Benjy Perez MD 4590 [facility] [address] [place] [address] PCP - General 08/20/20 08/25/20 Arley Rousseau MD [address] [address] PCP - General Sports Medicine 08/26/20 08/28/20 Benjy Perez MD [address] [address] PCP - General 08/29/20 04/27/21 Arley Rousseau MD [address] [address] PCP - General Sports Medicine 04/28/21 08/25/21 Benjy Perez MD [address] [address] PCP - General Nephrology 08/26/21 03/16/22 Arley Rousseau MD [address] [place] [address] PCP - General Sports Medicine 03/17/22 Samantha Lyons, RN [address] [address] Pricing Specialist 09/27/17 Nimisha Bradford, RN [address] [address] Pricing Specialist 10/03/17 Benjy Perez MD [address] [address] Referring Physician Nephrology 05/15/18 Yajaira Ritter RN 4590 [place] [address] Nurse Navigator 04/27/22 06/03/22 Kai Callejas MD [address] [facility] [address] [place] [address] Surgeon Vascular Surgery 11/06/24 [facility], public relations internPricing Specialist 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
--- OUTSIDE RECORDS SUMMARY | 2025-01-03 12:19 | XMS_ITS | Encounter Summary ---
Author Organization [facility] Facility Care Team Providers Care 8Th Grade Teacher Name Role Phone Angelita Blanco MD Primary Care Provider +[phone] Samantha Lyons RN Unavailable +[phone] Nimisha Bradford RN Unavailable +[phone] Benjy Perez MD Unavailable +[phone] Benjy Perez MD Primary Care Provider +[phone] Angelita Blanco MD Primary Care Provider +[phone] Johnny Goldberg MD Primary Care Provider [phone] Angelita Blanco MD Primary Care Provider +[phone] Rosey Reyes MD Primary Care Provider +[phone] Benjy Perez MD Primary Care Provider +[phone] Benjy Perez MD Primary Care Provider +[phone] Rosey Reyes MD Primary Care Provider +[phone] Vivienne Morataya MD Primary Care Provider [phone] Vivienne Morataya MD Primary Care Provider +[phone] Benjy Perez MD Primary Care Provider +[phone] Rosey Reyes MD Primary Care Provider +[phone] Benjy Perez MD Primary Care Provider +[phone] Arley Rousseau MD Primary Care Provider +[phone] Benjy Perez MD Primary Care Provider +[phone] Arley Rousseau MD Primary Care Provider +22 Benjy Perez MD Primary Care Provider +[phone] Arley Rousseau MD Primary Care Provider + Yajaira Ritter RN Unavailable Kai Callejas MD Unavailable + [facility] RN Unavailable Unavaila ble Encounter Details Date Type Department Care Team (Latest Contact Info) Description 10/13/2016 Orders Only [facility] CLINCONV Provider, MD Eileen [address] [place] [address] Social History Tobacco Use Types Packs/Day Years Used Date Smoking Tobacco: Never Comments Unknown Sex and Gender Information Value Date Recorded Sex Assigned at Not on file Legal Sex Female 7:39 AM ANIMAL CARE ATTENDANT Gender Identity Female 05/15/2018 8:32 AM ANIMAL CARE ATTENDANT Sexual Orientation Not on file documented as [...] COVID: Suspected 03/12/2023 03/12/2023 03/12/2023 3:55 PM ANIMAL CARE ATTENDANT COVID: Suspected 05/21/2024 05/21/2024 05/21/2024 7:13 AM ANIMAL CARE ATTENDANT documented as of this encounter Care Teams 8Th Grade Teacher Relationship Specialty Start Date End Date Angelita Blanco MD [address] [facility] [address] [place] [address] PCP - General 08/18/16 05/25/18 Benjy Perez MD 4590 [facility] [address] [place] [address] PCP - General 05/26/18 05/29/18 Angelita Blanco MD [address] [facility] [address] [place] [address] PCP - General 05/30/18 09/11/18 Johnny Goldberg MD [address] [facility] 200 [place] [address] PCP - General 09/12/18 09/25/18 Angelita Blanco MD [address] [facility] [address] [place] [address] PCP - General 09/26/18 11/14/18 Rosey Reyes MD 739 [facility] 200 [place] [address] PCP - General 11/15/18 01/11/19 Benjy Perez MD [address] [place] [address] PCP - General 02/08/19 02/08/19 Benjy Perez MD [address] [place] [address] PCP - General 01/12/19 02/07/19 Rosey Reyes MD 739 [facility] 200 [place] [address] PCP - General 06/20/19 09/30/19 Vivienne Morataya MD 4921 [facility] [address] [place] [address] PCP - General 10/01/19 10/11/19 Vivienne Morataya MD 49[address] [facility] [address] [place] [address] PCP - General 02/09/19 06/19/19 Benjy Perez MD [address] [place] [address] PCP - General 10/12/19 06/25/20 Rosey Reyes MD 4921 [facility] [address] [place] [address] PCP - General 06/26/20 08/19/20 Benjy Perez MD [address] [place] [address] PCP - General 08/20/20 08/25/20 Arley Rousseau MD [address] [address] PCP - General Sports Medicine 08/26/20 08/28/20 Benjy Perez MD [address] [place] [address] PCP - General 08/29/20 04/27/21 Arley Rousseau MD [address] [address] PCP - General Sports Medicine 04/28/21 08/25/21 Benjy Perez MD [address] [address] PCP - General Nephrology 08/26/21 03/16/22 Arley Rousseau MD [address]70 [place] [address] PCP - General Sports Medicine 03/17/22 Samantha Lyons RN [address] [place] [address] Mine Car Mechanic 09/27/17 Nimisha Bradford, RN 4590 [facility] [address]01 [place] [address] Mine Car Mechanic 10/03/17 Benjy Ansari MD 4590 [facility] [address] [place] [address] Referring Physician Nephrology 05/15/18 Yajaira Ritter, RN 4590 [place] [address] Nurse Navigator 04/27/22 06/03/22 Kai Callejas MD [address] [place] [address] [facility] [address] [place] [address] Surgeon Vascular Surgery 11/06/24 [facility] RN Mine Car Mechanic 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
--- OUTSIDE RECORDS SUMMARY | 2025-01-03 12:19 | XMS_ITS | Encounter Summary ---
Author Organization [facility] Facility Care Team Providers Care Cushion Assembler Name Role Phone Angelita Blanco MD Primary Care Provider [phone] Samantha Lyons RN Unavailable [phone] Nimisha Bradford RN Unavailable [phone] Benjy Perez MD Unavailable [phone] Benjy Peerz MD Primary Care Provider [phone] Angelita Blanco MD Primary Care Provider [phone] Johnny Goldberg MD Primary Care Provider [phone] Angelita Blanco MD Primary Care Provider [phone] Rosey Reyes MD Primary Care Provider [phone] Benjy Perez MD Primary Care Provider [phone] Benjy Perez MD Primary Care Provider [phone] Rosey Reyes MD Primary Care Provider [phone] Vivienne Morataya MD Primary Care Provider [phone] Vivienne Morataya MD Primary Care Provider [phone] Benjy Perez MD Primary Care Provider [phone] Rosey Reyes MD Primary Care Provider [phone] Benjy Perez MD Primary Care Provider [phone] Arley Rousseau MD Primary Care Provider [phone] Benjy Perez MD Primary Care Provider [phone] Arley Rousseau MD Primary Care Provider [phone] Benjy Perez MD Primary Care Provider [phone] Arley Rousseau MD Primary Care Provider + Yajaira Ritter RN Unavailable [phone] Kai Callejas MD Unavailable + [facility] RN Unavailable Unavaila ble Encounter Details Date Type Department Care Team (Latest Contact Info) Description 01/30/2016 Orders Only [facility] CLINCONV ProviderEileen MD [address] [place] [id number] Social History Tobacco Use Types Packs/Day Years Used Date Smoking Tobacco: Never Assessed Comments Unknown Sex and Gender Information Value Date Recorded Sex Assigned at Not on file Legal Sex Female 7:39 AM AIRPLANE PILOT SUPERVISOR Gender Identity Female 05/15/2018 8:32 AM AIRPLANE PILOT SUPERVISOR Sexual Orientation Not on file documented [...] COVID: Suspected 03/12/2023 03/12/2023 03/12/2023 3:55 PM AIRPLANE PILOT SUPERVISOR COVID: Suspected 05/21/2024 05/21/2024 05/21/2024 7:13 AM AIRPLANE PILOT SUPERVISOR documented as of this encounter Care Teams Cushion Assembler Relationship Specialty Start Date End Date Angelita Blanco MD [address] [facility] [address] [place] [address] PCP - General 08/18/16 05/25/18 Benjy Perez MD [address] [place] [address] PCP - General 05/26/18 05/29/18 Angelita Blanco MD [address] [facility] [address] [place] [address] PCP - General 05/30/18 09/11/18 Johnny Goldberg MD [address] [facility] [address] [place] [address] PCP - General 09/12/18 09/25/18 Angelita Blanco MD [address] [facility] [address] [place] [address] PCP - General 09/26/18 11/14/18 Rosey Reyes MD [address] [facility] [address] [place] [address] PCP - General 11/15/18 01/11/19 Benjy Perez MD [address] [place] [address] PCP - General 02/08/19 02/08/19 Benjy Perez MD [address] [place] [address] PCP - General 01/12/19 02/07/19 Rosey Reyes MD [address] [facility] [address] [place] [address] PCP - General 06/20/19 09/30/19 Vivienne Morataya MD [address] [facility] [address] [place] [address] PCP - General 10/01/19 10/11/19 Vivienne Morataya MD [address] [facility] [address] [place] [address] PCP - General 02/09/19 06/19/19 Benjy Perez MD [address] [place] [address] PCP - General 10/12/19 06/25/20 Rosey Reyes MD [id number] [place] [address] PCP - General 06/26/20 08/19/20 Benjy Perez MD [address] [place] [address] PCP - General 08/20/20 08/25/20 Arley Rousseau MD [address] [facility] [address] [place] [address] PCP - General Sports Medicine 08/26/20 08/28/20 Benjy Perez MD [address] [place] [address] PCP - General 08/29/20 04/27/21 Arley Rousseau MD [address] [address] PCP - General Sports Medicine 04/28/21 08/25/21 Benjy Perez MD [address] [address] PCP - General Nephrology 08/26/21 03/16/22 Arley Rousseau MD [address] [place] [address] PCP - General Sports Medicine 03/17/22 Samantha Lyons RN [address] [address] Blender Conveyor Operator 09/27/17 Nimisha Bradford RN [address] [address] Blender Conveyor Operator 10/03/17 5 Benjy Perez MD [address] [address] Referring Physician Nephrology 05/15/18 Yajaira Ritter, RN [address] [place] [address] Nurse Navigator 04/27/22 06/03/22 Kai Callejas MD [address] [facility] [address] [facility] [address] [place] [address] Surgeon Vascular Surgery 11/06/24 [facility], weaver apprenticeBlender Conveyor Operator 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
--- OUTSIDE RECORDS SUMMARY | 2025-01-03 12:19 | XMS_ITS | Clinical Summary ---
Author Organization [facility] Address [address] [place] [address] Care Team Providers Care Patient Monitor Name Role Phone Samantha Lyons RN Unavailable [phone] Benjy Perez MD Unavailable [phone] Arley Rousseau MD Primary Care Provider [...] or as directed by . 20 patch Active simethicone (MYLICON) 80 mg chewable tablet [...] 3 capsules (3 mg total) by mouth plastic sheeting cutter before breakfast AND 2 capsules (2 mg [...] mg total) by mouth daily 30 tablet 2025 Active buPROPion XL (WELLBUTRIN XL) 150 mg 24 hr tablet Take 1 tablet (150 mg total) by mouth daily 30 tablet 021 2024 Discontinued patiromer calcium sorbitex (VELTASSA) packetIndications :Hyperkalemia,Sta ge 3 chronic kidney disease, unspecified whether stage 3a or 3b CKD (HCC) Take 1 packet (8.4 g total) by mouth daily with lunch 30 packet 025 2024 Discontinued spironolactone (ALDACTONE) 25 mg tablet Take 1 tablet (25 mg total) by mouth daily 30 tablet 11 025 2024 Discontinued HYDROcodone-aceta minophen (NORCO) 5-325 mg per tabletIndications :Pain Take 1-2 tablets by mouth every 4 (four) hours as needed for pain 20 tablet 2024 Discontinued tacrolimus 1 mg immediate-release capsule Take 3 capsules (3 mg total) by mouth daily before breakfast AND 2 capsule (2 mg total) nightly. 2024 Discontinued amLODIPine (NORVASC) 2.5 mg tabletIndications :hypertension Take 1 tablet (2.5 mg total) by mouth daily 30 tablet 2 2024 Discontinued losartan (COZAAR) 25 mg tablet Take 1 tablet (25 mg total) by mouth daily 30 tablet 1 2024 Discontinued tacrolimus 1 mg immediate-release capsule Take 2 capsules (2 mg total) by mouth every morning 2024 Discontinued(S top Taking at Discharge) tacrolimus 1 mg immediate-release capsule Take 1 capsule (1 mg total) by mouth every evening 2024 Discontinued(S top Taking at Discharge) losartan (COZAAR) 25 mg tablet Take 1 tablet (25 mg total) by mouth daily 30 tablet 1 2024 Discontinued tacrolimus 1 mg immediate-release capsule Take 3 capsules (3 mg total) by mouth daily before breakfast AND 2 capsule (2 mg total) nightly. 2024 Discontinued(R eorder) empagliflozin (JARDIANCE) 10 mg [...] Route Frequency Start Date End Date Status [facility] acetaminophen (/[id number]) tablet 1,000 mgIndications:Research study patient 1000 mg oral Once 12/24/2024 12/24/2024 Ended [facility] diphenhydrAMINE ([id number]) capsule 50 mgIndications:Research study patient 50 mg oral Once 12/24/2024 12/24/2024 Ended [facility] famotidine ([id number]) tablet 20 mgIndications:Research study patient 20 mg oral Once 12/24/2024 12/24/2024 Ended [facility] methylPREDNISolone sodium succinate ([id number]) 100 mg in sodium chloride 0.9% 100 mL IVPBIndications:Research study patient 100 mg IV Once 12/24/2024 12/24/2024 Ended [facility] felzartamab/placebo ([id number]) 1,300 mg in sodium chloride 0.9% 250 mL IVPBIndications:Research study patient 1300 mg IV Once 12/24/2024 12/24/2024 Ended [facility] acetaminophen ([id number]) tablet 1,000 mgIndications:Research study patient 1000 mg oral Once 01/01/2025 01/01/2025 Ended [facility] diphenhydrAMINE ([id number]) capsule 50 mgIndications:Research study patient 50 mg oral Once 01/01/2025 01/01/2025 Ended [facility] famotidine ([id number]) tablet 20 mgIndications:Research study patient 20 mg oral Once 01/01/2025 01/01/2025 Ended [facility] methylPREDNISolone sodium succinate ([id number]) 100 mg in sodium chloride 0.9% 100 mL IVPBIndications:Research study patient 100 mg IV Once 01/01/2025 01/01/2025 Ended [facility] felzartamab/placebo ([id number]) 1,300 mg in sodium chloride 0.9% 250 mL IVPBIndications:Research study patient 1300 mg IV Once 01/01/2025 01/02/2025 Ended Active Problems Patient Care Coordination No te Formatting of this note migh t be different from the original. Set up S/O [facility] [phone] [phone] Standing Orders j-[id number], UPE, Iron Profile q3 HgbA1C Exp. 06/14/25 [...] currently being treated at wound clinic in [place]. She reports being evaluated by dermatology and [...] prophylaxis Assessment & Plan (03/10/2022 11:04 AM INSTRUCTOR FLYING): 2/2 FSGS s/p DDRT 2009 presents for renal biopsy for research study. -s/p biopsy with radiology -Continue home tacro 4mg BID, mycophenolate 350 BID, pred 5; am tacro trough -labs stable -CXR per study protocol complete Assessment & Plan (03/09/2022 11:30 AM INSTRUCTOR FLYING): 2/2 FSGS s/p DDRT 2009 presents for [...] tacro to 2mg BID. Per Nimisha @ [facility] - she reports tacro level [...] 10/03/2020 Assessment & Plan (03/10/2022 11:09 AM INSTRUCTOR FLYING): Stable, mild. Resolved with repeat BMP. Assessment & Plan (03/09/2022 11:30 AM INSTRUCTOR FLYING): Stable, mild -Trend bmp Assessment & Plan [...] 05/21/2015 Assessment & Plan (03/10/2022 11:03 AM INSTRUCTOR FLYING): F/B osh derm -Continue home mupirocin, silvadene Assessment & Plan (03/09/2022 11:31 AM INSTRUCTOR FLYING): F/B osh derm -Continue home mupirocin, silvadene [...] losartan Assessment & Plan (03/10/2022 11:04 AM INSTRUCTOR FLYING): -Continue home losartan 50 Assessment & Plan (03/09/2022 11:30 AM INSTRUCTOR FLYING): -Continue home losartan 50 Assessment & Plan [...] access. Assessment & Plan (04/12/2024 4:03 PM INSTRUCTOR FLYING): Patient fortunately non dialysis at this time [...] is being treated for multiple ulcerations at [facility] wound clinic. Plan: Although patient is being [...] daily Assessment & Plan (03/10/2022 11:02 AM INSTRUCTOR FLYING): F/b outpatient psych -Continue home prn ativan, wellbutrin, topamax Assessment & Plan (03/09/2022 11:32 AM INSTRUCTOR FLYING): F/b outpatient psych -Continue home prn ativan, [...] to metabolic abnormalities - Magnesium, sodium repleted. [employer] [place] [facility] [place] not cooperating with therapies overall. SLUMS [...] will recover enough to live outside a T facility. Family aware. 10/14/20: appears lethargic. Not much interactive. Na level improved to 131 with IVF and oral Na tabs, which later dc'd. 10/21: affect flat, remains confused/severe cognitive impairment. [employer] rec 24hour supervision and assistance with basic ADL's at DC 10/22: no changes, pt remains confused. Pulled out midline yesterday. DC planned to ECF 10/23 Encounters Date Type Department Care Team Description 01/03/2025 Orders Only [facility] [address] [place] [address] Shaniqua Hubbard RN 01/01/2025 9:47 AM CDT - 01/01/2025 11:59 PM CDT Hospital Encounter [address] [address] Immunosuppression; Kidney replaced by transplant; Stage 3b chronic kidney disease (HCC) Discharge Disposition: Discharge to home or self care 01/01/2025 Documentation [facility] Stu Guan RC 01/01/2025 Research Med Pick-Up/CTRU Ivory Polisher [facility] Clinical Trial 1 [place] [address] Carly Guan RC Research study patient (Primary Dx) 01/01/2025 Research Med Pick-Up/CTRU Ivory Polisher [facility] Clinical Trial 1 [place] [address] Stu Guan RC Research study patient (Primary Dx) 12/28/2024 8:00 AM CDT Lab [facility] Office Building [address] [place] [address] Immunosuppression; 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); Kidney replaced by transplant 12/28/2024 Telephone [facility] Transplant Kidney [address] [facility] [address] Mailstop [phone] [place] [address] [facility], ANKIT 12/27/2024 Telephone [facility] Transplant Kidney [address] [facility] [address] Mailstop [phone] [place] [address] [facility], RN 12/27/2024 Telephone [facility] Transplant Kidney [address] [facility] [address] Mailstop 83-75-346 [place] [address] [facility], ANKIT 12/24/2024 9:42 AM CDT - 12/24/2024 11:59 PM CDT Hospital [address] [address] Immunosuppression; 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); Kidney replaced by transplant Discharge Disposition: Discharge to home or self care 12/24/2024 Documentation [facility] Stu Guan RC 12/24/2024 Results Follow-Up [facility] Medical Group Nephrology at [address] [address] Benjy Perez MD Tacrolimus level trough, Iron profile w/ IBC, CBC with auto differential, Additional followed-up results: 4 12/24/2024 Research Med Pick-Up/CTRU Ivory Polisher [facility] Clinical Trial 1 [place] [address] Carly Guan RC Research study patient (Primary Dx) 12/24/2024 Research Med Pick-Up/CTRU Ivory Polisher [facility] Clinical Trial 1 [place] [address] Stu Guan RC Research study patient (Primary Dx) 12/24/2024 Research Med Pick-Up/CTRU Ivory Polisher [facility] Clinical Trial 1 [place] [address] Stu Guan RC Research study patient (Primary Dx) 12/24/2024 Research Med Pick-Up/CTRU Ivory Polisher [facility] Clinical Trial 1 [place] [address] Stu Guan RC Research study patient (Primary Dx) 12/21/2024 10:52 AM CDT - 12/21/2024 11:59 PM CDT Hospital Encounter [facility] [place] [address] Shaniqua Hubbard RN Anemia in stage 3a chronic kidney disease (HCC) (Primary Dx); COVID-19; Kidney transplanted Discharge Disposition: Discharge to home or self care 12/21/2024 Telephone [facility] Medical Group Nephrology at [place] [address] [facility] [address] [place] [address] Benjy Perez MD 12/21/2024 Orders Only [facility] [address] [place] [address] Shaniqua Hubbard RN 12/19/2024 11:58 AM CDT - 12/19/2024 11:59 PM CDT Hospital Encounter [facility] Lab [address] [place] [address] Discharge Disposition: Discharge to home or self care 12/19/2024 Telephone [facility] Transplant Kidney [address] [facility] [address] Mailstop [phone] [place] [address] [facility], ANKIT 12/19/2024 Telephone [facility] Transplant Kidney [address] [facility] [address] Mailstop [phone] [place] [address] Jannet To 12/17/2024 Orders Only [facility] Transplant Kidney [address] [facility] [address] Mailstop -[phone] [place] [address] [facility], RN 12/17/2024 Telephone [facility] Transplant Kidney [address] [facility] [address] Mailstop 57-49-389 [place] [address] MalikTaniya toledo 12/17/2024 Orders Only [facility] Transplant Kidney [address] [facility] [address] Mailstop [phone] [place] [address] [facility], RN 12/13/2024 Telephone [facility] Transplant Kidney [address] [facility] [address] Mailstop 97-94-480 [place] [address] [facility], ANKIT 12/11/2024 12:06 PM CDT - 12/12/2024 5:45 PM CDT Hospital Encounter [address] [address] Cris Roberts MD Patolia, MD Conner Morocho, Paulina Macedo MD Kidney replaced by transplant; Hyperkalemia; Stage 3 chronic kidney disease, unspecified whether stage 3a or 3b CKD (HCC) Discharge Disposition: Discharge to home or self care 12/11/2024 9:45 AM CDT Office Visit [facility] 1 [facility] 1st [place] [address] Kidney replaced by transplant; Immunosuppression; Stage 3b chronic kidney disease (HCC); 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) 12/10/2024 Orders Only [facility] Transplant Kidney [address] [facility] [address] Mailstop [phone] [place] [address] [facility], RN Kidney replaced by transplant (Primary Dx) 12/06/2024 1:55 PM CDT Lab [facility] Lab [address] [place] [address] Kidney replaced by transplant 12/06/2024 Telephone [facility] Medical Group Nephrology at [address] [place] [address] Benjy Perez MD 12/06/2024 Orders Only [facility] [address] [place] [address] Jonelle Vargas RN 12/06/2024 Telephone [facility] Transplant Kidney [address] [facility] [address] Mailstop [phone] [place] [address] Samantha Lyons, RN 12/05/2024 Orders Only [facility] Transplant Kidney [address] [facility] [address] Mail[address] 64-18-121 [place] [address] Samantha Lyons, RN Kidney replaced by transplant (Primary Dx) 12/05/2024 Clinical Support [facility] Transplant Kidney [address] [facility] [address] Mail[address] [phone] [place] [address] Sloan Gongora keke 12/05/2024 Telephone [facility] Transplant Kidney [address] [facility] [address] Mail[address] 67-37-562 [place] [address] Constanza Huang 11/30/2024 10:11 AM CDT - 12/04/2024 2:14 PM CDT Hospital Encounter [place] [address] Med Surg [facility] [place] [address] Annmarie Victor MD Mustafa, Saim, DO TAMI (acute kidney injury) (Primary Dx); History of simultaneous kidney and pancreas transplant (HCC); Sepsis due to Escherichia coli, unspecified whether acute organ dysfunction present (HCC); Generalized weakness Discharge Disposition: Discharge to home, home health skilled care 11/29/2024 Telephone [facility] Medical Group Nephrology at [address] [place] [address] Benjy Perez MD 11/28/2024 Telephone [facility] [address] [place] [address] 5th [place] [address] [place] [address] Josue Turner MD 11/27/2024 2:00 PM CDT Orders Only [facility] Office Building 2 Wound Care [address] [facility] [address] [place] [address] 11/22/2024 11:15 AM CDT Office Visit [facility] Medicine Neurosurgery [address] [facility] Floor 1, [address] [place] [address] Thom Willis MD Benign neoplasm of cerebral meninges (HCC) (Primary Dx) 11/22/2024 9:12 AM CDT - 11/22/2024 11:59 PM CDT Hospital Encounter [facility] - MRI [address] [facility] Floor 8 [place] [address] Benign neoplasm of cerebral meninges (HCC) Discharge Disposition: Discharge to home or self care 11/22/2024 Telephone [facility] Advanced Medicine Radiation Oncology [address] [facility] [place] [address] Treasure Coates MD 11/22/2024 Telephone [facility] Radiation Oncology [address] [place] [address] Treasure Coates MD 11/22/2024 Orders Only [facility] [address] [facility] Floor 1, [address] [place] [address] Thom Willis MD Benign neoplasm of cerebral meninges (HCC) (Primary Dx) 11/21/2024 Telephone Radiology 1 [place] [address] Kristine Ferrell, RT 11/21/2024 Telephone [facility] Transplant Kidney [address] [facility] [address] Mail[address] 51-38-177 [place] [address] Nimisha Bradford RN 11/21/2024 Orders Only [facility] Transplant Kidney [address] [facility] [address] Mail[address] [phone] [place] [address] Nimisha Bradford, RN Kidney replaced by transplant (Primary Dx) 11/20/2024 6:30 AM CDT Lab [facility] Lab [address] [place] [address] Kidney transplanted; Iron deficiency anemia secondary to inadequate dietary iron intake; Hyperlipidemia, unspecified hyperlipidemia type 11/20/2024 6:15 AM CDT Lab [facility] Lab [address] [place] [address] Immunosuppression; Kidney replaced by transplant; Stage 3b chronic kidney disease (HCC); 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) 11/20/2024 Results Follow-Up [facility] Medical Group Nephrology at [address] [address] Benjy Perez MD Comprehensive metabolic panel, Tacrolimus level trough, eGFR, Additional followed-up results: 2 11/20/2024 Telephone [facility] Nephrology at [address] [address] Benjy Perez MD 11/19/2024 9:30 AM CDT - 11/19/2024 11:59 PM CDT Hospital Encounter [address] [address] Anemia in stage 3 chronic kidney disease, unspecified whether stage 3a or 3b CKD (HCC) (Primary Dx); Iron deficiency anemia, unspecified iron deficiency anemia type Discharge Disposition: Discharge to home or self care 11/16/2024 2:29 PM CDT - 11/16/2024 11:59 PM CDT Hospital Encounter [facility] [address] [place] [address] Anemia in stage 3a chronic kidney disease (HCC) (Primary Dx); 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); Stage 3b chronic kidney disease (HCC); COVID-19; Kidney transplanted; Iron deficiency anemia, unspecified iron deficiency anemia type; Low iron stores Discharge Disposition: Discharge to home or self care 11/13/2024 Orders Only [address] [address] Jonelle Vargas RN 11/13/2024 Orders Only [facility] Medical Group Nephrology at [address] [place] [address] Benjy Perez MD Iron deficiency anemia, unspecified iron deficiency anemia type (Primary Dx); 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); Stage 3b chronic kidney disease (HCC) 11/12/2024 12:10 PM CDT Lab [facility] Building [address] [place] [address] Kidney transplanted; Type 1 diabetes mellitus with hyperglycemia (HCC); Hyperlipidemia, unspecified hyperlipidemia type 11/12/2024 Results Follow-Up [facility] Medical Group Nephrology at [address] [place] [address] Benjy Perez MD CBC with auto differential, Comprehensive metabolic panel, PTH, Additional followed-up results: 3 11/09/2024 2:25 PM CDT Lab [facility] [address] [place] [address] Kidney transplanted 11/09/2024 2:10 PM CDT Lab [facility] [address] [place] [address] 11/09/2024 Telephone [facility] Medical Group Vascular and Vein Surgery [address] [facility] [address] [place] [address] Rosita Hill 11/07/2024 Orders Only [facility] Medical Office Building 2 Wound Care [address] [facility] [address] [place] [address] Brooklyn Colbert PA 11/07/2024 Orders Only [facility] [address] [place] [address] Jonelle Vargas RN 11/07/2024 Orders Only [facility] Medical Group Nephrology at [address] [place] [address] Benjy Perez MD 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) (Primary Dx); Stage 3b chronic kidney disease (HCC) 11/06/2024 8:30 AM CDT - 11/06/2024 10:00 AM CDT Surgery [facility] OR [address] [place] [address] Kai Callejas MD 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 11/06/2024 8:08 AM CDT Anesthesia Event [facility] OR [address] [place] [address] Debora Mcfadden MD Taylor-White, Carlotta A., NP 11/06/2024 6:26 AM CDT - 11/06/2024 1:30 PM CDT Hospital Encounter [facility] OR [address] [place] [address] Kai Callejas MD Aneurysm of arteriovenous dialysis fistula, initial encounter (Primary Dx) Discharge Disposition: Discharge to home or self care 11/06/2024 Telephone [facility] Medical Group Nephrology at [address] [place] [address] Benjy Perez MD 11/01/2024 Telephone [facility] Medical Group Nephrology at [address] [place] [address] Johnny Cross 10/31/2024 Orders Only [facility] Transplant Kidney [address] [facility] [address] Mailstop 78-47-247 [place] [address] Jannet To Kidney transplanted (Primary Dx); Iron deficiency anemia secondary to inadequate dietary iron intake 10/30/2024 3:15 PM CDT Orders Only [facility] Medical Office Building 2 Wound Care [address] [facility] [address] [place] [address] 10/30/2024 12:59 PM CDT - 10/30/2024 11:59 PM CDT Hospital Encounter [facility] Office Building 2 Vascular [address] [facility] [address] [place] [address] End-stage renal disease (HCC); Other complication of arteriovenous dialysis fistula, subsequent encounter Discharge Disposition: Discharge to home or self care 10/30/2024 12:58 PM CDT - 10/30/2024 11:59 PM CDT Hospital Encounter [facility] D[facility] Access Center at [facility] [address] [facility] [address] [place] [address] End-stage renal disease (HCC) (Primary Dx); Other complication of arteriovenous dialysis fistula, subsequent encounter; HTN (hypertension), benign Discharge Disposition: Discharge to home or self care 10/25/2024 Telephone [facility] Medical Group Nephrology at [address] [place] [address] Benjy Perez MD 10/25/2024 Orders Only [facility] Medical Group Nephrology at [address] [place] [address] Eileen Bernal MD 10/22/2024 Telephone [facility] Medical [facility] Nephrology at [address] [place] [address] Benjy Perez MD 10/17/2024 Telephone [facility] Medical Group Nephrology at [address] [place] [address] Johnny Cross 10/15/2024 Orders Only [facility] Transplant Kidney [address] [place] [address] Mailop 12-07-909 [place] [address] Nimisha Bradford RN 10/10/2024 12:50 PM CDT Lab [facility] Office Building [address] [place] [address] 10/09/2024 Telephone [facility] Transplant Kidney [address] [facility] [address] 24-37-207 [place] [address] Nimisha Bradford RN 10/05/2024 Orders Only [facility] Medical Office Building 2 Wound Care [address] [facility] [address] [place] [address] Brooklyn Colbert PA 10/05/2024 Orders Only [facility] Nephrology [address] [facility] 5th [place] [address] [place] [address] Carly Guan RC Research study patient (Primary Dx) 10/04/2024 9:45 AM CDT Orders Only [facility] Office Building 2 Wound Care [address] [facility] [address] [place] [address] from Last 3 Months Immunizations Immunization Administration [...] 11/30/2024 Surgical History Surgery Date Site/Laterality Comments OK RENAL ALTRNSPLJ IMPLTJ GRF W/O AUTOMOTIVE TECHNICIAN INSTRUCTOR NEPHRECTOMY Renal Transplant - (Added by TW Conv) ANKLE SURGERY Ankle Surgery - (Added by TW Conv) OK TOTAL ABDOMINAL HYSTERECT W/WO RMVL TUBE OVARY [...] transplant - (Added by TW Conv) Other alf (current) drug therapy High risk medication use [...] materials from doctor or pharmacy Sometimes 05/13/2022 [facility] Utilities Answer Date Recorded In the past 12 months has th e electric, gas, oil, or water Fwd: Power threatened to shut off services in your home? No 12/03/2024 Social Connection and Isolation Panel Answer Date Recorded In a typical week, how many times do you talk on the phone with family, friends, or neighbors? Three times a week 12/03/2024 How often do you get togethe r with friends or relatives? Three times a week 12/03/2024 How often do you attend [facility] or religion services? Never 12/03/2024 Do you belong to any clubs o r organizations such as religion groups, unions, fraternal or athletic groups, or [...] any time in the past 12 m [facility], were you homeless or living in a intermediate (including now)? No 12/03/2024 Personal Safety Answer Date Recorded Have you ever been in or are you currently in a harmful physical or emotional relationship or is someone making you feel afraid or unsafe? Denies 12/11/2024 Comments No Sex and Gender Information Value Date Recorded Sex Assigned at Not on file Legal Sex Female 7:39 AM [employer] Gender Identity Female 05/15/2018 8:32 AM [employer] Sexual Orientation Not on file Obstetrics History [...] 12/11/2024 12:15 PM CDT Plan of Treatment Health Maintenance Due Date [...] Additional history exists Hemoglobin A1C 05/15/2025 11/12/2024, 04/0 06/2024, 05/21/2024, Additional history exists Lipid Panel 11/12/2025 11/12/2024, 04/0 06/2024, 02/10/2024, Additional history exists TSH Level 11/30/2025 11/30/2024, 08/0 05/2024, 08/20/2024, Additional history exists Albumin Creatinine Ratio, Urine 12/11/2025 12/11/2024, 08/02/2024, 04/17/2024, Additional history exists Fall Risk Assessment 12/12/2025 12/12/2024 eGFR 12/28/2025 12/28/2024, 082 10/2024, 12/19/2024, Additional history exists DTaP/Tdap/Td Vaccine (3 - Td or Tdap) 11/30/2034 11/30/2024, 01/30/2013 Hepatitis C Screening Completed 11/09/2022 , 03/03/2022, 05/27/2018 Procedures Procedure Name Priority Date/Time Associated Diagnosis Comments TACROLIMUS LEVEL, TROUGH Routine 01/01/2025 9:47 AM CDT Immunosuppression Kidney replaced by transplant Stage 3b chronic kidney disease (HCC) EGFR Routine 12/28/2024 8:11 AM CDT Immunosuppression 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) Kidney replaced by transplant DIFFERENTIAL AUTO Routine 12/28/2024 8:1 1 AM CDT Immunosuppression 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) Kidney replaced by transplant TACROLIMUS LEVEL, TROUGH Routine 12/28/2024 8:11 AM CDT COMPREHENSIVE METABOLIC PANEL Routine 12/28/2024 8:11 AM CDT Immunosuppression 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) Kidney replaced by transplant CBC WITH AUTO DIFFERENTIAL Routine 12/28/2024 8:11 AM CDT Immunosuppression 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) Kidney replaced by transplant IRON PROFILE W/ IBC Routine 12/28/2024 8 :11 AM CDT Immunosuppression 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) Kidney replaced by transplant RENAL FUNCTION PANEL Routine 12/26/2024 HEPATIC FUNCTION PANEL Routine 12/26/2024 TACROLIMUS LEVEL, TROUGH Routine 12/24/2024 11:07 AM [...] AUTO DIFFERENTIAL Routine 11/09/2024 2:27 PM CDT OK AN PROCEDURE PLACEHOLDER Routine 11/06/2024 8:20 AM CDT OK AN ELECTIVE SUPRAGLOTTIC AIRWAY Routine 11/06/2024 8:20 [...] - COMPLETE BLOOD COUNT, NO DIFFERENTIAL - [facility] Routine 10/22/2024 2:16 PM CDT CBC - COMPLETE BLOOD COUNT, NO DIFFERENTIAL - [facility] Routine 10/22/2024 2:08 PM CDT PTH Routine 10/22/2024 IRON PROFILE W/ IBC Routine 10/22/2024 COMPREHENSIVE METABOLIC PANEL Routine 10/22/2024 PROTEIN / CREATININE RATIO, URINE, RANDOM Routine 10/22/2024 TACROLIMUS LEVEL, TROUGH Routine 10/22/2024 PHOSPHORUS Routine 10/22/2024 TB TEST, QUANTIFERON GOLD Routine 10/10/2024 1:11 PM CDT HEPATITIS PANEL, ACUTE Routine 11/09/2022 7:03 AM CDT from Last 3 Months or Most Recently Relevant to Health Maintenance Results * Tacrolimus level trough (01/01/2025 9:47 AM CDT) Tacrolimus trough 5.9 ng/mL Comment: Interpretive Data Testing performed by liquid chromatography-tandem mass spectrometry. Therapeutic concentrations vary depending on type of transplanted organ and time elapsed since transplant. Typical trough concentrations range from 5-15 ng/mL. This test was developed and its performance characteristics determined by the [facility] consistent with CLIA requirements. This test has not been cleared or approved by the US Food and Drug administration. Current interpretive data last reviewed 2019. Blood 01/01/2025 9:47 AM CDT 01/01/2025 11:06 AM CDT us Benjy Perez MD LAB BLOOD ORDERABLES Final Re sult [facility] Department of Laboratories [place], [place] [id number] * (ABNORMAL) eGFR (12/28/2024 8:11 AM CDT) eGFR 22(L) >=60 mL/min/1. 73 [...] was last reviewed 2021. Testing performed by: [address] [id number] Blood 12/28/2024 8:11 AM CDT 12/28/2024 9:30 AM CDT us Benjy Perez MD LAB BLOOD ORDERABLES Final Re sult [place] [id number] [facility] Department [place] [address] * Differential, auto (12/28/2024 8:11 AM CDT) Neutrophil abs 4.28 1.50 - 6.50 K/cumm Comment:Testing performed by : [address] [address] Imm gran abs 0.04 0.00 - 0.10 K/cumm SAMANTHA Comment:Testing performed by : [address] [address] Lymphocyte abs 1.44 0.80 - 3.30 K/cumm SAMANTHA Comment:Testing performed by : [address] [address] Monocyte abs 0.64 0.20 - 0.80 K/cumm SAMANTHA Comment:Testing performed by : [address] [address] Eosinophil abs 0.06 0.00 - 0.50 K/cumm SAMANTHA Comment:Testing performed by : [address] [address] Basophil abs 0.01 0.00 - 0.10 K/cumm SAMANTHA Comment:Testing performed by : [address] [address] Neutrophil pct 66.1 % SAMANTHA Comment: Interpretive Data Percent cell count reference ranges are not reported, since discordance with absolute values may lead to misinterpretation of CBC data. Current Interpretive Data was last revised on 2017. Testing performed by: [address] [address] Imm gran pct 0.6 % SAMANTHA Comment: Interpretive Data Percent cell count reference ranges are not reported, since discordance with absolute values may lead to misinterpretation of CBC data. Current Interpretive Data was last revised on 2017. Testing performed by: [address] [address] Lymphocyte pct 22.3 % SAMANTHA Comment: Interpretive Data Percent cell count reference ranges are not reported, since discordance with absolute values may lead to misinterpretation of CBC data. Current Interpretive Data was last revised on 2017. Testing performed by: [address] [address] Monocyte pct 9.9 % SAMANTHA Comment: Interpretive Data Percent cell count reference ranges are not reported, since discordance with absolute values may lead to misinterpretation of CBC data. Current Interpretive Data was last revised on 2017. Testing performed by: [address] [address] Eosinophil pct 0.9 % SAMANTHA Comment: Interpretive Data Percent cell count reference ranges are not reported, since discordance with absolute values may lead to misinterpretation of CBC data. Current Interpretive Data was last revised on 2017. Testing performed by: [address] [address] Basophil pct 0.2 % [facility] Comment: Interpretive Data Percent cell count reference ranges are not reported, since discordance with absolute values may lead to misinterpretation of CBC data. Current Interpretive Data was last revised on 2017. Testing performed by: [address] [address] Blood 12/28/2024 8:11 AM CDT 12/28/2024 9:38 AM CDT Benjy Perez MD LAB BLOOD ORDERABLES Final Re sult Performing Organization Address [facility] Co de Phone Number SAMANTHA [facility] [place] [address] * Tacrolimus level trough (12/28/2024 8:11 AM CDT) Tacrolimus trough 5.9 ng/mL Comment: Interpretive Data Testing performed by liquid chromatography-tandem mass spectrometry. Therapeutic concentrations vary depending on type of transplanted organ and time elapsed since transplant. Typical trough concentrations range from 5-15 ng/mL. This test was developed and its performance characteristics determined by the [facility] consistent with CLIA requirements. This test has not been cleared or approved by the US Food and Drug administration. Current interpretive data last reviewed 2019. Testing performed by: [facility], [address] [place]., [address] Blood 12/28/2024 8:11 AM CDT 12/28/2024 11:20 AM CDT Benjy Preez MD LAB BLOOD ORDERABLES Final Re sult Performing Organization Address [facility] de Phone Number SAMANTHA [facility] [place] [address] * (ABNORMAL) Iron profile w/ IBC (12/28/2024 8:11 AM CDT) Pathologist [facility] Iron 93 35 - 145 mcg/dL Comment:Testing performed by : [address] [address] TIBC 188(L) 250 - 400 mcg/dL SAMANTHA VERA Comment:Testing performed by : [address] [address] Transferrin saturation 49 20 - 50 % SAMANTHA VERA Comment:Testing performed by : [address] [address] Blood 12/28/2024 8:11 AM CDT 12/28/2024 9:30 AM CDT us Benjy Perez MD LAB BLOOD ORDERABLES Final Re sult SAMANTHA [address] [facility] Department [place] [address] * (ABNORMAL) CBC with auto differential (12/28/2024 8:11 AM CDT) [facility] WBC 6.47 3.80 - 9.90 K/cumm Comment:Testing performed by : [address] [address] Hgb 11.1(L) 11.9 - 15.5 g/dL SAMANTHA Comment:Testing performed by : [address] [address] Hct 33.5(L) 35.6 - 45.5 % SAMANTHA Comment:Testing performed by : [address] [address] Plt 169 150 - 400 K/cumm SAMANTHA Comment:Testing performed by : [address] [address] MPV 10.0 9.1 - 12.3 fL SAMANTHA Comment:Testing performed by : [address] [address] RBC 3.54(L) 3.90 - 5.20 M/cumm SAMANTHA Comment:Testing performed by : [address] [address] MCV 94.6 81.3 - 96.4 fL SAMANTHA Comment:Testing performed by : [address] [address] MCH 31.4 27.1 - 33.3 pg SAMNATHA VERA Comment:Testing performed by : [address] [address] MCHC 33.1 32.3 - 35.7 g/dL SAMANTHA Comment:Testing performed by : [address] [address] RDW CV 13.9 11.1 - 14.9 % SAMANTHA VERA Comment:Testing performed by : [address] [address] RDW SD 48.4(H) 35.7 - 48.1 fL SAMANTHA VERA Comment:Testing performed by : [address] [address] NRBC abs 0.00 0.00 - 0.01 K/cumm SAMANTHA VERA Comment:Testing performed by : [address] [address] Blood 12/28/2024 8:11 AM CDT 12/28/2024 9:38 AM CDT us Benjy Perez MD LAB BLOOD ORDERABLES Final Re sult SAMANTHA [facility] Department [place] [address] * (ABNORMAL) Comprehensive metabolic panel (12/28/2024 8:11 AM CDT) Sodium 138 135 - 145 mmol/L Comment:Testing performed by : [address] [address] Potassium, pl 5.0(H) 3.3 - 4.9 mmol/L SAMANTHA VERA Comment:Testing performed by : [address] [address] Chloride 105 97 - 110 mmol/L SAMANTHA Comment:Testing performed by : [address] [address] CO2 22 22 - 32 mmol/L SAMANTHA VERA Comment:Testing performed by : [address] [address] Anion gap 11 2 - 15 mmol/L SAMANTHA Comment:Testing performed by : [address] [address] BUN 55(H) 6 - 25 mg/dL SAMANTHA VERA Comment:Testing performed by : [address] [address] Creatinine 2.40(H) 0.60 - 1.10 mg/dL SAMANTHA VERA Comment:Testing performed by : [address] [address] Glucose 97 70 - 199 mg/dL SAMANTHA [...] was last revised 2022. Testing performed by: [address] [address] Calcium 9.7 8.5 - 10.3 mg/dL SAMANTHA Comment:Testing performed by : [address] [address] Bilirubin, total 0.2 0.1 - 1.2 mg/dL SAMANTHA Comment:Testing performed by : [address] [address] Protein, pl 6.0(L) 6.5 - 8.5 g/dL SAMANTHA Comment:Testing performed by : [address] [address] Albumin 3.7 3.5 - 5.0 g/dL SAMANTHA Comment:Testing performed by : [address] [address] Alk phos 111 40 - 130 Units/L SAMANTHA Comment:Testing performed by : [address] [address] ALT 7 7 - 45 Units/L SAMANTHA Comment:Testing performed by : [address] [address] AST 10 10 - 45 Units/L SAMANTHA Comment:Testing performed by : [address] [address] Blood 12/28/2024 8:11 AM CDT 12/28/2024 9:30 AM CDT Benjy Perez MD LAB BLOOD ORDERABLES Final Re sult SAMANTHA [address] [facility] Department [place] [address] * Hepatic function panel (12/26/2024) SCRIBED Protein, Total, Serum 6.5 6.3 - 8.2 g/dL TXP NO LAB FOUND SCRIBED Albumin 4 3.5 - 5.1 g/dl TXP NO LAB FOUND SCRIBED Bilirubin, Total 0.5 0.2 - 1.3 mg/dL TXP NO LAB FOUND SCRIBED Alkaline Phosphatase 91 38 - 126 Units/L TXP NO LAB FOUND SCRIBED Aspartate Transaminase (AST) 17 14 - 36 Units/L TXP NO LAB FOUND SCRIBED Alanine Transaminase (ALT) 8 6 - 35 Units/L TXP NO LAB FOUND Blood 12/26/2024 Eileen Provider LAB BLOOD ORDERABLES Juany l Result Performing Organization Address [facility]/ZIP Co de Phone Number TXP NO LAB FOUND * (ABNORMAL) Renal function panel (12/26/2024) SCRIBED Calcium 10.1 8.4 - 10.2 mg/dl TXP NO LAB FOUND SCRIBED Albumin 4 3.5 - 5.1 g/dl TXP NO LAB FOUND SCRIBED Glucose 101 65 - 110 mg/dl TXP NO LAB FOUND SCRIBED Creatinine 2.05(A) 0.7 - 1.0 mg/dl TXP NO LAB FOUND SCRIBED Sodium 137 137 - 145 mmol/L TXP NO LAB FOUND SCRIBED Potassium 4.8 3.4 - 5 mmol/L TXP NO LAB FOUND SCRIBED Chloride 106 98 - 107 mmol/L TXP NO LAB FOUND SCRIBED Carbon Dioxide 21(A) 22 - 30 mmol/L TXP NO LAB FOUND SCRIBED eGFR in NonAfrican Japanese 24 >=60 TXP NO LAB FOUND SCRIBED Urea Nitrogen (BUN) 52(A) 7 - 17 mg/dl TXP NO LAB FOUND Blood 12/26/2024 Historical Provider LAB BLOOD ORDERABLES Edit ed Result - Final TXP NO LAB FOUND * Tacrolimus level trough (12/24/2024 11:07 AM CDT) Tacrolimus trough 5.6 ng/mL Comment: Interpretive Data Testing performed by liquid chromatography-tandem mass spectrometry. Therapeutic concentrations vary depending on type of transplanted organ and time elapsed since transplant. Typical trough concentrations range from 5-15 ng/mL. This test was developed and its performance characteristics determined by the [facility] consistent with CLIA requirements. This test has not been cleared or approved by the [place] Food and Drug administration. Current interpretive data last reviewed 2019. Blood 12/24/2024 11:0 7 AM CDT 12/24/2024 11:19 AM CDT Benjy Perez MD LAB BLOOD ORDERABLES Final Re sult SAMANTHA [facility] Department [place] [address] * (ABNORMAL) eGFR (12/19/2024 11:15 AM CDT) [...] ORDERABLES Final Res ult Performing Organization Address [facility] Co de Phone Number [address] [place] [address] * (ABNORMAL) Iron profile w/ IBC (12/19/2024 11:15 AM CDT) Iron 134 35 - 145 mcg/dL TIBC 219(L) 250 - 400 mcg/dL [facility] Transferrin saturation 61(H) 20 - 50 % [facility] Blood 12/19/2024 11:1 5 AM CDT 12/19/2024 12:05 PM CDT Lore Potter MD LAB BLOOD ORDERABLES Final Res ult Performing Organization Address [facility] de Phone Number [address] [address] * Tacrolimus level random (12/19/2024 11:15 AM CDT) Tacrolimus random 5.0 ng/mL Comment: Interpretive Data Testing performed by liquid chromatography-tandem mass spectrometry. Therapeutic concentrations vary depending on type of transplanted organ and time elapsed since transplant. Typical trough concentrations range from 5-15 ng/mL. This test was developed and its performance characteristics determined by the [facility] consistent with CLIA requirements. This test has not been cleared or approved by the US Food and Drug administration. Current interpretive data last reviewed 2019. Testing performed by: [facility], [address] [place]., [address] Blood 12/19/2024 11:1 5 AM CDT 12/19/2024 3:18 PM CDT Lore Potter MD LAB BLOOD ORDERABLES Final Res ult Performing Organization Address City/[facility]/ZIP Co de Phone Number SAMANTHA [address] [place] [address] * (ABNORMAL) CBC without differential (12/19/2024 11:15 AM CDT) Pathologist [facility] WBC 5.75 3.80 - 9.90 K/cumm Hgb 11.2(L) 11.9 - 15.5 g/dL [facility] Hct 34.9(L) 35.6 - 45.5 % [facility] Plt 138(L) 150 - 400 K/cumm [facility] MPV 9.9 9.1 - 12.[address] [facility] RBC 3.54(L) 3.90 - 5.20 M/cumm [facility] MCV 98.6(H) 81.3 - 96.[address] [facility] MCH 31.6 27.1 - 33.[address] [facility] MCHC 32.1(L) 32.3 - 35.7 g/dL [facility] RDW CV 13.9 11.1 - 14.9 % [facility] RDW SD 50.5(H) 35.7 - 48.[address] [facility] NRBC abs 0.00 0.00 - 0.01 K/cumm [facility] Blood 12/19/2024 11:1 5 AM CDT 12/19/2024 12:06 PM CDT Lore Potter MD LAB BLOOD ORDERABLES Final Res ult SAMANTHA [address] [place] [address] * (ABNORMAL) Comprehensive metabolic panel (12/19/2024 11:15 AM CDT) Pathologist [facility] Sodium 137 135 - 145 mmol/L Potassium, pl 4.0 3.3 - 4.9 mmol/L [facility] Chloride 103 97 - 110 mmol/L [facility] CO2 22 22 - 32 mmol/L [facility] Anion gap 12 2 - 15 mmol/L [facility] BUN 43(H) 6 - 25 mg/dL [facility] Creatinine 2.17(H) 0.60 - 1.10 mg/dL [facility] Glucose 80 70 - 199 mg/dL [facility] Comment: Interpretive Data Fasting glucose >/= [...] 2022. Calcium 9.9 8.5 - 10.3 mg/dL [facility] Bilirubin, total 0.4 0.1 - 1.2 mg/dL [facility] Protein, pl 6.6 6.5 - 8.5 g/dL [facility] Albumin 4.0 3.5 - 5.0 g/dL [facility] Alk phos 95 40 - 130 Units/L [facility] ALT 6(L) 7 - 45 Units/L [facility] AST 12 10 - 45 Units/L [facility] Blood 12/19/2024 11:1 5 AM CDT 12/19/2024 12:05 PM CDT us Lore Potter MD LAB BLOOD ORDERABLES Final Res ult [facility] [address] [facility] Department [place] [address] * (ABNORMAL) Potassium, whole blood (12/12/2024 3:37 PM CDT) Pathologist [facility] Potassium, bld 5.1(H) 3.3 - 4.9 mmol/L Blood 12/12/2024 3:37 PM CDT 12/12/2024 4:40 PM CDT Paulina Prieto MD LAB BLOOD ORDERABLES Final Result Performing Organization Address [facility] de Phone Number [facility] Department [place] [address] * Tacrolimus level trough (12/12/2024 5:58 AM CDT) [facility] Tacrolimus trough 5.8 ng/mL Comment: Interpretive Data Testing performed by liquid chromatography-tandem mass spectrometry. Therapeutic concentrations vary depending on type of transplanted organ and time elapsed since transplant. Typical trough concentrations range from 5-15 ng/mL. This test was developed and its performance characteristics determined by the [facility] consistent with CLIA requirements. This test has not been cleared or approved by the [place] Food and Drug administration. Current interpretive data last reviewed 2019. Blood 12/12/2024 5:58 AM CDT 12/12/2024 6:03 AM CDT Jaya Funez MD LAB BLOOD ORDERABL ES Final Result Performing Organization Address [facility] de Phone Number [facility] Department [place] [address] * (ABNORMAL) Urinalysis reflex to microscopic (12/11/2024 6:38 PM CDT) Pathologist [facility] Color, ur Straw Yellow Clarity, ur Clear Clear [facility] Specific gravity, ur 1.010 1.003 - 1.030 [facility] pH, urine 7.5 [facility] Comment: Interpretive Data U rine pH is affected by diet, medications, systemic acid-base disturbances, and renal tubular function. pH may affect urinary stone formation. For example, urine pH below 6.0 may help reduce the tendency for calcium phosphate stones and pH greater than 6.0 may reduce the tendency for uric acid stone formation. Source: [facility] [employer] Current Interpretive Data was last revised on 2017 Protein, ur ql 2+(A) Negative [facility] Glucose, ur ql Negative Negative [facility] Ketones, ur Negative Negative [facility] Bilirubin, ur Negative Negative [facility] Blood, ur 1+(A) Negative [facility] Urobilinogen, ur <2.0 <2.0 mg/dL [facility] Nitrite, ur Negative Negative [facility] Leukocyte esterase, ur Negative Negative [facility] UA reflex comment Reflex to microscopic UA will be performed. [facility] Urine 12/11/2024 6:38 PM CDT 12/11/2024 6:45 PM CDT Jaya Funez MD LAB URINE ORDERABL ES Final Result Performing Organization Address [facility] de Phone Number [facility] [place] [address] * (ABNORMAL) Protein / creatinine ratio, urine, random (12/11/2024 6:38 PM CDT) Protein, ur, quant 230.4 mg/dL Comment: Interpretive Data No reference range established. Current interpretive data was last revised 2018. Creatinine Ur 35.0 mg/dL [facility] Comment: Interpretive Data No reference range established. Current interpretive data was last revised 2018. Protein/creatinin e ratio 6,659.0(H ) 0.0 - 180.0 mg/g CR [facility] Urine 12/11/2024 6:38 PM CDT 12/11/2024 7:00 PM CDT Jaya Funez MD LAB URINE ORDERABL ES Final Result Performing Organization Address [facility] Co de Phone Number [facility] Department [place] [address] * (ABNORMAL) Albumin Creatinine Ratio, Urine (12/11/2024 6:38 PM CDT) Pathologist [facility] Albumin Ur 1,689.8 mg/L Comment: Interpretive Data No reference range established. Current interpretive data was last revised 2018. Creatinine Ur 35.0 mg/dL [facility] Comment: Interpretive Data No reference range established. Current interpretive data was last revised 2018. Albumin Creatinine Ratio, Ur 4,828(H) 1 - 29 mg/g [facility] Urine 12/11/2024 6:38 PM CDT 12/11/2024 7:06 PM CDT Jaya Funez MD LAB URINE ORDERABL ES Final Result Performing Organization Address [facility] de Phone Number [facility] [place] [address] * (ABNORMAL) Urinalysis, microscopic only (12/11/2024 6:38 PM CDT) WBC, ur 0-5 0 - 5 /HPF RBC, ur >50(A) 0 - 2 /HPF [facility] Epithelial cells, squamous, ur 1-5 0 - 5 /HPF [facility] Bacteria, ur Trace(A) [facility] Urine 12/11/2024 6:38 PM CDT 12/11/2024 6:45 PM CDT Jaya Funez MD LAB URINE ORDERABL ES Final Result Performing Organization Address [facility] de Phone Number [facility] [place] [address] * (ABNORMAL) eGFR (12/11/2024 5:50 PM CDT) [...] ORDERABL ES Final Result Performing Organization Address [facility] Co de Phone Number [facility] [place] [place] [address] * Glomerular basement membrane antibodies (12/11/2024 5:50 PM CDT) GBM ab, IgG <0.2 <=0.9 Ab Index Comment: Interpretive Data Negative: <1 Ab Index Positive: > or = 1 Ab Index Current interpretive data was last revised on 2016. Blood 12/11/2024 5:50 PM CDT 12/11/2024 6:13 PM CDT Jaya Funez MD LAB BLOOD ORDERABL ES Final Result Performing Organization Address [facility] Co de Phone Number [facility] [place] [address] * (ABNORMAL) CBC without differential (12/11/2024 5:50 PM CDT) WBC 5.88 3.80 - 9.90 K/cumm Hgb 9.9(L) 11.9 - 15.5 g/dL [facility] Hct 31.4(L) 35.6 - 45.5 % [facility] Plt 168 150 - 400 K/cumm [facility] MPV 9.3 9.1 - 12.3 fL [facility] RBC 3.15(L) 3.90 - 5.20 M/cumm [facility] MCV 99.7(H) 81.3 - 96.4 fL [facility] MCH 31.4 27.1 - 33.3 pg [facility] MCHC 31.5(L) 32.3 - 35.7 g/dL [facility] RDW CV 14.5 11.1 - 14.9 % [facility] RDW SD 51.9(H) 35.7 - 48.1 fL [facility] NRBC abs 0.00 0.00 - 0.01 K/cumm [facility] Blood 12/11/2024 5:50 PM CDT 12/11/2024 6:13 PM CDT Jaya Funez MD LAB BLOOD ORDERABL ES Final Result Performing Organization Address City/[facility]/ZIP Co de Phone Number [facility] [place] [address] * (ABNORMAL) Albumin (12/11/2024 5:50 PM CDT) Pathologist [facility] Albumin 3.3(L) 3.5 - 5.0 g/dL Blood 12/11/2024 5:50 PM CDT 12/11/2024 6:13 PM CDT Jaya Funez MD LAB BLOOD ORDERABL ES Final Result [facility] [place] [address] * (ABNORMAL) Basic metabolic panel (12/11/2024 5:50 PM CDT) Pathologist [facility] Sodium 136 135 - 145 mmol/L Potassium, pl 5.1(H) 3.3 - 4.9 mmol/L [facility] Chloride 102 97 - 110 mmol/L [facility] CO2 25 22 - 32 mmol/L [facility] Anion gap 9 2 - 15 mmol/L [facility] BUN 27(H) 6 - 25 mg/dL [facility] Creatinine 2.12(H) 0.60 - 1.10 mg/dL [facility] Glucose 95 70 - 199 mg/dL [facility] Comment: Interpretive Data Fasting glucose >/= 126 [...] 2022. Calcium 9.3 8.5 - 10.3 mg/dL [facility] Blood 12/11/2024 5:50 PM CDT 12/11/2024 6:13 PM CDT Jaya Funez MD LAB BLOOD ORDERABL ES Final Result [facility] Department [place] [address] * US Guided Biopsy Renal (12/11/2024 11:44 [...] and transferred immediately to the lab by manager statistical for further processing. The biopsy tract was [...] and transferred immediately to the lab by manager statistical for further processing. The biopsy tract was [...] La Lanier M.D. us Vivienne Morataya MD [facility] PROCEDURES Final Result * Surgical pathology (12/11/2024 10:56 AM CDT) Tissue (Kidney biopsy, transplant) 12/11/2024 10:56 AM CDT Narrative PATHOLOGY [facility] - 12/13/2024 8:49 AM CDT EPIC results best viewed via link to PDF [facility] Anisha Lim [facility] [place] [address] Note to Patients: This report may contain [...] Gender: F : 1960 (Age: 64) Address: [address] [place], [place] [id number] Hospital #: [id number] Taken:12/11/2024 Received:12/11/2024 Reported: 12/13/2024 Patient Type: [facility] OP In Bed Service: Medical Location: [place] [address] Physician(s): Saumya Oconnor M.D. Diagnosis: Kidney, allograft, [...] addendum - See synoptic report and comment hannah/12/12/2024 14:50 By this signature, I attest that [...] Labeled A1. Jar 0. B. Received in [facility], labeled renal transplant core biopsy and consists of one core(s) of henderson pink soft tissue (measuring 0.4 cm in length by 0.1 cm in diameter). Specimen is entirely submitted for Immunofluorescence . C. Received in [facility], labeled renal transplant core biopsy and consists of one core(s) of henderson pink soft tissue (measuring 0.3 cm in length by 0.1 cm in diameter). Specimen is entirely submitted for Electron Microscopy. [facility]12/11/2024 12:51 PA(s): Mila Regalado RENAL TRANSPLANT BIOPSY [...] Surgical Pathology and Flow Cytometry Departments at [facility] as part of an ongoing senior manager quality assurance program and in compliance with federally mandated [...] Surgical Pathology and Flow Cytometry Departments of [facility]. It has not been cleared or approved by the U. S. Food and Drug Administration. IMAGES AND SCANNED DOCUMENTS, IF INCLUDED, ONLY VIEWABLE IN PDF VERSION OF REPORT Vivienne Morataya MD LAB PATHOLOGY ORDERABLES Final Result PATHOLOGY [facility] 3rd Floor [place], [place] [phone] * BK virus PCR quantitative Blood (12/11/2024 8:16 AM CDT) [facility] BKV DNA result, pl Not Detected [facility] Comment: The quantifiable range of this assay is 21.5 IU/mL to 100,000,000 IU/mL (1.33 log IU/mL to 8.00 log IU/mL). Testing was performed by the LES 6800 BKV Quantatitive Test version 2.0 ([employer] Testing performed at [facility] Current Interpretive Data was last revised on 2021. Blood 12/11/2024 8:16 AM CDT 12/11/2024 8:38 AM CDT Vivienne Morataya MD LAB MICROBIOLOGY [facility] Final Result Performing Organization Address [facility] de Phone Number [facility] [place] [address] [facility] * Cytomegalovirus (CMV) DNA PCR, quantitative Blood (12/11/2024 8:16 AM CDT) [facility] CMV DNA Not Detected [facility] Comment: Interpretive Data: The quantifiable range of this assay is 34 IUnits/mL to 10,000,000 IUnits/mL (1.53 log IUnits/mL to 7.0 log IUnits/mL). Testing was performed by the LES 6800 CMV Test ([employer] Testing performed at [facility]. Current interpretive data was last revised on 2020. Blood 12/11/2024 8:16 AM CDT 12/11/2024 8:37 AM CDT Vivienne Morataya MD LAB MICROBIOLOGY - [facility] Final Result Performing Organization Address [facility] Co de Phone Number [facility] [place] [address] [facility] * (ABNORMAL) Differential, auto (12/11/2024 8:16 AM CDT) Neutrophil abs 7.97(H) 1.50 - 6.50 K/cumm Imm gran abs 0.13(H) 0.00 - 0.10 K/cumm [facility] Lymphocyte abs 0.72(L) 0.80 - 3.30 K/cumm [facility] Monocyte abs 0.52 0.20 - 0.80 K/cumm [facility] Eosinophil abs 0.03 0.00 - 0.50 K/cumm [facility] Basophil abs 0.02 0.00 - 0.10 K/cumm [facility] Neutrophil pct 84.9 % [facility] Comment: Interpretive Data Percent cell count reference ranges are not reported, since discordance with absolute values may lead to misinterpretation of CBC data. Current Interpretive Data was last revised on 2017. Imm gran pct 1.4 % [facility] Comment: Interpretive Data Percent cell count reference ranges are not reported, since discordance with absolute values may lead to misinterpretation of CBC data. Current Interpretive Data was last revised on 2017. Lymphocyte pct 7.7 % [facility] Comment: Interpretive Data Percent cell count reference ranges are not reported, since discordance with absolute values may lead to misinterpretation of CBC data. Current Interpretive Data was last revised on 2017. Monocyte pct 5.5 % [facility] Comment: Interpretive Data Percent cell count reference ranges are not reported, since discordance with absolute values may lead to misinterpretation of CBC data. Current Interpretive Data was last revised on 2017. Eosinophil pct 0.3 % [facility] Comment: Interpretive Data Percent cell count reference ranges are not reported, since discordance with absolute values may lead to misinterpretation of CBC data. Current Interpretive Data was last revised on 2017. Basophil pct 0.2 % [facility] Comment: Interpretive Data Percent cell count reference ranges are not reported, since discordance with absolute values may lead to misinterpretation of CBC data. Current Interpretive Data was last revised on 2017. Blood 12/11/2024 8:16 AM CDT 12/11/2024 8:32 AM CDT Benjy Perez MD LAB BLOOD ORDERABLES Final Re sult Performing Organization Address [facility] Co de Phone Number [facility] Department [place] [address] * (ABNORMAL) CBC with auto differential (12/11/2024 8:16 AM CDT) Pathologist [facility] WBC 9.39 3.80 - 9.90 K/cumm Hgb 10.7(L) 11.9 - 15.5 g/dL [facility] Hct 32.8(L) 35.6 - 45.5 % [facility] Plt 206 150 - 400 K/cumm [facility] MPV 9.4 9.1 - 12.3 fL [facility] RBC 3.37(L) 3.90 - 5.20 M/cumm [facility] MCV 97.3(H) 81.3 - 96.4 fL [facility] MCH 31.8 27.1 - 33.3 pg [facility] MCHC 32.6 32.3 - 35.7 g/dL [facility] RDW CV 14.6 11.1 - 14.9 % [facility] RDW SD 51.5(H) 35.7 - 48.1 fL [facility] NRBC abs 0.00 0.00 - 0.01 K/cumm [facility] Blood 12/11/2024 8:16 AM CDT 12/11/2024 8:32 AM CDT Benjy Perez MD LAB BLOOD ORDERABLES Final Re sult [facility] Department [place] [address] * Protime-INR (12/11/2024 8:16 AM CDT) PT 12.2 10.2 - 13.5 sec INR 1.08 0.90 - 1.20 [facility] Comment: Interpretive data Oral anticoagulant therapeutic ranges: Venous thromboembolism prophylaxis or treatment: 2.0-3.0 CARDIOLOGY Standard range: 2.0-3.0 High-intensity range: 2.5-3.5 Refer to indication-specific guidelines for appropriate target ranges for prosthetic heart valve replacement. Current interpretive data was last revised on 2019. Blood 12/11/2024 8:16 AM CDT 12/11/2024 8:32 AM CDT Vivienne Morataya MD LAB BLOOD ORDERABLES Final Resu lt [facility] [place] [address] * Type and screen (12/11/2024 8:16 AM CDT) ABO Rh A Positive Monica, indirect Negative [facility] Blood 12/11/2024 8:16 AM CDT 12/11/2024 8:35 AM CDT Narrative [facility] - 12/11/2024 9:36 AM CDT Has the patient had Daratumumab or Isatuximab in the past 6 months?->Unknown Vivienne Morataya MD LAB BLOOD BANK TEST ORDERABLES Final Result [facility] [place] [address] * (ABNORMAL) Differential, auto (12/06/2024 2:20 PM CDT) Neutrophil abs 5.35 1.50 - 6.50 K/cumm Comment:Testing performed by : [address] [address] Imm gran abs 0.25(H) 0.00 - 0.10 K/cumm [facility] Comment:Testing performed by : [address] [address] Lymphocyte abs 0.78(L) 0.80 - 3.30 K/cumm [facility] Comment:Testing performed by : [address], [place]., [address] Monocyte abs 0.38 0.20 - 0.80 K/cumm [facility] Comment:Testing performed by : [address], [place]., [address] Eosinophil abs 0.02 0.00 - 0.50 K/cumm [facility] Comment:Testing performed by : [address], [place]., [address] Basophil abs 0.03 0.00 - 0.10 K/cumm [facility] Comment:Testing performed by : [address] [address] Neutrophil pct 78.5 % [facility] Comment: Interpretive Data Percent cell count reference ranges are not reported, since discordance with absolute values may lead to misinterpretation of CBC data. Current Interpretive Data was last revised on 2017. Testing performed by: [address] [address] Imm gran pct 3.7 % [facility] Comment: Interpretive Data Percent cell count reference ranges are not reported, since discordance with absolute values may lead to misinterpretation of CBC data. Current Interpretive Data was last revised on 2017. Testing performed by: [address] [address] Lymphocyte pct 11.5 % [facility] Comment: Interpretive Data Percent cell count reference ranges are not reported, since discordance with absolute values may lead to misinterpretation of CBC data. Current Interpretive Data was last revised on 2017. Testing performed by: [address] [address] Monocyte pct 5.6 % [facility] Comment: Interpretive Data Percent cell count reference ranges are not reported, since discordance with absolute values may lead to misinterpretation of CBC data. Current Interpretive Data was last revised on 2017. Testing performed by: [address] [address] Eosinophil pct 0.3 % [facility] Comment: Interpretive Data Percent cell count reference ranges are not reported, since discordance with absolute values may lead to misinterpretation of CBC data. Current Interpretive Data was last revised on 2017. Testing performed by: [address] [address] Basophil pct 0.4 % [facility] Comment: Interpretive Data Percent cell count reference ranges are not reported, since discordance with absolute values may lead to misinterpretation of CBC data. Current Interpretive Data was last revised on 2017. Testing performed by: [address] [address] Blood 12/06/2024 2:20 PM CDT 12/06/2024 2:55 PM CDT us Josue Turner MD LAB BLOOD ORDERABLES Final R esult [facility] Department [place] [address] * (ABNORMAL) CBC with auto differential (12/06/2024 2:20 PM CDT) WBC 6.81 3.80 - 9.90 K/cumm Comment:Testing performed by : [address] [address] Hgb 9.6(L) 11.9 - 15.5 g/dL [facility] Comment:Testing performed by : [address] [address] Hct 29.4(L) 35.6 - 45.5 % [facility] Comment:Testing performed by : [address] [address] Plt 206 150 - 400 K/cumm [facility] Comment:Testing performed by : [address] [address] MPV 9.9 9.1 - 12.3 fL [facility] Comment:Testing performed by : [address] [address] RBC 3.05(L) 3.90 - 5.20 M/cumm [facility] VERA Comment:Testing performed by : [address] [address] MCV 96.4 81.3 - 96.4 fL [facility] Comment:Testing performed by : [address] [address] MCH 31.5 27.1 - 33.3 pg [facility] Comment:Testing performed by : [address] [address] MCHC 32.7 32.3 - 35.7 g/dL [facility] Comment:Testing performed by : [address], [address] RDW CV 13.9 11.1 - 14.9 % [facility] Comment:Testing performed by : [address], [address] RDW SD 48.1 35.7 - 48.1 fL [facility] Comment:Testing performed by : [address] [address] NRBC abs 0.00 0.00 - 0.01 K/cumm [facility] Comment:Testing performed by : [address] [address] Blood 12/06/2024 2:20 PM CDT 12/06/2024 2:55 PM CDT us Josue Turner MD LAB BLOOD ORDERABLES Final R esult [facility] [address] [facility] Department [place] [address] * (ABNORMAL) eGFR (12/04/2024 5:34 AM CDT) [...] was last reviewed 2021. Testing performed by: [address] [address] Blood 12/04/2024 5:34 AM CDT 12/04/2024 6:04 AM CDT us Benjy Perez MD LAB BLOOD ORDERABLES Final Re sult [place] [id number] [facility] Department [place] [address] * (ABNORMAL) Differential, auto (12/04/2024 5:34 AM CDT) Neutrophil abs 2.51 1.50 - 6.50 K/cumm Comment:Testing performed by : [address] [address] Imm gran abs 0.02 0.00 - 0.10 K/cumm [facility] Comment:Testing performed by : [address] [address] Lymphocyte abs 0.73(L) 0.80 - 3.30 K/cumm [facility] Comment:Testing performed by : [address] [address] Monocyte abs 0.61 0.20 - 0.80 K/cumm [facility] Comment:Testing performed by : [address] [address] Eosinophil abs 0.02 0.00 - 0.50 K/cumm [facility] Comment:Testing performed by : [address] [address] Basophil abs 0.01 0.00 - 0.10 K/cumm [facility] Comment:Testing performed by : [address] [address] Neutrophil pct 64.4 % [facility] Comment: Interpretive Data Percent cell count reference ranges are not reported, since discordance with absolute values may lead to misinterpretation of CBC data. Current Interpretive Data was last revised on 2017. Testing performed by: [address] [address] Imm gran pct 0.5 % [facility] Comment: Interpretive Data Percent cell count reference ranges are not reported, since discordance with absolute values may lead to misinterpretation of CBC data. Current Interpretive Data was last revised on 2017. Testing performed by: [address] [address] Lymphocyte pct 18.7 % [facility] Comment: Interpretive Data Percent cell count reference ranges are not reported, since discordance with absolute values may lead to misinterpretation of CBC data. Current Interpretive Data was last revised on 2017. Testing performed by: [address] [address] Monocyte pct 15.6 % [facility] Comment: Interpretive Data Percent cell count reference ranges are not reported, since discordance with absolute values may lead to misinterpretation of CBC data. Current Interpretive Data was last revised on 2017. Testing performed by: [address] [address] Eosinophil pct 0.5 % [facility] Comment: Interpretive Data Percent cell count reference ranges are not reported, since discordance with absolute values may lead to misinterpretation of CBC data. Current Interpretive Data was last revised on 2017. Testing performed by: [address] [address] Basophil pct 0.3 % [facility] Comment: Interpretive Data Percent cell count reference ranges are not reported, since discordance with absolute values may lead to misinterpretation of CBC data. Current Interpretive Data was last revised on 2017. Testing performed by: [address] [address] Blood 12/04/2024 5:34 AM CDT 12/04/2024 6:05 AM CDT Benjy Perez MD LAB BLOOD ORDERABLES Final Re sult Performing Organization Address [facility] Co de Phone Number [facility] [place] [address] * Tacrolimus level trough (12/04/2024 5:34 AM CDT) Tacrolimus trough 7.7 ng/mL Comment: Interpretive Data Testing performed by liquid chromatography-tandem mass spectrometry. Therapeutic concentrations vary depending on type of transplanted organ and time elapsed since transplant. Typical trough concentrations range from 5-15 ng/mL. This test was developed and its performance characteristics determined by the [facility] consistent with CLIA requirements. This test has not been cleared or approved by the [place] Food and Drug administration. Current interpretive data last reviewed 2019. Testing performed by: [facility], [address] [place]., [address] Blood 12/04/2024 5:34 AM CDT 12/04/2024 9:12 AM CDT Benjy Perez MD LAB BLOOD ORDERABLES Final Re sult Performing Organization Address [facility] de Phone Number [facility] [place] [address] * (ABNORMAL) Iron profile w/ IBC (12/04/2024 5:34 AM CDT) Pathologist [facility] Iron 62 35 - 145 mcg/dL Comment:Testing performed by : [address] [address] TIBC 159(L) 250 - 400 mcg/dL [facility]A Comment:Testing performed by : [address] [address] Transferrin saturation 39 20 - 50 % [facility] Comment:Testing performed by : [address] [address] Blood 12/04/2024 5:34 AM CDT 12/04/2024 6:04 AM CDT us Benjy Perez MD LAB BLOOD ORDERABLES Final Re sult [facility] [address] [facility] Department [place] [address] * (ABNORMAL) CBC with auto differential (12/04/2024 5:34 AM CDT) Pathologist [facility] WBC 3.90 3.80 - 9.90 K/cumm Comment:Testing performed by : [address] [address] Hgb 8.1(L) 11.9 - 15.5 g/dL [facility] Comment:Testing performed by : [address] [address] Hct 24.7(L) 35.6 - 45.5 % [facility] Comment:Testing performed by : [address] [address] Plt 113(L) 150 - 400 K/cumm [facility] Comment:Testing performed by : [address] [address] MPV 10.4 9.1 - 12.3 fL [facility] Comment:Testing performed by : [address] [address] RBC 2.56(L) 3.90 - 5.20 M/cumm [facility] Comment:Testing performed by : [address] [address] MCV 96.5(H) 81.3 - 96.4 fL [facility] Comment:Testing performed by : [address] [address] MCH 31.6 27.1 - 33.3 pg [facility] Comment:Testing performed by : [address] [address] MCHC 32.8 32.3 - 35.7 g/dL [facility] Comment:Testing performed by : [address] [address] RDW CV 13.5 11.1 - 14.9 % [facility] Comment:Testing performed by : [address], [address] RDW SD 47.8 35.7 - 48.1 fL [facility] Comment:Testing performed by : [address] [address] NRBC abs 0.00 0.00 - 0.01 K/cumm [facility] Comment:Testing performed by : [address], [address] Blood 12/04/2024 5:34 AM CDT 12/04/2024 6:05 AM CDT Benjy Perez MD LAB BLOOD ORDERABLES Final Re sult Performing Organization Address [facility] Co de Phone Number [address] [place] [address] * Lactate dehydrogenase (LD) (12/04/2024 5:34 AM CDT) Lactate dehydrogenase (LDH) 137 100 - 250 Units/L Comment:Testing performed by : [address], [address] Blood 12/04/2024 5:34 AM CDT 12/04/2024 6:04 AM CDT us Benjy Perez MD LAB BLOOD ORDERABLES Final Re sult Performing Organization Address City/[facility] Co de Phone Number [address] [address] * Folate (12/04/2024 5:34 AM CDT) Folic acid 13.6 >=5.0 ng/mL Comment:Testing performed by : [address] [address] Blood 12/04/2024 5:34 AM CDT 12/04/2024 6:04 AM CDT Benjy Perez MD LAB BLOOD ORDERABLES Final Re sult Performing Organization Address City/[facility] Co de Phone Number SAMANTHA [address] [place] [address] * (ABNORMAL) Vitamin B12 (12/04/2024 5:34 AM CDT) Vitamin B12 1,785(H) 230 - 1,250 pg/mL Comment:Testing performed by : [address] [address] Blood 12/04/2024 5:34 AM CDT 12/04/2024 6:04 AM CDT Benjy Perez MD LAB BLOOD ORDERABLES Final Re sult Performing Organization Address [facility] Co de Phone Number SAMANTHA [address] [place] [address] * (ABNORMAL) Comprehensive metabolic panel (12/04/2024 5:34 AM CDT) Pathologist [facility] Sodium 134(L) 135 - 145 mmol/L Comment:Testing performed by : [address] [address] Potassium, pl 3.8 3.3 - 4.9 mmol/L [facility]A Comment:Testing performed by : [address] [address] Chloride 100 97 - 110 mmol/L [facility] Comment:Testing performed by : [address] [address] CO2 22 22 - 32 mmol/L [facility] Comment:Testing performed by : [address] [address] Anion gap 12 2 - 15 mmol/L [facility] Comment:Testing performed by : [address] [address] BUN 39(H) 6 - 25 mg/dL [facility] Comment:Testing performed by : [address] [address] Creatinine 2.35(H) 0.60 - 1.10 mg/dL [facility] Comment:Testing performed by : [address] [address] Glucose 89 70 - 199 mg/dL [facility] Comment: Interpretive Data Fasting glucose >/= [...] was last revised 2022. Testing performed by: [address] [address] Calcium 9.4 8.5 - 10.3 mg/dL [facility] Comment:Testing performed by : [address] [address] Bilirubin, total 0.2 0.1 - 1.2 mg/dL [facility] Comment:Testing performed by : [address] [address] Protein, pl 5.5(L) 6.5 - 8.5 g/dL [facility] Comment:Testing performed by : [address] [address] Albumin 2.9(L) 3.5 - 5.0 g/dL [facility] Comment:Testing performed by : [address] [address] Alk phos 70 40 - 130 Units/L [facility] Comment:Testing performed by : [address] [address] ALT 6(L) 7 - 45 Units/L [facility] Comment:Testing performed by : [address] [address] AST 11 10 - 45 Units/L [facility] Comment:Testing performed by : [address] [address] Blood 12/04/2024 5:34 AM CDT 12/04/2024 6:04 AM CDT us Benjy Perez MD LAB BLOOD ORDERABLES Final Re sult Performing Organization Address [facility] Co de Phone Number SAMANTHA [address] [place] [address] * (ABNORMAL) eGFR (12/03/2024 4:59 AM CDT) eGFR 19(L) >=60 mL/min/1. 73 [...] was last reviewed 2021. Testing performed by: [facility], [address] [place] [address]., [address] Blood 12/03/2024 4:59 AM CDT 12/03/2024 5:40 AM CDT us Alka Alcantar PULLING UNIT OPERATOR LAB BLOOD ORDERABLES Final Result Performing Organization Address [facility] Co de Phone Number SAMANTHA [address] [place] [address] * (ABNORMAL) Differential, auto (12/03/2024 4:59 AM CDT) Neutrophil abs 2.52 1.50 - 6.50 K/cumm Comment:Testing performed by : [address], [place]., [address] Imm gran abs 0.02 0.00 - 0.10 K/cumm [facility] Comment:Testing performed by : [facility], [address] [place] [address], [place]., [address] Lymphocyte abs 0.68(L) 0.80 - 3.30 K/cumm [facility] Comment:Testing performed by : [address], [place]., [address] Monocyte abs 0.72 0.20 - 0.80 K/cumm [facility] Comment:Testing performed by : [address], [place]., [address] Eosinophil abs 0.03 0.00 - 0.50 K/cumm [facility] Comment:Testing performed by : [address], [place]., [address] Basophil abs 0.01 0.00 - 0.10 K/cumm [facility] Comment:Testing performed by : [address] [address] Neutrophil pct 63.2 % [facility] Comment: Interpretive Data Percent cell count reference ranges are not reported, since discordance with absolute values may lead to misinterpretation of CBC data. Current Interpretive Data was last revised on 2017. Testing performed by: [address] [address] Imm gran pct 0.5 % [facility] Comment: Interpretive Data Percent cell count reference ranges are not reported, since discordance with absolute values may lead to misinterpretation of CBC data. Current Interpretive Data was last revised on 2017. Testing performed by: [address] [address] Lymphocyte pct 17.1 % [facility] Comment: Interpretive Data Percent cell count reference ranges are not reported, since discordance with absolute values may lead to misinterpretation of CBC data. Current Interpretive Data was last revised on 2017. Testing performed by: [address] [address] Monocyte pct 18.1 % [facility] Comment: Interpretive Data Percent cell count reference ranges are not reported, since discordance with absolute values may lead to misinterpretation of CBC data. Current Interpretive Data was last revised on 2017. Testing performed by: [address] [address] Eosinophil pct 0.8 % SAMANTHA Comment: Interpretive Data Percent cell count reference ranges are not reported, since discordance with absolute values may lead to misinterpretation of CBC data. Current Interpretive Data was last revised on 2017. Testing performed by: [address] [address] Basophil pct 0.3 % SAMANTHA Comment: Interpretive Data Percent cell count reference ranges are not reported, since discordance with absolute values may lead to misinterpretation of CBC data. Current Interpretive Data was last revised on 2017. Testing performed by: [address] [address] Blood 12/03/2024 4:5 9 AM CDT 12/03/2024 5:40 AM CDT us Alka Alcantar PULLING UNIT OPERATOR LAB BLOOD ORDERABLES Final Result [facility] [address] [facility] Department [place] [address] * (ABNORMAL) CBC with auto differential (12/03/2024 4:59 AM CDT) WBC 3.98 3.80 - 9.90 K/cumm Comment:Testing performed by : [address] [address] Hgb 8.0(L) 11.9 - 15.5 g/dL SAMANTHA Comment:Testing performed by : [address] [address] Hct 24.1(L) 35.6 - 45.5 % SAMANTHA Comment:Testing performed by : [address] [address] Plt 95(L) 150 - 400 K/cumm SAMANTHA Comment:Testing performed by : [address] [address] MPV 10.6 9.1 - 12.3 fL SAMANTHA VERA Comment:Testing performed by : [address] [address] RBC 2.48(L) 3.90 - 5.20 M/cumm SAMANTHA VERA Comment:Testing performed by : [address] [address] MCV 97.2(H) 81.3 - 96.4 fL SAMANTHA Comment:Testing performed by : [address] [address] MCH 32.3 27.1 - 33.3 pg SAMANTHA Comment:Testing performed by : [address] [address] MCHC 33.2 32.3 - 35.7 g/dL SAMANTHA VERA Comment:Testing performed by : [address] [address] RDW CV 13.6 11.1 - 14.9 % SAMANTHA Comment:Testing performed by : [address] [address] RDW SD 48.5(H) 35.7 - 48.1 fL SAMANTHA Comment:Testing performed by : [address] [address] NRBC abs 0.00 0.00 - 0.01 K/cumm SAMANTHA VERA Comment:Testing performed by : [address] [address] Blood 12/03/2024 4:59 AM CDT 12/03/2024 5:40 AM CDT us Alka Alcantar PULLING UNIT OPERATOR LAB BLOOD ORDERABLES Final Result SAMANTHA [address] [facility] Department of Laboratories [place], [place] [id number] * (ABNORMAL) Basic metabolic panel (12/03/2024 4:59 AM CDT) Sodium 133(L) 135 - 145 mmol/L Comment:Testing performed by : [address] [address] Potassium, pl 3.9 3.3 - 4.9 mmol/L [facility] Comment:Testing performed by : [address] [address] Chloride 99 97 - 110 mmol/L [facility] Comment:Testing performed by : [address], [place]., [address] CO2 21(L) 22 - 32 mmol/L SAMANTHA Comment:Testing performed by : [address], [place]., [address] Anion gap 13 2 - 15 mmol/L [facility] Comment:Testing performed by : [address] [address] BUN 45(H) 6 - 25 mg/dL [facility] Comment:Testing performed by : [address], [place]., [address] Creatinine 2.66(H) 0.60 - 1.10 mg/dL [facility] Comment:Testing performed by : [address] [address] Glucose 97 70 - 199 mg/dL [facility] Comment: Interpretive Data Fasting glucose >/= [...] was last revised 2022. Testing performed by: [address] [address] Calcium 9.0 8.5 - 10.3 mg/dL SAMANTHA Comment:Testing performed by : [address] [address] Blood 12/03/2024 4:59 AM CDT 12/03/2024 5:40 AM CDT Alka Alcantar NP LAB BLOOD ORDERABLES Final Result Performing Organization Address [facility] Co de Phone Number SAMANTHA [address] [place] [place] [address] * Tacrolimus level trough (12/02/2024 9:04 AM CDT) Tacrolimus trough 8.8 ng/mL Comment: Interpretive Data Testing performed by liquid chromatography-tandem mass spectrometry. Therapeutic concentrations vary depending on type of transplanted organ and time elapsed since transplant. Typical trough concentrations range from 5-15 ng/mL. This test was developed and its performance characteristics determined by the [facility] consistent with CLIA requirements. This test has not been cleared or approved by the [place] Food and Drug administration. Current interpretive data last reviewed 2019. Testing performed by: [facility], [address] [place]., [address] Blood 12/02/2024 9:04 AM CDT 12/02/2024 11:09 AM CDT Kb Ivory MD LAB BLOOD ORDERABLES Final Resu lt Performing Organization Address [facility] Co de Phone Number SAMANTHA [address] [place] [address] * (ABNORMAL) eGFR (12/02/2024 5:17 AM CDT) Pathologist [facility] eGFR 19(L) >=60 mL/min/1. 73 m2 Comment: [...] was last reviewed 2021. Testing performed by: [address] [address] Blood 12/02/2024 5:17 AM CDT 12/02/2024 5:57 AM CDT us Alka Alcantar NP LAB BLOOD ORDERABLES Final Result SAMANTHA [address] [facility] Department [place] [address] * (ABNORMAL) Differential, auto (12/02/2024 5:17 AM CDT) Neutrophil abs 4.12 1.50 - 6.50 K/cumm Comment:Testing performed by : [address] [address] Imm gran abs 0.02 0.00 - 0.10 K/cumm SAMANTHA Comment:Testing performed by : [address] [address] Lymphocyte abs 0.39(L) 0.80 - 3.30 K/cumm SAMANTHA Comment:Testing performed by : [address] [address] Monocyte abs 0.62 0.20 - 0.80 K/cumm SAMANTHA Comment:Testing performed by : [address] [address] Eosinophil abs 0.02 0.00 - 0.50 K/cumm SAMANTHA Comment:Testing performed by : [address] [address] Basophil abs 0.01 0.00 - 0.10 K/cumm SAMANTHA Comment:Testing performed by : [address] [address] Neutrophil pct 79.5 % SAMANTHA Comment: Interpretive Data Percent cell count reference ranges are not reported, since discordance with absolute values may lead to misinterpretation of CBC data. Current Interpretive Data was last revised on 2017. Testing performed by: [address] [address] Imm gran pct 0.4 % [facility] Comment: Interpretive Data Percent cell count reference ranges are not reported, since discordance with absolute values may lead to misinterpretation of CBC data. Current Interpretive Data was last revised on 2017. Testing performed by: [address] [address] Lymphocyte pct 7.5 % [facility] Comment: Interpretive Data Percent cell count reference ranges are not reported, since discordance with absolute values may lead to misinterpretation of CBC data. Current Interpretive Data was last revised on 2017. Testing performed by: [address] [address] Monocyte pct 12.0 % [facility] Comment: Interpretive Data Percent cell count reference ranges are not reported, since discordance with absolute values may lead to misinterpretation of CBC data. Current Interpretive Data was last revised on 2017. Testing performed by: [address] [address] Eosinophil pct 0.4 % [facility] Comment: Interpretive Data Percent cell count reference ranges are not reported, since discordance with absolute values may lead to misinterpretation of CBC data. Current Interpretive Data was last revised on 2017. Testing performed by: [address] [address] Basophil pct 0.2 % [facility] Comment: Interpretive Data Percent cell count reference ranges are not reported, since discordance with absolute values may lead to misinterpretation of CBC data. Current Interpretive Data was last revised on 2017. Testing performed by: [address] [address] Blood 12/02/2024 5:17 AM CDT 12/02/2024 5:57 AM CDT us Alka Alcantar PULLING UNIT OPERATOR LAB BLOOD ORDERABLES Final Result [facility] [address] [facility] Department [place] [address] * (ABNORMAL) CBC with auto differential (12/02/2024 5:17 AM CDT) WBC 5.18 3.80 - 9.90 K/cumm Comment:Testing performed by : [address] [address] Hgb 7.7(L) 11.9 - 15.5 g/dL SAMANTHA Comment:Testing performed by : [address] [address] Hct 23.7(L) 35.6 - 45.5 % SAMANTHA Comment:Testing performed by : [address] [address] Plt 98(L) 150 - 400 K/cumm SAMANTHA Comment:Testing performed by : [address] [address] MPV 10.6 9.1 - 12.3 fL SAMANTHA Comment:Testing performed by : [address] [address] RBC 2.45(L) 3.90 - 5.20 M/cumm SAMANTHA Comment:Testing performed by : [address] [address] MCV 96.7(H) 81.3 - 96.4 fL SAMANTHA Comment:Testing performed by : [address] [address] MCH 31.4 27.1 - 33.3 pg SAMANTHA Comment:Testing performed by : [address] [address] MCHC 32.5 32.3 - 35.7 g/dL SAMANTHA Comment:Testing performed by : [address] [address] RDW CV 13.6 11.1 - 14.9 % SAMANTHA Comment:Testing performed by : [address], [address] RDW SD 48.4(H) 35.7 - 48.1 fL SAMANTHA Comment:Testing performed by : [address] [address] NRBC abs 0.00 0.00 - 0.01 K/cumm SAMANTHA Comment:Testing performed by : [address] [address] Blood 12/02/2024 5:17 AM CDT 12/02/2024 5:57 AM CDT Alka Alcantar NP LAB BLOOD ORDERABLES Final Result SAMANTHA [address] [facility] Department [place] [address] * (ABNORMAL) Basic metabolic panel (12/02/2024 5:17 AM CDT) Sodium 132(L) 135 - 145 mmol/L Comment:Testing performed by : [address] [address] Potassium, pl 3.9 3.3 - 4.9 mmol/L SAMANTHA Comment:Testing performed by : [address] [address] Chloride 99 97 - 110 mmol/L SAMANTHA Comment:Testing performed by : [address] [address] CO2 20(L) 22 - 32 mmol/L SAMANTHA Comment:Testing performed by : [address] [address] Anion gap 13 2 - 15 mmol/L SAMANTHA Comment:Testing performed by : [address] [address] BUN 50(H) 6 - 25 mg/dL SAMANTHA Comment:Testing performed by : [address] [address] Creatinine 2.66(H) 0.60 - 1.10 mg/dL SAMANTHA Comment:Testing performed by : [address] [address] Glucose 104 70 - 199 mg/dL SAMANTHA [...] was last revised 2022. Testing performed by: [facility], [address] [place] [address]., [address] Calcium 9.0 8.5 - 10.3 mg/dL SAMANTHA VERA Comment:Testing performed by : [address] [address] Blood 12/02/2024 5:17 AM CDT 12/02/2024 5:57 AM CDT Alka Alcantar NP LAB BLOOD ORDERABLES Final Result SAMANTHA VERA [address] [facility] Department [place] [address] * MRI Lumbar Spine WO Contrast (12/01/2024 [...] for hypoplastic 12th ribs followed by 4 wzb-axd-ksgdchz lumbar type vertebral bodies. The disc space [...] and facet arthropathy. Trace facet joint effusion. Wkcm-yb-onhccger spinal canal stenosis. Mild bilateral neural foraminal narrowing. L2-L3: Anterolisthesis of L2 on L3 with unroofing of the disc and marginal spur formation eccentric to the right neural foramen. Thickened ligamentum flavum and facet arthropathy. Severe spinal canal stenosis and lateral recess narrowing. Severe right and tjol-hv-rdyiwfyl left neural foraminal narrowing. L3-L4: Disc bulge with marginal spur formation. Thickened ligamentum flavum and facet arthropathy. Moderate spinal canal stenosis and lateral recess narrowing on both sides. Oyjp-gd-iokcfbfz right and mild left neural foraminal narrowing. L4-S1: Surgical level. Previous right laminectomy. Disc bulge with marginal spur formation. Superimposed small central disc protrusion. Bilateral facet arthropathy. No significant spinal canal stenosis. Lateral recess effacement on the left. Xmfe-ul-uqdgdpst left and mild inferior right neural foraminal [...] Willard Grimaldo D.O. AP: AP Report ID: [id number] Reading Location: [id number] Procedure Note Willard Grimaldo, DO - 12/01/2024 [...] for hypoplastic 12th ribs followed by 4 dyt-woj-dxqvsoa lumbar type vertebral bodies. The disc space [...] flavum and facet arthropathy. Trace facet joint effusion.Qeve-jh-xzzqyriy spinal canal stenosis. Mild bilateral neural foraminal narrowing. L2-L3: Anterolisthesis of L2 on L3 with unroofing of the disc and marginal spur formation eccentric to the right neural foramen. Thickenedligamentum flavum and facet arthropathy. Severe spinal canal stenosis and lateralrecess narrowing. Severe right and bdin-yu-qboaurev left neural foraminalnarrowing. L3-L4: Disc bulge with marginal spur formation. Thickened ligamentumflavum and facet arthropathy. Moderate spinal canal stenosis and lateral recess narrowing on both sides. Pvtp-wx-yhdigxrg right and mild left neural foraminal narrowing. L4-S1: Surgical level. Previous right laminectomy. Disc bulge withmarginal spur formation. Superimposed small central disc protrusion. Bilateralfacet arthropathy. No significant spinal canal stenosis. Lateral recesseffacement on the left. Bqvo-fz-gonkmbod left and mild inferior right neuralforaminal narrowing. [...] Willard Grimaldo D.O. AP: AP Report ID: [id number] Reading Location: [id number] us Saim Cunningham DO IMG MRI PROCEDURES Final Result * [...] There is normal cortical thickness and echogenicity. [place] kidneys are not identified. URINARY BLADDER: The urinary bladder, as visualized, appears unremarkable. The bilateral ureteral jets are not visualized. OTHER: No other additional findings. 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 No acute abnormality. THIS IS AN ELECTRONICALLY VERIFIED FINAL REPORT 12/01/2024 6:09 PM - Electronically signed by Km Lopez M.D. KH: KELLY Report ID: [id number] Reading Location: [id number] Procedure Note Km Lopez MD - 12/01/2024 EXAM DESCRIPTION: US KIDNEY COMPLETE REASON FOR STUDY: ckd, Of transplant kidney TECHNIQUE: Ultrasound of the kidneys and urinary bladder was performedwith grayscale imaging. COMPARISON: 12/20/2024 FINDINGS: Right pelvic transplant kidney:: The right kidney measures 12.3cm in length. There is no hydronephrosis. There is normal cortical thicknessand echogenicity. [place] kidneys are not identified. URINARY BLADDER: The urinary bladder, as visualized, appearsunremarkable. The bilateral ureteral jets are not visualized. OTHER: No other additional findings. IMPRESSION: Right pelvic transplant kidney is evident withouthydronephrosis or other acute process. No acute abnormality. THIS IS AN ELECTRONICALLY VERIFIED FINAL REPORT 12/01/2024 6:09 PM - Electronically signed by Km Lopez M.D. KH: KELLY Report ID: [id number] Reading Location: [place] [address] us Alka Alcantar PULLING UNIT OPERATOR IMG US PROCEDURES Final Res ult * [...] was last reviewed 2021. Testing performed by: [address] [address] Blood 12/01/2024 9:06 AM CDT 12/01/2024 9:12 AM CDT us Alka Pope Ortiz PULLING UNIT OPERATOR LAB BLOOD ORDERABLES Final Result [facility] [address] [facility] Department [place] [address] * (ABNORMAL) Differential, auto (12/01/2024 9:06 AM CDT) Neutrophil abs 8.62(H) 1.50 - 6.50 K/cumm Comment:Testing performed by : [address] [address] Imm gran abs 0.08 0.00 - 0.10 K/cumm SAMANTHA Comment:Testing performed by : [address] [address] Lymphocyte abs 0.49(L) 0.80 - 3.30 K/cumm SAMANTHA Comment:Testing performed by : [address] [address] Monocyte abs 0.76 0.20 - 0.80 K/cumm SAMANTHA Comment:Testing performed by : [address] [address] Eosinophil abs 0.02 0.00 - 0.50 K/cumm SAMANTHA Comment:Testing performed by : [address] [address] Basophil abs 0.02 0.00 - 0.10 K/cumm SAMANTHA Comment:Testing performed by : [address] [address] Neutrophil pct 86.3 % SAMANTHA Comment: Interpretive Data Percent cell count reference ranges are not reported, since discordance with absolute values may lead to misinterpretation of CBC data. Current Interpretive Data was last revised on 2017. Testing performed by: [address] [address] Imm gran pct 0.8 % [facility] Comment: Interpretive Data Percent cell count reference ranges are not reported, since discordance with absolute values may lead to misinterpretation of CBC data. Current Interpretive Data was last revised on 2017. Testing performed by: [address] [address] Lymphocyte pct 4.9 % [facility] Comment: Interpretive Data Percent cell count reference ranges are not reported, since discordance with absolute values may lead to misinterpretation of CBC data. Current Interpretive Data was last revised on 2017. Testing performed by: [address] [address] Monocyte pct 7.6 % [facility] Comment: Interpretive Data Percent cell count reference ranges are not reported, since discordance with absolute values may lead to misinterpretation of CBC data. Current Interpretive Data was last revised on 2017. Testing performed by: [address] [address] Eosinophil pct 0.2 % [facility] Comment: Interpretive Data Percent cell count reference ranges are not reported, since discordance with absolute values may lead to misinterpretation of CBC data. Current Interpretive Data was last revised on 2017. Testing performed by: [address] [address] Basophil pct 0.2 % [facility] Comment: Interpretive Data Percent cell count reference ranges are not reported, since discordance with absolute values may lead to misinterpretation of CBC data. Current Interpretive Data was last revised on 2017. Testing performed by: [address] [address] Blood 12/01/2024 9:06 AM CDT 12/01/2024 9:12 AM CDT us Alka Alcantar NP LAB BLOOD ORDERABLES Final Result SAMANTHA VERA [address] [facility] Department [place] [address] * Tacrolimus level trough (12/01/2024 9:06 AM CDT) [facility] Tacrolimus trough 18.0 ng/mL Comment: Interpretive Data Testing performed by liquid chromatography-tandem mass spectrometry. Therapeutic concentrations vary depending on type of transplanted organ and time elapsed since transplant. Typical trough concentrations range from 5-15 ng/mL. This test was developed and its performance characteristics determined by the [facility] consistent with CLIA requirements. This test has not been cleared or approved by the [place] Food and Drug administration. Current interpretive data last reviewed 2019. Testing performed by: [facility], [address] [place]., [address] Blood 12/01/2024 9:06 AM CDT 12/01/2024 11:12 AM CDT Alka Alcantar NP LAB BLOOD ORDERABLES Final Result SAMANTHA VERA [address] [facility] Department [place] [address] * (ABNORMAL) CBC with auto differential (12/01/2024 9:06 AM CDT) [facility] WBC 9.99(H) 3.80 - 9.90 K/cumm Comment:Testing performed by : [address] [address] Hgb 9.2(L) 11.9 - 15.5 g/dL SAMANTHA VERA Comment:Testing performed by : [address] [address] Hct 29.6(L) 35.6 - 45.5 % SAMANTHA VERA Comment:Testing performed by : [address] [address] Plt 98(L) 150 - 400 K/cumm SAMANTHA VERA Comment:Testing performed by : [address] [address] MPV 9.6 9.1 - 12.3 fL SAMANTHA VERA Comment:Testing performed by : [address] [address] RBC 2.95(L) 3.90 - 5.20 M/cumm SAMANTHA VERA Comment:Testing performed by : [address] [address] MCV 100.3(H) 81.3 - 96.4 fL SAMANTHA VERA Comment:Testing performed by : [address] [address] MCH 31.2 27.1 - 33.3 pg SAMANTHA VERA Comment:Testing performed by : [address] [address] MCHC 31.1(L) 32.3 - 35.7 g/dL SAMANTHA Comment:Testing performed by : [address] [address] RDW CV 13.6 11.1 - 14.9 % SAMANTHA Comment:Testing performed by : [address] [address] RDW SD 50.2(H) 35.7 - 48.1 fL SAMANTHA Comment:Testing performed by : [address] [address] NRBC abs 0.00 0.00 - 0.01 K/cumm SAMANTHA Comment:Testing performed by : [address] [address] Blood 12/01/2024 9:06 AM CDT 12/01/2024 9:12 AM CDT us Alka Alcantar PULLING UNIT OPERATOR LAB BLOOD ORDERABLES Final Result SAMANTHA [address] [facility] Department of Laboratories [place], [place] [id number] * (ABNORMAL) Basic metabolic panel (12/01/2024 9:06 AM CDT) Sodium 130(L) 135 - 145 mmol/L Comment:Testing performed by : [address] [address] Potassium, pl 4.6 3.3 - 4.9 mmol/L SAMANTHA Comment:Testing performed by : [address], [address] Chloride 97 97 - 110 mmol/L SAMANTHA Comment:Testing performed by : [address] [address] [address] CO2 17(L) 22 - 32 mmol/L SAMANTHA Comment:Testing performed by : [address] [address] Anion gap 16(H) 2 - 15 mmol/L SAMANTHA Comment:Testing performed by : [address] [address] BUN 52(H) 6 - 25 mg/dL SAMANTHA Comment:Testing performed by : [address] [address] Creatinine 2.85(H) 0.60 - 1.10 mg/dL SAMANTHA Comment:Testing performed by : [address] [address] Glucose 95 70 - 199 mg/dL SAMANTHA [...] was last revised 2022. Testing performed by: [address] [address] Calcium 9.5 8.5 - 10.3 mg/dL SAMANTHA Comment:Testing performed by : [address] [address] Blood 12/01/2024 9:06 AM CDT 12/01/2024 9:12 AM CDT us Alka Alcantar NP LAB BLOOD ORDERABLES Final Result SAMANTHA [address] [facility] Department [place] [address] * CT Recon Lumbar Spine WO Contrast [...] for hypoplastic 12th ribs followed by 4 oji-cxh-mixjvke lumbar type vertebral bodies. The disc space [...] foramen. Thickened ligamentum flavum and facet arthropathy. Anhn-df-okwfxgvw osseous spinal canal stenosis. Mild bilateral osseous [...] and major branch vessels. Right and left [place] kidneys are atrophic. OTHER: Lucency in the [...] Willard Grimaldo D.O. AP: AP Report ID: [id number] Reading Location: [id number] Procedure Note Willard Grimaldo, DO - 12/01/2024 [...] for hypoplastic 12th ribs followed by 4 uzp-iiz-wmprqyd lumbar type vertebral bodies. The disc space [...] leftneural foramen. Thickened ligamentum flavum and facet arthropathy.Naqk-ck-yevlryse osseous spinal canal stenosis. Mild bilateral osseous [...] and major branch vessels. Right and left [place] kidneys are atrophic. OTHER: Lucency in the [...] Willard Grimaldo D.O. AP: AP Report ID: [id number] Reading Location: [place] [address] [facility] DO [facility] [place]EDURES Final Result * (ABNORMAL) Troponin T high-sensitivity 6-hour (11/30/2024 4:26 PM CDT) Trop T hs 46(H) <=14 ng/L Comment: Interpretive Data For further hscTnT resources including the diagnostic algorithm and an aid in interpretation, copy and paste this link: https://nrl.testcatalog.org/show/hsTrop Current Interpretive Data last revised 2020. Testing performed by: [address] [address] Trop T hs delta 0 ng/L SAMANTHA VERA Comment:Testing performed by : [address] [address] Trop T hs interp Insignificant SAMANTHA Comment:Testing performed by : [facility], [address] [place] [address]., [address] Blood 11/30/2024 4:26 PM CDT 11/30/2024 4:33 PM CDT us Annmarie Victor MD LAB BLOOD ORDERABLES F inal Result Performing Organization Address City/[facility]/ZIP Co de Phone Number SAMANTHA [address] [facility] [place] [address] * (ABNORMAL) Troponin T high-sensitivity 4-hour (11/30/2024 2:04 PM CDT) Trop T hs 46(H) <=14 ng/L Comment: Interpretive Data For further hscTnT resources including the diagnostic algorithm and an aid in interpretation, copy and paste this link: https://nrl.testcatalog.org/show/hsTrop Current Interpretive Data last revised 2020. Testing performed by: [facility], [address] [place] [address]., [address] Trop T hs delta 0 ng/L SAMANTHA Comment:Testing performed by : [facility], [address] [place] [address]., [address] Trop T hs interp Insignificant SAMANTHA Comment:Testing performed by : [facility], [address] [place] [address]., [address] Blood 11/30/2024 2:04 PM CDT 11/30/2024 2:09 PM CDT us Annmarie Victor MD LAB BLOOD ORDERABLES F inal Result Performing Organization Address City/[facility]/ZIP Co de Phone Number SAMANTHA [address] [facility] [place] [address] * Suture Removal (11/30/2024 12:49 PM CDT) [...] immediate complications Annmarie Victor MD IN CLINIC/BEDSIDE [facility] SUSY Final Result * Laceration Repair (11/30/2024 12:45 [...] ur Yellow Yellow Comment:Testing performed by : [address] [address] Clarity, ur Clear Clear SAMANTHA Comment:Testing performed by : [address] [address] Specific gravity, ur 1.012 1.003 - 1.030 SAMANTHA Comment:Testing performed by : [address] [address] pH, urine 7.5 SAMANTHA Comment: Interpretive Data U rine pH is affected by diet, medications, systemic acid-base disturbances, and renal tubular function. pH may affect urinary stone formation. For example, urine pH below 6.0 may help reduce the tendency for calcium phosphate stones and pH greater than 6.0 may reduce the tendency for uric acid stone formation. Source: [facility] [employer] Current Interpretive Data was last revised on 2017 Testing performed by: [facility], [address] [place] [address]., [address] Protein, ur ql 2+(A) Negative SAMANTHA Comment:Testing performed by : [address] [address] Glucose, ur ql Negative Negative SAMANTHA Comment:Testing performed by : [address] [address] Ketones, ur Negative Negative SAMANTHA Comment:Testing performed by : [address] [address] Bilirubin, ur Negative Negative SAMANTHA Comment:Testing performed by : [address] [address] Blood, ur 1+(A) Negative SAMANTHA Comment:Testing performed by : [address] [address] Urobilinogen, ur <2.0 <2.0 mg/dL SAMANTHA Comment:Testing performed by : [address] [address] Nitrite, ur Negative Negative SAMANTHA Comment:Testing performed by : [address] [address] Leukocyte esterase, ur 2+(A) Negative SAMANTHA Comment:Testing performed by : [address] [address] UA reflex comment Reflex to microscopic UA will be performed. SAMANTHA Comment:Testing performed by : [address] [address] Urine 11/30/2024 11:5 4 AM CDT 11/30/2024 12:01 PM CDT us Annmarie Victor MD LAB MICROBIOLOGY - GEN ERAL ORDERABLES Final Result SAMANTHA [address] [facility] Department [place] [address] * (ABNORMAL) Urinalysis, microscopic only (11/30/2024 11:54 AM CDT) WBC, ur 21-50(A) 0 - 5 /HPF Comment:Testing performed by : [facility], [address] [place] [address]., [address] RBC, ur 3-5(A) 0 - 2 /HPF SAMANTHA VERA Comment:Testing performed by : [address] [address] Epithelial cells, squamous, ur 1-5 0 - 5 /HPF SAMANTHA Comment:Testing performed by : [address] [address] Mucous, ur Present(A) SAMANTHA Comment:Testing performed by : [address] [address] Culture Reflex Comment Reflex to urine culture will be performed. SAMANTHA Comment:Testing performed by : [address] [address] Urine 11/30/2024 11:5 4 AM CDT 11/30/2024 12:01 PM CDT Annmarie Victor MD LAB URINE ORDERABLES F inal Result SAMANTHA [address] [facility] Department [place] [address] * Urine culture Urine (11/30/2024 11:54 AM CDT) Report Final Report: Less than 100,000 colonies/mL (clinically insignificant growth based on current clinical standards) Comment:Testing performed by : [facility], [address] [facility], [place]., [address] Organism (CLINICALLY INSIGNIFICANT GROWTH SAMANTHA Urine 11/30/2024 11:5 4 AM CDT 11/30/2024 3:53 PM CDT Narrative SAMANTHA VERA - 12/01/2024 4:27 PM CDT Urine culture reflexed based upon urinalysis results. Testing performed by [facility] Microbiology Laboratory ([phone]) Annmarie Victor MD LAB MICROBIOLOGY - GEN ERAL ORDERABLES Final Result Performing Organization Address City/[facility] Co de Phone Number SAMANTHA [facility] [place] [address] * (ABNORMAL) Troponin T high-sensitivity 2-hour (11/30/2024 11:23 AM CDT) Trop T hs 42(H) <=14 ng/L Comment: Interpretive Data For further hscTnT resources including the diagnostic algorithm and an aid in interpretation, copy and paste this link: https://nrl.testcatalog.org/show/hsTrop Current Interpretive Data last revised 2020. Testing performed by: [facility], [address] [place] [address]., [address] Trop T hs delta -4 ng/L SAMANTHA Comment:Testing performed by : [address] [address] Trop T hs interp Insignificant SAMANTHA Comment:Testing performed by : [address] [address] Blood 11/30/2024 11:2 3 AM CDT 11/30/2024 11:50 AM CDT Annmarie Victor MD LAB BLOOD ORDERABLES F inal Result Performing Organization Address [facility] Co de Phone Number [facility] [address] [facility] [place] [address] * Sepsis Lactate w/ Reflex (11/30/2024 11:23 AM CDT) Pathologist [facility] Sepsis Lactate 0.8 0.7 - 2.0 mmol/L Comment:Testing performed by : [address] [address] Blood 11/30/2024 11:2 3 AM CDT 11/30/2024 11:50 AM CDT Annmarie Victor MD LAB BLOOD ORDERABLES F inal Result Performing Organization Address [facility] Co de Phone Number SAMANTHA [address] [address] * Tacrolimus level random (11/30/2024 11:23 AM CDT) Tacrolimus random 3.6 ng/mL Comment: Interpretive Data Testing performed by liquid chromatography-tandem mass spectrometry. Therapeutic concentrations vary depending on type of transplanted organ and time elapsed since transplant. Typical trough concentrations range from 5-15 ng/mL. This test was developed and its performance characteristics determined by the [facility] Laboratory consistent with CLIA requirements. This test has not been cleared or approved by the [place] Food and Drug administration. Current interpretive data last reviewed 2019. Testing performed by: [facility], [address] [place] [address]., [address] Blood 11/30/2024 11:2 3 AM CDT 11/30/2024 3:35 PM CDT Annmarie Victor MD LAB BLOOD ORDERABLES F inal Result Performing Organization Address [facility] de Phone Number SAMANTHA [address] [address] * Blood culture Blood Peripheral (11/30/2024 11:23 AM CDT) Report Final Report: No growth Comment:Testing performed by : [facility], [address] [place]., [address] Blood (Peripheral) 11/30/2024 11:23 AM CDT 11/30/2024 [...] performance characteristics have been verified by the [facility] Microbiology Laboratory. For questions about this culture, contact the Microbiology Laboratory at [phone]. Interpretive data was last revised on 24. Annmarie Victor MD LAB MICROBIOLOGY - GEN ERAL ORDERABLES Final Result SAMANTHA [address] [facility] Department of Laboratories [place], [place] [id number] * Blood culture Blood Peripheral (11/30/2024 11:23 AM CDT) Report Final Report: No growth Comment:Testing performed by : [facility], [address] [facility] [place]., [address] Blood (Peripheral) 11/30/2024 11:23 AM CDT 11/30/2024 2:[address] [facility] SAMANTHA [facility] 12/04/2024 4:00 PM CDT Received only aerobic [...] performance characteristics have been verified by the [facility] Microbiology Laboratory. For questions about this culture, contact the Microbiology Laboratory at [phone]. Interpretive data was last revised on 24. us Annmarie Victor MD LAB MICROBIOLOGY - GEN ERAL ORDERABLES Final Result [facility] [address] [facility] Department [place] [address] * CT Chest Abdomen Pelvis WO Contrast [...] Normal. KIDNEYS/URINARY TRACT: Severe atrophy of the [place] kidneys. Transplant kidney right lower quadrant.. No [...] patient's symptoms. 2. Severe atrophy of the [place] kidneys. Transplant kidney right lower quadrant. THIS IS AN ELECTRONICALLY VERIFIED FINAL REPORT 11/30/2024 11:51 AM - Electronically signed by Greg Mosqueda M.D. JA: JOSE Report ID: [id number] Reading Location: [id number] Procedure Note Greg Mosqueda MD - 11/30/2024 [...] Normal. KIDNEYS/URINARY TRACT: Severe atrophy of the [place] kidneys. Transplant kidney right lower quadrant.. No [...] patient's symptoms. 2. Severe atrophy of the [place] kidneys. Transplant kidney right lower quadrant. THIS IS AN ELECTRONICALLY VERIFIED FINAL REPORT 11/30/2024 11:51 AM - Electronically signed by Greg GARCIA Report ID: [id number] Reading Location: [id number] Annmarie Victor MD IMG CT PROCEDURES Juany [...] 11:24 AM - Electronically signed by Greg GARCIA: JOSE Report ID: [id number] Reading Location: [id number] Procedure Note Greg Mosqueda MD - 11/30/2024 [...] Greg Mosqueda M.D. JA: JOSE Report ID: [id number] Reading Location: [id number] Kae SANTIAGO IMG CT PROCEDURES Final Resul t * ECG 12 lead (11/30/2024 9:38 AM CDT) Ventricular Rate EKG/Min 104 BPM [facility] Atrial Rate 104 BPM [facility] OK-Interval (MSEC) 164 ms [facility] QRS-Interval (MSEC) 82 ms [facility] QT-Interval (MSEC) 318 ms [facility] QTc 418 ms [facility] P [place] 70 degrees [facility] R [place] 28 degrees [facility] T [place] 51 degrees [facility] Diagnosis Sinus tachycardia Abnormal ECG When compared with ECG of 18-AUG-2024 09:44, No significant change was found Confirmed by OLIVIA GRIMALDO M.D. ([id number]) on 12/02/2024 3:17:38 PM [facility] 11/30/2024 9:38 AM CDT 12/02/2024 3:17 PM CDT us Annmarie Victor MD ECG ORDERABLES Final Result [facility] * (ABNORMAL) Troponin T high-sensitivity series (baseline, 2hr, 4hr, 6hr) (11/30/2024 9:34 AM CDT) Trop T hs 46(H) <=14 ng/L Comment: Interpretive Data For further hscTnT resources including the diagnostic algorithm and an aid in interpretation, copy and paste this link: https://nrl.testcatalog.org/show/hsTrop Current Interpretive Data last revised 2020. Testing performed by: [facility], [address] [place] [address]., [address] Blood 11/30/2024 9:34 AM CDT 11/30/2024 9:50 AM CDT us Annmarie Victor MD LAB BLOOD ORDERABLES F inal Result Performing Organization Address City/[facility]/ZIP Co de Phone Number SAMANTHA [address] [facility] Department [place] [address] * (ABNORMAL) eGFR (11/30/2024 9:34 [...] Inclusion of Race in Diagnosing Kidney Disease, JOSE [place] 2020). The CKD-EPI equation should not be used for patients with unstable renal function and has not been validated in children and those over 70. Current interpretive data was last reviewed 2021. Testing performed by: [address] [address] Blood 11/30/2024 9:34 AM CDT 11/30/2024 9:50 AM CDT us Annmarie Victor MD LAB BLOOD ORDERABLES F inal Result [facility] [address] [facility] Department [place] [address] * (ABNORMAL) Differential, auto (11/30/2024 9:34 AM CDT) Neutrophil abs 15.35(H) 1.50 - 6.50 K/cumm Comment:Testing performed by : [address] [address] Imm gran abs 0.21(H) 0.00 - 0.10 K/cumm SAMANTHA Comment:Testing performed by : [address] [address] Lymphocyte abs 1.03 0.80 - 3.30 K/cumm SAMANTHA Comment:Testing performed by : [address] [address] Monocyte abs 1.44(H) 0.20 - 0.80 K/cumm SAMANTHA Comment:Testing performed by : [address] [address] Eosinophil abs 0.01 0.00 - 0.50 K/cumm SAMANTHA Comment:Testing performed by : [address] [address] Basophil abs 0.04 0.00 - 0.10 K/cumm SAMANTHA Comment:Testing performed by : [address] [address] Neutrophil pct 84.8 % SAMANTHA Comment: Interpretive Data Percent cell count reference ranges are not reported, since discordance with absolute values may lead to misinterpretation of CBC data. Current Interpretive Data was last revised on 2017. Testing performed by: [address] [address] Imm gran pct 1.2 % [facility] Comment: Interpretive Data Percent cell count reference ranges are not reported, since discordance with absolute values may lead to misinterpretation of CBC data. Current Interpretive Data was last revised on 2017. Testing performed by: [address] [address] Lymphocyte pct 5.7 % CERNER Comment: Interpretive Data Percent cell count reference ranges are not reported, since discordance with absolute values may lead to misinterpretation of CBC data. Current Interpretive Data was last revised on 2017. Testing performed by: [address] [address] Monocyte pct 8.0 % [facility] Comment: Interpretive Data Percent cell count reference ranges are not reported, since discordance with absolute values may lead to misinterpretation of CBC data. Current Interpretive Data was last revised on 2017. Testing performed by: [address] [address] Eosinophil pct 0.1 % [facility] Comment: Interpretive Data Percent cell count reference ranges are not reported, since discordance with absolute values may lead to misinterpretation of CBC data. Current Interpretive Data was last revised on 2017. Testing performed by: [address] [address] Basophil pct 0.2 % [facility] Comment: Interpretive Data Percent cell count reference ranges are not reported, since discordance with absolute values may lead to misinterpretation of CBC data. Current Interpretive Data was last revised on 2017. Testing performed by: [address] [address] Blood 11/30/2024 9:34 AM CDT 11/30/2024 9:50 AM CDT us Annmarie Victor MD LAB BLOOD ORDERABLES F inal Result [facility] [place] [address] * Thyroid Function Crowder (11/30/2024 9:34 AM CDT) [facility] TSH 1.07 0.30 - 4.20 mcIUnit/mL Comment:Testing performed by : [address] [address] Blood 11/30/2024 9:34 AM CDT 11/30/2024 9:50 AM CDT us Annmarie Victor MD LAB BLOOD ORDERABLES F inal Result Performing Organization Address City/[facility] Co de Phone Number [address] [place] [address] * (ABNORMAL) CBC with auto differential (11/30/2024 9:34 AM CDT) [facility] WBC 18.08(H) 3.80 - 9.90 K/cumm Comment:Testing performed by : [address] [address] Hgb 10.2(L) 11.9 - 15.5 g/dL SAMANTHA Comment:Testing performed by : [address] [address] Hct 30.7(L) 35.6 - 45.5 % SAMANTHA Comment:Testing performed by : [address] [address] Plt 151 150 - 400 K/cumm SAMANTHA Comment:Testing performed by : [address] [address] MPV 9.5 9.1 - 12.3 fL SAMANTHA Comment:Testing performed by : [address] [address] RBC 3.18(L) 3.90 - 5.20 M/cumm SAMANTHA Comment:Testing performed by : [address] [address] MCV 96.5(H) 81.3 - 96.4 fL SAMANTHA VERA Comment:Testing performed by : [address] [address] MCH 32.1 27.1 - 33.3 pg SAMANTHA VERA Comment:Testing performed by : [address] [address] MCHC 33.2 32.3 - 35.7 g/dL SAMANTHA VERA Comment:Testing performed by : [address], [address] RDW CV 14.0 11.1 - 14.9 % SAMANTHA Comment:Testing performed by : [address], [address] RDW SD 50.1(H) 35.7 - 48.1 fL SAMANTHA Comment:Testing performed by : [address], [address] NRBC abs 0.00 0.00 - 0.01 K/cumm SAMANTHA Comment:Testing performed by : [address], [address] Blood 11/30/2024 9:34 AM CDT 11/30/2024 9:50 AM CDT us Annmarie Victor MD LAB BLOOD ORDERABLES F inal Result Performing Organization Address City/[facility] Co de Phone Number [address] [place] [address] * Phosphorus (11/30/2024 9:34 AM CDT) Phosphorus, pl 3.2 2.3 - 4.5 mg/dL Comment:Testing performed by : [address] [address] Blood 11/30/2024 9:34 AM CDT 11/30/2024 9:50 AM CDT Annmarie Victor MD LAB BLOOD ORDERABLES F inal Result [facility] [address] [place] [address] * Magnesium (11/30/2024 9:34 AM CDT) [facility] Magnesium 1.6 1.4 - 2.5 mg/dL Comment:Testing performed by : [address] [address] Blood 11/30/2024 9:34 AM CDT 11/30/2024 9:50 AM CDT us Annmarie Victor MD LAB BLOOD ORDERABLES F inal Result [address] [address] * (ABNORMAL) Comprehensive metabolic panel (11/30/2024 9:34 AM CDT) [facility] Sodium 131(L) 135 - 145 mmol/L Comment:Testing performed by : [address] [address] Potassium, pl 4.8 3.3 - 4.9 mmol/L SAMANTHA Comment:Testing performed by : [address] [address] Chloride 97 97 - 110 mmol/L SAMANTHA Comment:Testing performed by : [address] [address] CO2 21(L) 22 - 32 mmol/L SAMANTHA Comment:Testing performed by : [address] [address] Anion gap 13 2 - 15 mmol/L SAMANTHA Comment:Testing performed by : [address] [address] BUN 57(H) 6 - 25 mg/dL SAMANTHA Comment:Testing performed by : [address] [address] Creatinine 2.90(H) 0.60 - 1.10 mg/dL SAMANTHA Comment:Testing performed by : [address] [address] Glucose 105 70 - 199 mg/dL SAMANTHA [...] was last revised 2022. Testing performed by: [address] [address] Calcium 9.1 8.5 - 10.3 mg/dL SAMANTHA Comment:Testing performed by : [address] [address] Bilirubin, total 0.5 0.1 - 1.2 mg/dL SAMANTHA Comment:Testing performed by : [address] [address] Protein, pl 6.1(L) 6.5 - 8.5 g/dL SAMANTHA Comment:Testing performed by : [address] [address] Albumin 3.5 3.5 - 5.0 g/dL SAMANTHA Comment:Testing performed by : [address] [address] Alk phos 109 40 - 130 Units/L SAMANTHA Comment:Testing performed by : [address] [address] ALT 6(L) 7 - 45 Units/L SAMANTHA Comment:Testing performed by : [address] [address] AST 11 10 - 45 Units/L SAMANTHA Comment:Testing performed by : [address] [address] Blood 11/30/2024 9:34 AM CDT 11/30/2024 9:50 AM CDT Annmarie Victor MD LAB BLOOD ORDERABLES F inal Result SAMANTHA [address] [facility] Department [place] [address] * MRI Brain WO Contrast (11/22/2024 10:05 [...] it. Electronically signed by: Felicia Garza M.D. Thom Willis MD IMG MRI PROCEDURES Final [...] was last reviewed 2021. Testing performed by: [facility], [address] [place] [address], [place]., [address] Blood 11/20/2024 7:10 AM CDT 11/20/2024 11:00 AM CDT us Lore Potter MD LAB BLOOD ORDERABLES Final Res ult Performing Organization Address [facility] Co de Phone Number SAMANTHA [address] [facility] [place] [address] * (ABNORMAL) eGFR (11/20/2024 7:10 AM CDT) [...] was last reviewed 2021. Testing performed by: [facility], [address] [place] [address]., [address] Blood 11/20/2024 7:10 AM CDT 11/20/2024 7:35 AM CDT us Benjy Perez MD LAB BLOOD ORDERABLES Final Re sult Performing Organization Address City/[facility]/ZIP Co de Phone Number SAMANTHA [address] [facility] [place] [address] * Tacrolimus level trough (11/20/2024 7:10 AM CDT) Tacrolimus trough 3.6 ng/mL Comment: Interpretive Data Testing performed by liquid chromatography-tandem mass spectrometry. Therapeutic concentrations vary depending on type of transplanted organ and time elapsed since transplant. Typical trough concentrations range from 5-15 ng/mL. This test was developed and its performance characteristics determined by the [facility] consistent with CLIA requirements. This test has not been cleared or approved by the [place] Food and Drug administration. Current interpretive data last reviewed 2019. Testing performed by: [facility], [address] [facility], [place]., [address] Blood 11/20/2024 7:10 AM CDT 11/20/2024 11:35 AM CDT Benjy Perez MD LAB BLOOD ORDERABLES Final Re sult Performing Organization Address [facility] Co de Phone Number SAMANTHA [address] [facility] [place] [address] * (ABNORMAL) Iron profile w/ IBC (11/20/2024 7:10 AM CDT) Iron 344(H) 35 - 145 mcg/dL Comment:Testing performed by : [address] [address] TIBC 394 250 - 400 mcg/dL SAMANTHA Comment:Testing performed by : [address] [address] Transferrin saturation 87(H) 20 - 50 % SAMANTHA Comment:Testing performed by : [address] [address] Blood 11/20/2024 7:10 AM CDT 11/20/2024 11:00 AM CDT Lore Potter MD LAB BLOOD ORDERABLES Final Res ult Performing Organization Address [facility]/ZIP Co de Phone Number [address] [place] [address] * (ABNORMAL) Renal function panel (11/20/2024 7:10 AM CDT) Sodium 138 135 - 145 mmol/L Comment:Testing performed by : [address] [address] Potassium, pl 4.4 3.3 - 4.9 mmol/L [facility] Comment:Testing performed by : [address] [address] Chloride 101 97 - 110 mmol/L [facility] Comment:Testing performed by : [address], [place]., [address] CO2 24 22 - 32 mmol/L SAMANTHA Comment:Testing performed by : [address], [place]., [address] Anion gap 13 2 - 15 mmol/L [facility] Comment:Testing performed by : [address], [place]., [address] BUN 38(H) 6 - 25 mg/dL [facility] Comment:Testing performed by : [address], [place]., [address] Creatinine 2.10(H) 0.60 - 1.10 mg/dL [facility] Comment:Testing performed by : [address] [address] Glucose 83 70 - 199 mg/dL [facility] Comment: Interpretive Data Fasting glucose >/= [...] was last revised 2022. Testing performed by: [address] [address] Calcium 9.9 8.5 - 10.3 mg/dL [facility] Comment:Testing performed by : [address] [address] Phosphorus, pl 3.4 2.3 - 4.5 mg/dL [facility] Comment:Testing performed by : [address] [address] Albumin 4.0 3.5 - 5.0 g/dL SAMANTHA Comment:Testing performed by : [address] [address] Blood 11/20/2024 7:10 AM CDT 11/20/2024 11:00 AM CDT us Lore Potter MD LAB BLOOD ORDERABLES Final Res ult SAMANTHA [address] [facility] [place] [address] * (ABNORMAL) Comprehensive metabolic panel (11/20/2024 7:10 AM CDT) Sodium 136 135 - 145 mmol/L Comment:Testing performed by : [address] [address] Potassium, pl 4.4 3.3 - 4.9 mmol/L SAMANTHA Comment:Testing performed by : [address] [address] Chloride 101 97 - 110 mmol/L SAMANTHA Comment:Testing performed by : [address] [address] CO2 25 22 - 32 mmol/L SAMANTHA Comment:Testing performed by : [address] [address] Anion gap 10 2 - 15 mmol/L SAMANTHA Comment:Testing performed by : [address] [address] BUN 37(H) 6 - 25 mg/dL SAMANTHA Comment:Testing performed by : [address] [address] Creatinine 2.10(H) 0.60 - 1.10 mg/dL SAMANTHA Comment:Testing performed by : [address] [address] Glucose 86 70 - 199 mg/dL SAMANTHA [...] was last revised 2022. Testing performed by: [facility], [address] [place] [address]., [address] Calcium 9.7 8.5 - 10.3 mg/dL SAMANTHA Comment:Testing performed by : [address] [address] Bilirubin, total 0.3 0.1 - 1.2 mg/dL SAMANTHA Comment:Testing performed by : [address] [address] Protein, pl 6.5 6.5 - 8.5 g/dL SAMANTHA Comment:Testing performed by : [address] [address] Albumin 3.9 3.5 - 5.0 g/dL SAMANTHA Comment:Testing performed by : [address] [address] Alk phos 109 40 - 130 Units/L SAMANTHA Comment:Testing performed by : [address] [address] ALT 7 7 - 45 Units/L SAMANTHA Comment:Testing performed by : [address] [address] AST 11 10 - 45 Units/L SAMANTHA Comment:Testing performed by : [address] [address] Blood 11/20/2024 7:10 AM CDT 11/20/2024 7:35 AM CDT us Benjy Perez MD LAB BLOOD ORDERABLES Final Re sult SAMANTHA VERA [address] [facility] Department [place] [address] * Hemoglobin A1c (11/12/2024 12:25 PM CDT) [facility] Hgb A1C 4.6 4.0 - 5.6 % Comment:Testing performed by : [address] [address] Estimated Average Glucose 85 mg/dL SAMANTHA VERA Comment: The ADA recommends reporting an estimated Average Glucose (eAG) with all Hemoglobin A1c results using the equation derived from a study of 507 normal and diabetic adults. Minority populations were underrepresented and children were not included. (Diabetes Care 31:7293-6480, 2008). The eAG is not equivalent to a fasting glucose. Testing performed by: [address] [address] Blood 11/12/2024 12:2 5 PM CDT 11/12/2024 1:42 PM CDT Narrative SAMANTHA VERA - 11/12/2024 3:39 PM CDT Please obtain May, July,October,Jan. Lore Potter MD LAB BLOOD ORDERABLES Final Res ult SAMANTHA [address] [facility] Department [place] [address] * (ABNORMAL) Hepatic function panel (11/12/2024 12:25 PM CDT) [facility] Bilirubin, total 0.3 0.1 - 1.2 mg/dL Comment:Testing performed by : [address] [address] Bilirubin, direct 0.1 0.1 - 0.3 mg/dL SAMANTHA Comment:Testing performed by : [address] [address] Protein, pl 6.8 6.5 - 8.5 g/dL SAMANTHA Comment:Testing performed by : [address] [address] Albumin 3.9 3.5 - 5.0 g/dL SAMANTHA Comment:Testing performed by : [address] [address] Alk phos 99 40 - 130 Units/L SAMANTHA Comment:Testing performed by : [address] [address] ALT <5(L) 7 - 45 Units/L SAMANTHA VERA Comment:Testing performed by : [address] [address] AST 11 10 - 45 Units/L SAMANTHA VERA Comment:Testing performed by : [address] [address] Blood 11/12/2024 12:2 5 PM CDT 11/12/2024 1:42 PM CDT Narrative SAMANTHA - 11/12/2024 2:27 PM CDT Please obtain May, July,October,Jan. us Lore Potter MD LAB BLOOD ORDERABLES Final Res ult SAMANTHA [facility] Department [place] [address] * Lipid panel (11/12/2024 12:25 PM CDT) [...] last revised on 2017. Testing performed by: [address] [address] Triglycerides 136 <=149 mg/dL SAMANTHA VERA Comment: Interpretive Data Ages < or = [...] last revised on 2017. Testing performed by: [address] [address] HDL 71 >=40 mg/dL SAMANTHA Comment: Interpretive [...] last revised on 2017. Testing performed by: [address] [address] LDL, calculated 68 <=129 mg/dL SAMANTHA Comment: [...] NCEP Expert Panel. Circulation 2004;110:227 3. Hermann Eldridge al. KAR Cardiol. 2020 August 30;5(5):540-548. doi: 10.1001/jamacardio.2020.0013 Current Interpretive Data was last revised on 2023. Testing performed by: [address] [address] Non-HDL Cholesterol 91 mg/dL SAMANTHA Comment: Interpretive [...] last revised on 2017. Testing performed by: [address] [address] Chol/HDL ratio 2 SAMANTHA VERA Comment:Testing performed by : [address] [address] Blood 11/12/2024 12:2 5 PM CDT 11/12/2024 1:42 PM CDT Narrative SAMANTHA VERA - 11/12/2024 2:27 PM CDT Please obtain May, July,October,Jan. us Lore Potter MD LAB BLOOD ORDERABLES Final Res ult SAMANTHA VERA [address] [facility] Department [place] [address] * (ABNORMAL) Protein / creatinine ratio, urine, random (11/09/2024 2:37 PM CDT) Protein, ur, quant 191.0 mg/dL Comment: Interpretive Data No reference range established. Current interpretive data was last revised 2018. Testing performed by: [address] [address] Creatinine Ur 75.0 mg/dL SAMANTHA VERA Comment: Interpretive Data No reference range established. Current interpretive data was last revised 2018. Testing performed by: [address] [address] Protein/creatinin e ratio 2,546.7(H ) 0.0 - 180.0 mg/g CR SAMANTHA VERA Comment:Testing performed by : [address] [address] Urine 11/09/2024 2:37 PM CDT 11/09/2024 4:19 PM CDT Lore Potter MD LAB URINE ORDERABLES Final Res ult Performing Organization Address [facility] Co de Phone Number SAMANTHA [address] [place] [address] * (ABNORMAL) eGFR (11/09/2024 2:27 PM CDT) [...] was last reviewed 2021. Testing performed by: [facility], [address] [place] [address]., [address] Blood 11/09/2024 2:27 PM CDT 11/09/2024 4:11 PM CDT us Benjy Perez MD LAB BLOOD ORDERABLES Final Re sult Performing Organization Address City/[facility]/ZIP Co de Phone Number SAMANTHA [facility] [place] [address] * Differential, auto (11/09/2024 2:27 PM CDT) [facility] Neutrophil abs 5.42 1.50 - 6.50 K/cumm Comment:Testing performed by : [address] [address] Imm gran abs 0.02 0.00 - 0.10 K/cumm [facility] Comment:Testing performed by : [address], [place]., [address] Lymphocyte abs 0.81 0.80 - 3.30 K/cumm [facility] Comment:Testing performed by : [address] [address] Monocyte abs 0.62 0.20 - 0.80 K/cumm [facility] Comment:Testing performed by : [address] [address] Eosinophil abs 0.03 0.00 - 0.50 K/cumm [facility] Comment:Testing performed by : [address] [address] Basophil abs 0.03 0.00 - 0.10 K/cumm [facility] Comment:Testing performed by : [address] [address] Neutrophil pct 78.3 % [facility] Comment: Interpretive Data Percent cell count reference ranges are not reported, since discordance with absolute values may lead to misinterpretation of CBC data. Current Interpretive Data was last revised on 2017. Testing performed by: [address] [address] Imm gran pct 0.3 % [facility] Comment: Interpretive Data Percent cell count reference ranges are not reported, since discordance with absolute values may lead to misinterpretation of CBC data. Current Interpretive Data was last revised on 2017. Testing performed by: [address] [address] Lymphocyte pct 11.7 % [facility] Comment: Interpretive Data Percent cell count reference ranges are not reported, since discordance with absolute values may lead to misinterpretation of CBC data. Current Interpretive Data was last revised on 2017. Testing performed by: [address] [address] Monocyte pct 8.9 % C[facility] Comment: Interpretive Data Percent cell count reference ranges are not reported, since discordance with absolute values may lead to misinterpretation of CBC data. Current Interpretive Data was last revised on 2017. Testing performed by: [address] [address] Eosinophil pct 0.4 % SAMANTHA Comment: Interpretive Data Percent cell count reference ranges are not reported, since discordance with absolute values may lead to misinterpretation of CBC data. Current Interpretive Data was last revised on 2017. Testing performed by: [address] [address] Basophil pct 0.4 % SAMANTHA Comment: Interpretive Data Percent cell count reference ranges are not reported, since discordance with absolute values may lead to misinterpretation of CBC data. Current Interpretive Data was last revised on 2017. Testing performed by: [address] [address] Blood 11/09/2024 2:27 PM CDT 11/09/2024 4:11 PM CDT us Benjy Perez MD LAB BLOOD ORDERABLES Final Re sult SAMANTHA [address] [facility] Department of Laboratories [place], [place] [id number] * (ABNORMAL) Iron profile w/ IBC (11/09/2024 2:27 PM CDT) Iron 37 35 - 145 mcg/dL Comment:Testing performed by : [address] [address] TIBC 218(L) 250 - 400 mcg/dL SAMANTHA VERA Comment:Testing performed by : [address] [address] Transferrin saturation 17(L) 20 - 50 % SAMANTHA VERA Comment:Testing performed by : [address] [address] Blood 11/09/2024 2:27 PM CDT 11/09/2024 4:11 PM CDT us Benjy Perez MD LAB BLOOD ORDERABLES Final Re sult SAMANTHA [address] [facility] Department [place] [address] * (ABNORMAL) CBC with auto differential (11/09/2024 2:27 PM CDT) WBC 6.93 3.80 - 9.90 K/cumm Comment:Testing performed by : [address] [address] Hgb 8.9(L) 11.9 - 15.5 g/dL SAMANTHA Comment:Testing performed by : [address] [address] Hct 27.4(L) 35.6 - 45.5 % SAMANTHA Comment:Testing performed by : [address] [address] Plt 233 150 - 400 K/cumm SAMANTHA Comment:Testing performed by : [address] [address] MPV 9.9 9.1 - 12.3 fL SAMANTHA Comment:Testing performed by : [address] [address] RBC 2.84(L) 3.90 - 5.20 M/cumm SAMANTHA Comment:Testing performed by : [address] [address] MCV 96.5(H) 81.3 - 96.4 fL SAMANTHA Comment:Testing performed by : [address] [address] MCH 31.3 27.1 - 33.3 pg SAMANTHA VERA Comment:Testing performed by : [address] [address] MCHC 32.5 32.3 - 35.7 g/dL SAMANTHA Comment:Testing performed by : [address] [address] RDW CV 13.2 11.1 - 14.9 % SAMANTHA Comment:Testing performed by : [address] [address] RDW SD 46.8 35.7 - 48.1 fL SAMANTHA Comment:Testing performed by : [address] [address] NRBC abs 0.00 0.00 - 0.01 K/cumm SAMANTHA VERA Comment:Testing performed by : [address] [address] Blood 11/09/2024 2:27 PM CDT 11/09/2024 4:11 PM CDT Benjy Perez MD LAB BLOOD ORDERABLES Final Re sult Performing Organization Address [facility] Co de Phone Number [place] [id number] [facility] [place] [address] * (ABNORMAL) PTH (11/09/2024 2:27 PM CDT) Pathologist [facility] PTH 197(H) 15 - 65 pg/mL Comment:Testing performed by : [address] [address] Blood 11/09/2024 2:27 PM CDT 11/09/2024 4:11 PM CDT Benjy Perez MD LAB BLOOD ORDERABLES Final Re sult Performing Organization Address [facility] Co de Phone Number [address] [place] [address] * (ABNORMAL) Comprehensive metabolic panel (11/09/2024 2:27 PM CDT) Pathologist [facility] Sodium 135 135 - 145 mmol/L Comment:Testing performed by : [address] [address] Potassium, pl 5.4(H) 3.3 - 4.9 mmol/L SAMANTHA VERA Comment:Testing performed by : [address] [address] Chloride 101 97 - 110 mmol/L SAMANTHA VERA Comment:Testing performed by : [address] [address] CO2 22 22 - 32 mmol/L SAMANTHA Comment:Testing performed by : [address] [address] Anion gap 12 2 - 15 mmol/L SAMANTHA Comment:Testing performed by : [address] [address] BUN 49(H) 6 - 25 mg/dL SAMANTHA Comment:Testing performed by : [address] [address] Creatinine 2.09(H) 0.60 - 1.10 mg/dL SAMANTHA Comment:Testing performed by : [address] [address] Glucose 147 70 - 199 mg/dL SAMANTHA [...] was last revised 2022. Testing performed by: [address] [address] Calcium 10.0 8.5 - 10.3 mg/dL SAMANTHA Comment:Testing performed by : [address] [address] Bilirubin, total 0.2 0.1 - 1.2 mg/dL SAMANTHA Comment:Testing performed by : [address] [address] Protein, pl 6.6 6.5 - 8.5 g/dL SAMANTHA Comment:Testing performed by : [address] [address] Albumin 3.8 3.5 - 5.0 g/dL SAMANTHA Comment:Testing performed by : [facility], [address] [place] [address]., [address] Alk phos 81 40 - 130 Units/L SAMANTHA EVRA Comment:Testing performed by : [address] [address] ALT <5(L) 7 - 45 Units/L SAMANTHA VERA Comment:Testing performed by : [address] [address] AST 9(L) 10 - 45 Units/L SAMANTHA Comment:Testing performed by : [address] [address] Blood 11/09/2024 2:27 PM CDT 11/09/2024 4:11 PM CDT us Benjy Perez MD LAB BLOOD ORDERABLES Final Re sult Performing Organization Address City/State/[facility] Co de Phone Number SAMANTHA [address] [facility] Department [place] [address] * OK AN ELECTIVE SUPRAGLOTTIC AIRWAY, OK AN PROCEDURE PLACEHOLDER (11/06/2024 8:20 AM CDT) Narrative Jamie Jamison CRNA - 11/06/2024 8:20 AM CDT Jamie Jamison CRNA 11/06/2024 8:26 AM Airway Patient location: OR Urgency: elective Date/time: 11/06/2024 8:14 AM Indications for airway management: anesthesia Difficult airway: no Staff: Supervising provider: Debora Mcfadden MD Placed by: STUDIO POTTER: Jamie Jamison CRNA Emergent airway documentation: Risks [...] extubation: yes Additional comments: Atraumatic placement by SRNA. Delilah Dentition as preop. Breath sounds clear and equal bilaterally. Consistent and appropriate end-tidal CO2 present. us Debora Mcfadden MD ANESTHESIA ORDERABLES Edited R esult - Final * (ABNORMAL) POC Blood Gas and Chemistries, Venous - (11/06/2024 7:13 AM CDT) Pathologist [facility] pH,elpidio POC 7.36 7.32 - 7.43 pCO2, elpidio POC 41 40 - [address] [facility] pO2,elpidio POC [address] [facility] Comment: Interpretive Data No reference range established. Current interpretive data was last revised 2019. HCO3, elpidio (Calc) POC 23 20 - 30 mmol/L [facility] Base excess, elpidio POC -2 mmol/L [facility] Comment: Interpretive Data No reference range established. Current interpretive data was last revised 2019. Hemoglobin, elpidio POC 8.8(L) 11.9 - 15.5 g/dL [facility] Hematocrit, elpidio POC 26.0(L) 35.6 - 45.5 % [facility] Sodium, elpidio POC 134(L) 135 - 145 mmol/L [facility] Potassium, elpidio POC 4.8 3.3 - 4.9 mmol/L [facility] Comment: Interpretive Data This method is not able to assess for hemolysis, which may falsely increase potassium concentrations. If further testing is needed to evaluate this result, consider in-laboratory plasma potassium. Current Interpretive Data was last revised on 2022. Glucose, elpidio POC 97 70 - 199 mg/dL [facility] Ionized Calcium, elpidio POC 5.20(H) 4.50 - 5.10 mg/dL [facility] Blood 11/06/2024 7:13 AM CDT 11/06/2024 7:13 AM CDT us Kai Callejas MD LAB POCT ORDERABLES - OSWALDO CE Final Result SAMANTHA [address] [facility] Department [place] [address] * (ABNORMAL) POCT creatinine for contrast evaluation (11/06/2024 7:13 AM CDT) [facility] Creatinine POC 2.90(H) 0.60 - 1.10 mg/dL Blood 11/06/2024 7:13 AM CDT 11/06/2024 7:13 AM CDT us Kai Callejas MD POINT OF CARE TEST ORDERAB LES Final Result [facility] Department [place] [address] * US Hemodialysis Access (10/30/2024 1:52 PM CDT) Anatomical Region Laterality Modality Vascular N/A Ultrasound 10/30/2024 1:09 PM CDT Narrative 11/01/2024 10:23 AM CDT Hemodialysis Access Duplex Report Patient Name: KELSEY STERN K : 1960 (64y 6m) Gender: F Study Date: 10/30/2024 01:09:11 PM Branch Examiner: Taniya Perez Provider: GEMMA CALLEJAS Provider: GEMMA CALLEJAS PROCEDURES: Vascular Report: Color Duplex ultrasound with velocity measurements was performed of the arteriovenous fistula in the left upper extremity. 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 COMPARISONS: No change compared to prior study. The previous exam was completed on 07/17/24. AVF: Vessel Velocity Lt Location LT BRACHIOCEPH AVF Lt [place] Artery 153.00 cm/sec Lt Arterial Anast 69.00 cm/sec Lt Prx AVF 19.00 cm/sec Lt Prx-Mid AVF 30.00 cm/sec Lt Mid AVF 0.00 cm/sec Lt Mid AVF VF 0.00 mL/min Lt Mid-Dist AVF 0.00 cm/sec Lt Dst AVF 0.00 cm/sec Lt [place] Vein 19 SUB V cm/sec FINDINGS: Study [...] Gender: F Study Date: 10/30/2024 01:09:11 PM Branch Examiner: Taniya Perez Provider: GEMMA CALLEJAS Provider: GEMMA CALLEJAS PROCEDURES: Vascular Report: Color Duplex ultrasound with velocity measurements wasperformed of the arteriovenous fistula in the left upper extremity. INDICATIONS: Dialysis graft complication and previously thrombosed AVF withoutintervention. COMPARISONS: No change compared to prior study. The previous exam was completed on07/17/24. AVF: Vessel Velocity Lt Location LT BRACHIOCEPH AVF Lt [place] Artery 153.00 cm/sec Lt Arterial Anast 69.00 cm/sec Lt Prx AVF 19.00 cm/sec Lt Prx-Mid AVF 30.00 cm/sec Lt Mid AVF 0.00 cm/sec Lt Mid AVF VF 0.00 mL/min Lt Mid-Dist AVF 0.00 cm/sec Lt Dst AVF 0.00 cm/sec Lt [place] Vein 19 SUB V cm/sec FINDINGS: Study [...] Callejas MD 11/01/2024 10:20:01 AM CDT Result [facility] Gemma Callejas MD IMG US PROCEDURES Final Result * CBC - Complete Blood Count, No Differential - [facility] (10/22/2024 2:16 PM CDT) Result [facility] Provider LAB BLOOD ORDERABLES Juany l Result Performing Organization Address [facility] de Phone Number EXTERNAL LAB * CBC - Complete Blood Count, No Differential - [facility] (10/22/2024 2:08 PM CDT) Result [facility] Provider LAB BLOOD ORDERABLES Juany l Result Performing Organization Address [facility] Co de Phone Number [facility] * (ABNORMAL) Tacrolimus level trough (10/22/2024) SCRIBED Tacrolimus, trough 4.8(A) 5 - 20 TXP NO LAB FOUND Blood 10/22/2024 Result [facility] Provider LAB BLOOD ORDERABLES Juany l Result Performing Organization Address [facility] de Phone Number TXP NO LAB FOUND * (ABNORMAL) Iron profile w/ IBC (10/22/2024) Total Iron Binding Capacity 228(A) 250 - 450 TXP NO LAB FOUND UIBC 105(A) 118 - 369 ug/dL TXP NO LAB FOUND Iron 123 27 - 139 ug/dL TXP NO LAB FOUND Iron saturation 54 15 - 55 % TXP NO LAB FOUND Blood 10/22/2024 [facility] Provider MD LAB BLOOD ORDERABLES Juany l Result Performing Organization Address City/[facility] Co de Phone Number TXP NO LAB FOUND * (ABNORMAL) Protein / creatinine ratio, urine, random (10/22/2024) SCRIBED Protein, Urine 103 n/a TXP NO LAB FOUND SCRIBED Creatinine, Urine 37.1 n/a TXP NO LAB FOUND SCRIBED Protein/Creat Ratio 2,776(A) 0 - 200 TXP NO LAB FOUND Urine 10/22/2024 Result [facility] Provider MD LAB URINE ORDERABLES Juany l Result Performing Organization Address [facility] Co de Phone Number TXP NO LAB FOUND * Phosphorus (10/22/2024) SCRIBED Phosphorus 4.1 3 - 4.3 mg/dl TXP NO LAB FOUND Blood 10/22/2024 Result [facility] Provider MD LAB BLOOD ORDERABLES Juany l Result Performing Organization Address City/[facility] Co de Phone Number TXP NO LAB FOUND * PTH (10/22/2024) SCRIBED iPTH TNP n/a pg/mL TXP NO LAB FOUND Comment:No plasma specimen r eceived. Blood 10/22/2024 Historical Provider LAB BLOOD ORDERABLES Juany l Result TXP NO LAB FOUND * (ABNORMAL) Comprehensive metabolic panel (10/22/2024) Pathologist [facility] SCRIBED Sodium 133(A) 134 - 144 mmol/L [...] NO LAB FOUND SCRIBED eGFR in NonAfrican Japanese 29 >59 TXP NO LAB FOUND Blood 10/22/2024 Historical Provider LAB BLOOD ORDERABLES Juany l Result TXP NO LAB FOUND * TB test, quantiferon gold (10/10/2024 1:11 PM CDT) Pathologist [facility] Quantiferon TB Gold Negative Negative [place] ref Lab Comment: No interferon-gamma response to [...] Interferon-gamma level <0.35 IU/mL. Testing performed by: [facility] Er, [address] [place] [address]., [address] TB-Nil -0.01 IUnits/mL SAMANTHA VERA Comment:Testing performed by : [address] [address] TB2-Nil 0.00 IUnits/mL SAMANTHA VERA Comment:Testing performed by : [address] [address] Mitogen-Nil 9.93 IUnits/mL SAMANTHA VERA Comment:Testing performed by : [address] [address] NIL 0.07 IUnits/mL SAMANTHA VERA Comment: Test Performed by: [facility] [address] [place] [address] Bi Data Modeler: Carol Parra Ph.D.; CLIA# [id number] Testing performed by: [address] [address] Blood 10/10/2024 1:11 PM CDT 10/10/2024 1:54 PM CDT us Vivienne Morataya MD LAB BLOOD ORDERABLES Final Resu lt SAMANTHA VERA [address] [facility] Department [place] [address] [place] [facility] * Hepatitis panel, acute (11/09/2022 7:03 AM CDT) Hep A IgM Nonreactive Nonreactive SAMANTHA VERA Comment: Interpretive Data: If Hep A IgM Ab is reported as Equivocal, a new sample should be drawn in two weeks for testing. Current interpretive data was last revised on 19. Hep B core IgM Nonreactive Nonreactive SAMANTHA Comment: Interpretive Data If HepB Core IgM Ab is reported as Equivocal, a new sample should be drawn in two weeks for testing. Current interpretive data was last revised on 19. Hep C Ab Nonreactive Nonreactive SAMANTHA Comment: Interpretive Data Nonreactive: Antibodies to HCV [...] last revised on 2019. HepBsAg Nonreactive Nonreactive SAMANTHA Blood 11/09/2022 7:03 AM CDT 11/09/2022 9:14 AM CDT us Elana Yarbrough MD LAB MICROBIOLOGY - GENERAL ORDERABLES Final Result SAMANTHA VERA [address] [facility] Department [place] [address] from Last 3 Months or Most Recently Relevant to Health Maintenance Insurance [address] [place] [address] [place] [address] MEDICARE [facility] Address: [address] [place] [phone] [facility] [address] [place] [address] [place] [phone] MEDICARE [facility] Address: [address] [place] [phone] [place] [address] MEDICARE Advance Directives For more information, please contact: [phone] Documents on File Type Date Recorded Patient Sausage Wrapper Expl anation ADVANCE DIRECTIVE 08/13/2024 11:13 AM POLS T - Phys Order for PT Preferences Power of Family Service Aide 08/27/2021 7:10 AM ADVANCE DIRECTIVE 03/02/2021 2:34 PM ADVANCE DIRECTIVE 02/14/2016 12:00 AM POW ER OF HANG GLIDING INSTRUCTOR FINANCIAL/MEDICAL ADVANCE DIRECTIVE 02/14/2016 12:00 AM VIDAL [...] Name Relationship Healthcare Agent Relationship Communication Nael Leonardo Health Care Agent [email or web address] Jolanta Villalta Daughter in Law First Alternate Health Care Agent Care Teams Patient Monitor Relationship Specialty Start Date End Date Arley Rousseau MD [address] [place] [address] PCP - General Sports Medicine 03/17/22 Samantha Lyons, ANKIT [address] [facility] [address] [place] [address] Collection Technician 09/27/17 Benjy Perez MD [address] [facility] [address] [place] [address] Referring Physician Nephrology 05/15/18 Kai Callejas MD 4600 [facility] [address] [facility] [address] [place] [address] Surgeon Vascular Surgery 11/06/24 [facility], electrocardiograph repairerCollection Technician Transplant 12/04/24
--- OUTSIDE RECORDS SUMMARY | 2025-01-03 12:19 | XMS_ITS | Encounter Summary ---
Author Organization [facility] Facility Care Team Providers Care Box Office Manager Name Role Phone Angelita Blanco MD Primary Care Provider +[phone] Samantha Lyons RN Unavailable [phone] Nimisha Bradford RN Unavailable [phone] Benjy Perez MD Unavailable +[phone] Benjy Perez MD Primary Care Provider +[phone] Angelita Blanco MD Primary Care Provider +[phone] Johnny Goldberg MD Primary Care Provider [phone] Angelita Blanco MD Primary Care Provider +[phone] Rosey Reyes MD Primary Care Provider +[phone] Benjy Perez MD Primary Care Provider +[phone] Benjy Perez MD Primary Care Provider +[phone] Rosey Reyes MD Primary Care Provider [phone] Vivienne Morataya MD Primary Care Provider [phone] Vivienne Morataya MD Primary Care Provider +[phone] Benjy Perez MD Primary Care Provider +[phone] Rosey Reyes MD Primary Care Provider +[phone] Benjy Perez MD Primary Care Provider +[phone] Arley Rousseau MD Primary Care Provider +[phone] Benjy Perez MD Primary Care Provider [phone] Arley Rousseau MD Primary Care Provider +[phone] Benjy Perez MD Primary Care Provider +[phone] Arley Rousseau MD Primary Care Provider + Yajaira Ritter RN Unavailable [phone] Kai Callejas MD Unavailable + [phone] [facility] RN Unavailable Unavaila ble Encounter Details Date Type Department Care Team (Latest Contact Info) Description 03/11/2016 Orders Only [facility] CLINCONV Provider, MD Eileen [address] [place] [address] Social History Tobacco Use Types Packs/Day Years Used Date Smoking Tobacco: Never Assessed Comments Unknown Sex and Gender Information Value Date Recorded Sex Assigned at Not on file Legal Sex Female 7:39 AM RIM TURNING FINISHER Gender Identity Female 05/15/2018 8:32 AM RIM TURNING FINISHER Sexual Orientation Not on file documented as of this encounter Plan of Treatment Not on file documented as of this encounter Procedures Procedure Name Priority Date/Time Associated Diagnosis Comments SCAN - LABS 03/11/2016 12:00 AM RIM TURNING FINISHER documented in this encounter Results * SCAN - LABS (03/11/2016 12:00 AM RIM TURNING FINISHER) Narrative 03/11/2016 12:00 AM RIM TURNING FINISHER Ordered by an unspecified provider. us Historical Provider Final Res ult documented in this encounter Visit Diagnoses Not on filedocumented in this encounter Additional Health Concerns Infection Onset Date Last Indicated Resolved Time COVID: Suspected 03/12/2023 03/12/2023 03/12/2023 3:55 PM RIM TURNING FINISHER COVID: Suspected 05/21/2024 05/21/2024 05/21/2024 7:13 AM RIM TURNING FINISHER documented as of this encounter Care Teams Box Office Manager Relationship Specialty Start Date End Date Angelita Blanco MD [address] [facility] [address] [place] [address] PCP - General 08/18/16 05/25/18 Benjy Perez MD [address] [place] [address] [place] [address] PCP - General 05/26/18 05/29/18 Angelita Blanco MD [address] [facility] [address] [place] [address] PCP - General 05/30/18 09/11/18 Johnny Goldberg MD [address] [facility] 200 [place] [address] PCP - General 09/12/18 09/25/18 Angelita Blanco MD [address] [facility] 103 [place] [address] PCP - General 09/26/18 11/14/18 Rosey Reyes MD [address] [facility] 200 [place] [address] PCP - General 11/15/18 01/11/19 Benjy Perez MD [address] [place] [address] [place] [address] PCP - General 02/08/19 02/08/19 Benjy Perez MD [address] [place] [address] [place] [address] PCP - General 01/12/19 02/07/19 Rosey Reyes MD [address] [facility] 200 [place] [address] PCP - General 06/20/19 09/30/19 Vivienne Morataya MD [address] [facility] [address] [facility]26 [place] [address] PCP - General 10/01/19 10/11/19 Vivienne Morataya MD [address] [facility] [address] [place] [address] PCP - General 02/09/19 06/19/19 Benjy Perez MD [address] [place] [address] [place] [address] PCP - General 10/12/19 06/25/20 Rosey Reyes MD [address] [facility] [address] [place] [address] PCP - General 06/26/20 08/19/20 Benjy Perez MD [address] [place] [address] [place] [address] PCP - General 08/20/20 08/25/20 Arley Rousseau MD [address] [facility] 200 [place] [address] PCP - General Sports Medicine 08/26/20 08/28/20 Benjy Perez MD [address] [place] [address] [place] [address] PCP - General 08/29/20 04/27/21 Arley Rousseau MD [address] [facility] 200 [place] [address] PCP - General Sports Medicine 04/28/21 08/25/21 Benjy Perez MD 1512 [facility] 200 [place] [address] PCP - General Nephrology 08/26/21 03/16/22 Arley Rousseau MD [address] [place] [address] PCP - General Sports Medicine 03/17/22 Samantha Lyons RN [address] [address] Fiberglass Machine Operator 09/27/17 Nimisha Bradford RN [address] [address] Fiberglass Machine Operator 10/03/17 Benjy Perez MD [address] [address] Referring Physician Nephrology 05/15/18 Yajaira Ritter, RN [address] [place] [address] Nurse Navigator 04/27/22 06/03/22 Kai Callejas MD 4600 [facility] [address]120 [facility] [address]120 [place] [address] Surgeon Vascular Surgery 11/06/24 [facility], fire prevention research engineerFiberglass Machine Operator 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
--- OUTSIDE RECORDS SUMMARY | 2025-01-03 12:19 | XMS_ITS | Encounter Summary ---
Author Organization [facility] Healthcare Address [address] [place] [address] Care Team Providers Care Wallpaper Inspector And Shipper Name Role Phone Eloy Samantha Espitia RN Unavailable [phone] Benjy Perez MD Unavailable +[phone] Arley Rousseau MD Primary Care Provider [phone] Kai Callejas MD Unavailable [phone] [facility] RN Unavailable Unavaila ble Encounter Details Date Type Department Care Team (Late st Contact Info) Description 12/24/2024 Results Follow-Up [facility] Medical Group Nephrology at [address] [place] [address] Benjy Perez MD [address] [place] [address] [address] [place] [address] Tacrolimus level trough, Iron profile w/ IBC, CBC with auto differential, Additional followed-up results: 4 Social History Tobacco Use Types Packs/Day Years [...] materials from doctor or pharmacy Sometimes 05/13/2022 [facility] Utilities Answer Date Recorded In the [...] often do you attend chur ch or samaritan services? Never 12/03/2024 Do you belong to any clubs o r organizations such as zoroastrianism groups, unions, fraternal or athletic groups, or [...] any time in the past 12 m [facility], were you homeless or living in a penitentiary (including now)? No 12/03/2024 Personal Safety Answer Date Recorded Have you ever been in or are you currently in a harmful physical or emotional relationship or is someone making you feel afraid or unsafe? Denies 12/11/2024 Comments No Sex and Gender Information Value Date Recorded Sex Assigned at Not on file Legal Sex Female 7:39 AM ONLINE ADVERTISING MANAGER Gender Identity Female 05/15/2018 8:32 AM ONLINE ADVERTISING MANAGER Sexual Orientation Not on file documented as of this encounter Plan of Treatment Not on file documented as of this encounter Visit Diagnoses Not on filedocumented in this encounter Care Teams Wallpaper Inspector And Shipper Relationship Specialty Start Date End Date Arley Rousseau MD [address] [place] [address] PCP - General Sports Medicine 03/17/22 Samantha Lyons RN [address] [address] Lining Feller Blindstitch 09/27/17 Benjy Perez MD [address] [address] Referring Physician Nephrology 05/15/18 Kai Callejas MD [address] [facility] [address] [place] [address] [place] [address] [place] [address] Surgeon Vascular Surgery 11/06/24 [facility], pipe line repairerLining Feller Blindstitch 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
--- OUTSIDE RECORDS SUMMARY | 2025-01-03 12:19 | XMS_ITS | Encounter Summary ---
Author Organization [facility] Facility Care Team Providers Care Outsole Skiver Name Role Phone Angelita Blanco MD Primary Care Provider [phone] Samantha Lyons RN Unavailable [phone] Nimisha Bradford RN Unavailable [phone] Benjy Perez MD Unavailable +[phone] Benjy Perez MD Primary Care Provider [phone] Angelita Blanco MD Primary Care Provider [phone] Johnny Goldberg MD Primary Care Provider [phone] Angelita Blanco MD Primary Care Provider [phone] Rosey Reyes MD Primary Care Provider [phone] Benjy Perez MD Primary Care Provider [phone] Benjy Perez MD Primary Care Provider [phone] Rosey Reyes MD Primary Care Provider [phone] Vivienne Morataya MD Primary Care Provider [phone] Vivienne Morataya MD Primary Care Provider [phone] Benjy Perez MD Primary Care Provider [phone] Rosey Reyes MD Primary Care Provider [phone] Benjy Perez MD Primary Care Provider [phone] Arley Rousseau MD Primary Care Provider [phone] Benjy Perez MD Primary Care Provider [phone] Arley Rousseau MD Primary Care Provider [phone] Benjy Perez MD Primary Care Provider [phone] Arley Rousseau MD Primary Care Provider + Yajaira Ritter RN Unavailable [phone] Kai Callejas MD Unavailable + [facility] RN Unavailable Unavaila ble Encounter Details Date Type Department Care Team (Latest Contact Info) Description 05/27/2016 Orders Only [facility]G CLINCONV Provider, MD Eileen [address] [place] [address] Social History Tobacco Use Types Packs/Day Years Used Date Smoking Tobacco: Never Comments Unknown Sex and Gender Information Value Date Recorded Sex Assigned at Not on file Legal Sex Female 7:39 AM CUSTOMS INSPECTOR Gender Identity Female 05/15/2018 8:32 AM CUSTOMS INSPECTOR Sexual Orientation Not on file documented as of this encounter Plan of Treatment Not on file documented as of this encounter Procedures Procedure Name Priority Date/Time Associated Diagnosis Comments SCAN - LABS 05/27/2016 12:00 AM CUSTOMS INSPECTOR documented in this encounter Results * SCAN - LABS (05/27/2016 12:00 AM CUSTOMS INSPECTOR) Narrative 05/27/2016 12:00 AM CUSTOMS INSPECTOR Ordered by an unspecified provider. Historical Provider Final Res ult documented in this encounter Visit Diagnoses Not on filedocumented in this encounter Additional Health Concerns Infection Onset Date Last Indicated Resolved Time COVID: Suspected 03/12/2023 03/12/2023 03/12/2023 3:55 PM CUSTOMS INSPECTOR COVID: Suspected 05/21/2024 05/21/2024 05/21/2024 7:13 AM CUSTOMS INSPECTOR documented as of this encounter Care Teams Outsole Skiver Relationship Specialty Start Date End Date Angelita Blanco MD [address] [facility] [address] [place] [address] PCP - General 08/18/16 05/25/18 Benjy Perez MD [address] [place] [address] [place] [address] PCP - General 05/26/18 05/29/18 Angelita Blanco MD [address] [facility] [address] [place] [address] PCP - General 05/30/18 09/11/18 Johnny Goldberg MD [address] [facility] 200 [place] [address] PCP - General 09/12/18 09/25/18 Angelita Blanco MD [address] [facility] [address] [place] [address] PCP - General 09/26/18 11/14/18 Rosey Reyes MD [address] [facility] 200 [place] [address] PCP - General 11/15/18 01/11/19 Benjy Perez MD [address] [address] [place] [address] PCP - General 02/08/19 02/08/19 Benjy Perez MD [address] [address] [place] [address] PCP - General 01/12/19 02/07/19 Rosey Reyes MD [address] [facility] 200 [place] [address] PCP - General 06/20/19 09/30/19 Vivienne Morataya MD 4921 [facility] [address] [facility]26 [place] [address] PCP - General 10/01/19 10/11/19 Vivienne Morataya MD 4921 [facility] [address] [facility]26 [place] [address] PCP - General 02/09/19 06/19/19 Benjy Perez MD [address] [place] [address] PCP - General 10/12/19 06/25/20 Rosey Reyes MD 49[address] [facility] [address] [place] [address] PCP - General 06/26/20 08/19/20 Benjy Perez MD [address] [place] [address] PCP - General 08/20/20 08/25/20 Arley Rousseau MD [address] [facility] 200 [place] [address] PCP - General Sports Medicine 08/26/20 08/28/20 Benjy Perez MD [address] [place] [address] PCP - General 08/29/20 04/27/21 Arley Rousseau MD [address] [address] PCP - General Sports Medicine 04/28/21 08/25/21 Benjy Perez MD 1512 [facility] [address] [place] [address] PCP - General Nephrology 08/26/21 03/16/22 Arley Rousseau MD [address] [place] [address] PCP - General Sports Medicine 03/17/22 Samantha Lyons RN [address] [address] Proctologist 09/27/17 Nimisha Bradford RN [address] [address] Proctologist 10/03/17 Benjy Perez MD [address] [address] Referring Physician Nephrology 05/15/18 Yajaira Ritter, RN [address] [place] [address] Nurse Navigator 04/27/22 06/03/22 Kai Callejas MD 4600 [facility] [address]120 [facility] [address] [place] [address] Surgeon Vascular Surgery 11/06/24 [facility], certified health education specialistProctologist 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
--- OUTSIDE RECORDS SUMMARY | 2025-01-03 12:19 | XMS_ITS | Encounter Summary ---
Author Organization [facility] Facility Care Team Providers Care Broach Grinder Name Role Phone Angelita Blanco MD Primary Care Provider [phone] Samantha Lyons RN Unavailable [phone] Nimisha Bradford RN Unavailable [phone] Benjy Perez MD Unavailable +[phone] Benjy Perez MD Primary Care Provider [phone] Angelita Blanco MD Primary Care Provider +[phone] Johnny Goldberg MD Primary Care Provider [phone] Angelita Blanco MD Primary Care Provider +[phone] Rosey Reyes MD Primary Care Provider +[phone] Benjy Perez MD Primary Care Provider +[phone] Benjy Perez MD Primary Care Provider [phone] Rosey Reyes MD Primary Care Provider +[phone] Vivienne Morataya MD Primary Care Provider [phone] Vivienne Morataya MD Primary Care Provider [phone] Benjy Perez MD Primary Care Provider +[phone] Rosey Reyes MD Primary Care Provider +[phone] Benjy Perez MD Primary Care Provider [phone] Arley Rousseau MD Primary Care Provider [phone] Benjy Perez MD Primary Care Provider +[phone] Arley Rousseau MD Primary Care Provider [phone] Benjy Perez MD Primary Care Provider +[phone] Arley Rousseau MD Primary Care Provider + Yajaira Ritter RN Unavailable +[phone] Kai Callejas MD Unavailable + [facility] RN Unavailable Unavaila ble Encounter Details Date Type Department Care Team (Latest Contact Info) Description 09/03/2015 Orders Only [facility]G CLINCONV ProviderEileen MD [address] [place] [address] Social History Tobacco Use Types Packs/Day Years Used Date Smoking Tobacco: Never Assessed Comments Unknown Sex and Gender Information Value Date Recorded Sex Assigned at Not on file Legal Sex Female 7:39 AM WOOD LAST MAKER Gender Identity Female 05/15/2018 8:32 AM WOOD LAST MAKER Sexual Orientation Not on file documented as [...] COVID: Suspected 03/12/2023 03/12/2023 03/12/2023 3:55 PM WOOD LAST MAKER COVID: Suspected 05/21/2024 05/21/2024 05/21/2024 7:13 AM WOOD LAST MAKER documented as of this encounter Care Teams Broach Grinder Relationship Specialty Start Date End Date Angelita Blanco MD [address] [facility] 103 [place] [address] PCP - General 08/18/16 05/25/18 Benjy Perez MD [address] [place] [address] PCP - General 05/26/18 05/29/18 Angelita Blanco MD [address] [facility] [address] [place] [address] PCP - General 05/30/18 09/11/18 Johnny Goldberg MD [address] [facility] 200 [place] [address] PCP - General 09/12/18 09/25/18 Angelita Blanco MD [address] [facility] [address] [place] [address] PCP - General 09/26/18 11/14/18 Rosey Reyes MD [address]39 [address] [facility] 200 [place] [address] PCP - General 11/15/18 01/11/19 Benjy Perez MD [address] [place] [address] PCP - General 02/08/19 02/08/19 Benjy Perez MD [address] [place] [address] PCP - General 01/12/19 02/07/19 Rosey Reyes MD 7[address] [facility] 200 [place] [address] PCP - General 06/20/19 09/30/19 Vivienne Morataya MD 4921 [facility] [address] [place] [address] PCP - General 10/01/19 10/11/19 Vivienne Morataya MD 4921 [facility] [address] [place] [address] PCP - General 02/09/19 06/19/19 Benjy Perez MD [address] [place] [address] PCP - General 10/12/19 06/25/20 Rosey Reyes MD [address] [place] [address] [place] [address] PCP - General 06/26/20 08/19/20 Benjy Perez MD [address] [place] [address] PCP - General 08/20/20 08/25/20 Arley Rousseau MD [address] [facility] 200 [place] [address] PCP - General Sports Medicine 08/26/20 08/28/20 Benjy Perez MD [address] [place] [address] PCP - General 08/29/20 04/27/21 Arley Rousseau MD [address] [address] PCP - General Sports Medicine 04/28/21 08/25/21 Benjy Perez MD [address] [address] PCP - General Nephrology 08/26/21 03/16/22 Arley Rousseau MD [address] [place] [address] PCP - General Sports Medicine 03/17/22 Samantha Lyons RN [address] [address] Revenue Audit Clerk 09/27/17 Nimisha Bradford RN [address] [address] Revenue Audit Clerk 10/03/17 5 Benjy Perez MD [address] [address] Referring Physician Nephrology 05/15/18 Yajaira Ritter, RN [address]90 [place] [address] Nurse Navigator 04/27/22 06/03/22 Kai Callejas MD 4600 [facility] [address]120 [facility] [address] [place] [address] Surgeon Vascular Surgery 11/06/24 [facility], back facerRevenue Audit Clerk 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
--- OUTSIDE RECORDS SUMMARY | 2025-01-03 12:19 | XMS_ITS | Encounter Summary ---
Author Organization [facility] Care Team Providers Care Pipe Cutter Name Role Phone Angelita Blanco MD Primary Care Provider [phone] Samantha Lyons RN Unavailable +[phone] Nimisha Bradford RN Unavailable +[phone] Benjy Perez MD Unavailable +[phone] Benjy Perez MD Primary Care Provider +[phone] Angelita Blanco MD Primary Care Provider +[phone] Johnny Goldberg MD Primary Care Provider [phone] Angelita Blanco MD Primary Care Provider +[phone] Rosey Reyes MD Primary Care Provider +[phone] Benjy Perez MD Primary Care Provider +[phone] Benjy Perez MD Primary Care Provider [phone] Rosey Reyes MD Primary Care Provider +[phone] Vivienne Morataya MD Primary Care Provider [phone] Vivienne Morataya MD Primary Care Provider +[phone] Benjy Perez MD Primary Care Provider +[phone] Rosey Reyes MD Primary Care Provider +[phone] Benjy Perez MD Primary Care Provider +[phone] Arley Rousseau MD Primary Care Provider +[phone] Benjy Perez MD Primary Care Provider +[phone] Arley Rousseau MD Primary Care Provider +[phone] Benjy Perez MD Primary Care Provider +[phone] Arley Rousseau MD Primary Care Provider + Yajaira Ritter RN Unavailable +[phone] Kai Callejas MD Unavailable + [facility] RN Unavailable Unavaila ble Encounter Details Date Type Department Care Team (Latest Contact Info) Description 10/14/2016 Orders Only MMG CLINCONV ProviderEileen MD [address] [place] [address] Social History Tobacco Use Types Packs/Day Years Used Date Smoking Tobacco: Never Comments Unknown Sex and Gender Information Value Date Recorded Sex Assigned at Not on file Legal Sex Female 7:39 AM SERVICE AIDE Gender Identity Female 05/15/2018 8:32 AM SERVICE AIDE Sexual Orientation Not on file documented as [...] COVID: Suspected 03/12/2023 03/12/2023 03/12/2023 3:55 PM SERVICE AIDE COVID: Suspected 05/21/2024 05/21/2024 05/21/2024 7:13 AM SERVICE AIDE documented as of this encounter Care Teams Pipe Cutter Relationship Specialty Start Date End Date Angelita Blanco MD [address] [facility] 103 [place] [address] PCP - General 08/18/16 05/25/18 Benjy Perez MD [address] [place] [address] PCP - General 05/26/18 05/29/18 Angelita Blanco MD [address] [facility] 103 [place] [address] PCP - General 05/30/18 09/11/18 Johnny Goldberg MD [address] [facility] 200 [place] [address] PCP - General 09/12/18 09/25/18 Angelita Blanco MD [address] [facility] 103 [place] [address] PCP - General 09/26/18 11/14/18 Rosey Reyes MD [address] [facility] 200 [place] [address] PCP - General 11/15/18 01/11/19 Benjy Perez MD [address] [place] [address] PCP - General 02/08/19 02/08/19 Benjy Perez MD [address] [place] [address] PCP - General 01/12/19 02/07/19 Rosey Reyes MD [address] [facility] 200 [place] [address] PCP - General 06/20/19 09/30/19 Vivienne Morataya MD [address] [facility] [address] [place] [address] PCP - General 10/01/19 10/11/19 Vivienne Morataya MD [address] [facility] [address] [place] [address] PCP - General 02/09/19 06/19/19 Benjy Perez MD [address] [place] [address] PCP - General 10/12/19 06/25/20 Rosey Reyes MD [address] [facility] [address] [place], [place] [address] [place] [address] PCP - General 06/26/20 08/19/20 Benjy Perez MD [address] [place] [address] PCP - General 08/20/20 08/25/20 Arley Rousseau MD [address] [facility] 200 [place] [address] PCP - General Sports Medicine 08/26/20 08/28/20 Benjy Perez MD [address] [place] [address] PCP - General 08/29/20 04/27/21 Arley Rousseau MD [address] [address] PCP - General Sports Medicine 04/28/21 08/25/21 Benjy Perez MD [address] [address] PCP - General Nephrology 08/26/21 03/16/22 Arley Rousseau MD [address] [place] [address] PCP - General Sports Medicine 03/17/22 Samantha Lyons RN [address] [address] Industrial Twisting Machine Operator 09/27/17 Nimisha Bradford RN [address] [address] Industrial Twisting Machine Operator 10/03/17 5 Benjy Perez MD [address] [address] Referring Physician Nephrology 05/15/18 Yajaira Ritter, RN [address]90 [place] [address] Nurse Navigator 04/27/22 06/03/22 Kai Callejas MD [address] [facility] [address] [facility] [address] [place] [address] Surgeon Vascular Surgery 11/06/24 [facility], telegraph installerIndustrial Twisting Machine Operator 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
--- OUTSIDE RECORDS SUMMARY | 2025-01-03 12:19 | XMS_ITS | Encounter Summary ---
Author Organization [facility] Care Team Providers Care Bow Rehairer Name Role Phone Angelita Blanco MD Primary Care Provider [phone] Samantha Lyons RN Unavailable +[phone] Nimisha Bradford RN Unavailable [phone] Benjy Perez MD Unavailable +[phone] Benjy Perez MD Primary Care Provider +[phone] Angelita Blanco MD Primary Care Provider +[phone] Johnny Goldberg MD Primary Care Provider [phone] Angelita Blanco MD Primary Care Provider +[phone] Rosey Reyes MD Primary Care Provider +[phone] Benjy Perez MD Primary Care Provider +[phone] Benjy Perez MD Primary Care Provider [phone] Rosey Reyes MD Primary Care Provider +[phone] Vivienne Morataya MD Primary Care Provider [phone] Vivienne Morataya MD Primary Care Provider +[phone] Benjy Perez MD Primary Care Provider +[phone] Rosey Reyes MD Primary Care Provider +[phone] Benjy Perez MD Primary Care Provider [phone] Arley Rousseau MD Primary Care Provider +[phone] Benjy Perez MD Primary Care Provider +[phone] Arley Rousseau MD Primary Care Provider +[phone] Benjy Perez MD Primary Care Provider +[phone] Arley Rousseau MD Primary Care Provider + Yajaira Ritter RN Unavailable +[phone] Kai Callejas MD Unavailable + [facility] RN Unavailable Unavaila ble Encounter Details Date Type Department Care Team (Latest Contact Info) Description 09/20/2016 Orders Only MMG CLINCONV ProviderEileen MD [address] [place] [address] Social History Tobacco Use Types Packs/Day Years Used Date Smoking Tobacco: Never Comments Unknown Sex and Gender Information Value Date Recorded Sex Assigned at Not on file Legal Sex Female 7:39 AM MOVIE CRITIC Gender Identity Female 05/15/2018 8:32 AM MOVIE CRITIC Sexual Orientation Not on file documented as [...] COVID: Suspected 03/12/2023 03/12/2023 03/12/2023 3:55 PM MOVIE CRITIC COVID: Suspected 05/21/2024 05/21/2024 05/21/2024 7:13 AM MOVIE CRITIC documented as of this encounter Care Teams Bow Rehairer Relationship Specialty Start Date End Date Angelita Blanco MD [address] [facility] 103 [place] [address] PCP - General 08/18/16 05/25/18 Benjy Perez MD [address] [place] [address] PCP - General 05/26/18 05/29/18 Angelita Blanco MD [address] [facility] 103 [place] [address] PCP - General 05/30/18 09/11/18 Johnny Goldberg MD [address] [facility] 200 [place] [address] PCP - General 09/12/18 09/25/18 Angelita Blanco MD [address] [facility] 103 [place] [address] PCP - General 09/26/18 11/14/18 Rosey Reyes MD [address] [facility] 200 [place] [address] PCP - General 11/15/18 01/11/19 Benjy Perez MD [address] [place] [address] PCP - General 02/08/19 02/08/19 Benjy Perez MD [address] [place] [address] PCP - General 01/12/19 02/07/19 Rosey Reyes MD [address] [facility] 200 [place] [address] PCP - General 06/20/19 09/30/19 Vivienne Morataya MD [address] [facility] [address] [place] [address] PCP - General 10/01/19 10/11/19 Vivienne Morataya MD [address] [facility] [address] [place] [address] PCP - General 02/09/19 06/19/19 Benjy Perez MD [address] [place] [address] PCP - General 10/12/19 06/25/20 Rosey Reyes MD [address] [facility] [address] [place] [address] [place] [address] PCP - General 06/26/20 08/19/20 Benjy Perez MD [address] [place] [address] PCP - General 08/20/20 08/25/20 Arley Rousseau MD [address] [facility] 200 [place] [address] PCP - General Sports Medicine 08/26/20 08/28/20 Benjy Perez MD [address] [place] [address] PCP - General 08/29/20 04/27/21 Arley Rousseau MD [address] [address] PCP - General Sports Medicine 04/28/21 08/25/21 Benjy Perez MD [address] [address] PCP - General Nephrology 08/26/21 03/16/22 Arley Rousseau MD [address] [place] [address] PCP - General Sports Medicine 03/17/22 Samantha Lyons RN [address] [address] Shellfish Checker 09/27/17 Nimisha Bradford RN [address] [address] Shellfish Checker 10/03/17 5 Benjy Perez MD [address] [address] Referring Physician Nephrology 05/15/18 Yajaira Ritter, RN [address] [place] [address] Nurse Navigator 04/27/22 06/03/22 Kai Callejas MD [address] [facility] [address] [facility] [address]120 [place] [address] Surgeon Vascular Surgery 11/06/24 [facility], semiconductor packages platemakerShellfish Checker 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
--- OUTSIDE RECORDS SUMMARY | 2025-01-03 12:19 | XMS_ITS | Encounter Summary ---
Author Organization [facility] Care Team Providers Care Lithographic Plate Maker Name Role Phone Angelita Blanco MD Primary Care Provider [phone] Samantha Lyons RN Unavailable +[phone] Nimisha Bradford RN Unavailable [phone] Benjy Perez MD Unavailable +[phone] Benjy Perez MD Primary Care Provider [phone] Angelita Blanco MD Primary Care Provider +[phone] Johnny Goldberg MD Primary Care Provider [phone] Angelita Blanco MD Primary Care Provider +[phone] Rosey Reyes MD Primary Care Provider +[phone] Benjy Perez MD Primary Care Provider +[phone] Benjy Perez MD Primary Care Provider +[phone] Rosey Reyes MD Primary Care Provider +[phone] Vivienne Morataya MD Primary Care Provider [phone] Vivienne Morataya MD Primary Care Provider +[phone] Benjy Perez MD Primary Care Provider +[phone] Rosey Reyes MD Primary Care Provider +[phone] Benjy Perez MD Primary Care Provider +[phone] Arley Rousseau MD Primary Care Provider [phone] Benjy Perez MD Primary Care Provider +[phone] Arley Rousseau MD Primary Care Provider +[phone] Benjy Perez MD Primary Care Provider +[phone] Arley Rousseau MD Primary Care Provider + Yajaira Ritter RN Unavailable +[phone] Kai Callejas MD Unavailable + [phone] [facility] RN Unavailable Unavaila ble Encounter Details Date Type Department Care Team (Latest Contact Info) Description 05/18/2015 Orders Only MMG CLINCONV Provider, MD Eileen [address] [place] [address] Social History Tobacco Use Types Packs/Day Years Used Date Smoking Tobacco: Never Assessed Comments Unknown Sex and Gender Information Value Date Recorded Sex Assigned at Not on file Legal Sex Female 7:39 AM PIPELINE DISPATCH OPERATOR Gender Identity Female 05/15/2018 8:32 AM PIPELINE DISPATCH OPERATOR Sexual Orientation Not on file documented as of this encounter Plan of Treatment Not on file documented as of this encounter Procedures Procedure Name Priority Date/Time Associated Diagnosis Comments SCAN - LABS 05/17/2016 12:00 AM PIPELINE DISPATCH OPERATOR documented in this encounter Results * SCAN - LABS (05/17/2016 12:00 AM PIPELINE DISPATCH OPERATOR) Narrative 05/17/2016 12:00 AM PIPELINE DISPATCH OPERATOR Ordered by an unspecified provider. us Historical Provider Final Res ult documented in this encounter Visit Diagnoses Not on filedocumented in this encounter Additional Health Concerns Infection Onset Date Last Indicated Resolved Time COVID: Suspected 03/12/2023 03/12/2023 03/12/2023 3:55 PM PIPELINE DISPATCH OPERATOR COVID: Suspected 05/21/2024 05/21/2024 05/21/2024 7:13 AM PIPELINE DISPATCH OPERATOR documented as of this encounter Care Teams Lithographic Plate Maker Relationship Specialty Start Date End Date Angelita Blanco MD [address] [facility] 103 [place] [address] PCP - General 08/18/16 05/25/18 Benjy Perez MD [address] [place] [address] PCP - General 05/26/18 05/29/18 Angelita Blanco MD [address] [facility] 103 [place] [address] PCP - General 05/30/18 09/11/18 Johnny Goldberg MD [address] [facility] 200 [place] [address] PCP - General 09/12/18 09/25/18 Angelita Blanco MD [address] [facility] [address] [place] [address] PCP - General 09/26/18 11/14/18 Rosey Reyes MD [address] [facility] 200 [place] [address] PCP - General 11/15/18 01/11/19 Benjy Perez MD [address] [place] [address] PCP - General 02/08/19 02/08/19 Benjy Perez MD [address] [place] [address] PCP - General 01/12/19 02/07/19 Rosey Reyes MD [address] [facility] 200 [place] [address] PCP - General 06/20/19 09/30/19 Vivienne Morataya MD 49[address] [facility] [address] [facility]26 [place] [address] PCP - General 10/01/19 10/11/19 Vivienne Morataya MD [address] [facility] [address] [place] [address] PCP - General 02/09/19 06/19/19 Benjy Perez MD [address] [place] [address] PCP - General 10/12/19 06/25/20 Rosey Reyes MD [address] [facility] [address] [place] [address] PCP - General 06/26/20 08/19/20 Benjy Perez MD [address] [place] [address] PCP - General 08/20/20 08/25/20 Arley Rousseau MD [address] [facility] 200 [place] [address] PCP - General Sports Medicine 08/26/20 08/28/20 Benjy Perez MD [address] [place] [address] PCP - General 08/29/20 04/27/21 Arley Rousseau MD [address] [facility] 200 [place] [address] PCP - General Sports Medicine 04/28/21 08/25/21 Benjy Perez MD 1512 [facility] 200 [place] [address] PCP - General Nephrology 08/26/21 03/16/22 Arley Rousseau MD [address] [place] [address] PCP - General Sports Medicine 03/17/22 Samantha Lyons RN [address] [address] Special Effects Makeup Artist 09/27/17 Nimisha Bradford RN [address] [address] Special Effects Makeup Artist 10/03/17 Benjy Perez MD [address] [address] Referring Physician Nephrology 05/15/18 Yajaira Ritter, RN [address]90 [place] [address] Nurse Navigator 04/27/22 06/03/22 Kai Callejas MD 4600 [facility] [address]120 [facility] [address] [place] [address] Surgeon Vascular Surgery 11/06/24 [facility], party host/hostessSpecial Effects Makeup Artist 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
--- OUTSIDE RECORDS SUMMARY | 2025-01-03 12:19 | XMS_ITS | Encounter Summary ---
Author Organization [facility] Facility Care Team Providers Care Military Pay Clerk Name Role Phone Angelita Blanco MD Primary Care Provider [phone] Samantha Lyons RN Unavailable +[phone] Nimisha Bradford RN Unavailable +[phone] Benjy Perez MD Unavailable +[phone] Benjy Perez MD Primary Care Provider +[phone] Angelita Blanco MD Primary Care Provider +[phone] Johnny Goldberg MD Primary Care Provider [phone] Angelita Blanco MD Primary Care Provider +[phone] Rosey Reyes MD Primary Care Provider [phone] Benjy Perez MD Primary Care Provider +[phone] Benjy Perez MD Primary Care Provider +[phone] Rosey Reyes MD Primary Care Provider +[phone] Vivienne Morataya MD Primary Care Provider [phone] Vivienne Morataya MD Primary Care Provider +[phone] Benjy Perez MD Primary Care Provider +[phone] Rosey Reyes MD Primary Care Provider +[phone] Benjy Perez MD Primary Care Provider [phone] Arley Rousseau MD Primary Care Provider +[phone] Benjy Perez MD Primary Care Provider +[phone] Arley Rousseau MD Primary Care Provider +[phone] Benjy Perez MD Primary Care Provider +[phone] Arely Rousseau MD Primary Care Provider + Yajaira Ritter RN Unavailable +[phone] Kai Callejas MD Unavailable + 2 [facility] RN Unavailable Unavaila ble Encounter Details Date Type Department Care Team (Latest Contact Info) Description 12/23/2015 Orders Only MMG CLINCONV ProviderEileen MD [address] [place] [address] Social History Tobacco Use Types Packs/Day Years Used Date Smoking Tobacco: Never Assessed Comments Unknown Sex and Gender Information Value Date Recorded Sex Assigned at Not on file Legal Sex Female 7:39 AM RETAIL SALES MERCHANDISER DEVELOPMENT Gender Identity Female 05/15/2018 8:32 AM RETAIL SALES MERCHANDISER DEVELOPMENT Sexual Orientation Not on file documented as [...] COVID: Suspected 03/12/2023 03/12/2023 03/12/2023 3:55 PM RETAIL SALES MERCHANDISER DEVELOPMENT COVID: Suspected 05/21/2024 05/21/2024 05/21/2024 7:13 AM RETAIL SALES MERCHANDISER DEVELOPMENT documented as of this encounter Care Teams Military Pay Clerk Relationship Specialty Start Date End Date Angelita Blanco MD [address] [facility] 103 [place] [address] PCP - General 08/18/16 05/25/18 Benjy Perez MD [address] [place] [address] PCP - General 05/26/18 05/29/18 Angelita Blanco MD [address] [facility] 103 [place] [address] PCP - General 05/30/18 09/11/18 Johnny Goldberg MD [address] [facility] 200 [place] [address] PCP - General 09/12/18 09/25/18 Angelita Blanco MD [address] [facility] 103 [place] [address] PCP - General 09/26/18 11/14/18 Rosey Reyes MD [address] [facility] 200 [place] [address] PCP - General 11/15/18 01/11/19 Benjy Perez MD [address] [place] [address] PCP - General 02/08/19 02/08/19 Benjy Perez MD [address] [place] [address] PCP - General 01/12/19 02/07/19 Rosey Reyes MD [address] [facility] 200 [place] [address] PCP - General 06/20/19 09/30/19 Vivienne Morataya MD [address] [facility] [address] [place] [address] PCP - General 10/01/19 10/11/19 Vivienne Morataya MD [address] [facility] [address] [place] [address] PCP - General 02/09/19 06/19/19 Benjy Perez MD [address] [place] [address] PCP - General 10/12/19 06/25/20 Rosey Reyes MD [address] [place] [address] [place] [address] PCP - General 06/26/20 08/19/20 Benjy Perez MD [address] [place] [address] PCP - General 08/20/20 08/25/20 Arley Rousseau MD [address] [facility] 200 [place] [address] PCP - General Sports Medicine 08/26/20 08/28/20 Benjy Perez MD [address] [place] [address] PCP - General 08/29/20 04/27/21 Arley Rousseau MD [address] [address] PCP - General Sports Medicine 04/28/21 08/25/21 Benjy Perez MD [address] [address] PCP - General Nephrology 08/26/21 03/16/22 Arley Rousseau MD [address] [place] [address] PCP - General Sports Medicine 03/17/22 Samantha Lyons RN [address] [address] Clinical Orthoptist 09/27/17 Nimisha Bradford RN [address] [address] Clinical Orthoptist 10/03/17 5 Benjy Perez MD [address] [address] Referring Physician Nephrology 05/15/18 Yajaira Ritter, RN 4590 [place] [address] Nurse Navigator 04/27/22 06/03/22 Kai Callejas MD 4600 [facility] [address]120 [facility] [address] [place] [address] Surgeon Vascular Surgery 11/06/24 [facility], deployment engineerClinical Orthoptist 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
--- OUTSIDE RECORDS SUMMARY | 2025-01-03 12:20 | XMS_ITS | Encounter Summary ---
Author Organization [facility] Facility Care Team Providers Care Manager Garden Name Role Phone Angelita Blanco MD Primary Care Provider +[phone] Samantha Lyons RN Unavailable +[phone] Nimisha Bradford RN Unavailable +[phone] Benjy Perez MD Unavailable +[phone] Benjy Perez MD Primary Care Provider +[phone] Angelita Blanco MD Primary Care Provider +[phone] Johnny Goldberg MD Primary Care Provider [phone] Angelita Blanco MD Primary Care Provider +[phone] Rosey Reyes MD Primary Care Provider +[phone] Benjy Perez MD Primary Care Provider +[phone] Benjy Perez MD Primary Care Provider +[phone] Rosey Reyes MD Primary Care Provider +[phone] Vivienne Morataya MD Primary Care Provider +[phone] Vivienne Morataya MD Primary Care Provider +[phone] Benjy Perez MD Primary Care Provider +[phone] Rosey Reyes MD Primary Care Provider +[phone] Benjy Perez MD Primary Care Provider +[phone] Arley Rousseau MD Primary Care Provider +[phone] Benjy Perez MD Primary Care Provider +[phone] Arley Rousseau MD Primary Care Provider +[phone] Benjy Perez MD Primary Care Provider +[phone] Arley Rousseau MD Primary Care Provider + Yajaira Ritter RN Unavailable +[phone] Kai Callejas MD Unavailable + [facility] RN Unavailable Unavaila ble Encounter Details Date Type Department Care Team (Latest Contact Info) Description 09/05/2017 Orders Only MMG CLINCONV ProviderEileen MD [address] [place] [address] Social History Tobacco Use Types Packs/Day Years Used Date Smoking Tobacco: Never Comments Unknown Sex and Gender Information Value Date Recorded Sex Assigned at Not on file Legal Sex Female 7:39 AM MANAGER REGISTRATION Gender Identity Female 05/15/2018 8:32 AM MANAGER REGISTRATION Sexual Orientation Not on file documented as [...] Suspected 03/12/2023 03/12/2023 03/12/2023 3:55 PM MANAGER REGISTRATION COVID: Suspected 05/21/2024 05/21/2024 05/21/2024 7:13 AM MANAGER REGISTRATION documented as of this encounter Care Teams Manager Garden Relationship Specialty Start Date End Date Angelita Blanco MD [address] [facility] 103 [place] [address] PCP - General 08/18/16 05/25/18 Benjy Perez MD [address] [place] [address] PCP - General 05/26/18 05/29/18 Angelita Blanco MD [address] [facility] 103 [place] [address] PCP - General 05/30/18 09/11/18 Johnny Goldberg MD [address] [facility] 200 [place] [address] PCP - General 09/12/18 09/25/18 Angelita Blanco MD [address] [facility] 103 [place] [address] PCP - General 09/26/18 11/14/18 Rosey Reyes MD [address] [facility] 200 [place] [address] PCP - General 11/15/18 01/11/19 Bejny Perez MD [address] [place] [address] PCP - General 02/08/19 02/08/19 Benjy Perez MD [address] [place] [address] PCP - General 01/12/19 02/07/19 Rosey Reyes MD [address] [facility] 200 [place] [address] PCP - General 06/20/19 09/30/19 Vivienne Morataya MD 49[address] [facility] [address] [place] [address] PCP - General 10/01/19 10/11/19 Vivienne Morataya MD [address] [facility] [address] [place] [address] PCP - General 02/09/19 06/19/19 Benjy Perez MD [address] [place] [address] PCP - General 10/12/19 06/25/20 Rosey Reyes MD 4921 [facility] [address] [place], [place] [address] [place] [address] PCP - General 06/26/20 08/19/20 Benjy Perez MD [address] [place] [address] PCP - General 08/20/20 08/25/20 Arley Rousseau MD [address] [facility] 200 [place] [address] PCP - General Sports Medicine 08/26/20 08/28/20 Benjy Perez MD [address] [place] [address] PCP - General 08/29/20 04/27/21 Arley Rousseau MD [address] [address] PCP - General Sports Medicine 04/28/21 08/25/21 Benjy Perez MD [address] [address] PCP - General Nephrology 08/26/21 03/16/22 Arley Rousseau MD [address] [place] [address] PCP - General Sports Medicine 03/17/22 Samantha Lyons RN [address] [address] Wheel Cleaner 09/27/17 Nimisha Bradford RN [address] [address] Wheel Cleaner 10/03/17 5 Benjy Perez MD [address] [address] Referring Physician Nephrology 05/15/18 Yajaira Ritter, RN 4590 [place] [address] Nurse Navigator 04/27/22 06/03/22 Kai Callejas MD 46[address] [facility] [address] [facility] [address]120 [place] [address] Surgeon Vascular Surgery 11/06/24 [facility], pole framerWheel Cleaner 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
--- OUTSIDE RECORDS SUMMARY | 2025-01-03 12:20 | XMS_ITS | Encounter Summary ---
Author Organization [facility] Facility Care Team Providers Care Smoke Room Operator Name Role Phone Angelita Blanco MD Primary Care Provider +[phone] Samantha Lyons RN Unavailable +[phone] Nimisha Bradford RN Unavailable +[phone] Benjy Perez MD Unavailable +[phone] Benjy Perez MD Primary Care Provider +[phone] Angelita Blanco MD Primary Care Provider +[phone] Johnny Goldberg MD Primary Care Provider [phone] Angelita Blanco MD Primary Care Provider +[phone] Rosey Reyes MD Primary Care Provider +[phone] Benjy Perez MD Primary Care Provider +[phone] Benjy Perez MD Primary Care Provider +[phone] Rosey Reyes MD Primary Care Provider +[phone] Vivienne Morataya MD Primary Care Provider [phone] Vivienne Morataya MD Primary Care Provider +[phone] Benjy Perez MD Primary Care Provider +[phone] Rosey Reyes MD Primary Care Provider +[phone] Benjy Perez MD Primary Care Provider +[phone] Arley Rousseau MD Primary Care Provider +[phone] Benjy Perez MD Primary Care Provider +[phone] Arley Rousseau MD Primary Care Provider +[phone] Benjy Perez MD Primary Care Provider +[phone] Arley Rousseau MD Primary Care Provider + Yajaira Ritter RN Unavailable +[phone] Kai Callejas MD Unavailable + [facility] RN Unavailable Unavaila ble Encounter Details Date Type Department Care Team (Latest Contact Info) Description 12/26/2017 Orders Only MMG CLINCONV ProviderEileen MD [address] [place] [address] Social History Tobacco Use Types Packs/Day Years Used Date Smoking Tobacco: Never Comments Unknown Sex and Gender Information Value Date Recorded Sex Assigned at Not on file Legal Sex Female 7:39 AM SASH INSTALLER Gender Identity Female 05/15/2018 8:32 AM SASH INSTALLER Sexual Orientation Not on file documented as [...] COVID: Suspected 03/12/2023 03/12/2023 03/12/2023 3:55 PM SASH INSTALLER COVID: Suspected 05/21/2024 05/21/2024 05/21/2024 7:13 AM SASH INSTALLER documented as of this encounter Care Teams Smoke Room Operator Relationship Specialty Start Date End Date Angelita Blanco MD [address] [facility] 103 [place] [address] PCP - General 08/18/16 05/25/18 Benjy Perez MD [address] [place] [address] PCP - General 05/26/18 05/29/18 Angelita Blanco MD [address] [facility] 103 [place] [address] PCP - General 05/30/18 09/11/18 Johnny Goldberg MD [address] [facility] 200 [place] [address] PCP - General 09/12/18 09/25/18 Angelita Blanco MD [address] [facility] 103 [place] [address] PCP - General 09/26/18 11/14/18 Rosey Reyes MD [address] [facility] 200 [place] [address] PCP - General 11/15/18 01/11/19 Benjy Perez MD [address] [place] [address] PCP - General 02/08/19 02/08/19 Benjy Perez MD [address] [place] [address] PCP - General 01/12/19 02/07/19 Rosey Reyes MD [address] [facility] 200 [place] [address] PCP - General 06/20/19 09/30/19 Vivienne Morataya MD 49[address] [facility] [address] [place] [address] PCP - General 10/01/19 10/11/19 Vivienne Morataya MD 49[address] [facility] [address] [place] [address] PCP - General 02/09/19 06/19/19 Benjy Perez MD [address] [place] [address] PCP - General 10/12/19 06/25/20 Rosey Reyes MD [address] [facility] [address] [place], [place] [address] [place] [address] PCP - General 06/26/20 08/19/20 Benjy Perez MD [address] [place] [address] PCP - General 08/20/20 08/25/20 Arley Rousseau MD [address] [facility] 200 [place] [address] PCP - General Sports Medicine 08/26/20 08/28/20 Benjy Perez MD [address] [place] [address] PCP - General 08/29/20 04/27/21 Arley Rousseau MD [address] [address] PCP - General Sports Medicine 04/28/21 08/25/21 Benjy Perez MD [address] [address] PCP - General Nephrology 08/26/21 03/16/22 Arley Rousseau MD [address] [place] [address] PCP - General Sports Medicine 03/17/22 Samantha Lyons RN [address] [address] Wine Steward 09/27/17 Nimisha Bradford RN [address] [address] Wine Steward 10/03/17 5 Benjy Perez MD [address] [address] Referring Physician Nephrology 05/15/18 Yajaira Ritter, RN 4590 [place] [address] Nurse Navigator 04/27/22 06/03/22 Kai Callejas MD [address] [facility] [address] [facility] B120 [place] [address] Surgeon Vascular Surgery 11/06/24 [facility], inventory control supervisorWine Steward 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
--- OUTSIDE RECORDS SUMMARY | 2025-01-03 12:20 | XMS_ITS | Encounter Summary ---
Author Organization [facility] Facility Care Team Providers Care Streetcar Repairer Helper Name Role Phone Angelita Blanco MD Primary Care Provider [phone] Samantha Lyons RN Unavailable +[phone] Nimisha Bradford RN Unavailable +[phone] Benjy Perez MD Unavailable +[phone] Benjy Perez MD Primary Care Provider +[phone] Angelita Blanco MD Primary Care Provider +[phone] Johnny Goldberg MD Primary Care Provider [phone] Angelita Blanco MD Primary Care Provider +[phone] Rosey Reyes MD Primary Care Provider +[phone] Benjy Perez MD Primary Care Provider +[phone] Benjy Perez MD Primary Care Provider +[phone] Rosey Reyes MD Primary Care Provider +[phone] Vivienne Morataya MD Primary Care Provider [phone] Vivienne Morataya MD Primary Care Provider +[phone] Benjy Perez MD Primary Care Provider +[phone] Rosey Reyes MD Primary Care Provider +[phone] Benjy Perez MD Primary Care Provider +[phone] Arley Rousseau MD Primary Care Provider +[phone] Benjy Perez MD Primary Care Provider +[phone] Arley Rousseau MD Primary Care Provider +[phone] Benjy Perez MD Primary Care Provider +[phone] Arley Rousseau MD Primary Care Provider + Yajaira Ritter RN Unavailable +[phone] Kai Callejas MD Unavailable + [facility] RN Unavailable Unavaila ble Encounter Details Date Type Department Care Team (Latest Contact Info) Description 10/27/2016 Orders Only MMG CLINCONV ProviderEileen MD [address] [place] [address] Social History Tobacco Use Types Packs/Day Years Used Date Smoking Tobacco: Never Comments Unknown Sex and Gender Information Value Date Recorded Sex Assigned at Not on file Legal Sex Female 7:39 AM HEALTH SAFETY ENGINEER Gender Identity Female 05/15/2018 8:32 AM HEALTH SAFETY ENGINEER Sexual Orientation Not on file documented [...] COVID: Suspected 03/12/2023 03/12/2023 03/12/2023 3:55 PM HEALTH SAFETY ENGINEER COVID: Suspected 05/21/2024 05/21/2024 05/21/2024 7:13 AM HEALTH SAFETY ENGINEER documented as of this encounter Care Teams Streetcar Repairer Helper Relationship Specialty Start Date End Date Angelita Blanco MD [address] [facility] 103 [place] [address] PCP - General 08/18/16 05/25/18 Benjy Perez MD [address] [place] [address] PCP - General 05/26/18 05/29/18 Angelita Blanco MD [address] [facility] 103 [place] [address] PCP - General 05/30/18 09/11/18 Johnny Goldberg MD [address] [facility] 200 [place] [address] PCP - General 09/12/18 09/25/18 Angelita Blanco MD [address] [facility] 103 [place] [address] PCP - General 09/26/18 11/14/18 Rosey Reyes MD [address] [facility] 200 [place] [address] PCP - General 11/15/18 01/11/19 Benjy Perez MD [address] [place] [address] PCP - General 02/08/19 02/08/19 Benjy Perez MD [address] [place] [address] PCP - General 01/12/19 02/07/19 Rosey Reyes MD [address] [facility] 200 [place] [address] PCP - General 06/20/19 09/30/19 Vivienne Morataya MD 4921 [facility] [address]C [address] [place] [address] PCP - General 10/01/19 10/11/19 Vivienne Morataya MD 4921 [facility] [address] [place] [address] PCP - General 02/09/19 06/19/19 Benyj Perez MD [address] [place] [address] PCP - General 10/12/19 06/25/20 Rosey Reyes MD 4921 [facility] [address] [place], [place] [address] [place] [address] PCP - General 06/26/20 08/19/20 Benjy Perez MD [address] [place] [address] PCP - General 08/20/20 08/25/20 Arley Rousseau MD [address]12 [address] [facility] 200 [place] [address] PCP - General Sports Medicine 08/26/20 08/28/20 Benjy Perez MD [address] [place] [address] PCP - General 08/29/20 04/27/21 Arley Rousseau MD [address] [address] PCP - General Sports Medicine 04/28/21 08/25/21 Benjy Perez MD [address] [address] PCP - General Nephrology 08/26/21 03/16/22 Arley Rousseau MD [address] [place] [address] PCP - General Sports Medicine 03/17/22 Samantha Lyons RN [address] [address] Loading Rack Supervisor 09/27/17 Nimisha Bradford RN [address] [address] Loading Rack Supervisor 10/03/17 5 Benjy Perez MD [address] [address] Referring Physician Nephrology 05/15/18 Yajaira Ritter, RN 4590 [place] [address] Nurse Navigator 04/27/22 06/03/22 Kai Callejas MD 4600 [facility] [address]120 [facility] B120 [place] [address] Surgeon Vascular Surgery 11/06/24 [facility], electrolysistLoading Rack Supervisor 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
--- OUTSIDE RECORDS SUMMARY | 2025-01-03 12:20 | XMS_ITS | Encounter Summary ---
Author Organization [facility] Facility Care Team Providers Care Web Production Designer Name Role Phone Angelita Blanco MD Primary Care Provider +[phone] Samantha Lyons RN Unavailable +[phone] Nimisha Bradford RN Unavailable +[phone] Benjy Perez MD Unavailable +[phone] Benjy Perez MD Primary Care Provider +[phone] Angelita Blanco MD Primary Care Provider +[phone] Johnny Goldberg MD Primary Care Provider [phone] Angelita Blanco MD Primary Care Provider +[phone] Rosey Reyes MD Primary Care Provider +[phone] Benjy Perez MD Primary Care Provider +[phone] Benjy Perez MD Primary Care Provider +[phone] Rosey Reyes MD Primary Care Provider +[phone] Vivienne Morataya MD Primary Care Provider [phone] Vivienne Morataya MD Primary Care Provider +[phone] Benjy Perez MD Primary Care Provider +[phone] Rosey Reyes MD Primary Care Provider +[phone] Benjy Perez MD Primary Care Provider +[phone] Arley Rousseau MD Primary Care Provider +[phone] Benjy Perez MD Primary Care Provider +[phone] Arley Rousseau MD Primary Care Provider + Benjy Perez MD Primary Care Provider +[phone] Arley Rousseau MD Primary Care Provider + Yajaira Ritter RN Unavailable +[phone] Kai Callejas MD Unavailable +[phone] [facility] RN Unavailable Unavaila ble Encounter Details Date Type Department Care Team (Latest Contact Info) Description 08/29/2017 Orders Only MMG CLINCONV Provider, MD Eileen [address] [place] [address] Social History Tobacco Use Types Packs/Day Years Used Date Smoking Tobacco: Never Comments Unknown Sex and Gender Information Value Date Recorded Sex Assigned at Not on file Legal Sex Female 7:39 AM EPIDEMIOLOGY INTERN Gender Identity Female 05/15/2018 8:32 AM EPIDEMIOLOGY INTERN Sexual Orientation Not on file documented as [...] COVID: Suspected 03/12/2023 03/12/2023 03/12/2023 3:55 PM EPIDEMIOLOGY INTERN COVID: Suspected 05/21/2024 05/21/2024 05/21/2024 7:13 AM EPIDEMIOLOGY INTERN documented as of this encounter Care Teams Web Production Designer Relationship Specialty Start Date End Date Angelita Blanco MD [address] [address] PCP - General 08/18/16 05/25/18 Benjy Perez MD [address] [address] PCP - General 05/26/18 05/29/18 Angelita Blanco MD [address] [address] PCP - General 05/30/18 09/11/18 Johnny Goldberg MD [address] [id number] PCP - General 09/12/18 09/25/18 Angelita Blanco MD [address] [address] PCP - General 09/26/18 11/14/18 Rosey Reyes MD [address] [id number] PCP - General 11/15/18 01/11/19 Benjy Perez MD [address] [address] PCP - General 02/08/19 02/08/19 Benjy Perez MD [address] [facility] [facility] [address] [place] [address] PCP - General 01/12/19 02/07/19 Rosey Reyes MD [address] [address] PCP - General 06/20/19 09/30/19 Vivienne Morataya MD [address] [address] PCP - General 10/01/19 10/11/19 Vivienne Morataya MD [address] [address] PCP - General 02/09/19 06/19/19 Benjy Perez MD [address] [facility] [address] [place] [address] PCP - General 10/12/19 06/25/20 Rosey Reyes MD [address] [address] PCP - General 06/26/20 08/19/20 Benjy Perez MD 4590 [facility] [address] [place] [address] PCP - General 08/20/20 08/25/20 Arley Rousseau MD [address] [address] PCP - General Sports Medicine 08/26/20 08/28/20 Benjy Perez MD [address] [address] PCP - General 08/29/20 04/27/21 Arley Rousseau MD [address] [address] PCP - General Sports Medicine 04/28/21 08/25/21 Benjy Perez MD [address] [address] PCP - General Nephrology 08/26/21 03/16/22 Arley Rousseau MD [address] [place] [address] PCP - General Sports Medicine 03/17/22 Samantha Lyons, RN [address] [address] Slip Cover Estimator 09/27/17 Nimisha Bradford, RN [address] [address] Slip Cover Estimator 10/03/17 Benjy Perez MD [address] [address] Referring Physician Nephrology 05/15/18 Yajaira Ritter RN 4590 [place] [address] Nurse Navigator 04/27/22 06/03/22 Kai Callejas MD [address] [facility] [address] [place] [address] Surgeon Vascular Surgery 11/06/24 [facility], seo analystSlip Cover Estimator 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
--- OUTSIDE RECORDS SUMMARY | 2025-01-03 12:20 | XMS_ITS | Encounter Summary ---
Author Organization [facility] Facility Care Team Providers Care Crane Helper Name Role Phone Angelita Blanco MD Primary Care Provider [phone] Samantha Lyons RN Unavailable +[phone] Nimisha Bradford RN Unavailable +[phone] Benjy Perez MD Unavailable +[phone] Benjy Perez MD Primary Care Provider +[phone] Angelita Blanco MD Primary Care Provider +[phone] Johnny Goldberg MD Primary Care Provider [phone] Angelita Blanco MD Primary Care Provider +[phone] Rosey Reyes MD Primary Care Provider +[phone] Benjy Perez MD Primary Care Provider +[phone] Benjy Perez MD Primary Care Provider +[phone] Rosey Reyes MD Primary Care Provider +[phone] Vivienne Morataya MD Primary Care Provider [phone] Vivienne Morataya MD Primary Care Provider +[phone] Benjy Perez MD Primary Care Provider +[phone] Rosey Reyes MD Primary Care Provider +[phone] Benjy Perez MD Primary Care Provider +[phone] Arley Rousseau MD Primary Care Provider +[phone] Benjy Perez MD Primary Care Provider +[phone] Arley Rousseau MD Primary Care Provider + Benjy Perez MD Primary Care Provider +[phone] Arley Rousseau MD Primary Care Provider + Yajaira Ritter RN Unavailable +[phone] Kai Callejas MD Unavailable +[phone] [facility] RN Unavailable Unavaila ble Encounter Details Date Type Department Care Team (Latest Contact Info) Description 01/27/2017 Orders Only MMG CLINCONV ProviderEileen MD [address] [place] [address] Social History Tobacco Use Types Packs/Day Years Used Date Smoking Tobacco: Never Comments Unknown Sex and Gender Information Value Date Recorded Sex Assigned at Not on file Legal Sex Female 7:39 AM PIN CHASER Gender Identity Female 05/15/2018 8:32 AM PIN CHASER Sexual Orientation Not on file documented as [...] COVID: Suspected 03/12/2023 03/12/2023 03/12/2023 3:55 PM PIN CHASER COVID: Suspected 05/21/2024 05/21/2024 05/21/2024 7:13 AM PIN CHASER documented as of this encounter Care Teams Crane Helper Relationship Specialty Start Date End Date Angelita Blanco MD [address] [address] PCP - General 08/18/16 05/25/18 Benjy Perez MD [address] [address] PCP - General 05/26/18 05/29/18 Angelita Blanco MD [address] [address] PCP - General 05/30/18 09/11/18 Johnny Goldberg MD [address] [id number] PCP - General 09/12/18 09/25/18 Angelita Blanco MD [address] [address] PCP - General 09/26/18 11/14/18 Rosey Reyes MD [address] [id number] PCP - General 11/15/18 01/11/19 Benjy Perez MD [address] [address] PCP - General 02/08/19 02/08/19 Benjy Perez MD 4590 [facility] [facility] [address] [place] [address] PCP - General 01/12/19 02/07/19 Rosey Reyes MD [address] [address] PCP - General 06/20/19 09/30/19 Vivienne Morataya MD [address] [address] PCP - General 10/01/19 10/11/19 Vivienne Morataya MD [address] [address] PCP - General 02/09/19 06/19/19 Benjy Perez MD [address] [facility] [facility] [address] [place] [address] PCP - General 10/12/19 06/25/20 Rosey Reyes MD [address] [address] PCP - General 06/26/20 08/19/20 Benjy Perez MD 4590 [facility] [address] [place] [address] PCP - General 08/20/20 08/25/20 Arley Rousseau MD [address] [address] PCP - General Sports Medicine 08/26/20 08/28/20 Benjy Perez MD [address] [address] PCP - General 08/29/20 04/27/21 Arley Rousseau MD [address] [address] PCP - General Sports Medicine 04/28/21 08/25/21 Benjy Perez MD [address] [address] PCP - General Nephrology 08/26/21 03/16/22 Arley Rousseau MD [address] [place] [address] PCP - General Sports Medicine 03/17/22 Samantha Lyons, RN [address] [address] Atmospheric Physics Professor 09/27/17 Nimisha Bradford, RN [address] [address] Atmospheric Physics Professor 10/03/17 Benjy Perez MD [address] [address] Referring Physician Nephrology 05/15/18 Yajaira Ritter RN 4590 [place] [address] Nurse Navigator 04/27/22 06/03/22 Kai Callejas MD [address] [facility] [address] [place] [address] Surgeon Vascular Surgery 11/06/24 [facility], retirement consultantAtmospheric Physics Professor 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
--- OUTSIDE RECORDS SUMMARY | 2025-01-03 12:20 | XMS_ITS | Encounter Summary ---
Author Organization [facility] Facility Care Team Providers Care Police Detective Name Role Phone Angelita Blanco MD Primary Care Provider +[phone] Samantha Lyons RN Unavailable +[phone] Nimisha Bradford RN Unavailable +[phone] Benjy Perez MD Unavailable +[phone] Benjy Perez MD Primary Care Provider +[phone] Angelita Blanco MD Primary Care Provider +[phone] Johnny Goldberg MD Primary Care Provider [phone] Angelita Blanco MD Primary Care Provider +[phone] Rosey Reyes MD Primary Care Provider +[phone] Benjy Perez MD Primary Care Provider +[phone] Benjy Perez MD Primary Care Provider +[phone] Rosey Reyes MD Primary Care Provider +[phone] Vivienne Morataya MD Primary Care Provider [phone] Vivienne Morataya MD Primary Care Provider +[phone] Benjy Perez MD Primary Care Provider +[phone] Rosey Reyes MD Primary Care Provider +[phone] Benjy Perez MD Primary Care Provider +[phone] Arley Rousseau MD Primary Care Provider +[phone] Benjy Perez MD Primary Care Provider +[phone] Arley Rousseau MD Primary Care Provider +[phone] Benjy Perez MD Primary Care Provider +[phone] Arley Rousseau MD Primary Care Provider + Yajaira Ritter RN Unavailable +[phone] Kai Callejas MD Unavailable + [facility] RN Unavailable Unavaila ble Encounter Details Date Type Department Care Team (Latest Contact Info) Description 11/26/2016 Orders Only MMG CLINCONV ProviderEileen MD [address] [place] [address] Social History Tobacco Use Types Packs/Day Years Used Date Smoking Tobacco: Never Comments Unknown Sex and Gender Information Value Date Recorded Sex Assigned at Not on file Legal Sex Female 7:39 AM HOME SALES SERVICE PROFESSIONAL Gender Identity Female 05/15/2018 8:32 AM HOME SALES SERVICE PROFESSIONAL Sexual Orientation Not on file documented as [...] COVID: Suspected 03/12/2023 03/12/2023 03/12/2023 3:55 PM HOME SALES SERVICE PROFESSIONAL COVID: Suspected 05/21/2024 05/21/2024 05/21/2024 7:13 AM HOME SALES SERVICE PROFESSIONAL documented as of this encounter Care Teams Police Detective Relationship Specialty Start Date End Date Angelita Blanco MD [address] [facility] 103 [place] [address] PCP - General 08/18/16 05/25/18 Benjy Perez MD [address] [place] [address] PCP - General 05/26/18 05/29/18 Angelita Blanco MD [address] [facility] [address] [place] [address] PCP - General 05/30/18 09/11/18 Johnny Goldberg MD [address] [facility] 200 [place] [address] PCP - General 09/12/18 09/25/18 Angelita Blanco MD [address] [facility] 103 [place] [address] PCP - General 09/26/18 11/14/18 Rosey Reyes MD [address] [facility] 200 [place] [address] PCP - General 11/15/18 01/11/19 Benjy Perez MD [address] [place] [address] PCP - General 02/08/19 02/08/19 Benjy Perez MD [address] [place] [address] PCP - General 01/12/19 02/07/19 Rosey Reyes MD [address] [facility] 200 [place] [address] PCP - General 06/20/19 09/30/19 Vivienne Morataya MD [address] [facility] [address] [place] [address] PCP - General 10/01/19 10/11/19 Vivienne Morataya MD [address] [facility] [address] [place] [address] PCP - General 02/09/19 06/19/19 Benjy Perez MD [address] [place] [address] PCP - General 10/12/19 06/25/20 Rosey Reyes MD [address] [facility] [address] [place] [id number] [place] [address] PCP - General 06/26/20 08/19/20 Benjy Perez MD [address] [place] [address] PCP - General 08/20/20 08/25/20 Arley Rousseau MD [address] [facility] 200 [place] [address] PCP - General Sports Medicine 08/26/20 08/28/20 Benjy Perez MD [address] [place] [address] PCP - General 08/29/20 04/27/21 Arley Rousseau MD [address] [address] PCP - General Sports Medicine 04/28/21 08/25/21 Benjy Perez MD [address] [address] PCP - General Nephrology 08/26/21 03/16/22 Arley Rousseau MD [address] [place] [address] PCP - General Sports Medicine 03/17/22 Samantha Lyons RN [address] [address] Chucking And Sawing Machine Operator 09/27/17 Nimisha Bradford RN [address] [address] Chucking And Sawing Machine Operator 10/03/17 5 Benjy Perez MD [address] [address] Referring Physician Nephrology 05/15/18 Yajaira Ritter, RN 4590 [place] [address] Nurse Navigator 04/27/22 06/03/22 Kai Callejas MD [address] [facility] [address] [facility] [address] [place] [address] Surgeon Vascular Surgery 11/06/24 [facility], media sales executiveChucking And Sawing Machine Operator 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
--- OUTSIDE RECORDS SUMMARY | 2025-01-03 12:20 | XMS_ITS | Encounter Summary ---
Author Organization [facility] Facility Care Team Providers Care Diving Coach Name Role Phone Angelita Blanco MD Primary Care Provider [phone] Samantha Lyons RN Unavailable +[phone] Nimisha Bradford RN Unavailable +[phone] Benjy Perez MD Unavailable +[phone] Benjy Perez MD Primary Care Provider +[phone] Angelita Blanco MD Primary Care Provider +[phone] Johnny Goldberg MD Primary Care Provider [phone] Angelita Blanco MD Primary Care Provider +[phone] Rosey Reyes MD Primary Care Provider +[phone] Benjy Perez MD Primary Care Provider +[phone] Benjy Perez MD Primary Care Provider +[phone] Rosey Reyes MD Primary Care Provider +[phone] Vivienne Morataya MD Primary Care Provider [phone] Vivienne Morataya MD Primary Care Provider +[phone] Benjy Perez MD Primary Care Provider +[phone] Rosey Reyes MD Primary Care Provider +[phone] Benjy Perez MD Primary Care Provider +[phone] Arley Rousseau MD Primary Care Provider [phone] Benjy Perez MD Primary Care Provider +[phone] Arley Rousseau MD Primary Care Provider +[phone] Benjy Perez MD Primary Care Provider +[phone] Arley Rousseau MD Primary Care Provider + Yajaira Ritter RN Unavailable +[phone] Kai Callejas MD Unavailable + [facility] RN Unavailable Unavaila ble Encounter Details Date Type Department Care Team (Latest Contact Info) Description 11/23/2016 Orders Only MMG CLINCONV ProviderEileen MD [address] [place] [address] Social History Tobacco Use Types Packs/Day Years Used Date Smoking Tobacco: Never Comments Unknown Sex and Gender Information Value Date Recorded Sex Assigned at Not on file Legal Sex Female 7:39 AM CAMERA ASSEMBLER Gender Identity Female 05/15/2018 8:32 AM CAMERA ASSEMBLER Sexual Orientation Not on file documented as [...] COVID: Suspected 03/12/2023 03/12/2023 03/12/2023 3:55 PM CAMERA ASSEMBLER COVID: Suspected 05/21/2024 05/21/2024 05/21/2024 7:13 AM CAMERA ASSEMBLER documented as of this encounter Care Teams Diving Coach Relationship Specialty Start Date End Date Angelita Blanco MD [address] [facility] 103 [place] [address] PCP - General 08/18/16 05/25/18 Benjy Perez MD [address] [place] [address] PCP - General 05/26/18 05/29/18 Angelita Blanco MD [address] [facility] [place] [address] PCP - General 05/30/18 09/11/18 Jhonny Goldberg MD [address] [facility] 200 [place] [address] PCP - General 09/12/18 09/25/18 Angelita Blanco MD [address] [facility] 103 [place] [address] PCP - General 09/26/18 11/14/18 Rosey Reyes MD [address] [facility] 200 [place] [address] PCP - General 11/15/18 01/11/19 Benjy Perez MD [address] [place] [address] PCP - General 02/08/19 02/08/19 Benjy Perez MD [address] [place] [address] PCP - General 01/12/19 02/07/19 Rosey Reyes MD [address] [facility] 200 [place] [address] PCP - General 06/20/19 09/30/19 Vivienne Morataya MD [address] [facility] [address] [place] [address] PCP - General 10/01/19 10/11/19 Vivienne Morataya MD [address] [facility] [address] [place] [address] PCP - General 02/09/19 06/19/19 Benjy Perez MD [address] [place] [address] PCP - General 10/12/19 06/25/20 Rosey Reyes MD [address] [facility] [address] [place], [place] [address] [place] [address] PCP - General 06/26/20 08/19/20 Benjy Perez MD [address] [place] [address] PCP - General 08/20/20 08/25/20 Arley Rousseau MD [address] [facility] 200 [place] [address] PCP - General Sports Medicine 08/26/20 08/28/20 Benjy Perez MD [address] [place] [address] PCP - General 08/29/20 04/27/21 Arley Rousseau MD [address] [address] PCP - General Sports Medicine 04/28/21 08/25/21 Benjy Perez MD [address] [address] PCP - General Nephrology 08/26/21 03/16/22 Arley Rousseau MD [address] [place] [address] PCP - General Sports Medicine 03/17/22 Samantha Lyons RN [address] [address] Director Of Cloud Services 09/27/17 Nimisha Bradford RN [address] [address] Director Of Cloud Services 10/03/17 5 Benjy Perez MD [address] [address] Referring Physician Nephrology 05/15/18 Yajaira Ritter, RN [address]90 [place] [address] Nurse Navigator 04/27/22 06/03/22 Kai Callejas MD [address] [facility] [address] [facility] [address] [place] [address] Surgeon Vascular Surgery 11/06/24 [facility], design managerDirector Of Cloud Services 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
--- OUTSIDE RECORDS SUMMARY | 2025-01-03 12:20 | XMS_ITS | Encounter Summary ---
Author Organization [facility] Facility Care Team Providers Care Clothing Sales Assistant Name Role Phone Samantha Lyons RN Unavailable [phone] Nimisha Bradford RN Unavailable [phone] Benjy Perez MD Unavailable +[phone] Angelita Blanco MD Primary Care Provider +[phone] Johnny Goldberg MD Primary Care Provider +[phone] Angelita Blanco MD Primary Care Provider +[phone] Rosey Reyes MD Primary Care Provider +[phone] Benjy Perez MD Primary Care Provider [phone] Benjy Perez MD Primary Care Provider +[phone] Rosey Reyes MD Primary Care Provider +[phone] Vivienne Morataya MD Primary Care Provider [phone] Vivienne Morataya MD Primary Care Provider [phone] Benjy Perez MD Primary Care Provider [phone] Rosey Reyes MD Primary Care Provider +[phone] Benjy Perez MD Primary Care Provider +[phone] Arley Rousseau MD Primary Care Provider + Benjy Perez MD Primary Care Provider +[phone] Arley Rousseau MD Primary Care Provider + Benjy Perez MD Primary Care Provider [phone] Arley Rousseau MD Primary Care Provider + Yajaira Ritter RN Unavailable +[phone] Kai Callejas MD Unavailable + [phone] [facility] RN Unavailable Unavaila ble Encounter Details Date Type Department Care Team (Latest Contact Info) Description 06/27/2018 Orders Only MMG CLINCONV Provider, MD Eileen [address] [place] [address] Social History Tobacco Use Types Packs/Day Years Used Date Smoking Tobacco: Never Comments Unknown Sex and Gender Information Value Date Recorded Sex Assigned at Not on file Legal Sex Female 7:39 AM CONTACT CENTER ENGINEER Gender Identity Female 05/15/2018 8:32 AM CONTACT CENTER ENGINEER Sexual Orientation Not on file documented as of this encounter Plan of Treatment Not on file documented as of this encounter Procedures Procedure Name Priority Date/Time Associated Diagnosis Comments SCAN - LABS 06/27/2018 12:00 AM CONTACT CENTER ENGINEER documented in this encounter Results * SCAN - LABS (06/27/2018 12:00 AM CONTACT CENTER ENGINEER) Narrative 06/27/2018 12:00 AM CONTACT CENTER ENGINEER Ordered by an unspecified provider. Historical Provider Final Res ult documented in this encounter Visit Diagnoses Not on filedocumented in this encounter Additional Health Concerns Infection Onset Date Last Indicated Resolved Time COVID: Suspected 03/12/2023 03/12/2023 03/12/2023 3:55 PM CONTACT CENTER ENGINEER COVID: Suspected 05/21/2024 05/21/2024 05/21/2024 7:13 AM CONTACT CENTER ENGINEER documented as of this encounter Care Teams Clothing Sales Assistant Relationship Specialty Start Date End Date Angelita Blanco MD [address] [facility] 103 [place] [address] PCP - General 05/30/18 09/11/18 Johnny Goldberg MD [address] [facility] 200 [place] [address] PCP - General 09/12/18 09/25/18 Angelita Blanco MD [address] [facility] 103 [place] [address] PCP - General 09/26/18 11/14/18 Rosey Reyes MD 739 [facility] 200 [place] [address] PCP - General 11/15/18 01/11/19 Benjy Perez MD [address] [facility] [address]01 [place] [address] PCP - General 02/08/19 02/08/19 Benjy Perez MD [address] [facility] 3401 [place] [address] PCP - General 01/12/19 02/07/19 Rosey Reyes MD 739 [facility] 200 [place] [address] PCP - General 06/20/19 09/30/19 Vivienne Morataya MD 4921 [facility] [address] [place] [address] PCP - General 10/01/19 10/11/19 Vivienne Morataya MD 49[address] [facility] [address] [place] [address] PCP - General 02/09/19 06/19/19 Benjy Perez MD [address] [place] [address] PCP - General 10/12/19 06/25/20 Rosey Reyes MD [address]21 [facility] [address] [place] [address] PCP - General 06/26/20 08/19/20 Benjy Perez MD [address] [place] [address] PCP - General 08/20/20 08/25/20 Arley Rousseau MD [address] [facility] 200 [place] [address] PCP - General Sports Medicine 08/26/20 08/28/20 Benjy Perez MD [address] [place] [address] PCP - General 08/29/20 04/27/21 Arley Rousseau MD [address] [facility] 200 [place] [address] PCP - General Sports Medicine 04/28/21 08/25/21 Benjy Perez MD [address] [facility] 200 [place] [address] PCP - General Nephrology 08/26/21 03/16/22 Arley Rousseau MD 670 [place] [address] PCP - General Sports Medicine 03/17/22 Samantha Lyons, RN 4590 [facility] 3401 [place] [address] Cvt Tech 09/27/17 Nimisha Bradford, RN 4590 [facility] 3401 [place] [address] Cvt Tech 10/03/17 5 Benjy Perez MD 4590 [facility] 3401 [place] [address] Referring Physician Nephrology 05/15/18 Yajaira Ritter RN 4590 [place] [address] Nurse Navigator 04/27/22 06/03/22 Kai Callejas MD [address] [facility] [address] [facility] [address]120 [place] [address] Surgeon Vascular Surgery 11/06/24 [facility], microbiology coordinatorCvt Tech 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
--- OUTSIDE RECORDS SUMMARY | 2025-01-03 12:20 | XMS_ITS | Encounter Summary ---
Author Organization [facility] Facility Care Team Providers Care Engine Cleaner Name Role Phone Angelita Blanco MD Primary Care Provider +[phone] Samantha Lyons RN Unavailable +[phone] Nimisha Bradford RN Unavailable +[phone] Benjy Perez MD Unavailable +[phone] Benjy Perez MD Primary Care Provider +[phone] Angelita Blanco MD Primary Care Provider +[phone] Johnny Goldberg MD Primary Care Provider [phone] Angeliat Blanco MD Primary Care Provider +[phone] Rosey Reyes MD Primary Care Provider +[phone] Benjy Perez MD Primary Care Provider +[phone] Benjy Perez MD Primary Care Provider +[phone] Rosey Reyes MD Primary Care Provider +[phone] Vivienne Morataya MD Primary Care Provider [phone] Vivienne Morataya MD Primary Care Provider +[phone] Benjy Perez MD Primary Care Provider +[phone] Rosey Reyes MD Primary Care Provider +[phone] Benjy Perez MD Primary Care Provider +[phone] Arley Rousseau MD Primary Care Provider +[phone] Benjy Perez MD Primary Care Provider +[phone] Arley Rousseau MD Primary Care Provider +[phone] Benjy Perez MD Primary Care Provider +[phone] Arley Rousseau MD Primary Care Provider + Yajaira Ritter RN Unavailable +[phone] Kai Callejas MD Unavailable + [facility] RN Unavailable Unavaila ble Encounter Details Date Type Department Care Team (Latest Contact Info) Description 12/17/2016 Orders Only MMG CLINCONV ProviderEileen MD [address] [place] [address] Social History Tobacco Use Types Packs/Day Years Used Date Smoking Tobacco: Never Comments Unknown Sex and Gender Information Value Date Recorded Sex Assigned at Not on file Legal Sex Female 7:39 AM NURSING SCHEDULER Gender Identity Female 05/15/2018 8:32 AM NURSING SCHEDULER Sexual Orientation Not on file documented as [...] COVID: Suspected 03/12/2023 03/12/2023 03/12/2023 3:55 PM NURSING SCHEDULER COVID: Suspected 05/21/2024 05/21/2024 05/21/2024 7:13 AM NURSING SCHEDULER documented as of this encounter Care Teams Engine Cleaner Relationship Specialty Start Date End Date Angelita Blanco MD [address] [facility] 103 [place] [address] PCP - General 08/18/16 05/25/18 Benjy Perez MD [address] [place] [address] PCP - General 05/26/18 05/29/18 Angelita Blanco MD [address] [facility] 103 [place] [address] PCP - General 05/30/18 09/11/18 Johnny Goldberg MD [address] [facility] 200 [place] [address] PCP - General 09/12/18 09/25/18 Angelita Blanco MD [address] [facility] 103 [place] [address] PCP - General 09/26/18 11/14/18 Rosey Reyes MD [address] [facility] 200 [place] [address] PCP - General 11/15/18 01/11/19 Benjy Perez MD [address] [place] [address] PCP - General 02/08/19 02/08/19 Benjy Perez MD [address] [place] [address] PCP - General 01/12/19 02/07/19 Rosey Reyes MD [address] [facility] 200 [place] [address] PCP - General 06/20/19 09/30/19 Vivienne Morataya MD 4921 [facility] [address] [place] [address] PCP - General 10/01/19 10/11/19 Vivienne Morataya MD 49[address] [facility] [address] [place] [address] PCP - General 02/09/19 06/19/19 Benjy Perez MD [address] [place] [address] PCP - General 10/12/19 06/25/20 Rosey Reyes MD 49[address] [facility] [address] [place], [place] [address] [place] [address] PCP - General 06/26/20 08/19/20 Benjy Perez MD [address] [place] [address] PCP - General 08/20/20 08/25/20 Arley Rousseau MD [address] [facility] 200 [place] [address] PCP - General Sports Medicine 08/26/20 08/28/20 Benjy Perez MD [address] [place] [address] PCP - General 08/29/20 04/27/21 Arley Rousseau MD [address] [address] PCP - General Sports Medicine 04/28/21 08/25/21 Benjy Perez MD [address] [address] PCP - General Nephrology 08/26/21 03/16/22 Arley Rousseau MD [address] [place] [address] PCP - General Sports Medicine 03/17/22 Samantha Lyons RN [address] [address] Rn Trauma 09/27/17 Nimisha Bradford RN [address] [address] Rn Trauma 10/03/17 5 Benjy Perez MD [address] [address] Referring Physician Nephrology 05/15/18 Yajaira Ritter, RN 4590 [place] [address] Nurse Navigator 04/27/22 06/03/22 Kai Callejas MD 4600 [facility] [address] [facility] B120 [place] [address] Surgeon Vascular Surgery 11/06/24 [facility], home care assistantRn Trauma 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
--- OUTSIDE RECORDS SUMMARY | 2025-01-03 12:20 | XMS_ITS | Encounter Summary ---
Author Organization [facility] Care Team Providers Care Answering Service Agent Name Role Phone Angelita Blanco MD Primary Care Provider [phone] Samantha Lyons RN Unavailable +[phone] Nimisha Bradford RN Unavailable +[phone] Benjy Perez MD Unavailable +[phone] Benjy Perez MD Primary Care Provider +[phone] Angelita Blanco MD Primary Care Provider +[phone] Johnny Goldberg MD Primary Care Provider [phone] Angelita Blanco MD Primary Care Provider +[phone] Rosey Reyes MD Primary Care Provider +[phone] Benjy Perez MD Primary Care Provider +[phone] Benjy Perez MD Primary Care Provider +[phone] Rosey Reyes MD Primary Care Provider +[phone] Vivienne Morataya MD Primary Care Provider [phone] Vivienne Morataya MD Primary Care Provider +[phone] Benjy Perez MD Primary Care Provider +[phone] Rosey Reyes MD Primary Care Provider +[phone] Benjy Perez MD Primary Care Provider +[phone] Arley Roussaeu MD Primary Care Provider +[phone] Benjy Perez MD Primary Care Provider +[phone] Arley Rousseau MD Primary Care Provider +[phone] Benjy Perez MD Primary Care Provider +[phone] Arley Rousseau MD Primary Care Provider + Yajaira Ritter RN Unavailable +[phone] Kai Callejas MD Unavailable + [facility] RN Unavailable Unavaila ble Encounter Details Date Type Department Care Team (Latest Contact Info) Description 06/24/2017 Orders Only MMG CLINCONV Provider, MD Eileen [address] [place] [address] Social History Tobacco Use Types Packs/Day Years Used Date Smoking Tobacco: Never Comments Unknown Sex and Gender Information Value Date Recorded Sex Assigned at Not on file Legal Sex Female 7:39 AM CORE OVEN TENDER Gender Identity Female 05/15/2018 8:32 AM CORE OVEN TENDER Sexual Orientation Not on file documented as of this encounter Plan of Treatment Not on file documented as of this encounter Procedures Procedure Name Priority Date/Time Associated Diagnosis Comments SCAN - LABS 06/27/2017 12:00 AM CORE OVEN TENDER documented in this encounter Results * SCAN - LABS (06/27/2017 12:00 AM CORE OVEN TENDER) Narrative 06/27/2017 12:00 AM CORE OVEN TENDER Ordered by an unspecified provider. Historical Provider Final Res ult documented in this encounter Visit Diagnoses Not on filedocumented in this encounter Additional Health Concerns Infection Onset Date Last Indicated Resolved Time COVID: Suspected 03/12/2023 03/12/2023 03/12/2023 3:55 PM CORE OVEN TENDER COVID: Suspected 05/21/2024 05/21/2024 05/21/2024 7:13 AM CORE OVEN TENDER documented as of this encounter Care Teams Answering Service Agent Relationship Specialty Start Date End Date Angelita Blanco MD [address] [facility] [address] [place] [address] PCP - General 08/18/16 05/25/18 Benjy Perez MD [address] [place] [address] PCP - General 05/26/18 05/29/18 Angelita Blanco MD [address] [facility] [address] [place] [address] PCP - General 05/30/18 09/11/18 Johnny Goldberg MD [address] [facility] 200 [place] [address] PCP - General 09/12/18 09/25/18 Angelita Blanco MD [address] [facility] [address] [place] [address] PCP - General 09/26/18 11/14/18 Rosey Reyes MD [address] [facility] 200 [place] [address] PCP - General 11/15/18 01/11/19 Benjy Perez MD [address] [place] [address] PCP - General 02/08/19 02/08/19 Benjy Perez MD [address] [place] [address] PCP - General 01/12/19 02/07/19 Rosey Reyes MD [address] [facility] 200 [place] [address] PCP - General 06/20/19 09/30/19 Vivienne Morataya MD [address] [facility] [address] [facility] [place] [address] PCP - General 10/01/19 10/11/19 Vivienne Morataya MD [address] [facility] [address] [facility]26 [place] [address] PCP - General 02/09/19 06/19/19 Benjy Perez MD [address] [place] [address] PCP - General 10/12/19 06/25/20 Rosey Reyes MD [address] [facility] [address] [place] [address] PCP - General 06/26/20 08/19/20 Benjy Perez MD [address] [place] [address] PCP - General 08/20/20 08/25/20 Arley Rousseau MD [address] [facility] [address] [place] [address] PCP - General Sports Medicine 08/26/20 08/28/20 Benjy Perez MD [address] [place] [address] PCP - General 08/29/20 04/27/21 Arley Rousseau MD [address] [address] PCP - General Sports Medicine 04/28/21 08/25/21 Benjy Perez MD [address]12 [facility] [address] [place] [address] PCP - General Nephrology 08/26/21 03/16/22 Arley Rousseau MD [address] [place] [address] PCP - General Sports Medicine 03/17/22 Samantha Lyons RN [address] [address] Jumpbasting Collar Baster 09/27/17 Nimisha Bradford RN [address] [address] Jumpbasting Collar Baster 10/03/17 Benjy Perez MD [address] [address] Referring Physician Nephrology 05/15/18 Yajaira Ritter, RN [address] [place] [address] Nurse Navigator 04/27/22 06/03/22 Kai Callejas MD [address] [facility] [address] [facility] [address] [place] [address] Surgeon Vascular Surgery 11/06/24 [facility], wash oil cooler operatorJumpbasting Collar Baster 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
--- OUTSIDE RECORDS SUMMARY | 2025-01-03 12:20 | XMS_ITS | Encounter Summary ---
Author Organization [facility] Facility Care Team Providers Care Retail Furniture Sales Name Role Phone Angelita Blanco MD Primary Care Provider [phone] Samantha Lyons RN Unavailable +[phone] Nimisha Bradford RN Unavailable +[phone] Benjy Perez MD Unavailable +[phone] Benjy Perez MD Primary Care Provider +[phone] Angelita Blanco MD Primary Care Provider +[phone] Johnny Goldberg MD Primary Care Provider [phone] Angelita Blanco MD Primary Care Provider +[phone] Rosey Reyes MD Primary Care Provider +[phone] Benjy Perez MD Primary Care Provider +[phone] Benjy Perez MD Primary Care Provider +[phone] Rosey Reyes MD Primary Care Provider +[phone] Vivienne Morataya MD Primary Care Provider [phone] Vivienne Morataya MD Primary Care Provider +[phone] Benjy Perez MD Primary Care Provider +[phone] Rosey Reyes MD Primary Care Provider +[phone] Benjy Perez MD Primary Care Provider +[phone] Arley Rousseau MD Primary Care Provider [phone] Benjy Perze MD Primary Care Provider +[phone] Arley Rousseau MD Primary Care Provider +[phone] Benjy Perez MD Primary Care Provider +[phone] Arley Rousseau MD Primary Care Provider + Yajaira Ritter RN Unavailable +[phone] Kai Callejas MD Unavailable + [facility] RN Unavailable Unavaila ble Encounter Details Date Type Department Care Team (Latest Contact Info) Description 07/22/2017 Orders Only MMG CLINCONV ProviderEileen MD [address] [place] [address] Social History Tobacco Use Types Packs/Day Years Used Date Smoking Tobacco: Never Comments Unknown Sex and Gender Information Value Date Recorded Sex Assigned at Not on file Legal Sex Female 7:39 AM SOLUTION MANAGER Gender Identity Female 05/15/2018 8:32 AM SOLUTION MANAGER Sexual Orientation Not on file documented [...] COVID: Suspected 03/12/2023 03/12/2023 03/12/2023 3:55 PM SOLUTION MANAGER COVID: Suspected 05/21/2024 05/21/2024 05/21/2024 7:13 AM SOLUTION MANAGER documented as of this encounter Care Teams Retail Furniture Sales Relationship Specialty Start Date End Date Angelita Blanco MD [address] [facility] 103 [place] [address] PCP - General 08/18/16 05/25/18 Benjy Perez MD [address] [place] [address] PCP - General 05/26/18 05/29/18 Angelita Blanco MD [address] [facility] [address] [place] [address] PCP - General 05/30/18 09/11/18 Johnny Goldberg MD [address] [facility] 200 [place] [address] PCP - General 09/12/18 09/25/18 Angelita Blanco MD [address] [facility] 103 [place] [address] PCP - General 09/26/18 11/14/18 Rosey Reyes MD [address] [facility] 200 [place] [address] PCP - General 11/15/18 01/11/19 Benjy Perez MD [address] [place] [address] PCP - General 02/08/19 02/08/19 Benjy Perez MD [address] [place] [address] PCP - General 01/12/19 02/07/19 Rosey Reyes MD [address] [facility] 200 [place] [address] PCP - General 06/20/19 09/30/19 Vivienne Morataya MD [address] [facility] [address] [place] [address] PCP - General 10/01/19 10/11/19 Vivienne Morataya MD [address] [facility] [address] [place] [address] PCP - General 02/09/19 06/19/19 Benjy Perez MD [address] [place] [address] PCP - General 10/12/19 06/25/20 Rosey Reyes MD [address] [facility] [address] [place], [place] [address] [place] [address] PCP - General 06/26/20 08/19/20 Benjy Perez MD [address] [place] [address] PCP - General 08/20/20 08/25/20 Arley Rousseau MD [address] [facility] 200 [place] [address] PCP - General Sports Medicine 08/26/20 08/28/20 Benjy Perez MD [address] [place] [address] PCP - General 08/29/20 04/27/21 Arley Rousseau MD [address] [address] PCP - General Sports Medicine 04/28/21 08/25/21 Benjy Perez MD [address] [address] PCP - General Nephrology 08/26/21 03/16/22 Arley Rousseau MD [address] [place] [address] PCP - General Sports Medicine 03/17/22 Samantha Lyons RN [address] [address] Disaster Recovery Analyst 09/27/17 Nimisha Bradford RN [address] [address] Disaster Recovery Analyst 10/03/17 5 Benjy Perez MD [address] [address] Referring Physician Nephrology 05/15/18 Yajaira Ritter, RN 4590 [place] [address] Nurse Navigator 04/27/22 06/03/22 Kai Callejas MD [address] [facility] [address] [facility] [address] [place] [address] Surgeon Vascular Surgery 11/06/24 [facility], motor operatorDisaster Recovery Analyst 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
--- OUTSIDE RECORDS SUMMARY | 2025-01-03 12:20 | XMS_ITS | Encounter Summary ---
Author Organization [facility] Facility Care Team Providers Care Weaving Machine Operator Name Role Phone Samantha Lyons RN Unavailable +[phone] Nimisha Bradford RN Unavailable [phone] Benjy Perez MD Unavailable +[phone] Angelita Blanco MD Primary Care Provider +[phone] Johnny Goldberg MD Primary Care Provider +[phone] Angelita Blanco MD Primary Care Provider +[phone] Rosey Reyes MD Primary Care Provider +[phone] Benjy Perez MD Primary Care Provider [phone] Benjy Perez MD Primary Care Provider +[phone] Rosey Reyes MD Primary Care Provider +[phone] Vivienne Morataya MD Primary Care Provider [phone] Vivienne Morataya MD Primary Care Provider [phone] Benjy Perez MD Primary Care Provider [phone] Rosey Reyes MD Primary Care Provider +[phone] Benjy Perez MD Primary Care Provider +[phone] Arley Rousseau MD Primary Care Provider + Benjy Perez MD Primary Care Provider +[phone] Arley Rousseau MD Primary Care Provider + Benjy Perez MD Primary Care Provider [phone] Arley Rousseau MD Primary Care Provider + Yajaira Ritter RN Unavailable +[phone] Kai Callejas MD Unavailable + [phone] [facility] RN Unavailable Unavaila ble Encounter Details Date Type Department Care Team (Latest Contact Info) Description 06/15/2018 Orders Only MMG CLINCONV Provider, MD Eileen [address] [place] [address] Social History Tobacco Use Types Packs/Day Years Used Date Smoking Tobacco: Never Comments Unknown Sex and Gender Information Value Date Recorded Sex Assigned at Not on file Legal Sex Female 7:39 AM ACTUARIAL MANAGER Gender Identity Female 05/15/2018 8:32 AM ACTUARIAL MANAGER Sexual Orientation Not on file documented as of this encounter Plan of Treatment Not on file documented as of this encounter Procedures Procedure Name Priority Date/Time Associated Diagnosis Comments SCAN - LABS 06/15/2018 12:00 AM ACTUARIAL MANAGER documented in this encounter Results * SCAN - LABS (06/15/2018 12:00 AM ACTUARIAL MANAGER) Narrative 06/15/2018 12:00 AM ACTUARIAL MANAGER Ordered by an unspecified provider. Historical Provider Final Res ult documented in this encounter Visit Diagnoses Not on filedocumented in this encounter Additional Health Concerns Infection Onset Date Last Indicated Resolved Time COVID: Suspected 03/12/2023 03/12/2023 03/12/2023 3:55 PM ACTUARIAL MANAGER COVID: Suspected 05/21/2024 05/21/2024 05/21/2024 7:13 AM ACTUARIAL MANAGER documented as of this encounter Care Teams Weaving Machine Operator Relationship Specialty Start Date End Date Angelita Blanco MD [address] [facility] 103 [place] [address] PCP - General 05/30/18 09/11/18 Johnny Goldberg MD [address] [facility] 200 [place] [address] PCP - General 09/12/18 09/25/18 Angelita Blanco MD [address] [facility] [address] [place] [address] PCP - General 09/26/18 11/14/18 Rosey Reyes MD [address] [facility] 200 [place] [address] PCP - General 11/15/18 01/11/19 Benjy Perez MD [facility] [facility] [address] [place] [address] PCP - General 02/08/19 02/08/19 Benjy Perez MD [facility] [facility] [address] [place] [address] PCP - General 01/12/19 02/07/19 Rosey Reyes MD [address]39 [facility] 200 [place] [address] PCP - General 06/20/19 09/30/19 Vivienne Morataya MD 49[address] [facility] [address] [place] [address] PCP - General 10/01/19 10/11/19 Vivienne Morataya MD [address] [facility] [address] [place] [address] PCP - General 02/09/19 06/19/19 Benjy Perez MD [address] [place] [address] PCP - General 10/12/19 06/25/20 Rosey Reyes MD [address] [facility] [address] [place] [address] PCP - General 06/26/20 08/19/20 Benjy Perez MD [address] [place] [address] PCP - General 08/20/20 08/25/20 Arley Rousseau MD [address] [facility] 200 [place] [address] PCP - General Sports Medicine 08/26/20 08/28/20 Benjy Perez MD [address] [place] [address] PCP - General 08/29/20 04/27/21 Arley Rousseau MD [address] [facility] 200 [place] [address] PCP - General Sports Medicine 04/28/21 08/25/21 Benjy Perez MD [address] [facility] [address] [place] [address] PCP - General Nephrology 08/26/21 03/16/22 Arley Rousseau MD [address]70 [place] [address] PCP - General Sports Medicine 03/17/22 Samantha Lyons, RN 4590 [facility] 3401 [place] [address] Digital Asset Manager 09/27/17 Nimisha Bradford, RN 4590 [facility] 3401 [place] [address] Digital Asset Manager 10/03/17 5 Benjy Perez MD 4590 [facility] 3401 [place] [address] Referring Physician Nephrology 05/15/18 Yajaira Ritter RN 4590 [place] [address] Nurse Navigator 04/27/22 06/03/22 Kai Callejas MD [address] [facility] [address] [facility] [address] [place] [address] Surgeon Vascular Surgery 11/06/24 [facility], newspaper library managerDigital Asset Manager 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
--- OUTSIDE RECORDS SUMMARY | 2025-01-03 12:20 | XMS_ITS | Encounter Summary ---
Author Organization [facility] Facility Care Team Providers Care Machine Grinder Name Role Phone Angelita Blanco MD Primary Care Provider [phone] Samantha Lyons RN Unavailable [phone] Nimisha Bradford RN Unavailable [phone] Benjy Perez MD Unavailable +[phone] Benjy Perez MD Primary Care Provider +[phone] Angelita Blanco MD Primary Care Provider +[phone] Johnny Goldberg MD Primary Care Provider [phone] Angelita Blanco MD Primary Care Provider +[phone] Rosey Reyes MD Primary Care Provider +[phone] Benjy Perez MD Primary Care Provider +[phone] Benjy Perez MD Primary Care Provider +[phone] Rosey Reyes MD Primary Care Provider +[phone] Vivienne Moratyaa MD Primary Care Provider [phone] Vivienne Morataya MD Primary Care Provider +[phone] Benjy Perez MD Primary Care Provider +[phone] Rosey Reyes MD Primary Care Provider +[phone] Benjy Perez MD Primary Care Provider +[phone] Arley Rousseau MD Primary Care Provider +[phone] Benjy Perez MD Primary Care Provider [phone] Arley Rousseau MD Primary Care Provider +[phone] Benjy Perez MD Primary Care Provider +[phone] Arley Rousseau MD Primary Care Provider + Yajaira Ritter RN Unavailable +[phone] Kai Callejas MD Unavailable + [facility] RN Unavailable Unavaila ble Encounter Details Date Type Department Care Team (Latest Contact Info) Description 12/29/2016 Orders Only MMG CLINCONV ProviderEileen MD [address] [place] [address] Social History Tobacco Use Types Packs/Day Years Used Date Smoking Tobacco: Never Comments Unknown Sex and Gender Information Value Date Recorded Sex Assigned at Not on file Legal Sex Female 7:39 AM COUNTERINTELLIGENCE AGENT Gender Identity Female 05/15/2018 8:32 AM COUNTERINTELLIGENCE AGENT Sexual Orientation Not on file documented as [...] COVID: Suspected 03/12/2023 03/12/2023 03/12/2023 3:55 PM COUNTERINTELLIGENCE AGENT COVID: Suspected 05/21/2024 05/21/2024 05/21/2024 7:13 AM COUNTERINTELLIGENCE AGENT documented as of this encounter Care Teams Machine Grinder Relationship Specialty Start Date End Date Angelita Blanco MD [address] [facility] 103 [place] [address] PCP - General 08/18/16 05/25/18 Benjy Perez MD [address] [place] [address] PCP - General 05/26/18 05/29/18 Angelita Balnco MD [address] [facility] 103 [place] [address] PCP - General 05/30/18 09/11/18 Johnny Goldberg MD [address] [facility] 200 [place] [address] PCP - General 09/12/18 09/25/18 Angelita Blanco MD [address] [facility] 103 [place] [address] PCP - General 09/26/18 11/14/18 Rosey Reyes MD [address] [facility] 200 [place] [address] PCP - General 11/15/18 01/11/19 Benjy Perez MD [address] [place] [address] PCP - General 02/08/19 02/08/19 Benjy Perez MD [address] [place] [address] PCP - General 01/12/19 02/07/19 Rosey Reyes MD [address] [facility] 200 [place] [address] PCP - General 06/20/19 09/30/19 Vivienne Morataya MD [address] [facility] [address] [place] [address] PCP - General 10/01/19 10/11/19 Vivienne Morataya MD [address] [facility] [address] [place] [address] PCP - General 02/09/19 06/19/19 Benjy Perez MD [address] [place] [address] PCP - General 10/12/19 06/25/20 Rosey Reyes MD [address] [facility] [address] [place], [place] [address] [place] [address] PCP - General 06/26/20 08/19/20 Benjy Perez MD [address] [place] [address] PCP - General 08/20/20 08/25/20 Arley Rousseau MD [address] [facility] 200 [place] [address] PCP - General Sports Medicine 08/26/20 08/28/20 Benjy Perez MD [address] [place] [address] PCP - General 08/29/20 04/27/21 Arley Rousseau MD [address] [address] PCP - General Sports Medicine 04/28/21 08/25/21 Benjy Perez MD [address] [address] PCP - General Nephrology 08/26/21 03/16/22 Arley Rousseau MD [address] [place] [address] PCP - General Sports Medicine 03/17/22 Samantha Lyons RN [address] [address] Community Health Nursing Director 09/27/17 Nimisha Bradford RN [address] [address] Community Health Nursing Director 10/03/17 5 Benjy Perez MD [address] [address] Referring Physician Nephrology 05/15/18 Yajaira Ritter, RN [address] [place] [address] Nurse Navigator 04/27/22 06/03/22 Kai Callejas MD 4600 [facility] [address] [facility] [address] [place] [address] Surgeon Vascular Surgery 11/06/24 [facility], director radiation oncologyCommunity Health Nursing Director 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
--- OUTSIDE RECORDS SUMMARY | 2025-01-03 12:20 | XMS_ITS ---
Author Organization [facility] Address [address] [place] [address] Care Team Providers Care Car Wash Manager Name Role Phone Samantha Lyons RN Unavailable [phone] Benjy Perez MD Unavailable [phone] Arley Rousseau MD Primary Care Provider + [phone] Kai Callejas MD Unavailable [phone] [facility] RN Unavailable Unavaila ble Transplant Episode Kidney Recipient [facility] ([place], [place]) - [facility] Organ Received: Right Kidney Transplanted on 11/11/2009 Marked as Active Follow-up on 11/11/2009 Kidney CoordinatorSotero House RN Phone: N/A Fax: N/A Email: N/A [place] Organ Diagnosis Organ Primary Contributory Kidney Focal [...] Coordinator N/A N/A N/A Constanza Huang Primary Catering Attendant N/A N/A N/A Samantha Lyons RN Secondary Coordinator Secondary Kidney Coordinator [phone] N/A N/A [facility] RN Quality Technician N/A N/A N/A Rima Esteban Refinery Operator [phone] N/A N/A Events Post-Transplant Pre-Transplant Admitted: 11/11/2009 Referred: 05/23/2009 Transplanted: 11/11/2009 Evaluation began: 0 Discharged: 11/14/2009 UNOS qualified: 05/15/2008 Center waitlisted: 0 Appointments (12/03/2024 - 02/02/2025) When With Visit Type Description 12/11/2024 Melisa Ruiz Ultrasound Guided Pro cedure Kidney replaced by transplant; Hyperkalemia; Stage 3 chronic kidney disease, unspecified whether stage 3a or 3b CKD (HCC) Dialysis History Dialysis History Start End Type Comments Center 01/08/2009 11/11/2009 Hemo home hemo [facility] Dialysis Center Information Center Phone Fax Address [facility] [phone] [address] [facility] [address]
--- OUTSIDE RECORDS SUMMARY | 2025-01-03 12:20 | XMS_ITS | Encounter Summary ---
Author Organization [facility] Care Team Providers Care Bridge Worker Apprentice Name Role Phone Angelita Blanco MD Primary Care Provider [phone] Samantha Lyons RN Unavailable +[phone] Nimisha Bradford RN Unavailable +[phone] Benjy Perez MD Unavailable +[phone] Benjy Perez MD Primary Care Provider +[phone] Angelita Blanco MD Primary Care Provider +[phone] Johnny Goldberg MD Primary Care Provider [phone] Angelita Blanco MD Primary Care Provider +[phone] Rosey Reyes MD Primary Care Provider +[phone] Benjy Perez MD Primary Care Provider +[phone] Benjy Perez MD Primary Care Provider +[phone] Rosey Reyes MD Primary Care Provider +[phone] Vivienne Morataya MD Primary Care Provider [phone] Vivienne Morataya MD Primary Care Provider +[phone] Benjy Perez MD Primary Care Provider +[phone] Rosey Reyes MD Primary Care Provider +[phone] Benjy Perez MD Primary Care Provider +[phone] Arley Rousseau MD Primary Care Provider [phone] Benjy Perez MD Primary Care Provider +[phone] Arley Rousseau MD Primary Care Provider [phone] Benjy Perez MD Primary Care Provider +[phone] Arley Rousseau MD Primary Care Provider + Yajaira Ritter RN Unavailable +[phone] Kai Callejas MD Unavailable + [facility] RN Unavailable Unavaila ble Encounter Details Date Type Department Care Team (Latest Contact Info) Description 12/15/2016 Orders Only [facility] CLINCONV ProviderEileen MD [address] [place] [address] Social History Tobacco Use Types Packs/Day Years Used Date Smoking Tobacco: Never Comments Unknown Sex and Gender Information Value Date Recorded Sex Assigned at Not on file Legal Sex Female 7:39 AM GLASS WASHER Gender Identity Female 05/15/2018 8:32 AM GLASS WASHER Sexual Orientation Not on file documented [...] COVID: Suspected 03/12/2023 03/12/2023 03/12/2023 3:55 PM GLASS WASHER COVID: Suspected 05/21/2024 05/21/2024 05/21/2024 7:13 AM GLASS WASHER documented as of this encounter Care Teams Bridge Worker Apprentice Relationship Specialty Start Date End Date Angelita Blanco MD [address] [facility] [address] [place] [address] PCP - General 08/18/16 05/25/18 Benjy Perez MD [address] [place] [address] PCP - General 05/26/18 05/29/18 Angelita Blanco MD [address] [facility] [address] [place] [address] PCP - General 05/30/18 09/11/18 Johnny Goldberg MD [address] [facility] 200 [place] [address] PCP - General 09/12/18 09/25/18 Angelita Blanco MD [address] [facility] [address] [place] [address] PCP - General 09/26/18 11/14/18 Rosey Reyes MD [address] [facility] 200 [place] [address] PCP - General 11/15/18 01/11/19 Benjy Perez MD [address] [place] [address] PCP - General 02/08/19 02/08/19 Benjy Perez MD [address] [place] [address] PCP - General 01/12/19 02/07/19 Rosey Reyes MD [address] [facility] [address] [place] [address] PCP - General 06/20/19 09/30/19 Vivienne Morataya MD [address] [facility] [address] [place] [address] PCP - General 10/01/19 10/11/19 Vivienne Morataya MD [address] [facility] [address] [place] [address] PCP - General 02/09/19 06/19/19 Benjy Perez MD [address] [place] [address] PCP - General 10/12/19 06/25/20 Rosey Reyes MD [address] [facility] [address] [place], [place] [address] [place] [address] PCP - General 06/26/20 08/19/20 Benjy Perez MD [address] [place] [address] PCP - General 08/20/20 08/25/20 Arley Rousseau MD [address] [facility] [address] [place] [address] PCP - General Sports Medicine 08/26/20 08/28/20 Benjy Perez MD [address] [place] [address] PCP - General 08/29/20 04/27/21 Arley Rousseau MD [address] [address] PCP - General Sports Medicine 04/28/21 08/25/21 Benjy Perez MD [address] [address] PCP - General Nephrology 08/26/21 03/16/22 Arley Rousseau MD [address] [place] [address] PCP - General Sports Medicine 03/17/22 Samantha Lyons RN [address] [address] Quality Systems Manager 09/27/17 Nimisha Bradford RN [address] [address] Quality Systems Manager 10/03/17 5 Benjy Perez MD [address] [address] Referring Physician Nephrology 05/15/18 Yajaira Ritter, RN [address] [place] [address] Nurse Navigator 04/27/22 06/03/22 Kai Callejas MD [address] [facility] [address] [facility] [address] [place] [address] Surgeon Vascular Surgery 11/06/24 [facility], calciner operatorQuality Systems Manager 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
--- OUTSIDE RECORDS SUMMARY | 2025-01-03 12:20 | XMS_ITS | Encounter Summary ---
Author Organization [facility] Healthcare Address [address] [place] [address] Care Team Providers Care Media Relations Manager Name Role Phone Samantha Lyons RN Unavailable [phone] Benjy Perez MD Unavailable [phone] Arley Rousseau MD Primary Care Provider +[phone] Kai Callejas MD Unavailable [phone] [facility] RN Unavailable Unavaila ble Encounter Details Date Type Department Care Team (Late st Contact Info) Description 01/03/2025 Orders Only [place] [address] [place] [address] Shaniqua Hubbard RN Social History Tobacco Use [...] materials from doctor or pharmacy Sometimes 05/13/2022 [facility] Utilities Answer Date Recorded In the past [...] often do you attend chur ch or buddhist services? Never 12/03/2024 Do you belong to any clubs o r organizations such as alevism groups, unions, fraternal or athletic groups, or [...] any time in the past 12 m [facility], were you homeless or living in [...] on file Legal Sex Female 7:39 AM BUILDING APPRAISER Gender Identity Female 05/15/2018 8:32 AM BUILDING APPRAISER Sexual Orientation Not on file documented as of this encounter Plan of Treatment Not on file documented as of this encounter Visit Diagnoses Not on filedocumented in this encounter Care Teams Media Relations Manager Relationship Specialty Start Date End Date Arley Rousseau MD [address] [place] [address] PCP - General Sports Medicine 03/17/22 Samantha Lyons, RN [address] [address] Cooker Meal 09/27/17 Benjy Perez MD [address] [address] Referring Physician Nephrology 05/15/18 Kai Callejas MD [address] [facility] [address] [facility] [address] [place] [address] Surgeon Vascular Surgery 11/06/24 [facility], hotel breakfast attendantCooker Meal 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
--- OUTSIDE RECORDS SUMMARY | 2025-01-03 12:20 | XMS_ITS | Encounter Summary ---
Author Organization [facility] Address [address] [place] [address] Phone Care Team Providers Care Trigonometry Teacher Name Role Phone Angelita Blanco MD Primary Care Provider [phone] Samantha Lyons RN Unavailable [phone] Nimisha Bradford RN Unavailable +[phone] Benjy Perez MD Unavailable [phone] Benjy Perez MD Primary Care Provider [phone] Angelita Blanco MD Primary Care Provider [phone] Johnny Goldberg MD Primary Care Provider [phone] Angelita Blanco MD Primary Care Provider [phone] Rosey Reyes MD Primary Care Provider +[phone] Benjy Perez MD Primary Care Provider [phone] Benjy Perez MD Primary Care Provider +[phone] Rosey Reyes MD Primary Care Provider [phone] Vivienne Morataya MD Primary Care Provider [phone] Vivienne Morataya MD Primary Care Provider [phone] Benjy Perez MD Primary Care Provider [phone] Rosey Reyes MD Primary Care Provider [phone] Benjy Perez MD Primary Care Provider [phone] Arley Rousseau MD Primary Care Provider +[phone] Benjy Perez MD Primary Care Provider [phone] Arley Rousseau MD Primary Care Provider + Benjy Perez MD Primary Care Provider [phone] Arley Rousseau MD Primary Care Provider + Yajaira Ritter RN Unavailable [phone] Kai Callejas MD Unavailable + [phone] [facility] RN Unavailable Unavaila ble Encounter Details Date Type Department Care Team (Latest Contact Info) Description 08/16/2017 Orders Only [facility] CONVERSION Scanning, Provider Social History Tobacco Use Types Packs/Day Years Used Date Smoking Tobacco: Never Comments Unknown Sex and Gender Information Value Date Recorded Sex Assigned at Not on file Legal Sex Female 7:39 AM POLICE WORKER Gender Identity Female 05/15/2018 8:32 AM POLICE WORKER Sexual Orientation Not on file documented as [...] COVID: Suspected 03/12/2023 03/12/2023 03/12/2023 3:55 PM POLICE WORKER COVID: Suspected 05/21/2024 05/21/2024 05/21/2024 7:13 AM POLICE WORKER documented as of this encounter Care Teams Trigonometry Teacher Relationship Specialty Start Date End Date Angelita Blanco MD [address] [facility] [address] [place] [address] PCP - General 08/18/16 05/25/18 Benjy Perez MD [address] [place] [address] PCP - General 05/26/18 05/29/18 Angelita Blanco MD [address] [facility] [address] [place] [address] PCP - General 05/30/18 09/11/18 Johnny Goldberg MD [address] [facility] [address] [place] [address] PCP - General 09/12/18 09/25/18 Angelita Blanco MD [address] [facility] [address] [place] [address] PCP - General 09/26/18 11/14/18 Rosey Reyes MD [address] [facility] [address] [place] [address] PCP - General 11/15/18 01/11/19 Benjy Perez MD [address] [place] [address] PCP - General 02/08/19 02/08/19 Benjy Perez MD [address] [place] [address] PCP - General 01/12/19 02/07/19 Rosey Reyes MD [address] [facility] [address] [place] [address] PCP - General 06/20/19 09/30/19 Vivienne Morataya MD [address] [facility] [address] [place] [address] PCP - General 10/01/19 10/11/19 Vivienne Morataya MD [address] [facility] [address] [place] [address] PCP - General 02/09/19 06/19/19 Benjy Perez MD [address] [place] [address] PCP - General 10/12/19 06/25/20 Rosey Reyes MD [address] [facility] [address] [facility] [address] [place] [address] PCP - General 06/26/20 08/19/20 Benjy Perez MD [address] [place] [address] [place] [address] PCP - General 08/20/20 08/25/20 Arley Rousseau MD [address] [facility] 200 [place] [address] PCP - General Sports Medicine 08/26/20 08/28/20 Benjy Perez MD [address] [place] [address] PCP - General 08/29/20 04/27/21 Arley Rousseau MD [address] [address] PCP - General Sports Medicine 04/28/21 08/25/21 Benjy Perez MD [address] [address] PCP - General Nephrology 08/26/21 03/16/22 Arley Rousseau MD [address] [place] [address] PCP - General Sports Medicine 03/17/22 Samantha Lyons RN [address] [address] Seafood Team Member 09/27/17 Nimisha Bradford RN [address] [address] Seafood Team Member 10/03/17 5 Benjy Perez MD [address] [address] Referring Physician Nephrology 05/15/18 Yajaira Ritter, RN [address] [place] [address] Nurse Navigator 04/27/22 06/03/22 Kai Callejas MD [address] [facility] [address] [facility] [address] [place] [address] Surgeon Vascular Surgery 11/06/24 [facility], lube workerSeafood Team Member 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
--- OUTSIDE RECORDS SUMMARY | 2025-01-03 12:20 | XMS_ITS | Encounter Summary ---
Author Organization [facility] Care Team Providers Care Breaster Name Role Phone Angelita Blanco MD Primary Care Provider [phone] Samantha Lyons RN Unavailable [phone] Nimisha Bradford RN Unavailable [phone] Benjy Perez MD Unavailable +[phone] Benjy Perez MD Primary Care Provider +[phone] Angelita Blanco MD Primary Care Provider +[phone] Johnny Goldberg MD Primary Care Provider [phone] Angelita Blanco MD Primary Care Provider +[phone] Rosey Reyes MD Primary Care Provider +[phone] Benjy Perez MD Primary Care Provider +[phone] Benjy Perez MD Primary Care Provider +[phone] Rosey Reyes MD Primary Care Provider +[phone] Vivienne Morataya MD Primary Care Provider [phone] Vivienne Morataya MD Primary Care Provider [phone] Benjy Perez MD Primary Care Provider +[phone] Rosey Reyes MD Primary Care Provider +[phone] Benjy Perez MD Primary Care Provider +[phone] Arley Rousseau MD Primary Care Provider [phone] Benjy Perez MD Primary Care Provider +[phone] Arley Rousseau MD Primary Care Provider [phone] Benjy Perez MD Primary Care Provider +[phone] Arley Rousseau MD Primary Care Provider + Yajaira Ritter RN Unavailable +[phone] Kai Callejas MD Unavailable + [facility] RN Unavailable Unavaila ble Encounter Details Date Type Department Care Team (Latest Contact Info) Description 12/16/2016 Orders Only [facility] CLINCONV ProviderEileen MD [address] [place] [address] Social History Tobacco Use Types Packs/Day Years Used Date Smoking Tobacco: Never Comments Unknown Sex and Gender Information Value Date Recorded Sex Assigned at Not on file Legal Sex Female 7:39 AM CIVIL CAD TECH Gender Identity Female 05/15/2018 8:32 AM CIVIL CAD TECH Sexual Orientation Not on file documented as [...] COVID: Suspected 03/12/2023 03/12/2023 03/12/2023 3:55 PM CIVIL CAD TECH COVID: Suspected 05/21/2024 05/21/2024 05/21/2024 7:13 AM CIVIL CAD TECH documented as of this encounter Care Teams Breaster Relationship Specialty Start Date End Date Angelita Blanco MD [address] [facility] [address] [place] [address] PCP - General 08/18/16 05/25/18 Benjy Perez MD [address] [place] [address] PCP - General 05/26/18 05/29/18 Angelita Blanco MD [address] [facility] [address] [place] [address] PCP - General 05/30/18 09/11/18 Johnny Goldberg MD [address] [facility] 200 [place] [address] PCP - General 09/12/18 09/25/18 Angelita Blanco MD [address] [facility] [address] [place] [address] PCP - General 09/26/18 11/14/18 Rosey Reyes MD [address] [facility] [address] [place] [address] PCP - General 11/15/18 01/11/19 Benjy Perez MD [address] [place] [address] PCP - General 02/08/19 02/08/19 Benjy Perez MD [address] [place] [address] PCP - General 01/12/19 02/07/19 Rosey Reyes MD [address] [facility] [address] [place] [address] PCP - General 06/20/19 09/30/19 Vivienne Morataya MD [address] [facility] [address] [place] [address] PCP - General 10/01/19 10/11/19 Vivienne Morataya MD [address] [facility] [address] [place] [address] PCP - General 02/09/19 06/19/19 Benjy Perez MD [address] [place] [address] PCP - General 10/12/19 06/25/20 Rosey Reyes MD [address] [facility] [address] [place], [place] [address] [place] [address] PCP - General 06/26/20 08/19/20 Benjy Perez MD [address] [place] [address] PCP - General 08/20/20 08/25/20 Arley Rousseau MD [address] [facility] [address] [place] [address] PCP - General Sports Medicine 08/26/20 08/28/20 Benjy Perez MD [address] [place] [address] PCP - General 08/29/20 04/27/21 Arley Rousseau MD [address] [address] PCP - General Sports Medicine 04/28/21 08/25/21 Benjy Perez MD [address] [address] PCP - General Nephrology 08/26/21 03/16/22 Arley Rousseau MD [address] [place] [address] PCP - General Sports Medicine 03/17/22 Samantha Lyons RN [address] [address] Nicker 09/27/17 Nimisha Bradford RN [address] [address] Nicker 10/03/17 5 Benjy Perez MD [address] [address] Referring Physician Nephrology 05/15/18 Yajaira Ritter, RN [address] [place] [address] Nurse Navigator 04/27/22 06/03/22 Kai Callejas MD [address] [facility] [address] [facility] [address] [place] [address] Surgeon Vascular Surgery 11/06/24 [facility], jigmanNicker 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
--- OUTSIDE RECORDS SUMMARY | 2025-01-03 12:20 | XMS_ITS | Clinical Summary ---
Author Organization [email or web address] Address [address] [facility] [place] [address] Care Team Providers Care At Risk Specialist Name Role Phone Unknown, Provider Primary Care Provider Benjy Cerrato MD Unavailable [phone] Source Comments [email or web address],non-owned Affiliates and Associated Physician Practices is amultiple site organization consisting of ambulatory clinics and hospital sitesin [place], [place], [place] and [place]. This disclosure is being madepursuant to the Care Everywhere program and may not contain all information available regarding this patient. Last updated 18.[email or web address] Allergies Active Allergy Reactions Criticality Noted Date Comments Penicillins 02/14/2017 Tree Nuts 02/14/2017 Active Problems Problem Noted Date Diagnosed Date Kidney transplant recipient, S/P SENIOR STEREO COMPILER TEAM [id number] on 200908/07/2024 Overview (08/07/2024): ESRD from [facility]. [...] Comments Blood Pressure 164/83 04/30/2016 2:16 PM LABORATORY CHEMIST Pulse 87 04/30/2016 2:51 PM LABORATORY CHEMIST Temperature 36.8 C (98.3 F) 04/30/2016 2:16 PM LABORATORY CHEMIST Respiratory Rate 16 04/30/2016 2:16 PM LABORATORY CHEMIST Oxygen Saturation 97% 04/30/2016 2:51 PM LABORATORY CHEMIST Inhaled Oxygen Concentration - - Weight 116.1 kg (256 lb) 04/30/2016 1:22 PM LABORATORY CHEMIST Height 175.3 cm (5' 9) 03/15/2014 3:30 PM LABORATORY CHEMIST Body Mass Index 37.8 03/15/2014 3:30 PM LABORATORY CHEMIST Plan of Treatment Health Maintenance Due Date [...] Comments LIPID PROFILE Routine 03/25/2014 9:50 AM LABORATORY CHEMIST from Last 3 Months or Most Recently Relevant to Health Maintenance Results * LIPID PROFILE (03/25/2014 9:50 AM LABORATORY CHEMIST) Cholesterol Total 181 125 - 200 mg/dL [...] target. REPORT COMMENT: FASTING Test Performed at: [facility] [address] [place] [address] JANE DE LEON DO,MPH Blood specimen (specimen) BLOOD SPECIMEN / Unknown 03/25/2014 9:50 AM LABORATORY CHEMIST 03/25/2014 9:52 AM LABORATORY CHEMIST us Alexander Ayala MD LAB - CHEMISTRY ORDERABLES Fin al Result [facility]) [id number] from Last 3 Months or Most Recently Relevant to Health Maintenance Insurance MEDICARE MEDICAID - OUT OF STATE Care Teams At Risk Specialist Relationship Specialty Start Date End Date Unknown, Provider PCP - General 10/30/17 Benjy Perez MD Nephrology 10/30/17
--- OUTSIDE RECORDS SUMMARY | 2025-01-03 12:20 | XMS_ITS | Encounter Summary ---
Author Organization [facility] Facility Care Team Providers Care Unified Communications Engineer Name Role Phone Angelita Blanco MD Primary Care Provider [phone] Samantha Lyons RN Unavailable +[phone] Nimisha Bradford RN Unavailable +[phone] eBnjy Perez MD Unavailable +[phone] Benjy Perez MD Primary Care Provider +[phone] Angelita Blanco MD Primary Care Provider +[phone] Johnny Goldberg MD Primary Care Provider [phone] Angelita Blanco MD Primary Care Provider +[phone] Rosey Reyes MD Primary Care Provider +[phone] Benjy Perez MD Primary Care Provider +[phone] Benjy Perez MD Primary Care Provider +[phone] Rosey Reyes MD Primary Care Provider +[phone] Vivienne Morataya MD Primary Care Provider [phone] Vivienne Morataya MD Primary Care Provider +[phone] Benjy Perez MD Primary Care Provider +[phone] Rosey Reyes MD Primary Care Provider +[phone] Benjy Perez MD Primary Care Provider +[phone] Arley Rousseau MD Primary Care Provider +[phone] Benjy Perez MD Primary Care Provider +[phone] Arley Rousseau MD Primary Care Provider +[phone] Benjy Perez MD Primary Care Provider +[phone] Arley Rousseau MD Primary Care Provider + Yajaira Ritter RN Unavailable +[phone] Kai Callejas MD Unavailable + [facility] RN Unavailable Unavaila ble Encounter Details Date Type Department Care Team (Latest Contact Info) Description 05/15/2018 Orders Only [facility] CLINCONV Provider, MD Eileen [address] [place] [address] Social History Tobacco Use Types Packs/Day Years Used Date Smoking Tobacco: Never Comments Unknown Sex and Gender Information Value Date Recorded Sex Assigned at Not on file Legal Sex Female 7:39 AM OFFICE SUPPORT Gender Identity Female 05/15/2018 8:32 AM OFFICE SUPPORT Sexual Orientation Not on file documented as of this encounter Plan of Treatment Not on file documented as of this encounter Procedures Procedure Name Priority Date/Time Associated Diagnosis Comments SCAN - LABS 05/15/2018 12:00 AM OFFICE SUPPORT documented in this encounter Results * SCAN - LABS (05/15/2018 12:00 AM OFFICE SUPPORT) Narrative 05/15/2018 12:00 AM OFFICE SUPPORT Ordered by an unspecified provider. Historical Provider Final Res ult documented in this encounter Visit Diagnoses Not on filedocumented in this encounter Additional Health Concerns Infection Onset Date Last Indicated Resolved Time COVID: Suspected 03/12/2023 03/12/2023 03/12/2023 3:55 PM OFFICE SUPPORT COVID: Suspected 05/21/2024 05/21/2024 05/21/2024 7:13 AM OFFICE SUPPORT documented as of this encounter Care Teams Unified Communications Engineer Relationship Specialty Start Date End Date Angelita Blanco MD [address] [facility] [address] [place] [address] PCP - General 08/18/16 05/25/18 Benjy Perez MD [address] [place] [address] PCP - General 05/26/18 05/29/18 Angelita Blanco MD [address] [facility] [address] [place] [address] PCP - General 05/30/18 09/11/18 Johnny Goldberg MD [address] [facility] 200 [place] [address] PCP - General 09/12/18 09/25/18 Angelita Blanco MD [address] [facility] [address] [place] [address] PCP - General 09/26/18 11/14/18 Rosey Reyes MD [address] [facility] 200 [place] [address] PCP - General 11/15/18 01/11/19 Benjy Perez MD [address] [place] [address] PCP - General 02/08/19 02/08/19 Benjy Perez MD [address] [place] [address] PCP - General 01/12/19 02/07/19 Rosey Reyes MD [address] [facility] 200 [place] [address] PCP - General 06/20/19 09/30/19 Vivienne Morataya MD [address] [facility] [address] [facility] [place] [address] PCP - General 10/01/19 10/11/19 Vivienne Morataya MD [address] [facility] [address] [facility]26 [place] [address] PCP - General 02/09/19 06/19/19 Benjy Perez MD [address] [place] [address] PCP - General 10/12/19 06/25/20 Rosey Reyes MD [address] [facility] [address] [place] [address] PCP - General 06/26/20 08/19/20 Benjy Perez MD [address] [place] [address] PCP - General 08/20/20 08/25/20 Arley Rousseau MD [address] [facility] 200 [place] [address] PCP - General Sports Medicine 08/26/20 08/28/20 Benjy Perez MD [address] [place] [address] PCP - General 08/29/20 04/27/21 Arley Rousseau MD [address] [address] PCP - General Sports Medicine 04/28/21 08/25/21 Benjy Perez MD [address] [facility] 200 [place] [address] PCP - General Nephrology 08/26/21 03/16/22 Arley Rousseau MD [address] [place] [address] PCP - General Sports Medicine 03/17/22 Samantha Lyons RN [address] [address] [place] 09/27/17 Nimisha Bradford RN [address] [address] [place] And Tier 10/03/17 Benjy Perez MD [address] [address] Referring Physician Nephrology 05/15/18 Yajaira Ritter, RN [address]90 [place] [address] Nurse Navigator 04/27/22 06/03/22 Kai Callejas MD [address] [facility] [address] [facility] [address] [place] [address] Surgeon Vascular Surgery 11/06/24 [facility], radiophone operatorLacer And Tier 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
--- OUTSIDE RECORDS SUMMARY | 2025-01-03 12:20 | XMS_ITS | Encounter Summary ---
Author Organization [facility] Facility Care Team Providers Care Client Technical Support Associate Name Role Phone Angelita Blanco MD Primary Care Provider [phone] Samantha Lyons RN Unavailable [phone] Nimisha Bradford RN Unavailable +[phone] Benjy Perez MD Unavailable +[phone] Benjy Perez MD Primary Care Provider +[phone] Angelita Blanco MD Primary Care Provider +[phone] Johnny Goldberg MD Primary Care Provider [phone] Angelita Blanco MD Primary Care Provider +[phone] Rosey Reyes MD Primary Care Provider +[phone] Benjy Perez MD Primary Care Provider +[phone] Benjy Perez MD Primary Care Provider +[phone] Rosey Reyes MD Primary Care Provider [phone] Vivienne Morataya MD Primary Care Provider [phone] Vivienne Morataya MD Primary Care Provider [phone] Benjy Perez MD Primary Care Provider +[phone] Rosey Reyes MD Primary Care Provider +[phone] Benjy Perez MD Primary Care Provider [phone] Arley Rousseau MD Primary Care Provider +[phone] Benjy Perez MD Primary Care Provider [phone] Arley Rousseau MD Primary Care Provider +[phone] Benjy Perez MD Primary Care Provider +[phone] Arley Rousseau MD Primary Care Provider + Yajaira Ritter RN Unavailable [phone] Kai Callejas MD Unavailable + [facility] RN Unavailable Unavaila ble Encounter Details Date Type Department Care Team (Latest Contact Info) Description 05/08/2018 Orders Only [facility] CLINCONV Provider, MD Eileen [address] [place] [address] Social History Tobacco Use Types Packs/Day Years Used Date Smoking Tobacco: Never Comments Unknown Sex and Gender Information Value Date Recorded Sex Assigned at Not on file Legal Sex Female 7:39 AM HAIR MACHINE OPERATOR Gender Identity Female 05/15/2018 8:32 AM HAIR MACHINE OPERATOR Sexual Orientation Not on file documented as of this encounter Plan of Treatment Not on file documented as of this encounter Procedures Procedure Name Priority Date/Time Associated Diagnosis Comments SCAN - LABS 05/08/2018 12:00 AM HAIR MACHINE OPERATOR documented in this encounter Results * SCAN - LABS (05/08/2018 12:00 AM HAIR MACHINE OPERATOR) Narrative 05/08/2018 12:00 AM HAIR MACHINE OPERATOR Ordered by an unspecified provider. Historical Provider Final Res ult documented in this encounter Visit Diagnoses Not on filedocumented in this encounter Additional Health Concerns Infection Onset Date Last Indicated Resolved Time COVID: Suspected 03/12/2023 03/12/2023 03/12/2023 3:55 PM HAIR MACHINE OPERATOR COVID: Suspected 05/21/2024 05/21/2024 05/21/2024 7:13 AM HAIR MACHINE OPERATOR documented as of this encounter Care Teams Client Technical Support Associate Relationship Specialty Start Date End Date Angelita Blanco MD [address] [facility] 103 [place] [address] PCP - General 08/18/16 05/25/18 Benjy Perez MD [address] [place] [address] PCP - General 05/26/18 05/29/18 Angelita Blanco MD [address] [facility] 103 [place] [address] PCP - General 05/30/18 09/11/18 Johnny Goldberg MD [address] [facility] 200 [place] [address] PCP - General 09/12/18 09/25/18 Angelita Blanco MD [address] [facility] 103 [place] [address] PCP - General 09/26/18 11/14/18 Rosey Reyes MD [address] [facility] 200 [place] [address] PCP - General 11/15/18 01/11/19 Benjy Perez MD [address] [place] [address] PCP - General 02/08/19 02/08/19 Benjy Perez MD [address] [place] [address] PCP - General 01/12/19 02/07/19 Rosey Reyes MD [address] [facility] 200 [place] [address] PCP - General 06/20/19 09/30/19 Vivienne Morataya MD [address] [facility] [address] [facility] [place] [address] PCP - General 10/01/19 10/11/19 Vivienne Morataya MD [address] [facility] [address] [facility]26 [place] [address] PCP - General 02/09/19 06/19/19 Benjy Perez MD [address] [place] [address] PCP - General 10/12/19 06/25/20 Rosey Reyes MD [address] [facility] [address] [place] [address] PCP - General 06/26/20 08/19/20 Benjy Perez MD [address] [place] [address] PCP - General 08/20/20 08/25/20 Arley Rousseau MD [address] [facility] 200 [place] [address] PCP - General Sports Medicine 08/26/20 08/28/20 Benjy Perez MD [address] [place] [address] PCP - General 08/29/20 04/27/21 Arley Rousseau MD [address] [address] PCP - General Sports Medicine 04/28/21 08/25/21 Benjy Perez MD [address] [facility] 200 [place] [address] PCP - General Nephrology 08/26/21 03/16/22 Arley Rousseau MD [address] [place] [address] PCP - General Sports Medicine 03/17/22 Samantha Lyons RN [address] [address] Digital Computer Operator 09/27/17 Nimisha Bradford RN [address] [address] Digital Computer Operator 10/03/17 Benjy Perez MD [address] [address] Referring Physician Nephrology 05/15/18 Yajaira Ritter, RN [address] [place] [address] Nurse Navigator 04/27/22 06/03/22 Kai Callejas MD [address] [facility] [address] [address] [place] [address] Surgeon Vascular Surgery 11/06/24 [facility], belt press operatorDigital Computer Operator 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
--- OUTSIDE RECORDS SUMMARY | 2025-01-03 12:20 | XMS_ITS | Encounter Summary ---
Author Organization [facility] Facility Care Team Providers Care Printing Technician Name Role Phone Angelita Blanco MD Primary Care Provider [phone] Samantha Lyons RN Unavailable [phone] Nimisha Bradford RN Unavailable [phone] Benjy Perez MD Unavailable +[phone] Benjy Perez MD Primary Care Provider +[phone] Angelita Blanco MD Primary Care Provider +[phone] Johnny Goldberg MD Primary Care Provider [phone] Angelita Blanco MD Primary Care Provider +[phone] Rosey Reyes MD Primary Care Provider +[phone] Benjy Perez MD Primary Care Provider +[phone] Benjy Perez MD Primary Care Provider +[phone] Rosey Reyes MD Primary Care Provider +[phone] Vivienne Morataya MD Primary Care Provider [phone] Vivienne Morataya MD Primary Care Provider +[phone] Benjy Perez MD Primary Care Provider +[phone] Rosey Reyes MD Primary Care Provider +[phone] Benjy Perez MD Primary Care Provider +[phone] Arley Rousseau MD Primary Care Provider +[phone] Benjy Perez MD Primary Care Provider [phone] Arley Rousseau MD Primary Care Provider +[phone] Benjy Perez MD Primary Care Provider +[phone] Arley Rousseau MD Primary Care Provider + Yajaira Ritter RN Unavailable +[phone] Kai Callejas MD Unavailable + [facility] RN Unavailable Unavaila ble Encounter Details Date Type Department Care Team (Latest Contact Info) Description 03/08/2017 Orders Only [facility] CLINCONV Provider, MD Eileen [address] [place] [address] Social History Tobacco Use Types Packs/Day Years Used Date Smoking Tobacco: Never Comments Unknown Sex and Gender Information Value Date Recorded Sex Assigned at Not on file Legal Sex Female 7:39 AM LAND ACQUISITION SPECIALIST Gender Identity Female 05/15/2018 8:32 AM LAND ACQUISITION SPECIALIST Sexual Orientation Not on file documented as of this encounter Plan of Treatment Not on file documented as of this encounter Procedures Procedure Name Priority Date/Time Associated Diagnosis Comments SCAN - LABS 03/08/2017 12:00 AM LAND ACQUISITION SPECIALIST documented in this encounter Results * SCAN - LABS (03/08/2017 12:00 AM LAND ACQUISITION SPECIALIST) Narrative 03/08/2017 12:00 AM LAND ACQUISITION SPECIALIST Ordered by an unspecified provider. Historical Provider Final Res ult documented in this encounter Visit Diagnoses Not on filedocumented in this encounter Additional Health Concerns Infection Onset Date Last Indicated Resolved Time COVID: Suspected 03/12/2023 03/12/2023 03/12/2023 3:55 PM LAND ACQUISITION SPECIALIST COVID: Suspected 05/21/2024 05/21/2024 05/21/2024 7:13 AM LAND ACQUISITION SPECIALIST documented as of this encounter Care Teams Printing Technician Relationship Specialty Start Date End Date Angelita Blanco MD [address] [facility] 103 [place] [address] PCP - General 08/18/16 05/25/18 Benjy Perez MD [address] [place] [address] PCP - General 05/26/18 05/29/18 Angelita Blanco MD [address] [facility] 103 [place] [address] PCP - General 05/30/18 09/11/18 Johnny Goldberg MD [address] [facility] 200 [place] [address] PCP - General 09/12/18 09/25/18 Angelita Blanco MD [address] [facility] 103 [place] [address] PCP - General 09/26/18 11/14/18 Rosey Reyes MD [address] [facility] 200 [place] [address] PCP - General 11/15/18 01/11/19 Benjy Perez MD [address] [place] [address] PCP - General 02/08/19 02/08/19 Benjy Perez MD [address] [place] [address] PCP - General 01/12/19 02/07/19 Rosey Reyes MD [address] [facility] 200 [place] [address] PCP - General 06/20/19 09/30/19 Vivienne Morataya MD [address] [facility] [address] [facility]26 [place] [address] PCP - General 10/01/19 10/11/19 Vivienne Morataya MD [address] [facility] [address] [facility]26 [place] [address] PCP - General 02/09/19 06/19/19 Benjy Perez MD [address] [place] [address] PCP - General 10/12/19 06/25/20 Rosey Reyes MD [address] [facility] [address] [place] [address] PCP - General 06/26/20 08/19/20 Benjy Perez MD [address] [place] [address] PCP - General 08/20/20 08/25/20 Arley Rousseau MD [address] [facility] 200 [place] [address] PCP - General Sports Medicine 08/26/20 08/28/20 Benjy Perez MD [address] [place] [address] PCP - General 08/29/20 04/27/21 Arley Rousseau MD [address] [address] PCP - General Sports Medicine 04/28/21 08/25/21 Benjy Perez MD 1512 [facility] 200 [place] [address] PCP - General Nephrology 08/26/21 03/16/22 Arley Rousseau MD [address] [place] [address] PCP - General Sports Medicine 03/17/22 Samantha Lyons RN [address] [address] Metal Burnisher 09/27/17 Nimisha Bradford RN [address] [address] Metal Burnisher 10/03/17 Benjy Perez MD [address] [address] Referring Physician Nephrology 05/15/18 Yajaira Ritter, RN [address] [place] [address] Nurse Navigator 04/27/22 06/03/22 Kai Callejas MD [address] [facility] [address] [facility] [address] [place] [address] Surgeon Vascular Surgery 11/06/24 [facility], exterminator termiteMetal Burnisher 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
[2025-01-03 12:48] LABS: Anion Gap 9 mmol/L (4-12); Blood Urea Nitrogen 51 mg/dL (7-17); Carbon Dioxide 24 mmol/L (22-30); Chloride 102 mmol/L (98-107); Potassium 4.3 mmol/L (3.4-5.0); Sodium 135 mmol/L (137-145)
[2025-01-03 12:49] LABS: Alanine Aminotransferase 11 U/L (6-35); Albumin Level 4.0 g/dL (3.5-5.1); Alkaline Phosphatase 95 U/L (38-126); Aspartate Amino Transferase 23 U/L (14-36); Bilirubin,Total 0.5 mg/dL (0.2-1.3); Calcium 9.7 mg/dL (8.4-10.2); Estimated Glomerular Filt Rate 22; Glucose 66 mg/dL (65-110); Total Protein 6.7 g/dL (6.3-8.2)
[2025-01-03 14:48] LABS: Total Protein Urine Random 223 mg/dL; Ur Ttl Prot Creatinine Ratio 7.41 mg/mg (0-0.20)
== END 2025-01-03 11:34 | disposition home or self-care (01) ==
DX: D84.821 Immunodeficiency due to drugs (principal)
CPT/HCPCS: 80053; 82570; 84156

== ENCOUNTER 2025-01-16 12:59 | Outpatient (NON) | payer MEDICARE, SELFPAY ==
--- OUTSIDE RECORDS SUMMARY | 2025-01-16 13:29 | XMS_ITS | Clinical Summary ---
Author Organization [facility] Address [address] [place] [address] Care Team Providers Care Hydroblaster Name Role Phone Unknown, Provider Primary Care Provider Benjy Cerrato MD Unavailable [phone] Source Comments [facility],non-owned Affiliates and Associated Physician Practices is amultiple site organization consisting of ambulatory clinics and hospital sitesin [place] and [place]. This disclosure is being madepursuant to the Care Everywhere program and may not contain all information available regarding this patient. Last updated 18.[facility] Allergies Active Allergy Reactions Criticality Noted Date Comments Penicillins 02/14/2017 Tree Nuts 02/14/2017 Active Problems Problem Noted Date Diagnosed Date Kidney transplant recipient, S/P CL[facility] [id number] on 200908/07/2024 Overview (08/07/2024): ESRD from [facility]. [...] Comments Blood Pressure 164/83 04/30/2016 2:16 PM INDUSTRIAL ELECTRICIAN JOURNEYMAN Pulse 87 04/30/2016 2:51 PM INDUSTRIAL ELECTRICIAN JOURNEYMAN Temperature 36.8 C (98.3 F) 04/30/2016 2:16 PM INDUSTRIAL ELECTRICIAN JOURNEYMAN Respiratory Rate 16 04/30/2016 2:16 PM INDUSTRIAL ELECTRICIAN JOURNEYMAN Oxygen Saturation 97% 04/30/2016 2:51 PM INDUSTRIAL ELECTRICIAN JOURNEYMAN Inhaled Oxygen Concentration - - Weight 116.1 kg (256 lb) 04/30/2016 1:22 PM INDUSTRIAL ELECTRICIAN JOURNEYMAN Height 175.3 cm (5' 9) 03/15/2014 3:30 PM INDUSTRIAL ELECTRICIAN JOURNEYMAN Body Mass Index 37.8 03/15/2014 3:30 PM INDUSTRIAL ELECTRICIAN JOURNEYMAN Plan of Treatment Health Maintenance Due Date [...] Comments LIPID PROFILE Routine 03/25/2014 9:50 AM INDUSTRIAL ELECTRICIAN JOURNEYMAN from Last 3 Months or Most Recently Relevant to Health Maintenance Results * LIPID PROFILE (03/25/2014 9:50 AM INDUSTRIAL ELECTRICIAN JOURNEYMAN) Cholesterol Total 181 125 - 200 mg/dL [...] target. REPORT COMMENT: FASTING Test Performed at: [facility] [id number] [place] [address] JANE DE LEON DO,MPH Blood specimen (specimen) BLOOD SPECIMEN / Unknown 03/25/2014 9:50 AM INDUSTRIAL ELECTRICIAN JOURNEYMAN 03/25/2014 9:52 AM INDUSTRIAL ELECTRICIAN JOURNEYMAN us Alexander Ayala MD LAB - CHEMISTRY ORDERABLES Fin al Result [facility]) [id number] from Last 3 Months or Most Recently Relevant to Health Maintenance Insurance MEDICARE MEDICAID - OUT OF STATE Care Teams Hydroblaster Relationship Specialty Start Date End Date Unknown, Provider PCP - General 10/30/17 Benjy Perez MD Nephrology 10/30/17
[2025-01-16 13:46] LABS: Hematocrit 30.9 % (35.0-42.0); Hemoglobin 10.3 g/dL (11.7-13.8); Immature Granulocyte Percent A 0.4 % (0.0-0.0); Lymphocytes Absolute Auto 1.28 K/mm3 (1.10-4.50); Mean Corpuscular HGB Conc 33.3 g/dL (32-36); Mean Corpuscular Hemoglobin 31.1 pg (27.0-31.0); Mean Corpuscular Volume 93.4 fL (78.0-102.0); Nucleated Red Blood Cells Absolute Auto 0.00 K/mm3 (0.00-0.00); Nucleated Red Blood Cells Perc 0.0 % (0-0.0); Platelet Count Result 183 K/mm3 (150-420); Red Blood Count 3.31 M/mm3 (4.20-5.40); White Blood Count 7.2 K/mm3 (4.8-10.8)
[2025-01-16 13:55] LABS: Albumin Level 3.9 g/dL (3.5-5.1); Anion Gap 12 mmol/L (4-12); Blood Urea Nitrogen 46 mg/dL (7-17); Calcium 10.4 mg/dL (8.4-10.2); Carbon Dioxide 22 mmol/L (22-30); Chloride 103 mmol/L (98-107); Estimated Glomerular Filt Rate 25; Glucose 97 mg/dL (65-110); Osmolality Calculated 295 mOsm/kg (285-295); Potassium 4.5 mmol/L (3.4-5.0); Sodium 137 mmol/L (137-145)
[2025-01-16 13:56] LABS: Total Protein Urine Random 153 mg/dL; Ur Ttl Prot Creatinine Ratio 6.27 mg/mg (0-0.20)
[2025-01-20 13:08] LABS: Tacrolimus (FK506), Blood 3.4 ng/mL (5.0-20.0)
== END 2025-01-16 13:00 | disposition home or self-care (01) ==
DX: D50.9 Iron deficiency anemia, unspecified (principal); T86.12 Kidney transplant failure; E44.0 Moderate protein-calorie malnutrition; G40.209 Localization-related (focal) (partial) symptomatic epilepsy and epileptic syndromes with complex partial seizures, not intractable, without status epilepticus; D69.6 Thrombocytopenia, unspecified; N25.81 Secondary hyperparathyroidism of renal origin; D32.0 Benign neoplasm of cerebral meninges; K59.01 Slow transit constipation; N12 Tubulo-interstitial nephritis, not specified as acute or chronic; N17.9 Acute kidney failure, unspecified
CPT/HCPCS: 36415; 80069; 80197; 82570; 84156; 85025